=== PATIENT | female | born 1950 | race Caucasian/White ===

== ENCOUNTER → 2024-01-14 14:28 | Outpatient (REF) | payer MEDICARE, OTHER, SELFPAY | LOC: DHCBC MAIN 14:28 | PROVIDERS: ATTENDING PHYSICIAN Internal Medicine Cardiovascular Disease; FAMILY PHYSICIAN Family Medicine | DX: I48.91 Unspecified atrial fibrillation (principal); I34.0 Nonrheumatic mitral (valve) insufficiency; I25.5 Ischemic cardiomyopathy; I50.22 Chronic systolic (congestive) heart failure; Z79.01 Long term (current) use of anticoagulants | CPT/HCPCS: 93308 ==

== ENCOUNTER 2024-05-07 13:24 | Emergency (ER) | payer MEDICARE, OTHER, SELFPAY ==
[2024-05-07 13:50] VITALS: BP 115/58
[2024-05-07 14:14] LABS: % Basophils 0.3 % (0-2); % Eosinophils 2.6 % (0-6); % Immature Granulocytes 0.3 % (0-0.5); % Lymphocytes 9.8 % (20.5-51.1); % Monocytes 9.9 % (1.7-9.3); % Neutrophils 77.1 % (42.2-75.2); Absolute Eosinophils 0.2 10^3/uL (0-0.7); Absolute Lymphocytes 0.8 10^3/uL (1.2-3.4); Absolute Monocytes 0.8 10^3/uL (0.1-0.6); Absolute Neutrophils 5.9 10^3/uL (1.4-6.5); Hematocrit 36.2 % (37.0-47.0); Hemoglobin 10.8 g/dL (12.0-16.0); Mean Corp Hgb Conc. 29.8 g/dL (33.0-37.0); Mean Corpuscular Hgb 24.5 pg (27.0-31.0); Mean Corpuscular Volume 82.3 fL (81.0-99.0); Mean Platelet Volume 10.1 fL (7.4-10.4); Nucleated Red Blood Cells % 0 %; Platelet Count 419 10^3/uL (130-400); Red Cell Dist. Width 19.4 % (11.5-14.5); White Blood Cell Count 7.6 10^3/uL (4.8-10.8)
[2024-05-07 14:16] LABS: Urine Albumin 1+ (Neg - Trace); Urine Bilirubin 1+ (Negative); Urine Character Clear (Clear); Urine Color Yellow; Urine Glucose Negative (Negative); Urine Ketone Negative (Negative); Urine Leukocyte Negative (Negative); Urine Nitrite Negative (Negative); Urine Occult Blood 1+ (Negative); Urine Urobilinogen 1+ (Neg - 1+)
[2024-05-07 14:39] VITALS: BMI 27.4
[2024-05-07 14:52] LABS: ALT (SGPT) 17 U/L (0-35); AST (SGOT) 33 U/L (14-36); Albumin 3.7 g/dl (3.5-5.0); Alkaline Phosphatase 172 U/L (38-126); Blood Urea Nitrogen 41 mg/dl (7-17); Calcium 9.5 mg/dl (8.4-10.2); Carbon Dioxide 20 mmol/L (22-30); Chloride 99 mmol/L (98-107); Estimated Creatinine Clearance 26 ml/min; Glucose 120 mg/dl (70-99); Potassium 4.9 mmol/L (3.5-5.1); Sodium 130 mmol/L (135-145); Total Bilirubin 1.7 mg/dl (0.2-1.3); Total Protein 6.3 g/dl (6.3-8.2); eGFR 34.05
[2024-05-07 15:10] LABS: Urine Amorphous Seen; Urine Mucus Moderate; Urine Urothelial Cell 26-30 /LPF (FEW)
[2024-05-07 15:13] LABS: Urine White Cell 0-2 /HPF (0-5)
[2024-05-07] MEDS: NSS 500 IV (16:31)
--- NOTE | 2024-05-07 17:45 | ED.GENMED ---
History of Present Illness
<DO Simran Gonzalez Last Filed: 05/07/24 23:39>
General
Chief Complaint: Back Pain
Time Seen by Provider: 05/07/24 15:26
<Piedad Mann PA-C - Last Filed: 05/08/24 00:27>
General
Source: patient
Exam Limitations: none
Nursing documentation reviewed up to this point in time: agreed with
History of Present Illness
History of Present Illness:
This is a 73 y/o female with a PMH of CKD 3, alcoholic cirrhosis s/p liver transplant, anemia, afib on digoxin, CAD presenting to the emergency apartment today with right back pain that travels into the right hip. Patient states that this started a
week ago. Patient does not recall what she was doing at the time the pain started but denies history of trauma. Patient states that as the week progressed, the pain has gotten worse. The pain is worse with standing or walking around but generally
subsides when she lies down. She has tried lidocaine patches for the pain with no relief. She is limited in the medication she can take due to her liver transplant. Patient denies paresthesias, abdominal pain, pelvic pain, dysuria, hematuria, nausea
or vomiting, fevers or chills, urinary incontinence, saddle paresthesias, chest pain, shortness of breath.
Past History
<DO Simran Gonzalez Last Filed: 05/07/24 23:39>
Past History
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
ED Past Surgical History: Other (Liver transplant)
Social History
Tobacco: Former smoker
Alcohol: Former
Drug: None
Personal:
Living: with family
Review of Systems
<RICH Dominguez Last Filed: 06/21/24 00:27>
Review of Systems
All Other Systems: ROS reviewed and negative except as documented in HPI and ROS
Phy Exam
<Piedad Mann PA-C - Last Filed: 05/08/24 00:27>
Physical Exam
Physical Exam:
General: Patient is well appearing and in no acute distress
Skin: No ecchymosis, signs or trauma, or rashes on the right flank and right hip
Head: Normocephalic, atraumatic
Eyes: Sclera non-icteric, PERRLA, EOMs intact
Cardiac: Regular rate and rhythm, no murmurs
Peripheral Vascular: No lower extremity swelling or edema.
Pulm: Normal respiratory effort
Abdomen: No tenderness to palpation on exam. No tenderness to palpation in the pelvis. No rebound tenderness, no guarding.
Musculoskeletal: Full ROM of bilateral hip joints. No pain with passive range of motion of hips. No palpable deformities. Negative straight leg raise bilaterally.
Neuro: CN II-XII intact, no focal neurologic deficits. 5/5 strength in bilateral upper extremities.
Psychiatric: Appropriate mood and affect
Course
<Harjeet Benítez DO - Last Filed: 05/07/24 23:39>
Orders/Labs/Results
Orders:
Orders
05/07/24 13:57
Complete Blood Count/With Diff Urgent
Comprehensive Metabolic Panel Urgent
05/07/24 14:09
Urinalysis Reflex To Culture Urgent
Date Specimen was Collected: 05/07/24
Time Specimen was Collected: 13:56
Urine Microscopic Reflex Cult Urgent
05/07/24 15:34
CT Abd/pel Without Iv Or Oral Urgent
Comment:
Reason For Exam: right flank pain, microscopic hematuruia
05/07/24 15:37
0.9% Sodium Chloride 500 ml [Nss] 500 ml IV BOLUS
Abnormal Lab Results
05/07/24 05/07/24
13:57 14:09
Hgb 10.8 L g/dL
(12.0-16.0)
Hct 36.2 L %
(37.0-47.0)
MCH 24.5 L pg
(27.0-31.0)
MCHC 29.8 L g/dL
(33.0-37.0)
RDW 19.4 H %
(11.5-14.5)
Plt Count 419 H 10^3/uL
(130-400)
Absolute Lymphs (auto) 0.8 L 10^3/uL
(1.2-3.4)
Absolute Monos (auto) 0.8 H 10^3/uL
(0.1-0.6)
Neutrophils % 77.1 H %
(42.2-75.2)
Lymphocytes % 9.8 L %
(20.5-51.1)
Monocytes % 9.9 H %
(1.7-9.3)
Sodium 130 L mmol/L
(135-145)
Carbon Dioxide 20 L mmol/L
(22-30)
BUN 41 H mg/dl
(7-17)
Creatinine 1.6 H mg/dL
(0.6-1.0)
Glucose 120 H mg/dl
(70-99)
Total Bilirubin 1.7 H mg/dl
(0.2-1.3)
Alkaline Phosphatase 172 H U/L
(38-126)
Ur Occult Blood Reflex 1+ A
(Negative)
Urine Bilirubin 1+ A
(Negative)
Urine RBC 3-6 A /HPF
(0-2)
Urine Albumin (Reflex) 1+ A
(Neg - Trace)
05/07/24 13:57
05/07/24 13:57
Vital Signs
Initial and Last Documented VS:
Initial Vital Signs
Temp Pulse Resp BP Pulse Ox
98.0 F 104 16 115/58 98
05/07/24 13:50 05/07/24 13:50 05/07/24 13:50 05/07/24 13:50 05/07/24 13:50
Last Documented Vital Signs
Temp Pulse Resp BP Pulse Ox
98.0 F 100 18 157/95 97
05/07/24 13:50 05/07/24 18:00 05/07/24 18:00 05/07/24 18:00 05/07/24 18:00
<Piedad Mann PA-C - Last Filed: 05/08/24 00:27>
Orders/Labs/Results
Orders:
Orders
05/07/24 13:57
Complete Blood Count/With Diff Urgent
Comprehensive Metabolic Panel Urgent
05/07/24 14:09
Urinalysis Reflex To Culture Urgent
Date Specimen was Collected: 05/07/24
Time Specimen was Collected: 13:56
Urine Microscopic Reflex Cult Urgent
05/07/24 15:34
CT Abd/pel Without Iv Or Oral Urgent
Comment:
Reason For Exam: right flank pain, microscopic hematuruia
05/07/24 15:37
0.9% Sodium Chloride 500 ml [Nss] 500 ml IV BOLUS
Abnormal Lab Results
05/07/24 05/07/24
13:57 14:09
Hgb 10.8 L g/dL
(12.0-16.0)
Hct 36.2 L %
(37.0-47.0)
MCH 24.5 L pg
(27.0-31.0)
MCHC 29.8 L g/dL
(33.0-37.0)
RDW 19.4 H %
(11.5-14.5)
Plt Count 419 H 10^3/uL
(130-400)
Absolute Lymphs (auto) 0.8 L 10^3/uL
(1.2-3.4)
Absolute Monos (auto) 0.8 H 10^3/uL
(0.1-0.6)
Neutrophils % 77.1 H %
(42.2-75.2)
Lymphocytes % 9.8 L %
(20.5-51.1)
Monocytes % 9.9 H %
(1.7-9.3)
Sodium 130 L mmol/L
(135-145)
Carbon Dioxide 20 L mmol/L
(22-30)
BUN 41 H mg/dl
(7-17)
Creatinine 1.6 H mg/dL
(0.6-1.0)
Glucose 120 H mg/dl
(70-99)
Total Bilirubin 1.7 H mg/dl
(0.2-1.3)
Alkaline Phosphatase 172 H U/L
(38-126)
Ur Occult Blood Reflex 1+ A
(Negative)
Urine Bilirubin 1+ A
(Negative)
Urine RBC 3-6 A /HPF
(0-2)
Urine Albumin (Reflex) 1+ A
(Neg - Trace)
05/07/24 13:57
05/07/24 13:57
Vital Signs
Initial and Last Documented VS:
Initial Vital Signs
Temp Pulse Resp BP Pulse Ox
98.0 F 104 16 115/58 98
05/07/24 13:50 05/07/24 13:50 05/07/24 13:50 05/07/24 13:50 05/07/24 13:50
Last Documented Vital Signs
Temp Pulse Resp BP Pulse Ox
98.0 F 100 18 157/95 97
05/07/24 13:50 05/07/24 18:00 05/07/24 18:00 05/07/24 18:00 05/07/24 18:00
<Piedad Mann PA-C - Last Filed: 05/08/24 00:27>
MDM/Problems Addressed
Differential Diagnosis Includes:
ddx include lumbar musculoskeletal sprain/strain, nephrolithiasis, trochanteric bursitis, osteoarthritis, AAA,
MDM/Problems Addressed:
Right back/hip pain:
This is a 73 y/o female with a PMH of CKD 3, alcoholic cirrhosis s/p liver transplant, anemia, afib on digoxin, CAD presenting to the emergency apartment today with right back pain that travels into the right hip. On exam, she is well appearing,
VSS, afebrile, negative CVA tenderness, negative straight leg raise, no signs of trauma. CBC demonstrates chronic anemia and no leukocytosis. CMP shows increase in BUN:creatinine, but not far off from baseline, does not meet criteria for INDU. 500 IV
fluid bolus was given.
Considering microscopic hematuria, non-traumatic and unilateral nature of pain, CT of the abdomen and pelvis was obtained which was negative for stone but did show small pleural effusion on right side. Patient states that she has had pleural
effusions in the past while in the hospital. Patient not SOB or hypoxic, stressed repeat imagine and outpt reevaluation. Most likely diagnosis at this point trochanteric bursitis vs musculoskeletal sprain vs strain. Patient limited in what she can
take for pain due to liver transplant. Discussed orthopedic follow up. Patient in agreement with plan.
Chronic conditions affecting care:
CKD 3, alcoholic cirrhosis s/p liver transplant, anemia, afib on digoxin, CAD
Acute Exacerbation and/or Progression of Chronic Illness:
CKD 3, alcoholic cirrhosis s/p liver transplant, anemia, afib on digoxin, CAD
<Piedad Mann PA-C - Last Filed: 05/08/24 00:27>
*Pulse Oximetry
Patient hypoxic: no
*Critical Care Note
Total Time (30-74mins, 75-104mins- exclusive of procedures): Not Applicable
Data Reviewed
Review of Other/Old Records Reveals: Records (reviewed most recent hospital discharge summary, reviewed patient's hx of kidney disease and renal artery stenosis )
Source: patient
Prescriptions/Medications Considered But Not Given:
Consideried NSAIDs/steroids however patient is a transplant patient
Further Testing Considered But Not Given:
n/a
<Piedad Mann PA-C - Last Filed: 05/08/24 00:27>
Patient Management
Social determinants of health affecting care: Strong social support
Escalation/DeEscalation of care consider admission/obs:
Admit not indicated. I discussed this case with my attending Dr. Benítez who is in agreement with plan.
ED Attending Note
<Harjeet Benítez DO - Last Filed: 05/07/24 23:39>
ED Attending Note
Patient seen and examined by attending physician: Yes
I performed the substantive portion of visit, reviewed & personally made and approve the management plan that is documented in note by myself or ROSE.: Yes
-
Portions of this chart may have been created with voice recognition software.� Occasional wrong word or��sound alike� substitutions may have occurred due to the inherent limitations of voice recognition software.
Discharge Plan
Departure
Patient Disposition: Home (Routine Discharge)
Date of Disposition: 05/07/24
Time of Disposition: 17:57
Patient with high blood pressure during this ER visit?: No
Condition: Good
Discharge Problem:
Hip pain, right
Instructions: Muscle and bone pain - Discharge instructions, BLOOD PRESSURE
Prescriptions:
No Action
cyclosporine modified [Gengraf] 25 mg Capsule
50 mg PO BID
Patient Comments:
10/30/23-- brand name Gengraf only; filled from pharmacy for 4 caps (100mg) po BID; pt reports she is currently instructed to take 2 caps (50mg) po BID
prednisone 5 mg tablet
5 mg PO DAILY
calcium carbonate-vitamin D3 500 mg-3.125 mcg (125 unit) Tablet
1 tab PO BID
sennosides [senna] 8.6 mg Tablet
8.6 mg PO BIDPRN PRN (Reason: constipation)
mycophenolate mofetil 500 mg Tablet
500 mg PO BID
metoprolol succinate 50 mg Tablet Extended Release 24 Hr
100 mg PO BID Qty: 60 0RF
cyanocobalamin (vitamin B-12) 1,000 mcg Tablet
1,000 mcg PO DAILY Qty: 100 0RF
pantoprazole 40 mg Tablet,Delayed Release (Dr/Ec)
40 mg PO DAILY Qty: 30 0RF
ferrous sulfate [FeroSul] 325 mg (65 mg iron) Tablet
325 mg PO DAILY Qty: 100 0RF
digoxin 125 mcg (0.125 mg) Tablet
125 mcg PO NOON Qty: 30 0RF
lisinopril 2.5 mg Tablet
2.5 mg PO DAILY Qty: 30 0RF
furosemide 40 mg tablet
40 mg PO DAILY Qty: 30 0RF
dabigatran etexilate [Pradaxa] 75 mg capsule
75 mg PO BID Qty: 60 0RF
Referrals:
Danii Barclay MD [Family Provider] -
Dereck Shah MD [Active] - Call in 1-3 days for appt
Activity Restrictions/Additional Instructions:
Please return to the emergency department should you experience fevers or chills, an acute worsening of your pain, dizziness, lightheadedness, chest pain, intractable vomiting, or any other concerning signs or symptoms.
Your CT scan demonstrated a small right sided pleural effusion which you should follow up with your primary care provider for and have repeat imaging, but no evidence of hip fracture, spinal fracture, kidney stone.
Please call the attached number to schedule an appointment for orthopedic follow up.
Interventions
Interventions:
*Risk Screen - Suicide Last Done: 05/07/24 14:39
*General Assessment Last Done: 05/07/24 14:39
*Neglect/Abuse Screening Last Done: 05/07/24 14:39
ED- Fall Risk Assessment Last Done: 05/07/24 14:39
*ED COVID-19 Vaccine History Last Done: 05/07/24 13:50
*Nursing Disposition Last Done: 05/07/24 18:22
ED-Musculoskeletal Assessment Last Done: 05/07/24 14:39
Discharge Date and Time
Discharge Date/Time: 05/07/24 18:22
Print Language: IRISH
[2024-05-07 18:00] VITALS: BP 157/95
== END 2024-05-07 18:22 | disposition home or self-care (01) ==
LOC: EMR 13:24
PROVIDERS: Emergency Medicine; EMERGENCY PHYSICIAN Emergency Medicine; FAMILY PHYSICIAN Family Medicine
DX: M25.551 Pain in right hip (principal); I12.9 Hypertensive chronic kidney disease with stage 1 through stage 4 chronic kidney disease, or unspecified chronic kidney disease; N18.30 Chronic kidney disease, stage 3 unspecified; K70.30 Alcoholic cirrhosis of liver without ascites; Z94.4 Liver transplant status; D64.9 Anemia, unspecified; I48.91 Unspecified atrial fibrillation; I25.10 Atherosclerotic heart disease of native coronary artery without angina pectoris
CPT/HCPCS: 99284; 96360; 74176; 80053; 81003; 81015; 85025

== ENCOUNTER → 2024-05-12 11:56 | Outpatient (REF) | payer MEDICARE, OTHER, SELFPAY ==
--- NOTE | 2024-05-12 14:12 | CARDSERVDEF ---
Echocardiogram with Definity completed after protocol screening completed. Allergies verified.
Patent IV site: Right dorsal venous arch __22G PC___
IV site flushed with 0.9% NaCl pre and post administration.
Diluted bolus method utilized to enhance visualization of ventricular blackmon.
Total volume given: ___3_ mL
Patient tolerated all procedures well without complications.
Heplock D/C ed at 1411, site clear, no redness, no edema. Pressure held for few minutes as pt on anticoagulants. No bleeding, 2x2 applied and taped. Pt offers no complaints.
== END ==
LOC: RCS 11:56
PROVIDERS: ATTENDING PHYSICIAN Internal Medicine Cardiovascular Disease; FAMILY PHYSICIAN Family Medicine
DX: I48.91 Unspecified atrial fibrillation (principal); I25.5 Ischemic cardiomyopathy; I50.22 Chronic systolic (congestive) heart failure; R06.02 Shortness of breath
CPT/HCPCS: 93308; 93321; 93325; Q9957

== ENCOUNTER → 2024-06-01 09:01 | Outpatient (REF) | payer MEDICARE, OTHER, SELFPAY | LOC: HWWDC 09:01 | PROVIDERS: ATTENDING PHYSICIAN Family Medicine | DX: Z12.31 Encounter for screening mammogram for malignant neoplasm of breast (principal) | CPT/HCPCS: 77063; 77067 ==

== ENCOUNTER → 2024-07-21 06:26 | Day surgery (SDC) | payer MEDICARE, OTHER, SELFPAY ==
[2024-07-08 08:47] VITALS: BMI 25.9
[2024-07-21] VITALS (10 sets, daily range): BP systolic 128–157; BP diastolic 81–137
--- NOTE | 2024-07-21 08:52 | W.PN.UPDATE ---
Update Note
Progress Note Update
Patient was evaluated and consented for AFib/Flutter ablation. She has a hx of CAL clot and liver transplant. She has severe systolic dysfunction and was recommended a rhythm control strategy for her AFib/Flutter. She underwent for the GA and ALICE.
ALICE showed residual CAL clot still present after almost a year of anticoagulation with Pradaxa.
She has been compliant with Pradaxa. The CAL clot has much improved but not resolved completely. There is also extremely sluggish flow and spontaneous contrast noted in the CAL.
Discussed her case with GI (Dr. Ge Simmons) and decided to change Pradaxa to Warfarin. Will overlap two days of Pradaxa and warfarin to get INR little therapeutic.
If Patient agrees then can consider ALICE in 3-6 months and proceed with AF ablation.
Given the extent of CAL and spontaneous contrast, she should also consider placing a CAL occluder like Watchman to prevent any further blood clots as with her liver transplant and sluggish flow, she would remain at higher risk for repeat CAL clot.
Consider Watchman once clot is gone.
== END | disposition home or self-care (01) ==
LOC: CATH 06:26
PROVIDERS: ATTENDING PHYSICIAN Internal Medicine Cardiovascular Disease; FAMILY PHYSICIAN Family Medicine; OTHER PHYSICIAN Internal Medicine
DX: I08.1 Rheumatic disorders of both mitral and tricuspid valves (principal); I48.91 Unspecified atrial fibrillation; I25.10 Atherosclerotic heart disease of native coronary artery without angina pectoris; I12.9 Hypertensive chronic kidney disease with stage 1 through stage 4 chronic kidney disease, or unspecified chronic kidney disease; N18.30 Chronic kidney disease, stage 3 unspecified; E78.00 Pure hypercholesterolemia, unspecified; Z87.891 Personal history of nicotine dependence; Z79.01 Long term (current) use of anticoagulants
CPT/HCPCS: 93312; 93320; 93325

== ENCOUNTER → 2024-07-30 14:06 | Outpatient (REF) | payer MEDICARE, OTHER, SELFPAY ==
[2024-07-30 15:04] LABS: INR 5.09
== END ==
LOC: REG 14:06
PROVIDERS: ATTENDING PHYSICIAN Internal Medicine Cardiovascular Disease; FAMILY PHYSICIAN Family Medicine
DX: I48.91 Unspecified atrial fibrillation (principal)
CPT/HCPCS: 36415; 85610

== ENCOUNTER 2024-10-05 13:28 | Inpatient (IN) | payer MEDICARE, OTHER, SELFPAY ==
[2024-10-05] VITALS (11 sets, daily range): BP systolic 91–168; BP diastolic 54–110; BMI 29.7
--- NOTE | 2024-10-05 10:01 | ED.GENMED ---
History of Present Illness
<An Rubio MD, Resident - Last Filed: 10/05/24 12:14>
General
Chief Complaint: Swelling
Source: patient
Exam Limitations: none
Time Seen by Provider: 10/05/24 09:37
History of Present Illness
History of Present Illness:
This is a 74-year-old female patient with PMH of atrial fibrillation on warfarin, HTN, CKD, liver transplant in 2007 and Hx of CVA who presented to the ED with concerns of leg swelling. She stated that 3 days ago she started to notice that both of
her lower extremities had become more red and started to weep clear discharge. Her lower extremities have not worsened in regard to swelling compared to her normal baseline (usually swollen). 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 She denies any fever, chest pain, or abdominal pain. She states that she is very diligent with her medication. She had been on a short course of furosemide outpatient in the past for swelling but
does not take it on a daily basis.
Past History
<An Rubio MD, Resident - Last Filed: 10/05/24 12:14>
Past History
ED Past Medical History: Arrthythmia (Atrial fibrillation), CHF, CVA, GERD, HTN, Hypercholesterolemia, ME and Other (Alcoholic cirrhosis, Kawasaki's, anemia, renal artery stenosis, thrombus in the distal aortic arch,)
ED Past Surgical History: Other (Liver transplant in 2007)
Social History
Tobacco: Former smoker
Alcohol: Former
Drug: None
Personal:
Living: with family
Review of Systems
<An Rubio MD, Resident - Last Filed: 10/05/24 12:14>
Review of Systems
Constitutional: Denies fever or chills
Respiratory: Reports trouble breathing
Cardiac: Denies chest pain
ABD/GI: Reports constipated
: Denies dysuria
Phy Exam
<An Rubio MD, Resident - Last Filed: 10/05/24 12:14>
General Physical Exam
General Presentation: well appearing and no apparent distress
Cardiovascular Exam
Cardiovascular Exam: tachycardia
Heart Sounds: normal
Pulmonary Exam
Pulmonary Exam: lungs clear
Gastrointestinal Exam
Gastrointestinal Exam: non tender, soft and non distended
Musculoskeletal Exam
Musculoskeletal Exam: edema (Bilateral lower extremity edema with weeping clear discharge)
Skin Exam
Skin Exam: warm/dry
Psychiatric Exam
Psychiatric Exam: normal mood/affect
Scores
<An Rubio MD, Resident - Last Filed: 10/05/24 12:14>
Heart Failure Risk
Heart Failure Risk Score: Yes
History of Stroke or TIA: Yes
History of intubation for respiratory distress: No
Heart rate on ED arrival >/= 110: Yes
SaO2 <90% on arrival on room air: No
HR >/=110 during 3min walk test (or too ill to perform test): Yes
ECG has acute ischemic changes: No
Urea >/=12mmol/L (BUN 33.6mg/dL): No
Serum CO2>/=35mmol/L: No
Troponin I or T elevated to ME Level (0.4mg/dL): Yes
NT-proBNP >/=5,000ng/L (5,000pg/ml): Yes
HF Risk Score: 6
Admission Status: VERY HIGH RISK 55.3% Consider admission to hospital
<Keaton Sexton, DO - Last Filed: 10/05/24 12:17>
Heart Failure Risk
HF Risk Score: 6
Admission Status: VERY HIGH RISK 55.3% Consider admission to hospital
Course
<An Rubio, MD, Resident - Last Filed: 10/05/24 12:14>
Orders/Labs/Results
Orders:
Orders
10/05/24 09:25
ECG [Electrocardiogram (*1)] Urgent
Reason for Study: Palpitations
EKG- Treatment ONCE
10/05/24 09:58
Metoprolol [Lopressor] 5 mg IV NOW STA
10/05/24 09:59
CR Chest - 2 Views Urgent
Comment:
Reason For Exam: SOB, weight gain
10/05/24 10:09
Complete Blood Count/With Diff Urgent
Prothrombin Time Urgent
10/05/24 11:17
Comprehensive Metabolic Panel Urgent
NT-proBNP Urgent
Troponin I Urgent
10/05/24 12:00
Aspirin Chewable [Low Strength Aspirin] 324 mg PO NOW STA
Furosemide [Lasix] 40 mg IV NOW STA
Metoprolol [Lopressor] 5 mg IV NOW STA
Abnormal Lab Results
10/05/24 10/05/24
10:09 11:17
Hct 47.5 H %
(37.0-47.0)
MCHC 29.5 L g/dL
(33.0-37.0)
RDW 18.3 H %
(11.5-14.5)
MPV 11.2 H fL
(7.4-10.4)
Absolute Monos (auto) 0.8 H 10^3/uL
(0.1-0.6)
Lymphocytes % 15.8 L %
(20.5-51.1)
PT 20.7 H Sec
(11.4-14.6)
Potassium 5.3 H mmol/L
(3.5-5.1)
Chloride 112 H mmol/L
(98-107)
Carbon Dioxide 19 L mmol/L
(22-30)
BUN 58 H mg/dl
(7-17)
Creatinine 1.8 H mg/dL
(0.6-1.0)
Glucose 119 H mg/dl
(70-99)
Total Bilirubin 1.8 H mg/dl
(0.2-1.3)
AST 39 H U/L
(14-36)
Alkaline Phosphatase 181 H U/L
(38-126)
Troponin I 0.041 H* ng/ml
10/05/24 10:09
10/05/24 11:17
Vital Signs
Initial and Last Documented VS:
Initial Vital Signs
Temp Pulse Resp BP Pulse Ox
97.6 F 130 16 168/110 99
10/05/24 09:26 10/05/24 09:26 10/05/24 09:26 10/05/24 09:26 10/05/24 09:26
Last Documented Vital Signs
Temp Pulse Resp BP Pulse Ox
97.6 F 109 24 138/91 95
10/05/24 09:26 10/05/24 12:05 10/05/24 11:30 10/05/24 12:05 10/05/24 11:30
<Keaton Sexotn, DO - Last Filed: 10/05/24 12:17>
Orders/Labs/Results
Orders:
Orders
10/05/24 09:25
ECG [Electrocardiogram (*1)] Urgent
Reason for Study: Palpitations
EKG- Treatment ONCE
10/05/24 09:58
Metoprolol [Lopressor] 5 mg IV NOW STA
10/05/24 09:59
CR Chest - 2 Views Urgent
Comment:
Reason For Exam: SOB, weight gain
10/05/24 10:09
Complete Blood Count/With Diff Urgent
Prothrombin Time Urgent
10/05/24 11:17
Comprehensive Metabolic Panel Urgent
NT-proBNP Urgent
Troponin I Urgent
10/05/24 12:00
Aspirin Chewable [Low Strength Aspirin] 324 mg PO NOW STA
Furosemide [Lasix] 40 mg IV NOW STA
Metoprolol [Lopressor] 5 mg IV NOW STA
Abnormal Lab Results
10/05/24 10/05/24
10:09 11:17
Hct 47.5 H %
(37.0-47.0)
MCHC 29.5 L g/dL
(33.0-37.0)
RDW 18.3 H %
(11.5-14.5)
MPV 11.2 H fL
(7.4-10.4)
Absolute Monos (auto) 0.8 H 10^3/uL
(0.1-0.6)
Lymphocytes % 15.8 L %
(20.5-51.1)
PT 20.7 H Sec
(11.4-14.6)
Potassium 5.3 H mmol/L
(3.5-5.1)
Chloride 112 H mmol/L
(98-107)
Carbon Dioxide 19 L mmol/L
(22-30)
BUN 58 H mg/dl
(7-17)
Creatinine 1.8 H mg/dL
(0.6-1.0)
Glucose 119 H mg/dl
(70-99)
Total Bilirubin 1.8 H mg/dl
(0.2-1.3)
AST 39 H U/L
(14-36)
Alkaline Phosphatase 181 H U/L
(38-126)
Troponin I 0.041 H* ng/ml
10/05/24 10:09
10/05/24 11:17
Vital Signs
Initial and Last Documented VS:
Initial Vital Signs
Temp Pulse Resp BP Pulse Ox
97.6 F 130 16 168/110 99
10/05/24 09:26 10/05/24 09:26 10/05/24 09:26 10/05/24 09:26 10/05/24 09:26
Last Documented Vital Signs
Temp Pulse Resp BP Pulse Ox
97.6 F 109 24 138/91 95
10/05/24 09:26 10/05/24 12:05 10/05/24 11:30 10/05/24 12:05 10/05/24 11:30
<An Rubio MD, Resident - Last Filed: 10/05/24 12:14>
*Critical Care Note
Total Time (30-74mins, 75-104mins- exclusive of procedures): 31
<Keaton Sexton DO - Last Filed: 10/05/24 12:17>
*Critical Care Note
comment:
The high probability of a clinically significant, sudden or life threatening deterioration of the cardiopulmonary system(s) required my full and direct attention, intervention and personal management. The aggregate critical care time was 31 minutes.
This time is in addition to time spent performing reported procedures but includes the following:
[x] Data Review and interpretation
[x] Patient assessment and monitoring of vital signs
[x] Documentation
[x] Medication orders and management
<An Rubio MD, Resident - Last Filed: 10/05/24 12:14>
Update Note
Update Note:
CBC without significant findings. CMP shows hyperkalemia at 5.3. Chest x-ray shows right-sided pleural effusion. Patient had similar findings last year in 2022 and had underwent thoracocentesis. CMP with creatinine of 1.8, troponin elevated at
0.041. Given IV Lasix, IV Metoprolol and aspirin. Will admit patient due to recurrent pleural effusion.
<Keaton Sexton DO - Last Filed: 10/05/24 12:17>
Update Note
Update Note:
CBC without significant findings. CMP shows hyperkalemia at 5.3. Chest x-ray shows right-sided pleural effusion. Patient had similar findings last year in 2022 and had underwent thoracocentesis. CMP with creatinine of 1.8, troponin elevated at
0.041. Given IV Lasix, IV Metoprolol and aspirin. Will admit patient due to recurrent pleural effusion.
12:15 PM patient requiring multiple doses of IV metoprolol to help rate control. Patient found to have an elevated troponin which is likely rate related. Regardless, INR is subtherapeutic so will give aspirin. Patient has a large right pleural
effusion which has required drainage in the past. Will give IV Lasix. Given her comorbidities and uncontrolled heart rate with evidence of acute heart failure, will admit
ED Attending Note
<An Rubio MD, Resident - Last Filed: 10/05/24 12:14>
-
Portions of this chart may have been created with voice recognition software.� Occasional wrong word or��sound alike� substitutions may have occurred due to the inherent limitations of voice recognition software.
<Keaton Sexton, DO - Last Filed: 10/05/24 12:17>
ED Attending Note
Patient seen and examined by attending physician: Yes
I performed a history and physical exam of patient and discussed management with resident, I reviewed resident's note and agree with documented findings and plan of care.: Yes
ED Attending Note:
I have seen and evaluated the patient with a [id number] encounter. I have spoken to the advance practicer provider and involved in the medical history, the physical exam, medical decision making.
Evaluation and management service: agree unless noted differently below.
Results interpretation: agree unless noted differently below.
Focused HPI: 74-year-old female presenting for evaluation of palpitations and bilateral lower extremity swelling. She states she does have a history of chronic A-fib. Patient is on Coumadin and claims compliance. I questioned her use of Lasix.
Patient states she was placed on a short course of Lasix last time she was admitted but never prescribed it.
Physical exam: Sitting in bed comfortably. Tachycardic and irregular. Bilateral lower extremities with skin changes consistent with venous stasis. Pulses intact
Medical Decision Making: Will give metoprolol to help rate control her chronic A-fib. Will obtain chest x-ray looking for any evidence of pulmonary edema.
Discharge Plan
Departure
Patient Disposition: Admit
Date of Disposition: 10/05/24
Time of Disposition: 12:07
Admit to: Telemetry
Presentation/result/management discussed w/ accepting MD/DO: Hospitalist
Discharge Problem:
Recurrent pleural effusion, Acute hyperkalemia, Persistent atrial fibrillation, Stage 3a chronic kidney disease (CKD), Essential (primary) hypertension, Hypercholesterolemia
Prescriptions:
No Action
cyclosporine modified [Gengraf] 25 mg Capsule
50 mg PO DAILY
Patient Comments:
10/05/24: brand name Gengraf only
Rx Instructions:
10/05/24: brand name Gengraf only
prednisone 5 mg tablet
5 mg PO DAILY
valsartan 80 mg Tablet
80 mg PO DAILY
cyclosporine modified 25 mg capsule
25 mg PO QPM
Patient Comments:
10/05/24: brand name Gengraf only
Rx Instructions:
10/05/24: brand name Gengraf only
mycophenolate mofetil 250 mg capsule
250 mg PO BID
metoprolol succinate 100 mg tablet extended release 24 hr
100 mg PO BID
warfarin [Jantoven] 2.5 mg tablet
2.5 mg PO MO
warfarin [Jantoven] 2.5 mg tablet
1.25 mg PO SUTUWETHFRSA
mycophenolate mofetil 500 mg tablet
500 mg PO BID
Patient Comments:
take w/250mg = 750mg dose
calcium carbonate [Calcium 500] 500 mg calcium (1,250 mg) Tablet
500 mg PO BID
furosemide 40 mg tablet
40 mg PO DAILY PRN (Reason: weight gain >3lb per day)
cyanocobalamin (vitamin B-12) 1,000 mcg tablet
1,000 mcg PO Q48H
pantoprazole 40 mg tablet,delayed release (DR/EC)
40 mg PO DAILY
ferrous sulfate [FeroSul] 325 mg (65 mg iron) tablet
325 mg PO DAILY
digoxin 125 mcg (0.125 mg) tablet
125 mcg PO DAILY PRN (Reason: for heart rate>130)
Referrals:
Danii Barclay MD [Family Provider] -
Interventions
Interventions:
*Risk Screen - Suicide Last Done: 10/05/24 09:51
*General Assessment Last Done: 10/05/24 09:51
*Neglect/Abuse Screening Last Done: 10/05/24 09:51
ED- Fall Risk Assessment Last Done: 10/05/24 09:51
*ED COVID-19 Vaccine History Last Done: 10/05/24 09:51
ED- Cardiac Assessment Last Done: 10/05/24 10:18
ED- Pulmonary Assessment Last Done: 10/05/24 10:18
ED-Skin Assessment Last Done: 10/05/24 10:18
Discharge Date and Time
Print Language: PERSIAN
[2024-10-05] MEDS: LOPRESSOR 5 MG IV ×2 (10:13→12:05)
[2024-10-05 10:19] LABS: % Basophils 0.4 % (0-2); % Immature Granulocytes 0.5 % (0-0.5); % Lymphocytes 15.8 % (20.5-51.1); % Monocytes 9.2 % (1.7-9.3); % Neutrophils 71.1 % (42.2-75.2); Absolute Eosinophils 0.3 10^3/uL (0-0.7); Absolute Lymphocytes 1.3 10^3/uL (1.2-3.4); Absolute Monocytes 0.8 10^3/uL (0.1-0.6); Hematocrit 47.5 % (37.0-47.0); Mean Corp Hgb Conc. 29.5 g/dL (33.0-37.0); Mean Corpuscular Volume 91.7 fL (81.0-99.0); Mean Platelet Volume 11.2 fL (7.4-10.4); Nucleated Red Blood Cells % 0 %; Platelet Count 263 10^3/uL (130-400); Red Blood Cell Count 5.18 10^6/uL (4.20-5.40); Red Cell Dist. Width 18.3 % (11.5-14.5); White Blood Cell Count 8.4 10^3/uL (4.8-10.8)
[2024-10-05 10:28] LABS: INR 1.76; PT 20.7 Sec (11.4-14.6)
[2024-10-05 11:42] LABS: ALT (SGPT) 26 U/L (0-35); AST (SGOT) 39 U/L (14-36); Albumin 3.6 g/dl (3.5-5.0); Alkaline Phosphatase 181 U/L (38-126); Blood Urea Nitrogen 58 mg/dl (7-17); Calcium 9.8 mg/dl (8.4-10.2); Carbon Dioxide 19 mmol/L (22-30); Chloride 112 mmol/L (98-107); Estimated Creatinine Clearance 24 ml/min; Glucose 119 mg/dl (70-99); Potassium 5.3 mmol/L (3.5-5.1); Sodium 145 mmol/L (135-145); Total Bilirubin 1.8 mg/dl (0.2-1.3); Total Protein 6.4 g/dl (6.3-8.2); eGFR 29.38
[2024-10-05 11:56] LABS: NT-proBNP > 27000 pg/ml; Troponin I 0.041 ng/ml
[2024-10-05] MEDS: LOW STRENGTH ASPIRIN 324 MG PO (12:05)
[2024-10-05] MEDS: LASIX 40 MG IV ×2 (12:05→16:27)
--- NOTE | 2024-10-05 12:29 | HPS.HSE ---
Family Physician
-
Family Physician: Danii Barclay
Chief Complaint
-
Lower Extremity Edema
History of Present Illness
Patient is a 74 y/o female past medical history of cardiomyopathy with EF 20-25%, valvular heart failure, paroxysmal atrial fibrillation, cirrhosis s/p liver transplant, and chronic kidney disease who presents with increased lower extremity edema
over the past few days. Patient reports with the increased leg edema she has noticed some weeping of the legs. She reports increased dyspnea on exertion and weight gain of 6lbs over the past few days. She also notes a slight chest tightness, but
denies pleuritic pain. She denies fever, sweats or chills.
Medical History
Past Medical History
Past Medical History: Reports Other
Additional Past Medical History:
Chronic HFrEF
Valvular Heart Disease: Moderate/Severe Mitral Regurgitation. Severe Tricuspid Regurgitation
Severe Pulmonary Hypertension
Paroxysmal Atrial Fibrillation
Mural Thrombus Distal Aortic Arch
Left Atrial Appendage Thrombus
Renal Artery Stenosis s/p Bilateral Renal Artery Stenting
Essential Hypertension
Hyperlipidemia
Alcoholic Cirrhosis s/p Liver Transplant
Portal Vein Thrombosis
Right Pleural Effusion
CKD Stage IIIB
GI Bleed
Erythema Nodosum
Past Surgical History: Reports Other
Additional Past Surgical History:
Liver Transplant 2007
Bilateral Renal Artery Stent
Social History
Tobacco: Other (Remote smoking history)
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
Family History
Family History: Not pertinent
Allergies / Home Medications
Allergies reflects when Allergies were last updated in [employer].
Home Medications with original date entered in [employer]
Allergy/Medication List:
Allergies
Allergy/AdvReac Type Severity Reaction Status Date / Time
No Known Allergies Allergy Verified 05/07/24 13:52
Home Medications
cyclosporine modified 25 mg capsule (Gengraf) 50 mg PO DAILY post liver transplant 07/26/22
prednisone 5 mg tablet 5 mg PO DAILY post liver transplant 10/06/23
valsartan 80 mg tablet 80 mg PO DAILY Blood Pressure 07/21/24
calcium carbonate 500 mg PO BID Supplement 10/05/24
cyanocobalamin (vitamin B-12) 1,000 mcg tablet 1,000 mcg PO Q48H Supplement 10/05/24
cyclosporine modified 25 mg capsule 25 mg PO QPM post liver transplant 10/05/24
digoxin 125 mcg (0.125 mg) tablet 125 mcg PO DAILY PRN for heart rate>130 10/05/24
ferrous sulfate 325 mg (65 mg iron) tablet (FeroSul) 325 mg PO DAILY Supplement 10/05/24
furosemide 40 mg tablet 40 mg PO DAILY PRN weight gain >3lb per day 10/05/24
metoprolol succinate 100 mg tablet,extended release 24 hr 100 mg PO BID Heart Disease/Condition 10/05/24
mycophenolate mofetil 250 mg capsule 250 mg PO BID post liver transplant 10/05/24
mycophenolate mofetil 500 mg tablet 500 mg PO BID post liver transplant 10/05/24
pantoprazole 40 mg tablet,delayed release 40 mg PO DAILY Gastrointestinal Issue 10/05/24
warfarin 2.5 mg tablet (Jantoven) 1.25 mg PO SUTUWETHFRSA Blood Clot Prevention/Tx 10/05/24
warfarin 2.5 mg tablet (Jantoven) 2.5 mg PO MO Blood Clot Prevention/Tx 10/05/24
Review of Systems
-
A 12 point ROS was completed and negative except as noted: Yes
Constitutional: Reports Weight Gain; Denies Fever or Chills
Respiratory: Reports Trouble Breathing; Denies Cough
Cardiac: Reports Chest Pain; Denies Palpitations
Abdomen/GI: Denies Abdominal Pain, Nausea or Vomiting
Musculoskeletal: Reports Edema
Physical Exam
Vital Signs
Vital Signs
Temp Pulse Resp BP Pulse Ox
97.6 F 109 24 138/91 95
10/05/24 09:26 10/05/24 12:05 10/05/24 11:30 10/05/24 12:05 10/05/24 11:30
Physical Exam
General: Comfortable and Conversant
HEENT: Anicteric and Moist mucous membranes
Respiratory: Non Labored Respirations and Other (Absent breath sounds right base, Few scattered Rales)
Cardiac: S1/S2, Irregular Rhythm and Tachycardia
GI: Soft and Non Tender
Rectal: Deferred by Provider
Musculoskeletal: No Clubbing, No Cyanosis and Other (+3 pitting edema RLE, +2 pitting LLE)
Skin: Warm and Dry
Neuro: Awake, Alert, Oriented and Nonfocal/grossly intact
Psych: Calm
Laboratory Results
-
10/05/24 10:09
10/05/24 11:17
Laboratory Results
PT 20.7 Sec (11.4-14.6) H 10/05/24 10:09
INR 1.76 10/05/24 10:09
Total Bilirubin 1.8 mg/dl (0.2-1.3) H 10/05/24 11:17
AST 39 U/L (14-36) H 10/05/24 11:17
ALT 26 U/L (0-35) 10/05/24 11:17
Alkaline Phosphatase 181 U/L (38-126) H 10/05/24 11:17
Troponin I 0.041 ng/ml H* 10/05/24 11:17
Chest X-Ray:
Moderate right pleural effusion with associated atelectasis and/or pneumonia.
Echo April 2024:
Severely reduced left ventricular systolic function with EF 20-25%. Moderate/Severe Mitral Regurgitation. Severe Tricuspid Regurgitation. Severe Pulmonary Hypertension
Data Reviewed
-
Diagnostic Radiology: Report Reviewed by me
Lab Data: Labs Reviewed by me
Old Records: Reviewed
Impression/Plan
-
Acute on Chronic HFrEF
-Consult Cardiology
-Continue Lasix 40mg IV BID
-Monitor Is&Os and Daily Weights
-Check Lower Extremity Venous Doppler
Right Pleural Effusion
-Consult IR for diagnostic and therapeutic thoracentesis
Atrial Fibrillation with Rapid Ventricular Response
-Patient did not take her morning med
-Give dose of usual Metoprolol XL 100mg as well as Digoxin which patient takes PRN
-Continue Metoprolol XL 100mg BID
-Consider changing Digoxin from PRN to Standing - Will defer to Cardiology
-Continue Coumadin
Elevated Troponin, suspect Non-Ischemic Myocardial Injury
-Continue to trend Troponin
Mural Thrombus Distal Aortic Arch / Left Atrial Appendage Thrombus / Portal Vein Thrombosis
-INR slightly subtherapeutic - Give 2.5mg Tonight and Recheck INR in AM
CKD Stage IIIB
-Monitor creatinine closely while on diuretics
Essential Hypertension
-Hold Valsartan due to mild hyperkalemia
Alcoholic Cirrhosis s/p Liver Transplant
-Continue Cyclosporine and Mycophenolate
Erythema Nodosum
-Continue Prednisone
Other Noted History:
-Valvular Heart Disease: Moderate/Severe Mitral Regurgitation. Severe Tricuspid Regurgitation
-Severe Pulmonary Hypertension
-Renal Artery Stenosis s/p Bilateral Renal Artery Stenting
DVT proph: Coumadin
Code Status: Full Code
[2024-10-05] MEDS: LANOXIN 125 MCG PO (13:03)
[2024-10-05] MEDS: TOPROL XL 100 MG PO ×2 (13:03→20:46)
--- NOTE | 2024-10-05 13:12 | W.PN.UPDATE ---
Update Note
Progress Note Update
This is an addendum to the H&P written by Liza Yu on 10/05/2024.� Patient seen and examined independently with PA.
84-year-old male past medical history of atrial fibrillation on Coumadin, chronic HFrEF, hypertension, CAD, alcoholic cirrhosis status post liver transplant 2007 on immunosuppressant, history of GI bleeding, history of CVA, GERD,
hypercholesterolemia, chronic kidney disease 3b, renal artery stenosis, left atrial appendage thrombus,�distal aortic arch thrombus, portal vein thrombus�presenting for leg swelling, shortness of breath.�
On examination patient has bilateral lower extremity edema particularly worse on the right side.
EKG shows atrial fibrillation with RVR with heart rate of 126.� Labs show chronic kidney disease with creatinine 1.8, potassium 5.3.� Cardiac BNP greater than 20,000.� Troponin 0.041.� INR 1.7.� Chest x-ray shows moderate right pleural effusion.
Presentation consistent with acute on chronic CHF exacerbation.� IV metoprolol given for heart rate control.� Aspirin given although no evidence of ischemia at this time.� 40 IV Lasix BID.� Cardiology consulted.� IR consulted for thoracentesis.�
Check bilateral venous ultrasound to evaluate for DVT given asymmetrical leg swelling.
Appears that Patient was on Eliquis 2 years and Pradaxa last year switched to Coumadin in July of this year due to persistent left atrial appendage thrombus.��Patient is�being considered�for watchmen procedure by cardiology.��
--- NOTE | 2024-10-05 13:19 | CON.CAR ---
Addendum entered and electronically signed by Drew Van MD 10/05/24 16:33:
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
and right pleural effusion. She ran out of lasix at home. Exam with irregular rhythm, II/ systolic murmur at apex, 1+ LE edema. Cr 1.8.
Acute on chronic systolic HF. Continue lasix 40mg IV bid, with monitoring of labs and tele. She will need daily lasix on d/c.
Persistent A fib. CAL thrombus. INR subtherapeutic. Heparin drip until INR above 2.
Original Note:
Consultation
Consultation Request
Date/Time Consultation Requested: 10/05/2024 13:00
Date/Time Consultation Performed: 10/05/2024 13:20
Requesting Provider: RICH Yu
Performing Provider: THELMA Kelly for Dr. Van
Reason for Consultation: Atrial fibrillation with rapid ventricular response, acute heart failure
Medical History
-
Chief Complaint: Lower extremity edema
History of Present Illness:
Nu Rosales is a 74-year-old female (known to Dr. Jones, her primary commodity merchant), with history of liver transplant 2007 (prior ETOH abuse, sobriety since 2005), hypertension, dyslipidemia, TIA, paroxysmal atrial fibrillation (on warfarin),
chronic systolic heart failure, ICM, mild to moderate MR, mild to moderate TR, CAL thrombus, and PAD with renal artery stenting who is here with a chief complaint of lower extremity edema. She endorses associated shortness of breath. She reports a
weight gain of approximately 10 pounds on her home scale. She knows to take furosemide if she gains 3 pounds overnight or 5 pounds in 5 days. She did not take any furosemide because she ran out. She has no chest pain. Cardiology has been
consulted for heart failure management and assistance with atrial fibrillation.
Past Medical History
Past Medical History: Arrhythmias (Paroxysmal atrial fibrillation [on warfarin]), CAD ([employer]ILDR[employer] SERVICE WORK[employer]), CHF (HFrEF, ICM), GERD, HTN, Hypercholesterolemia, Valvular Disease (Mitral regurgitation, tricuspid regurgitation) and Other (Liver transplant [2007],
PAD, renal artery stenting, TIA)
Past Surgical History: Other (Hernia repair, liver transplant)
Social History
Tobacco: Former Smoker
Alcohol: Former
Drug: None
Living: With Family (Sister)
Employment: Retired
Family History
Family History: Reviewed & Not Pertinent
Allergies / Home Medications
Allergy/AdvReac Type Severity Reaction Status Date / Time
No Known Allergies Allergy Verified 05/07/24 13:52
�Medication �Instructions �Recorded �Confirmed �Type
cyclosporine modified 25 mg 50 mg PO DAILY post liver 07/26/22 10/05/24 History
capsule (Gengraf) transplant
prednisone 5 mg tablet 5 mg PO DAILY post liver transplant 10/06/23 10/05/24 History
valsartan 80 mg tablet 80 mg PO DAILY Blood Pressure 07/21/24 10/05/24 History
calcium carbonate 500 mg PO BID Supplement 10/05/24 10/05/24 History
cyanocobalamin (vitamin B-12) 1,000 mcg PO Q48H Supplement 10/05/24 10/05/24 History
1,000 mcg tablet
cyclosporine modified 25 mg capsule 25 mg PO QPM post liver transplant 10/05/24 10/05/24 History
digoxin 125 mcg (0.125 mg) tablet 125 mcg PO DAILY PRN for heart 10/05/24 10/05/24 History
rate>130
ferrous sulfate 325 mg (65 mg 325 mg PO DAILY Supplement 10/05/24 10/05/24 History
iron) tablet (FeroSul)
furosemide 40 mg tablet 40 mg PO DAILY PRN weight gain 10/05/24 10/05/24 History
>3lb per day
metoprolol succinate 100 mg 100 mg PO BID Heart 10/05/24 10/05/24 History
tablet,extended release 24 hr Disease/Condition
mycophenolate mofetil 250 mg 250 mg PO BID post liver transplant 10/05/24 10/05/24 History
capsule
mycophenolate mofetil 500 mg tablet 500 mg PO BID post liver transplant 10/05/24 10/05/24 History
pantoprazole 40 mg tablet,delayed 40 mg PO DAILY Gastrointestinal 10/05/24 10/05/24 History
release Issue
warfarin 2.5 mg tablet (Jantoven) 1.25 mg PO SUTUWETHFRSA Blood Clot 10/05/24 10/05/24 History
Prevention/Tx
warfarin 2.5 mg tablet (Jantoven) 2.5 mg PO MO Blood Clot 10/05/24 10/05/24 History
Prevention/Tx
Review of Systems
-
History Source: Patient
All other systems: Negative unless noted
Constitutional: Weight Gain
EENT: No Symptoms
Respiratory: Trouble Breathing
Cardiac: No Symptoms
Abdomen/GI: No Symptoms
: No Symptoms
Musculoskeletal: Edema
Skin: No Symptoms
Neurological: No Symptoms
Endocrine: No Symptoms
Hematologic/Lymphatic: No Symptoms
Physical Exam
Vital Signs
Temp Pulse Resp BP Pulse Ox
97.6 F 115 27 134/97 95
10/05/24 09:26 10/05/24 13:03 10/05/24 13:00 10/05/24 13:03 10/05/24 13:00
Lab Results
10/05/24 10:09
10/05/24 11:17
Troponin I 0.041 ng/ml H* 10/05/24 11:17
Elm-P-Ulcwylnyvnd Pept > 71403 pg/ml 10/05/24 11:17
Physical Exam
General: Well Developed, Well Nourished, No Apparent Distress and Comfortable
HEENT: Normocephalic, Anicteric and Moist Mucous Membranes
Respiratory: Crackles and Non Labored Respirations
Cardiac: S1/S2, Irregular Rhythm, Murmur and Peripheral Edema (+2 pitting LE edema)
Breast: Deferred by me
GI: Soft, Non Tender, Non Distended and Normal Bowel Sounds
Rectal: Deferred by Provider
Genito-urinary: No Costovertebral Tender
Musculoskeletal: No Clubbing
Skin: Warm and Dry
Neuro: AO x 3
Psych: Calm
Impression / Plan
-
BACKGROUND: 74F with liver transplant 2007 (prior ETOH abuse), CAD, hypertension, dyslipidemia, TIA, paroxysmal atrial fibrillation (on warfarin), chronic systolic heart failure, ICM, mild to moderate MR, mild to moderate TR, CAL thrombus
(transitioned to warfarin), and PAD with renal artery stenting who is here with a chief complaint of lower extremity edema.
Tmd Teacher: Dr. Jones
IMPRESSION/PLAN:
HFrEF, ICM (LVEF 20-25%) - acute on chronic
-Diuresis with furosemide 40 mg IV twice daily
-She is up at least 7 kg from her dry weight, LVEDP 17 mmHg 59.4 kg at the time of prior cardiac catheterization
-GDMT is limited by renal function
-ACEI/ARB/ARNI: Valsartan 80mg daily
-Beta-thu: Metoprolol succinate 100mg BID
-SGLT2: Farxiga stopped during October admission can consider retrial in the outpatient setting
-MRA: She presented with hyperkalemia
-Diuretic: She will need standing diuretic at discharge
-ICD: Reassess after 3 months of maximally tolerated GDMT (last echo 07/21/2024)
-Trend daily weight, I/O, and BMP with diuresis
-Heart failure education
Pleural effusion, right, moderate
-In the setting of acute heart failure
-Thoracentesis today
Lower extremity edema
-Ultrasound pending, can consider lower extremity compression
Persistent atrial fibrillation with RVR
-The plan was for ablation but CAL thrombus was still present on ALICE prior to procedure
-Rates elevated, she received 5 mg IV push x 2 and 100 mg of metoprolol succinate that she missed this morning
-Oral Anticoagulation: Warfarin, she is subtherapeutic, start heparing gtt given thrombus
-[id number]: score at least 7 (Heart failure, HTN, prior Stroke/TIA, Vascular disease, age 65-74, female gender)
Abnormal troponin, likely nonischemic myocardial injury in the setting of tachyarrhythmia
-Chest pain-free
-Trend to peak
CAL thrombus
-Her Pradaxa was transitioned to warfarin 07/21/2024
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
Coronary artery disease
-Stable without chest pain
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
-NSTEMI 2022 with peak troponin 99
Liver transplant (2007), on immunosuppression, followed by [facility]
Left portal vein thrombosis (09/2023)
CKD, stage III, follow with diuresis
Hypertension, stable
Prior renal artery stenting
Mild to moderate mitral regurgitation
Mild to moderate tricuspid regurgitation
Prior TIA
Prior GIB (gastritis 2022)
SUBJECTIVE:
Weeping bilateral lower extremity edema. She believes she has gained 10 pounds on her home scale.
DATA:
Transesophageal echocardiogram, 07/21/2024:
CONCLUSIONS
Left ventricular ejection fraction is approximately 20-25%. Global hypokinesis.
Normal right ventricular size. Reduced right ventricular systolic function.
Dilated left atrial appendage with residual thrombus present.
Mild to moderate mitral regurgitation.
Mild to moderate tricuspid regurgitation.
Data Reviewed
-
EKG: Report Reviewed by me (Atrial fibrillation with RVR, lateral T wave abnormality, rate 126)
Radiology: Report Reviewed by me (CXR: Moderate right pleural effusion with associated atelectasis and/or pneumonia.)
Medical Tests (Nuc Med, Echo etc): Report Reviewed by me (Echo and cardiac catheterization as above)
Labs: Labs Reviewed by me
Old Records: Reviewed
[2024-10-05 14:44] LABS: APTT 31.5 Sec (23.4-35.0)
[2024-10-05 14:46] LABS: LDH 276 U/L (120-246)
[2024-10-05 15:01] LABS: Troponin I 0.041 ng/ml
[2024-10-05 16:00] LABS: Body Fluid pH 7.38
[2024-10-05 16:15] LABS: Body Fluid Amylase < 30 U/L; Body Fluid Glucose 121 mg/dl; Body Fluid LDH < 90 U/L; Body Fluid Protein < 2.0 g/dl; Body Fluid Triglycerides < 30 mg/dl
[2024-10-05 16:17] LABS: Body Fluid Mononuclear 60 %; Body Fluid Polymorphonuclear 40 %; Body Fluid WBC 50 /CUMM
[2024-10-05] MEDS: HEPARIN 25000 UNITS/250 ML IV (16:28)
[2024-10-05 16:41] LABS: Body Fluid Second Tech EYM
[2024-10-05] MEDS: COUMADIN 2.5 MG PO (16:41)
[2024-10-05] MEDS: NON-FORMULARY ITEM 1 UNIT PO (17:31)
[2024-10-05] MEDS: DESENEX/MITRAZOL/ZEASORB 1 APPLIC TOPICAL (20:47)
[2024-10-05] MEDS: CELLCEPT 750 MG PO (20:47)
[2024-10-05 23:09] LABS: PT 21.9 Sec (11.4-14.6)
[2024-10-05 23:37] LABS: Troponin I 0.043 ng/ml
[2024-10-06 03:00] VITALS: BP 148/79
[2024-10-06 05:53] LABS: INR 2.11; PT 23.8 Sec (11.4-14.6)
[2024-10-06 06:00] VITALS: BMI 27.1
[2024-10-06 06:08] LABS: APTT > 200 Sec (23.4-35.0)
[2024-10-06 06:41] LABS: ALT (SGPT) 25 U/L (0-35); AST (SGOT) 38 U/L (14-36); Albumin 3.1 g/dl (3.5-5.0); Alkaline Phosphatase 176 U/L (38-126); Blood Urea Nitrogen 60 mg/dl (7-17); Calcium 9.2 mg/dl (8.4-10.2); Carbon Dioxide 20 mmol/L (22-30); Chloride 109 mmol/L (98-107); Estimated Creatinine Clearance 24 ml/min; Glucose 92 mg/dl (70-99); HDL Cholesterol 59 mg/dl; LDL Cholesterol, Calculated 95 mg/dl; Magnesium 1.8 mg/dl (1.6-2.3); Potassium 4.4 mmol/L (3.5-5.1); Sodium 142 mmol/L (135-145); Total Bilirubin 1.6 mg/dl (0.2-1.3); Total Cholesterol 171 mg/dl (50-199); Total Protein 5.7 g/dl (6.3-8.2); Triglyceride 85 mg/dl (10-149); Very Low Density Lipoprotein 17 mg/dl (0-30); eGFR 31.47
[2024-10-06 07:10] LABS: TSH Reflex To Free T4 2.13 uIU/ml (0.47-4.68)
[2024-10-06] MEDS: DIOVAN 80 MG PO (07:35)
[2024-10-06] MEDS: CELLCEPT 750 MG PO ×2 (07:36→20:26)
[2024-10-06] MEDS: LASIX 40 MG IV (07:38)
[2024-10-06] MEDS: PROTONIX 40 MG PO (07:38)
[2024-10-06] MEDS: TOPROL XL 100 MG PO ×2 (07:39→20:26)
[2024-10-06] MEDS: NON-FORMULARY ITEM 2 UNIT PO (07:39)
[2024-10-06] MEDS: DELTASONE 5 MG PO (07:40)
[2024-10-06] MEDS: DESENEX/MITRAZOL/ZEASORB 1 APPLIC TOPICAL ×2 (07:43→20:26)
--- NOTE | 2024-10-06 07:59 | W.PN.HOSP.TC ---
Today's Communication/Plan
-
Continue Furosemide
Continue Coumadin
Continue liver transplant medications
Discharge tomorrow if stable and INR is okay
Assessment / Plan
Assessment / Plan
Physical Exam
General: Not in acute distress.
HEENT: Normocephalic. Moist mucous membranes
Respiratory: Rhonchi present bilaterally
Cardiac: S1/S2, Irregular Rhythm
GI: Soft and Non Tender. Positive bowel sounds.
Musculoskeletal: No Cyanosis and Other (+3 pitting edema RLE, +2 pitting LLE)
Skin: Warm and Dry
Neuro: Awake, Alert, Oriented and Nonfocal/grossly intact
Psych: Calm
Assessment/Plan
84-year-old male past medical history of atrial fibrillation on Coumadin, chronic HFrEF, hypertension, CAD, alcoholic cirrhosis status post liver transplant 2007 on immunosuppressant, history of GI bleeding, history of CVA, GERD,
hypercholesterolemia, chronic kidney disease 3b, renal artery stenosis, left atrial appendage thrombus, distal aortic arch thrombus, portal vein thrombus presented for leg swelling and shortness of breath.
On examination at the time of admission patient had bilateral lower extremity edema particularly worse on the right side. Patient had run out of Lasix at home.
EKG showed atrial fibrillation with RVR with heart rate of 126. Labs show chronic kidney disease with creatinine 1.8, potassium 5.3. Cardiac BNP greater than 20,000. Troponin 0.041. INR 1.7. Chest x-ray showed moderate right pleural effusion.
Presentation on admission was consistent with acute on chronic CHF exacerbation. IV metoprolol was given for heart rate control. Aspirin given although no evidence of ischemia at the time. 40 mg IV Lasix BID. Cardiology consulted. IR consulted
for thoracentesis. Checked bilateral venous ultrasound to evaluate for DVT given asymmetrical leg swelling.
Appears that Patient was on Eliquis 2 years and Pradaxa last year switched to Coumadin in July of this year due to persistent left atrial appendage thrombus. Patient is being considered for watchmen procedure by cardiology.
Acute on Chronic HFrEF
ICM EF 20-25%
Weight Gain
-Patient ran out of Lasix at home
-Consult Cardiology, appreciate evaluation and recommendations
-Was on Lasix 40mg IV BID --> now transitioned to Lasix 40 mg PO daily
-Continue Valsartan and Metoprolol Succinate
-Monitor Is&Os and Daily Weights
-Farxiga and ICD consideration as per cardiology
Right Pleural Effusion
-Consult IR for diagnostic and therapeutic thoracentesis: 1650 cc of clear yellow pleural fluid drained on 10/06/24
-Fluid appears to be transudative
-Follow-up on cytology results
-Follow-up with pulmonary outpatient
Lower Extremity Edema
-Ultrasound with no evidence of deep venous thrombosis
Subtherapeutic INR - RESOLVED
-Heparin drip was given, now discontinued given INR is above 2
-Continue Coumadin
Atrial Fibrillation with Rapid Ventricular Response
Paroxysmal Atrial Fibrillation
-Patient did not take her morning med
-Give dose of usual Metoprolol XL 100mg as well as Digoxin which patient takes PRN
-Continue Metoprolol XL 100mg BID
-Consider changing Digoxin from PRN to Standing - Will defer to Cardiology
-Continue Coumadin
Elevated Troponin, suspect Non-Ischemic Myocardial Injury
-Troponins noted
Mural Thrombus Distal Aortic Arch / Left Atrial Appendage Thrombus (now on warfarin; CAL persisted on eliquis, pradaxa) / Portal Vein Thrombosis
-Continue Coumadin, monitor INR
-Her Pradaxa was transitioned to warfarin 07/21/2024
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
Coronary Artery Disease
-Continue medical management
CKD Stage IIIB
-Monitor creatinine closely while on diuretics
Essential Hypertension
-Continue Valsartan
Alcoholic Cirrhosis s/p Liver Transplant
Liver transplant (2007), on immunosuppression, followed by [facility]
-Continue Cyclosporine and Mycophenolate
Erythema Nodosum
-Continue Prednisone
Other Noted History:
-Valvular Heart Disease: Moderate/Severe Mitral Regurgitation. Severe Tricuspid Regurgitation
-Severe Pulmonary Hypertension
-Renal Artery Stenosis s/p Bilateral Renal Artery Stenting
-History of Left portal vein thrombosis (09/2023)
-Prior renal artery stenting
-Mild to moderate mitral regurgitation
-Mild to moderate tricuspid regurgitation
-History of TIA
-History of GIB (2022)
DVT Prophylaxis: Coumadin
Code Status: Full Code
Anticipated Discharge: Within 24 hours
Subjective/Interval History
-
Date of Service: October 06, 2024
Patient was seen and examined. She denied any chest pain or shortness of breath.
Objective Data
-
Labs:
Laboratory Results
10/05/24 10/06/24
22:44 05:32
PT 21.9 H 23.8 H
INR 1.90 2.11
APTT > 200 H*
Sodium 142
Potassium 4.4
Chloride 109 H
Carbon Dioxide 20 L
BUN 60 H
Creatinine 1.7 H
Glucose 92
Calcium 9.2
Total Bilirubin 1.6 H
AST 38 H
ALT 25
Alkaline Phosphatase 176 H
Vital Signs:
Vital Signs
Temp Pulse Resp BP Pulse Ox
99 F 81 18 159/79 98
10/06/24 03:00 10/06/24 07:35 10/06/24 03:00 10/06/24 07:35 10/06/24 03:00
I&O
10/05/24 10/06/24 10/07/24
06:59 06:59 06:59
Intake Total 720 / 720
Output Total 2150 / 2150
Balance -1430 / -1430
[2024-10-06 08:15] VITALS: BP 155/79
--- NOTE | 2024-10-06 08:52 | W.PN.CD ---
Today's Communication / Plan
-
-Volume status significantly improved from 69 kg on admission to 63 kg yesterday.
-Can transition from Lasix 40 mg IV twice daily to Lasix 40 mg PO daily, which should be her home dose.
-Continue Toprol-XL 100 mg twice daily.
-INR now therapeutic (goal 2.0-3.0); heparin drip discontinued.
-No further cardiac recommendations at this time; outpatient follow-up with Cardiology.
Impression / Plan
-
BACKGROUND: 74F with liver transplant 2007 (prior ETOH abuse), CAD, hypertension, dyslipidemia, TIA, paroxysmal atrial fibrillation (on warfarin), chronic systolic heart failure, ICM, mild to moderate MR, mild to moderate TR, CAL thrombus
(transitioned to warfarin), and PAD with renal artery stenting who is here with a chief complaint of lower extremity edema.
Drying And Winding Supervisor: Dr. Jones
IMPRESSION/PLAN:
HFrEF, ICM (LVEF 20-25%) - acute on chronic
-Volume status significantly improved from 69 kg on admission to 63 kg yesterday.
-Can transition from Lasix 40 mg IV twice daily to Lasix 40 mg PO daily, which should be her home dose.
-Her dry weight, LVEDP 17 mmHg 59.4 kg at the time of prior cardiac catheterization
-GDMT is limited by renal function
-ACEI/ARB/ARNI: Valsartan 80mg daily
-Beta-thu: Metoprolol succinate 100mg BID
-SGLT2: Farxiga stopped during October admission can consider retrial in the outpatient setting
-MRA: She presented with hyperkalemia
-Diuretic: She will need standing diuretic at discharge
-ICD: Reassess after 3 months of maximally tolerated GDMT (last echo 07/21/2024)
Pleural effusion, right, moderate
-Improved status-post thoracentesis.
Persistent atrial fibrillation with RVR
-The plan was for ablation but CAL thrombus was still present on ALICE prior to procedure
-Continue Toprol-XL 100 mg twice daily.
-INR now therapeutic (goal 2.0-3.0); heparin drip discontinued.
-[id number]: score at least 7 (Heart failure, HTN, prior Stroke/TIA, Vascular disease, age 65-74, female gender)
Abnormal troponin - likely acute nonischemic myocardial injury in the setting of tachyarrhythmia, CHF, and CKD.
CAL thrombus
-Her Pradaxa was transitioned to warfarin 07/21/2024
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
Coronary artery disease
-Stable without chest pain
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
-NSTEMI 2022 with peak troponin 99
Liver transplant (2007), on immunosuppression, followed by [facility]
Left portal vein thrombosis (09/2023)
CKD, stage III, follow with diuresis
Hypertension, stable
Prior renal artery stenting
Mild to moderate mitral regurgitation
Mild to moderate tricuspid regurgitation
Prior TIA
Prior GIB (2022)
SUBJECTIVE:
No major events overnight. No cardiac complaints this a.m.
DATA:
Transesophageal echocardiogram, 07/21/2024:
CONCLUSIONS
Left ventricular ejection fraction is approximately 20-25%. Global hypokinesis.
Normal right ventricular size. Reduced right ventricular systolic function.
Dilated left atrial appendage with residual thrombus present.
Mild to moderate mitral regurgitation.
Mild to moderate tricuspid regurgitation.
Physical Exam
Vital Signs/Labs
Vital Signs
Temp Pulse Resp BP Pulse Ox
98.0 F 81 18 155/79 99
10/06/24 08:15 10/06/24 08:15 10/06/24 08:15 10/06/24 08:15 10/06/24 08:15
10/05/24 10/06/24 10/07/24
06:59 06:59 06:59
Actual Weight 63.004 kg
10/05/24 10:09
10/06/24 05:32
PT 23.8 Sec (11.4-14.6) H 10/06/24 05:32
INR 2.11 10/06/24 05:32
APTT > 200 Sec (23.4-35.0) H* 10/06/24 05:32
Magnesium 1.8 mg/dl (1.6-2.3) 10/06/24 05:32
Triglycerides 85 mg/dl (10-149) 10/06/24 05:32
LDL Cholesterol, Calc 95 mg/dl 10/06/24 05:32
VLDL Cholesterol, Calc 17 mg/dl (0-30) 10/06/24 05:32
HDL Cholesterol 59 mg/dl 10/06/24 05:32
10/05/24 10/05/24 10/05/24
10:09 10:38 11:17
Min-C-Qkwafoopauv Pept Cancelled Cancelled > 34020
LAB Results
10/05/24 10/05/24 10/05/24
10:09 10:38 11:17
Troponin I Cancelled Cancelled 0.041 H*
10/05/24 10/05/24
14:22 22:44
Troponin I 0.041 H* 0.043 H*
Physical Exam
Constitutional: No acute distress and Comfortable
EENT: Anicteric
Cardiovascular: Systolic murmur absent, Rhythm/rate is irregular, Pedal edema present (trace) and S1S2 is normal
Respiratory: Respiratory effort normal and Rhonchi Present (Mild bibasilar)
GI: Soft
Neuro/Psych: AO x 3
Other: Skin
Data Reviewed
-
Date of Service: October 06, 2024
EKG: Tracing Personally Visualized and interpreted (Telemetry: A-fib)
Labs: Labs Reviewed by me
--- NOTE | 2024-10-06 09:46 | W.HF.CON ---
Heart Failure
- LV Function
Left ventricular function study result: LV Ejection fraction </= 35% (ALICE 07/21/24)
Ejection Fraction Percentage: 20-25
- ARNI
Patient already on ARNI: No
Heart Failure ARNI Contraindication: Worsening Renal Function
- ACEI/ARB
Patient already on ACEI/ARB: Yes
- Beta Kacie
Patient already on Evidence Based Beta Kacie: Yes
- Mineralocorticord Receptor Antagonist
Patient already on MRA: No
Heart Failure MRA Contraindication: Hyperkalemia - serum >5
- SGLT-2 Inhibitor
Patient already on SGLT-2 Inhibitor: No
Heart Failure SGLT-2 Inhibitor Contraindication: Patient Refusal
- Afib Anticoagulation
Patient already on Anticoagulation for Afib: Yes
- NYHA CHF Classification
NYHA CHF Classification Level: Class III - Symptoms w/ min exertion, interferes w/ nml daily activity
- ACC/AHA Stage
ACC/AHA Stage: Stage C: Symptomatic Heart Failure
[2024-10-06 11:32] VITALS: BP 148/80
[2024-10-06 15:42] VITALS: BP 154/82
[2024-10-06] MEDS: COUMADIN 1.25 MG PO (17:24)
[2024-10-06] MEDS: NON-FORMULARY ITEM 1 UNIT PO (17:24)
[2024-10-06 19:25] VITALS: BP 149/96
[2024-10-06 23:38] VITALS: BP 142/85
[2024-10-07] VITALS (8 sets, daily range): BP systolic 130–151; BP diastolic 72–93; PULSE 88–105; O2SAT 99; BMI 25.2
[2024-10-07 06:58] LABS: Hematocrit 42.7 % (37.0-47.0); Hemoglobin 12.9 g/dL (12.0-16.0); Mean Corp Hgb Conc. 30.2 g/dL (33.0-37.0); Mean Corpuscular Hgb 27.3 pg (27.0-31.0); Mean Corpuscular Volume 90.3 fL (81.0-99.0); Mean Platelet Volume 11.1 fL (7.4-10.4); Platelet Count 206 10^3/uL (130-400); Red Blood Cell Count 4.73 10^6/uL (4.20-5.40); Red Cell Dist. Width 17.7 % (11.5-14.5); White Blood Cell Count 7.8 10^3/uL (4.8-10.8)
[2024-10-07 07:05] LABS: INR 1.88; PT 21.8 Sec (11.4-14.6)
[2024-10-07] MEDS: PROTONIX 40 MG PO (07:23)
[2024-10-07] MEDS: CELLCEPT 750 MG PO ×2 (07:23→21:09)
[2024-10-07] MEDS: DIOVAN 80 MG PO (07:24)
[2024-10-07] MEDS: TOPROL XL 100 MG PO ×2 (07:25→21:08)
[2024-10-07] MEDS: NON-FORMULARY ITEM 2 UNIT PO (07:25)
[2024-10-07] MEDS: DELTASONE 5 MG PO (07:25)
[2024-10-07] MEDS: LASIX 40 MG PO (07:25)
[2024-10-07] MEDS: DESENEX/MITRAZOL/ZEASORB 1 APPLIC TOPICAL ×2 (07:26→21:09)
[2024-10-07 07:51] LABS: Blood Urea Nitrogen 56 mg/dl (7-17); Calcium 9.2 mg/dl (8.4-10.2); Carbon Dioxide 25 mmol/L (22-30); Chloride 104 mmol/L (98-107); Estimated Creatinine Clearance 21 ml/min; Glucose 91 mg/dl (70-99); Potassium 4.2 mmol/L (3.5-5.1); Sodium 140 mmol/L (135-145); eGFR 31.47
--- NOTE | 2024-10-07 09:00 | PN.CDI ---
CDI
- -
CDI:
Physician Documentation Request
Admit Date: 10/05/24 13:28
Dear Doctor Cristian,
Please review the following and provide your response in the progress notes.
Clinical Indicators:
Pt admitted with Acute on Chronic CHFrEF
There is potentially conflicting documentation in the record regarding the type of afib. Documented per H&P and progress note 10/06, ' Paroxysmal Atrial Fibrillation...'
Cardiology consult 10/05, ' paroxysmal A fib, which seems persistent now,...Persistent atrial fibrillation with RVR...'
If possible, please provide further specificity regarding atrial fibrillation, such as:
Persistent atrial fibrillation - episodes of continuous AF that last more than 7 days and do not self-terminate
Paroxysmal atrial fibrillation - terminates spontaneously or with intervention within 7 days of onset
Other - please specify
Use of terms such as suspected, likely, concern for, or probable (associated with a specific diagnosis that is being evaluated, monitored, or treated as if it exists) are acceptable and can be coded in the inpatient setting, when documented at the
time of discharge.
Thank you,
Cesia Garcia RN
CDI Specialist
[facility]
Please use your independent medical judgment in providing your response.
[2024-10-07] MEDS: HEPARIN 25000 UNITS/250 ML IV (11:20)
[2024-10-07] MEDS: HEPARIN 3500 UNITS IV (11:22)
--- NOTE | 2024-10-07 13:59 | W.PN.HOSP.TC ---
Today's Communication/Plan
-
Restarted Heparin Drip Bridge as INR dropped to less than 2
Given patient's clot burden and stroke risk (portal vein thrombosis, atrial fibrillation, distal aortic arch mural thrombus, and left atrial appendage thrombosis), after discussion extensively with several pharmacists and with Dr. Espinoza, started
Heparin Drip DVT/PE protocol with initial bolus and reboluses
Continue Coumadin
Monitor INR
Assessment / Plan
Assessment / Plan
Physical Exam
General: Not in acute distress.
HEENT: Normocephalic. Moist mucous membranes
Respiratory: Rhonchi present bilaterally
Cardiac: S1/S2, Irregular Rhythm
GI: Soft and Non Tender. Positive bowel sounds.
Musculoskeletal: No Cyanosis and Other (+3 pitting edema RLE, +2 pitting LLE)
Skin: Warm and Dry
Neuro: Awake, Alert, Oriented and Nonfocal/grossly intact
Psych: Calm
Assessment/Plan
84-year-old male past medical history of atrial fibrillation on Coumadin, chronic HFrEF, hypertension, CAD, alcoholic cirrhosis status post liver transplant 2007 on immunosuppressant, history of GI bleeding, history of CVA, GERD,
hypercholesterolemia, chronic kidney disease 3b, renal artery stenosis, left atrial appendage thrombus, distal aortic arch thrombus, portal vein thrombus presented for leg swelling and shortness of breath.
On examination at the time of admission patient had bilateral lower extremity edema particularly worse on the right side. Patient had run out of Lasix at home.
EKG showed atrial fibrillation with RVR with heart rate of 126. Labs show chronic kidney disease with creatinine 1.8, potassium 5.3. Cardiac BNP greater than 20,000. Troponin 0.041. INR 1.7. Chest x-ray showed moderate right pleural effusion.
Presentation on admission was consistent with acute on chronic CHF exacerbation. IV metoprolol was given for heart rate control. Aspirin given although no evidence of ischemia at the time. 40 mg IV Lasix BID. Cardiology consulted. IR consulted
for thoracentesis. Checked bilateral venous ultrasound to evaluate for DVT given asymmetrical leg swelling.
Appears that Patient was on Eliquis 2 years and Pradaxa last year switched to Coumadin in July of this year due to persistent left atrial appendage thrombus. Patient is being considered for watchmen procedure by cardiology.
Acute on Chronic HFrEF
ICM EF 20-25%
Weight Gain
-Patient ran out of Lasix at home
-Consult Cardiology, appreciate evaluation and recommendations
-Was on Lasix 40mg IV BID --> now transitioned to Lasix 40 mg PO daily
-Continue Valsartan and Metoprolol Succinate
-Monitor Is&Os and Daily Weights
-Farxiga and ICD consideration as per cardiology
Right Pleural Effusion
-Consult IR for diagnostic and therapeutic thoracentesis: 1650 cc of clear yellow pleural fluid drained on 10/06/24
-Fluid appears to be transudative
-Follow-up on cytology results: 'Negative for malignant cells. Benign mesothelial cells and macrophages present in a background of mixed inflammatory cells.'
-Follow-up with pulmonary outpatient
Lower Extremity Edema
-Ultrasound with no evidence of deep venous thrombosis
Subtherapeutic INR
-Heparin drip was given, then discontinued since INR was above 2, but then INR dropped again on 10/07/24, and after discussing with cardiology and clinical pharmacist, restarted Heparin Drip on 10/07/24
-Continue Coumadin with Heparin Bridge
-Given patient's clot burden and stroke risk (portal vein thrombosis, atrial fibrillation, distal aortic arch mural thrombus, and left atrial appendage thrombosis), after discussion extensively with several pharmacists and with Dr. Espinoza, started
Heparin Drip DVT/PE protocol with initial bolus and reboluses
Atrial Fibrillation with Rapid Ventricular Response
Persistent Atrial Fibrillation
-Patient did not take her morning med prior to arrival
-Give dose of usual Metoprolol XL 100mg as well as Digoxin which patient takes PRN
-Continue Metoprolol XL 100mg BID
-Consider changing Digoxin from PRN to Standing - Will defer to Cardiology
-Continue Coumadin
Elevated Troponin, suspect Non-Ischemic Myocardial Injury
-Troponins noted
Mural Thrombus Distal Aortic Arch / Left Atrial Appendage Thrombus (now on warfarin; CAL persisted on eliquis, pradaxa) / Portal Vein Thrombosis
-Continue Coumadin, monitor INR
-Her Pradaxa was transitioned to warfarin 07/21/2024
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
Coronary Artery Disease
-Continue medical management
CKD Stage IIIB
-Monitor creatinine closely while on diuretics
Essential Hypertension
-Continue Valsartan
Alcoholic Cirrhosis s/p Liver Transplant
Liver transplant (2007), on immunosuppression, followed by [facility]
-Continue Cyclosporine and Mycophenolate
Erythema Nodosum
-Continue Prednisone
Other Noted History:
-Valvular Heart Disease: Moderate/Severe Mitral Regurgitation. Severe Tricuspid Regurgitation
-Severe Pulmonary Hypertension
-Renal Artery Stenosis s/p Bilateral Renal Artery Stenting
-History of Left portal vein thrombosis (09/2023)
-Prior renal artery stenting
-Mild to moderate mitral regurgitation
-Mild to moderate tricuspid regurgitation
-History of TIA
-History of GIB (2022)
DVT Prophylaxis: Coumadin with Heparin Bridging
Code Status: Full Code
Heparin Drip is a high risk encounter.
Anticipated Discharge: > 48 hours
Subjective/Interval History
-
Date of Service: October 07, 2024
Patient was seen and examined. She denied any chest pain, SOB or any complaints.
Objective Data
-
Labs:
Laboratory Results
10/07/24 10/07/24 10/07/24
06:40 07:44 08:38
WBC 7.8 Cancelled Cancelled
Hgb 12.9 Cancelled Cancelled
Hct 42.7 Cancelled Cancelled
Plt Count 206 D Cancelled Cancelled
PT 21.8 H
INR 1.88
APTT 34.0 Cancelled Cancelled
Sodium 140
Potassium 4.2
Chloride 104
Carbon Dioxide 25
BUN 56 H
Creatinine 1.7 H
Glucose 91
Calcium 9.2
10/07/24
17:30
WBC
Hgb
Hct
Plt Count
PT
INR
APTT Pending
Sodium
Potassium
Chloride
Carbon Dioxide
BUN
Creatinine
Glucose
Calcium
Vital Signs:
Vital Signs
Temp Pulse Resp BP Pulse Ox
98.4 F 84 16 144/76 100
10/07/24 11:35 10/07/24 11:35 10/07/24 11:35 10/07/24 11:35 10/07/24 11:35
I&O
10/06/24 10/07/24 10/08/24
06:59 06:59 06:59
Intake Total 720 / 720 1040 / 1040
Output Total 2150 / 2150 2600 / 2600
Balance -1430 / -1430 -1560 / -1560
[2024-10-07] MEDS: COUMADIN 1.25 MG PO (16:50)
[2024-10-07] MEDS: NON-FORMULARY ITEM 1 UNIT PO (16:50)
--- NOTE | 2024-10-07 16:57 | CM ---
Reviewed chart, received consult for discharge planning. Met with patient to obtain information for assessment. Patient stated that she lives with her sister in a single home in [place]. She has 4 steps to enter. She described herself as
independent with her ADLs, personal care, dressing and bathing. 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 Patient can drive and can transport herself to her appointments and do all of her own
shopping.
Patient denied any DME in her home.
She has had [facility] in the past through .
Patient has a prescription plan and uses, [facility] for all of her medications.
Her PCP is, Danii Barclay.
Reviewed patient's PT and OT. Indication is for patient to return home. [facility] was offered and patient stated that she would like [facility] as she has had them in the past. Will make a referral.
Plan: Case management will continue to follow and assist with discharge planning. Home with VN.
[2024-10-07 18:58] LABS: APTT > 200 Sec (23.4-35.0)
[2024-10-08 03:40] VITALS: BP 144/93
[2024-10-08 03:50] LABS: APTT > 200 Sec (23.4-35.0)
[2024-10-08 06:00] VITALS: BMI 25.0
[2024-10-08] MEDS: DIOVAN 80 MG PO (07:56)
[2024-10-08] MEDS: PROTONIX 40 MG PO (07:57)
[2024-10-08] MEDS: DESENEX/MITRAZOL/ZEASORB 1 APPLIC TOPICAL ×2 (07:57→21:13)
[2024-10-08] MEDS: TOPROL XL 100 MG PO ×2 (07:57→21:13)
[2024-10-08] MEDS: DELTASONE 5 MG PO (07:57)
[2024-10-08] MEDS: LASIX 40 MG PO (07:57)
[2024-10-08] MEDS: CELLCEPT 750 MG PO ×2 (07:58→21:13)
[2024-10-08] MEDS: NON-FORMULARY ITEM 2 UNIT PO (08:05)
[2024-10-08 08:30] VITALS: BP 149/86
--- NOTE | 2024-10-08 09:24 | CON.ONC ---
Impression
Impression
Left atrial thrombus with extension
Cardiomyopathy
CAD
Chronic port left portal vein thrombosis
Subtherapeutic INR
Liver transplantation
CKD
Hypertension
Renal artery stenosis
GI bleed with gastritis 2022
Plan
Plan
No evidence of lower extremity thrombus
Atrial fibrillation and ejection fraction 20% with subtherapeutic therapeutic INR likely etiology of left atrial thrombus
Left portal vein thrombosis post transplant chronic
Evaluate thrombophilia for antiphospholipid antibody
Reasonable alternative to therapeutic warfarin would include Lovenox renal dosing 1 mg/kg daily (patient expresses reluctance)
Patient History
History of Present Illness
Nu Rosales is a 74-year-old female with history of liver transplant 2007 (prior ETOH abuse, sobriety since 2005), hypertension, dyslipidemia, TIA, paroxysmal atrial fibrillation (on warfarin with subtherapeutic INR) thrombus seen in anticipation
of cardioversion, chronic systolic heart failure, ICM, mild to moderate MR, mild to moderate TR, CAL thrombus, and PAD with renal artery stenting who is here with a chief complaint of lower extremity edema. She endorses associated shortness of
breath. She reports a weight gain of approximately 10 pounds on her home scale. She exhausted her supply of furosemide from previous visit and was not clear that she required a refill.. She has no chest pain. Hematology has been consulted to
evaluate atypical thrombosis.
Past-Medical/Surgical History
Past Medical History: Arrhythmias Paroxysmal atrial fibrillation [on warfarin]), CAD ([employer] TE[employer]), CHF (HFrEF, ICM), GERD, HTN, Hypercholesterolemia, Valvular Disease-mitral regurgitation, tricuspid regurgitation, PAD, renal artery stenting, TIA
Past Surgical History: Hernia repair, liver transplant
Social History:
Tobacco: Former Smoker
Alcohol: Former
Drug: None
Living: With Family (Sister)
Employment: Retired
Family History:
Family History: Reviewed & Not Pertinent
Patient Medication
�Medication �Instructions �Recorded �Confirmed �Last Taken �Type
cyclosporine modified 25 mg 50 mg PO DAILY post liver 07/26/22 10/05/24 10/04/24 History
capsule (Gengraf) transplant
prednisone 5 mg tablet 5 mg PO DAILY post liver transplant 10/06/23 10/05/24 10/04/24 History
valsartan 80 mg tablet 80 mg PO DAILY Blood Pressure 07/21/24 10/05/24 10/04/24 History
calcium carbonate 500 mg PO BID Supplement 10/05/24 10/05/24 10/04/24 History
cyanocobalamin (vitamin B-12) 1,000 mcg PO Q48H Supplement 10/05/24 10/05/24 10/04/24 History
1,000 mcg tablet
cyclosporine modified 25 mg capsule 25 mg PO QPM post liver transplant 10/05/24 10/05/24 10/04/24 History
digoxin 125 mcg (0.125 mg) tablet 125 mcg PO DAILY PRN for heart 10/05/24 10/05/24 Unknown History
rate>130
ferrous sulfate 325 mg (65 mg 325 mg PO DAILY Supplement 10/05/24 10/05/24 10/04/24 History
iron) tablet (FeroSul)
furosemide 40 mg tablet 40 mg PO DAILY PRN weight gain 10/05/24 10/05/24 Unknown History
>3lb per day
metoprolol succinate 100 mg 100 mg PO BID Heart 10/05/24 10/05/24 10/04/24 History
tablet,extended release 24 hr Disease/Condition
mycophenolate mofetil 250 mg 250 mg PO BID post liver transplant 10/05/24 10/05/24 10/04/24 History
capsule
mycophenolate mofetil 500 mg tablet 500 mg PO BID post liver transplant 10/05/24 10/05/24 10/04/24 History
pantoprazole 40 mg tablet,delayed 40 mg PO DAILY Gastrointestinal 10/05/24 10/05/24 10/04/24 History
release Issue
warfarin 2.5 mg tablet (Jantoven) 1.25 mg PO SUTUWETHFRSA Blood Clot 10/05/24 10/05/24 10/04/24 History
Prevention/Tx
warfarin 2.5 mg tablet (Jantoven) 2.5 mg PO MO Blood Clot 10/05/24 10/05/24 09/28/24 History
Prevention/Tx
Active Medications
Generic Name Dose Route Start Last Admin
Trade Name Freq PRN Reason Stop Dose Admin
Furosemide 40 mg 10/07/24 08:00 10/08/24 07:57
Furosemide 40 Mg Tablet PO 11/04/24 07:59 40 mg
DAILY BRANDO Administration
Heparin Sodium 4,700 units 10/07/24 11:05
Heparin 80 Units/Kg Iv Rebolus IV 11/04/24 11:04
PRN PRN
PTT < OR = 64 seconds
Heparin Sodium 2,300 units 10/07/24 11:04
Heparin 40 Units/Kg Iv Rebolus IV 11/04/24 11:03
PRN PRN
PTT = 64.1 to 72.9 seconds
Heparin Sodium 25,000 units in 250 mls @ 0 mls/hr 10/07/24 08:45 10/07/24 11:20
Heparin 03369 Units/250 Ml IV 250 mls
PER PROTOCOL BRANDO Administration
Protocol
Per Protocol
Metoprolol Succinate 100 mg 10/05/24 20:00 10/08/24 07:57
Metoprolol 100 Mg Extended Release Tablet PO 11/02/24 19:59 100 mg
BID BRANDO Administration
Miconazole Nitrate 0 applic 10/05/24 20:00 10/08/24 07:57
Miconazole Powder Bottle TOPICAL 11/02/24 19:59 1 applic
BID BRANDO Administration
Mycophenolate Mofetil 750 mg 10/05/24 20:00 10/08/24 07:58
Mycophenolate 250 Mg Capsule PO 11/02/24 19:59 750 mg
BID BRANDO Administration
Cyclosporine 0 unit 10/05/24 18:00 10/07/24 16:50
Modified 25mg PO 11/02/24 17:59 1 unit
Capsules. Take 1 QPM BRANDO Administration
Capsule By Mouth In
Evening
Cyclosporine 0 unit 10/06/24 08:00 10/08/24 08:05
Modified 25mg PO 11/03/24 07:59 2 unit
Capsules. Take 2 DAILY BRANDO Administration
Capsules (50mg) By
Mouth In The Morning
Pantoprazole Sodium 40 mg 10/06/24 08:00 10/08/24 07:57
Pantoprazole 40 Mg Delayed Release Tablet PO 11/03/24 07:59 40 mg
DAILY BRANDO Administration
Prednisone 5 mg 10/06/24 08:00 10/08/24 07:57
Prednisone 5 Mg Tablet PO 11/03/24 07:59 5 mg
DAILY BRANDO Administration
Sodium Chloride 0 flush 10/05/24 15:00
Sodium Chloride 0.9% (Flush) Syringe IV 11/02/24 14:59
PER PROTOCOL BRANDO
Valsartan 80 mg 10/06/24 08:00 10/08/24 07:56
Valsartan 80 Mg Tablet PO 11/03/24 07:59 80 mg
DAILY BRANDO Administration
Warfarin Sodium 2.5 mg 10/12/24 18:00
Warfarin 2.5 Mg Tablet PO 10/17/24 17:59
MO@1800 BRANDO
Warfarin Sodium 1.25 mg 10/06/24 18:00 10/07/24 16:50
Warfarin 1.25 Mg Tablet (1/2 Of 2.5 Mg Tablet) PO 10/11/24 17:59 1.25 mg
SuTuWeThFrSa@1800 BRANDO Administration
Review of Systems
-
12 point review of systems no additional complaints other than respiratory insufficiency and swelling.
Physical Exam
-
Physical Exam
General: Well Developed, Well Nourished, No Apparent Distress and Comfortable
HEENT: Normocephalic, Anicteric and Moist Mucous Membranes
Respiratory: Decreased in the bases
Cardiac: S1/S2, Irregular Rhythm, Murmur and Peripheral Edema largely resolved with 20 pound weight loss
GI: Soft, Non Tender, Non Distended and Normal Bowel Sounds
Musculoskeletal: No Clubbing
Skin: Warm and Dry
Neuro: AO x 3
Psych: Calm
Labs
Lab Results
WBC Cancelled 10/07/24 08:38
RBC Cancelled 10/07/24 08:38
Hgb Cancelled 10/07/24 08:38
Hct Cancelled 10/07/24 08:38
MCV Cancelled 10/07/24 08:38
MCH Cancelled 10/07/24 08:38
MCHC Cancelled 10/07/24 08:38
RDW Cancelled 10/07/24 08:38
Plt Count Cancelled 10/07/24 08:38
MPV Cancelled 10/07/24 08:38
Abs Immat Gran (auto) 0.0 10^3/uL (0-0.05) 10/05/24 10:09
Absolute Neuts (auto) 6.0 10^3/uL (1.4-6.5) 10/05/24 10:09
Absolute Lymphs (auto) 1.3 10^3/uL (1.2-3.4) 10/05/24 10:09
Absolute Monos (auto) 0.8 10^3/uL (0.1-0.6) H 10/05/24 10:09
Absolute Eos (auto) 0.3 10^3/uL (0-0.7) 10/05/24 10:09
Absolute Basos (auto) 0.0 10^3/uL (0-0.2) 10/05/24 10:09
Immature Gran % 0.5 % (0-0.5) 10/05/24 10:09
Neutrophils % 71.1 % (42.2-75.2) 10/05/24 10:09
Lymphocytes % 15.8 % (20.5-51.1) L 10/05/24 10:09
Monocytes % 9.2 % (1.7-9.3) 10/05/24 10:09
Eosinophils % 3.0 % (0-6) 10/05/24 10:09
Basophils % 0.4 % (0-2) 10/05/24 10:09
Creatinine 1.7 mg/dL (0.6-1.0) H 10/07/24 06:40
Vital Signs
Vital Signs
Temp Pulse Resp BP Pulse Ox
97.9 F 101 16 149/86 98
10/08/24 08:30 10/08/24 08:30 10/08/24 08:30 10/08/24 08:30 10/08/24 08:30
--- NOTE | 2024-10-08 10:43 | VNURNOTE ---
Home Health Liaison met with patient at bedside to discuss [facility] nurse/therapy, visits, schedule and homebound status. Patient is agreeable and understands that visits at home will be 2-3 x per week to assess and teach medical management. [facility]
brochure provided with contact information. Patient is aware that [facility] will contact them for start of care in 1-2 days after discharge from .
[facility] referral completed in [facility].
[2024-10-08 11:40] VITALS: BP 138/79
[2024-10-08 12:32] LABS: INR 1.62; PT 19.8 Sec (11.4-14.6)
[2024-10-08 12:33] LABS: APTT 69.6 Sec (23.4-35.0)
[2024-10-08 12:55] LABS: Blood Urea Nitrogen 68 mg/dl (7-17); Calcium 9.2 mg/dl (8.4-10.2); Carbon Dioxide 30 mmol/L (22-30); Chloride 97 mmol/L (98-107); Estimated Creatinine Clearance 22 ml/min; Glucose 113 mg/dl (70-99); Potassium 4.1 mmol/L (3.5-5.1); Sodium 137 mmol/L (135-145); eGFR 33.84
[2024-10-08] MEDS: HEPARIN 2300 UNITS IV (12:59)
[2024-10-08 15:54] VITALS: BP 130/65
--- NOTE | 2024-10-08 16:15 | W.PN.HOSP.TC ---
Addendum entered and electronically signed by Desean Foster MD 10/08/24 16:28:
Dose Coumadin once a day based on INR. Hold previous Coumadin orders and ordered 3 mg Coumadin once for this evening.
Original Note:
Today's Communication/Plan
-
INR dropping
Continue Heparin Drip
Will plan to increase Coumadin
Assessment / Plan
Assessment / Plan
Physical Exam
General: Not in acute distress.
HEENT: Normocephalic. Moist mucous membranes
Respiratory: Rhonchi present bilaterally
Cardiac: S1/S2, Irregular Rhythm
GI: Soft and Non Tender. Positive bowel sounds.
Musculoskeletal: No Cyanosis and Other (+3 pitting edema RLE, +2 pitting LLE)
Skin: Warm and Dry
Neuro: Awake, Alert, Oriented and Nonfocal/grossly intact
Psych: Calm
Assessment/Plan
84-year-old male past medical history of atrial fibrillation on Coumadin, chronic HFrEF, hypertension, CAD, alcoholic cirrhosis status post liver transplant 2007 on immunosuppressant, history of GI bleeding, history of CVA, GERD,
hypercholesterolemia, chronic kidney disease 3b, renal artery stenosis, left atrial appendage thrombus, distal aortic arch thrombus, portal vein thrombus presented for leg swelling and shortness of breath.
On examination at the time of admission patient had bilateral lower extremity edema particularly worse on the right side. Patient had run out of Lasix at home.
EKG showed atrial fibrillation with RVR with heart rate of 126. Labs show chronic kidney disease with creatinine 1.8, potassium 5.3. Cardiac BNP greater than 20,000. Troponin 0.041. INR 1.7. Chest x-ray showed moderate right pleural effusion.
Presentation on admission was consistent with acute on chronic CHF exacerbation. IV metoprolol was given for heart rate control. Aspirin given although no evidence of ischemia at the time. 40 mg IV Lasix BID. Cardiology consulted. IR consulted
for thoracentesis. Checked bilateral venous ultrasound to evaluate for DVT given asymmetrical leg swelling.
Appears that Patient was on Eliquis 2 years and Pradaxa last year switched to Coumadin in July of this year due to persistent left atrial appendage thrombus. Patient is being considered for watchmen procedure by cardiology.
Acute on Chronic HFrEF
ICM EF 20-25%
Weight Gain
-Patient ran out of Lasix at home
-Consult Cardiology, appreciate evaluation and recommendations
-Was on Lasix 40mg IV BID --> now transitioned to Lasix 40 mg PO daily
-Continue Valsartan and Metoprolol Succinate
-Monitor Is&Os and Daily Weights
-Farxiga and ICD consideration as per cardiology
Right Pleural Effusion
-Consult IR for diagnostic and therapeutic thoracentesis: 1650 cc of clear yellow pleural fluid drained on 10/06/24
-Fluid appears to be transudative
-Follow-up on cytology results: 'Negative for malignant cells. Benign mesothelial cells and macrophages present in a background of mixed inflammatory cells.'
-Follow-up with pulmonary outpatient
Lower Extremity Edema
-Ultrasound with no evidence of deep venous thrombosis
Subtherapeutic INR
-Heparin drip was given, then discontinued since INR was above 2, but then INR dropped again on 10/07/24, and after discussing with cardiology and clinical pharmacist, restarted Heparin Drip on 10/07/24
-Continue Coumadin with Heparin Bridge
-Given patient's clot burden and stroke risk (portal vein thrombosis, atrial fibrillation, distal aortic arch mural thrombus, and left atrial appendage thrombosis), after discussion extensively with several pharmacists and with Dr. Espinoza, started
Heparin Drip DVT/PE protocol with initial bolus and reboluses
-Appreciate hematology assistance given patient's multiple clots and stroke risk with the A-Fib and CAL thrombus
Atrial Fibrillation with Rapid Ventricular Response
Persistent Atrial Fibrillation
-Patient did not take her morning med prior to arrival
-Give dose of usual Metoprolol XL 100mg as well as Digoxin which patient takes PRN
-Continue Metoprolol XL 100mg BID
-Consider changing Digoxin from PRN to Standing - Will defer to Cardiology
-Continue Coumadin
Elevated Troponin, suspect Non-Ischemic Myocardial Injury
-Troponins noted
Mural Thrombus Distal Aortic Arch / Left Atrial Appendage Thrombus (now on warfarin; CAL persisted on eliquis, pradaxa) / Portal Vein Thrombosis
-Continue Coumadin, monitor INR
-Her Pradaxa was transitioned to warfarin 07/21/2024
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
Coronary Artery Disease
-Continue medical management
CKD Stage IIIB
-Monitor creatinine closely while on diuretics
Essential Hypertension
-Continue Valsartan
Alcoholic Cirrhosis s/p Liver Transplant
Liver transplant (2007), on immunosuppression, followed by [facility]
-Continue Cyclosporine and Mycophenolate
Erythema Nodosum
-Continue Prednisone
Other Noted History:
-Valvular Heart Disease: Moderate/Severe Mitral Regurgitation. Severe Tricuspid Regurgitation
-Severe Pulmonary Hypertension
-Renal Artery Stenosis s/p Bilateral Renal Artery Stenting
-History of Left portal vein thrombosis (09/2023)
-Prior renal artery stenting
-Mild to moderate mitral regurgitation
-Mild to moderate tricuspid regurgitation
-History of TIA
-History of GIB (2022)
DVT Prophylaxis: Coumadin with Heparin Bridging
Code Status: Full Code
Heparin Drip is a high risk encounter.
Anticipated Discharge: > 48 hours
Subjective/Interval History
-
Date of Service: October 08, 2024
Patient was seen and examined. She denied any chest pain, SOB or any other complaints.
Objective Data
-
Labs:
Laboratory Results
10/08/24 10/08/24 10/08/24
12:01 12:02 16:00
PT 19.8 H
INR 1.62
APTT 69.6 H Pending
Sodium 137
Potassium 4.1
Chloride 97 L
Carbon Dioxide 30
BUN 68 H
Creatinine 1.6 H
Glucose 113 H
Calcium 9.2
Vital Signs:
Vital Signs
Temp Pulse Resp BP Pulse Ox
98.5 F 85 16 130/65 96
10/08/24 15:54 10/08/24 15:54 10/08/24 15:54 10/08/24 15:54 10/08/24 15:54
I&O
10/07/24 10/08/24 10/09/24
06:59 06:59 06:59
Intake Total 1040 / 1040 1140 / 1140 660 / 660
Output Total 2600 / 2600 800 / 800
Balance -1560 / -1560 340 / 340 660 / 660
[2024-10-08] MEDS: COUMADIN 3 MG PO (17:02)
[2024-10-08] MEDS: NON-FORMULARY ITEM 1 UNIT PO (17:03)
[2024-10-08 17:33] LABS: APTT 124.6 Sec (23.4-35.0)
[2024-10-08 23:08] VITALS: BP 141/77
[2024-10-08 23:14] LABS: APTT 86.9 Sec (23.4-35.0)
[2024-10-09] MEDS: HEPARIN 25000 UNITS/250 ML IV (02:25)
[2024-10-09 06:00] VITALS: BMI 24.2
[2024-10-09 06:03] LABS: Hematocrit 44.3 % (37.0-47.0); Hemoglobin 14.1 g/dL (12.0-16.0); Mean Corp Hgb Conc. 31.8 g/dL (33.0-37.0); Mean Corpuscular Volume 87.9 fL (81.0-99.0); Mean Platelet Volume 11.6 fL (7.4-10.4); Platelet Count 229 10^3/uL (130-400); Red Blood Cell Count 5.04 10^6/uL (4.20-5.40); Red Cell Dist. Width 17.2 % (11.5-14.5); White Blood Cell Count 7.5 10^3/uL (4.8-10.8)
[2024-10-09 06:20] LABS: APTT 78.7 Sec (23.4-35.0)
--- NOTE | 2024-10-09 07:10 | W.PN.HOSP.TC ---
Today's Communication/Plan
-
INR subtherapeutic still
2.5 Coumadin dose this evening
Continue Heparin Drip and associated protocol
Assessment / Plan
Assessment / Plan
Physical Exam
General: Not in acute distress.
HEENT: Normocephalic. Moist mucous membranes
Respiratory: Rhonchi present bilaterally
Cardiac: S1/S2, Irregular Rhythm
GI: Soft and Non Tender. Positive bowel sounds.
Musculoskeletal: No Cyanosis and Other (+3 pitting edema RLE, +2 pitting LLE)
Skin: Warm and Dry
Neuro: Awake, Alert, Oriented and Nonfocal/grossly intact
Psych: Calm
Assessment/Plan
84-year-old male past medical history of atrial fibrillation on Coumadin, chronic HFrEF, hypertension, CAD, alcoholic cirrhosis status post liver transplant 2007 on immunosuppressant, history of GI bleeding, history of CVA, GERD,
hypercholesterolemia, chronic kidney disease 3b, renal artery stenosis, left atrial appendage thrombus, distal aortic arch thrombus, portal vein thrombus presented for leg swelling and shortness of breath.
On examination at the time of admission patient had bilateral lower extremity edema particularly worse on the right side. Patient had run out of Lasix at home.
EKG showed atrial fibrillation with RVR with heart rate of 126. Labs show chronic kidney disease with creatinine 1.8, potassium 5.3. Cardiac BNP greater than 20,000. Troponin 0.041. INR 1.7. Chest x-ray showed moderate right pleural effusion.
Presentation on admission was consistent with acute on chronic CHF exacerbation. IV metoprolol was given for heart rate control. Aspirin given although no evidence of ischemia at the time. 40 mg IV Lasix BID. Cardiology consulted. IR consulted
for thoracentesis. Checked bilateral venous ultrasound to evaluate for DVT given asymmetrical leg swelling.
Appears that Patient was on Eliquis 2 years and Pradaxa last year switched to Coumadin in July of this year due to persistent left atrial appendage thrombus. Patient is being considered for watchmen procedure by cardiology.
Acute on Chronic HFrEF
ICM EF 20-25%
Weight Gain
-Patient ran out of Lasix at home
-Consult Cardiology, appreciate evaluation and recommendations
-Was on Lasix 40mg IV BID then was transitioned to Lasix 40 mg PO daily
-Continue Valsartan and Metoprolol Succinate
-Monitor Is&Os and Daily Weights
-Farxiga and ICD consideration as per cardiology
Right Pleural Effusion
-Consult IR for diagnostic and therapeutic thoracentesis: 1650 cc of clear yellow pleural fluid drained on 10/06/24
-Fluid appears to be transudative
-Follow-up on cytology results: 'Negative for malignant cells. Benign mesothelial cells and macrophages present in a background of mixed inflammatory cells.'
-Follow-up with pulmonary outpatient
Lower Extremity Edema
-Ultrasound with no evidence of deep venous thrombosis
Subtherapeutic INR
-Heparin drip was given, then discontinued since INR was above 2, but then INR dropped again on 10/07/24, and after discussing with cardiology and clinical pharmacist, restarted Heparin Drip on 10/07/24
-Continue Coumadin with Heparin Bridge
-Spoke with pharmacist Leticia Ball today: Coumadin 2.5 once today
-Given patient's clot burden and stroke risk (portal vein thrombosis, atrial fibrillation, distal aortic arch mural thrombus, and left atrial appendage thrombosis), after discussion extensively with several pharmacists and with Dr. Espinoza, started
Heparin Drip DVT/PE protocol with initial bolus and reboluses
-Appreciate hematology assistance given patient's multiple clots and stroke risk with the A-Fib and CAL thrombus
Atrial Fibrillation with Rapid Ventricular Response
Persistent Atrial Fibrillation
-Patient did not take her morning med prior to arrival
-Give dose of usual Metoprolol XL 100mg as well as Digoxin which patient takes PRN
-Continue Metoprolol XL 100mg BID
-Consider changing Digoxin from PRN to Standing - Will defer to Cardiology
-Continue Coumadin
Elevated Troponin, suspect Non-Ischemic Myocardial Injury
-Troponins noted
Mural Thrombus Distal Aortic Arch / Left Atrial Appendage Thrombus (now on warfarin; CAL persisted on eliquis, pradaxa) / Portal Vein Thrombosis
-Continue Coumadin, monitor INR
-Her Pradaxa was transitioned to warfarin 07/21/2024
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
Coronary Artery Disease
-Continue medical management
CKD Stage IIIB
-Monitor creatinine closely while on diuretics
Essential Hypertension
-Continue Valsartan
Alcoholic Cirrhosis s/p Liver Transplant
Liver transplant (2007), on immunosuppression, followed by [facility]
-Continue Cyclosporine and Mycophenolate
Erythema Nodosum
-Continue Prednisone
Other Noted History:
-Valvular Heart Disease: Moderate/Severe Mitral Regurgitation. Severe Tricuspid Regurgitation
-Severe Pulmonary Hypertension
-Renal Artery Stenosis s/p Bilateral Renal Artery Stenting
-History of Left portal vein thrombosis (09/2023)
-Prior renal artery stenting
-Mild to moderate mitral regurgitation
-Mild to moderate tricuspid regurgitation
-History of TIA
-History of GIB (2022)
DVT Prophylaxis: Coumadin with Heparin Bridging
Code Status: Full Code
Heparin Drip is a high risk encounter.
Anticipated Discharge: > 48 hours
Subjective/Interval History
-
Date of Service: October 09, 2024
Patient was seen and examined. She denied any chest pain, SOB or any other complaints.
Objective Data
-
Labs:
Laboratory Results
10/08/24 10/09/24 10/09/24
22:56 05:52 07:01
WBC 7.5
Hgb 14.1
Hct 44.3
Plt Count 229
PT Pending
INR Pending
APTT 86.9 H 78.7 H
Vital Signs:
Vital Signs
Temp Pulse Resp BP Pulse Ox
98.4 F 79 16 141/77 95
10/08/24 23:08 10/08/24 23:08 10/08/24 23:08 10/08/24 23:08 10/08/24 23:08
I&O
10/08/24 10/09/24 10/10/24
06:59 06:59 06:59
Intake Total 1140 / 1140 1140 / 1140
Output Total 800 / 800 1050 / 1050
Balance 340 / 340 90 / 90
[2024-10-09 08:24] VITALS: BP 115/69
[2024-10-09 08:38] LABS: INR 1.56; PT 18.9 Sec (11.4-14.6)
[2024-10-09] MEDS: PROTONIX 40 MG PO (09:21)
[2024-10-09] MEDS: CELLCEPT 750 MG PO ×2 (09:21→21:54)
[2024-10-09] MEDS: DIOVAN 80 MG PO (09:22)
[2024-10-09] MEDS: LASIX 40 MG PO (09:23)
[2024-10-09] MEDS: TOPROL XL 100 MG PO ×2 (09:23→21:54)
[2024-10-09] MEDS: DELTASONE 5 MG PO (09:23)
[2024-10-09] MEDS: NON-FORMULARY ITEM 2 UNIT PO (09:24)
[2024-10-09] MEDS: DESENEX/MITRAZOL/ZEASORB 1 APPLIC TOPICAL ×2 (09:25→21:54)
--- NOTE | 2024-10-09 11:39 | CM ---
Patient seen bedside.
PT recommending home with VN.
Daughter will transport.
Plan: home with [facility]
[2024-10-09 15:00] VITALS: BP 143/82
[2024-10-09] MEDS: COUMADIN 2.5 MG PO (17:33)
[2024-10-09] MEDS: NON-FORMULARY ITEM 1 UNIT PO (17:34)
[2024-10-09 23:35] VITALS: BP 155/82
[2024-10-10 06:00] VITALS: BMI 23.7
[2024-10-10 07:00] VITALS: BP 124/70
[2024-10-10 08:05] LABS: ALT (SGPT) 29 U/L (0-35); AST (SGOT) 48 U/L (14-36); Alkaline Phosphatase 212 U/L (38-126); Blood Urea Nitrogen 82 mg/dl (7-17); Carbon Dioxide 29 mmol/L (22-30); Chloride 96 mmol/L (98-107); Estimated Creatinine Clearance 22 ml/min; Glucose 96 mg/dl (70-99); Potassium 4.4 mmol/L (3.5-5.1); Sodium 140 mmol/L (135-145); Total Bilirubin 1.6 mg/dl (0.2-1.3); Total Protein 6.9 g/dl (6.3-8.2); eGFR 33.84
[2024-10-10] MEDS: PROTONIX 40 MG PO (08:06)
[2024-10-10] MEDS: DELTASONE 5 MG PO (08:07)
[2024-10-10] MEDS: DIOVAN 80 MG PO (08:07)
[2024-10-10] MEDS: NON-FORMULARY ITEM 2 UNIT PO (08:07)
[2024-10-10] MEDS: CELLCEPT 750 MG PO ×2 (08:07→20:16)
[2024-10-10] MEDS: TOPROL XL 100 MG PO ×2 (08:07→20:15)
[2024-10-10] MEDS: LASIX 40 MG PO (08:08)
[2024-10-10] MEDS: DESENEX/MITRAZOL/ZEASORB 1 APPLIC TOPICAL ×2 (08:09→20:16)
[2024-10-10 08:11] LABS: INR 1.69; PT 20.1 Sec (11.4-14.6)
[2024-10-10 08:12] LABS: APTT 69.1 Sec (23.4-35.0)
[2024-10-10 08:21] LABS: Hematocrit 46.8 % (37.0-47.0); Hemoglobin 14.6 g/dL (12.0-16.0); Mean Corp Hgb Conc. 31.2 g/dL (33.0-37.0); Mean Corpuscular Hgb 27.8 pg (27.0-31.0); Platelet Count 253 10^3/uL (130-400); Red Blood Cell Count 5.26 10^6/uL (4.20-5.40); Red Cell Dist. Width 17.2 % (11.5-14.5); White Blood Cell Count 8.7 10^3/uL (4.8-10.8)
[2024-10-10 12:46] VITALS: BP 143/81
[2024-10-10] MEDS: HEPARIN 2300 UNITS IV (13:27)
[2024-10-10 15:00] VITALS: BP 112/67
[2024-10-10] MEDS: NON-FORMULARY ITEM 1 UNIT PO (17:10)
[2024-10-10] MEDS: COUMADIN 3 MG PO (17:10)
--- NOTE | 2024-10-10 19:21 | W.PN.HOSP.TC ---
Today's Communication/Plan
-
Ancef for lower extremity cellulitis
Continue Coumadin and Heparin Drip
Monitor INR
Assessment / Plan
Assessment / Plan
Physical Exam
General: Not in acute distress.
HEENT: Normocephalic. Moist mucous membranes
Respiratory: Rhonchi present bilaterally
Cardiac: S1/S2, Irregular Rhythm
GI: Soft and Non Tender. Positive bowel sounds.
Musculoskeletal: No Cyanosis and Other (+3 pitting edema RLE, +2 pitting LLE)
Skin: Warm and Dry
Neuro: Awake, Alert, Oriented and Nonfocal/grossly intact
Psych: Calm
Assessment/Plan
84-year-old male past medical history of atrial fibrillation on Coumadin, chronic HFrEF, hypertension, CAD, alcoholic cirrhosis status post liver transplant 2007 on immunosuppressant, history of GI bleeding, history of CVA, GERD,
hypercholesterolemia, chronic kidney disease 3b, renal artery stenosis, left atrial appendage thrombus, distal aortic arch thrombus, portal vein thrombus presented for leg swelling and shortness of breath.
On examination at the time of admission patient had bilateral lower extremity edema particularly worse on the right side. Patient had run out of Lasix at home.
EKG showed atrial fibrillation with RVR with heart rate of 126. Labs show chronic kidney disease with creatinine 1.8, potassium 5.3. Cardiac BNP greater than 20,000. Troponin 0.041. INR 1.7. Chest x-ray showed moderate right pleural effusion.
Presentation on admission was consistent with acute on chronic CHF exacerbation. IV metoprolol was given for heart rate control. Aspirin given although no evidence of ischemia at the time. 40 mg IV Lasix BID. Cardiology consulted. IR consulted
for thoracentesis. Checked bilateral venous ultrasound to evaluate for DVT given asymmetrical leg swelling.
Appears that Patient was on Eliquis 2 years and Pradaxa last year switched to Coumadin in July of this year due to persistent left atrial appendage thrombus. Patient is being considered for watchmen procedure by cardiology.
Acute on Chronic HFrEF
ICM EF 20-25%
Weight Gain
-Patient ran out of Lasix at home
-Consult Cardiology, appreciate evaluation and recommendations
-Was on Lasix 40mg IV BID then was transitioned to Lasix 40 mg PO daily
-Continue Valsartan and Metoprolol Succinate
-Monitor Is&Os and Daily Weights
-Farxiga and ICD consideration as per cardiology
Right Pleural Effusion
-Consult IR for diagnostic and therapeutic thoracentesis: 1650 cc of clear yellow pleural fluid drained on 10/06/24
-Fluid appears to be transudative
-Follow-up on cytology results: 'Negative for malignant cells. Benign mesothelial cells and macrophages present in a background of mixed inflammatory cells.'
-Follow-up with pulmonary outpatient
Lower Extremity Edema
Concern for Bilateral Lower Extremity Cellulitis
-Ultrasound with no evidence of deep venous thrombosis
-Check MRSA
-Start Ancef
Subtherapeutic INR
-Heparin drip was given, then discontinued since INR was above 2, but then INR dropped again on 10/07/24, and after discussing with cardiology and clinical pharmacist, restarted Heparin Drip on 10/07/24
-Continue Coumadin with Heparin Bridge
-Spoke with pharmacist Leticia Ball today: Coumadin has been given at higher than home doses everyday --> today will do 3 mg as per pharmacy recommendations
-Given patient's clot burden and stroke risk (portal vein thrombosis, atrial fibrillation, distal aortic arch mural thrombus, and left atrial appendage thrombosis), after discussion extensively with several pharmacists and with Dr. Espinoza, started
Heparin Drip DVT/PE protocol with initial bolus and reboluses
-Appreciate hematology assistance given patient's multiple clots and stroke risk with the A-Fib and CAL thrombus
Atrial Fibrillation with Rapid Ventricular Response
Persistent Atrial Fibrillation
-Patient did not take her morning med prior to arrival
-Give dose of usual Metoprolol XL 100mg as well as Digoxin which patient takes PRN
-Continue Metoprolol XL 100mg BID
-Consider changing Digoxin from PRN to Standing - Will defer to Cardiology
-Continue Coumadin
Elevated Troponin, suspect Non-Ischemic Myocardial Injury
-Troponins noted
Mural Thrombus Distal Aortic Arch / Left Atrial Appendage Thrombus (now on warfarin; CAL persisted on eliquis, pradaxa) / Portal Vein Thrombosis
-Continue Coumadin, monitor INR
-Her Pradaxa was transitioned to warfarin 07/21/2024
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
Coronary Artery Disease
-Continue medical management
CKD Stage IIIB
-Monitor creatinine closely while on diuretics
Essential Hypertension
-Continue Valsartan
Alcoholic Cirrhosis s/p Liver Transplant
Liver transplant (2007), on immunosuppression, followed by [facility]
-Continue Cyclosporine and Mycophenolate
Erythema Nodosum
-Continue Prednisone
Other Noted History:
-Valvular Heart Disease: Moderate/Severe Mitral Regurgitation. Severe Tricuspid Regurgitation
-Severe Pulmonary Hypertension
-Renal Artery Stenosis s/p Bilateral Renal Artery Stenting
-History of Left portal vein thrombosis (09/2023)
-Prior renal artery stenting
-Mild to moderate mitral regurgitation
-Mild to moderate tricuspid regurgitation
-History of TIA
-History of GIB (2022)
DVT Prophylaxis: Coumadin with Heparin Bridging
Code Status: Full Code
Heparin Drip is a high risk encounter.
Anticipated Discharge: 24 - 48 hours
Subjective/Interval History
-
Date of Service: October 10, 2024
Patient was seen and examined. She denied any chest pain, shortness of breath or any other complaints.
Objective Data
-
Labs:
Laboratory Results
10/10/24 10/10/24 10/10/24
06:56 08:06 19:53
WBC 8.7
Hgb 14.6
Hct 46.8
Plt Count 253
PT 20.1 H
INR 1.69
APTT 69.1 H Pending
Sodium 140
Potassium 4.4
Chloride 96 L
Carbon Dioxide 29
BUN 82 H
Creatinine 1.6 H
Glucose 96
Calcium 10.0
Total Bilirubin 1.6 H
AST 48 H
ALT 29
Alkaline Phosphatase 212 H
Vital Signs:
Vital Signs
Temp Pulse Resp BP Pulse Ox
97.9 F 77 16 112/67 100
10/10/24 15:00 10/10/24 15:00 10/10/24 15:00 10/10/24 15:00 10/10/24 15:00
I&O
10/09/24 10/10/24 10/11/24
06:59 06:59 06:59
Intake Total 1140 / 1140 1440 / 1440 1200 / 1200
Output Total 1050 / 1050
Balance 90 / 90 1440 / 1440 1200 / 1200
[2024-10-10 19:54] VITALS: BP 133/71
[2024-10-10] MEDS: ANCEF 5 IV (21:08)
[2024-10-10 21:39] LABS: APTT > 200 Sec (23.4-35.0)
[2024-10-10 23:21] VITALS: BP 145/83
[2024-10-11 02:25] LABS: Beta-2-Glycoprotein I Ab. IgA <10 SAU (<=20); Beta-2-Glycoprotein I Ab. IgG <10 SGU (<=20); Beta-2-Glycoprotein I Ab. IgM <10 SMU (<=20)
[2024-10-11 06:00] VITALS: BMI 23.4
[2024-10-11 06:14] LABS: Hematocrit 43.3 % (37.0-47.0); Hemoglobin 13.7 g/dL (12.0-16.0); Mean Corp Hgb Conc. 31.6 g/dL (33.0-37.0); Mean Corpuscular Hgb 27.9 pg (27.0-31.0); Mean Corpuscular Volume 88.2 fL (81.0-99.0); Mean Platelet Volume 11.4 fL (7.4-10.4); Platelet Count 230 10^3/uL (130-400); Red Blood Cell Count 4.91 10^6/uL (4.20-5.40); Red Cell Dist. Width 17.1 % (11.5-14.5); White Blood Cell Count 7.6 10^3/uL (4.8-10.8)
[2024-10-11 06:25] LABS: INR 2.17; PT 24.3 Sec (11.4-14.6)
[2024-10-11] MEDS: HEPARIN 4700 UNITS IV (06:37)
[2024-10-11 06:43] LABS: ALT (SGPT) 30 U/L (0-35); AST (SGOT) 47 U/L (14-36); Albumin 3.4 g/dl (3.5-5.0); Alkaline Phosphatase 193 U/L (38-126); Blood Urea Nitrogen 84 mg/dl (7-17); Calcium 9.6 mg/dl (8.4-10.2); Carbon Dioxide 31 mmol/L (22-30); Chloride 98 mmol/L (98-107); Estimated Creatinine Clearance 21 ml/min; Glucose 94 mg/dl (70-99); Magnesium 1.5 mg/dl (1.6-2.3); Potassium 4.5 mmol/L (3.5-5.1); Sodium 138 mmol/L (135-145); Total Bilirubin 1.2 mg/dl (0.2-1.3); eGFR 31.47
[2024-10-11 07:18] VITALS: BP 146/68
[2024-10-11 07:49] LABS: Cardiolipin IgA Antibody <10 APL (<=11); Cardiolipin IgM Antibody <10 MPL (<=12); Cardiolipin Igg Antibody <10 GPL (<=14)
[2024-10-11] MEDS: CELLCEPT 750 MG PO ×2 (07:51→20:25)
[2024-10-11] MEDS: DELTASONE 5 MG PO (07:51)
[2024-10-11] MEDS: ANCEF 5 IV ×2 (07:51→20:28)
[2024-10-11] MEDS: TOPROL XL 100 MG PO ×2 (07:51→20:24)
[2024-10-11] MEDS: PROTONIX 40 MG PO (07:55)
[2024-10-11] MEDS: LASIX 40 MG PO (07:55)
[2024-10-11] MEDS: NON-FORMULARY ITEM 2 UNIT PO (07:55)
[2024-10-11] MEDS: DIOVAN 80 MG PO (07:55)
[2024-10-11] MEDS: DESENEX/MITRAZOL/ZEASORB 1 APPLIC TOPICAL ×2 (07:56→20:30)
[2024-10-11] MEDS: FLUSH (NSS) 2 FLUSH IV (07:59)
[2024-10-11] MEDS: HEPARIN 25000 UNITS/250 ML IV (10:12)
--- NOTE | 2024-10-11 12:52 | W.PN.HOSP.TC ---
Addendum entered and electronically signed by Desean Foster MD 10/11/24 18:21:
-Correction to below: I have been speaking with a pharmacist for the past few days: Have been holding home Coumadin Doses and instead having been giving individual higher doses of Coumadin per the advice of pharmacists, resume Coumadin home dose
tonight now that INR is therapeutic
Original Note:
Today's Communication/Plan
-
INR now above 2, resume home dose Coumadin tonight (previously has been getting 1x [id number] doses to help bring INR up)
Continue Heparin Drip - discussed with pharmacist
Continue Ancef -- cellulitis improving
Assessment / Plan
Assessment / Plan
Physical Exam
General: Not in acute distress.
HEENT: Normocephalic. Moist mucous membranes
Respiratory: Rhonchi present bilaterally
Cardiac: S1/S2, Irregular Rhythm
GI: Soft and Non Tender. Positive bowel sounds.
Musculoskeletal: No Cyanosis and Other (+3 pitting edema RLE, +2 pitting LLE)
Skin: Warm and Dry
Neuro: Awake, Alert, Oriented and Nonfocal/grossly intact
Psych: Calm
Assessment/Plan
84-year-old male past medical history of atrial fibrillation on Coumadin, chronic HFrEF, hypertension, CAD, alcoholic cirrhosis status post liver transplant 2007 on immunosuppressant, history of GI bleeding, history of CVA, GERD,
hypercholesterolemia, chronic kidney disease 3b, renal artery stenosis, left atrial appendage thrombus, distal aortic arch thrombus, portal vein thrombus presented for leg swelling and shortness of breath.
On examination at the time of admission patient had bilateral lower extremity edema particularly worse on the right side. Patient had run out of Lasix at home.
EKG showed atrial fibrillation with RVR with heart rate of 126. Labs show chronic kidney disease with creatinine 1.8, potassium 5.3. Cardiac BNP greater than 20,000. Troponin 0.041. INR 1.7. Chest x-ray showed moderate right pleural effusion.
Presentation on admission was consistent with acute on chronic CHF exacerbation. IV metoprolol was given for heart rate control. Aspirin given although no evidence of ischemia at the time. 40 mg IV Lasix BID. Cardiology consulted. IR consulted
for thoracentesis. Checked bilateral venous ultrasound to evaluate for DVT given asymmetrical leg swelling.
Appears that Patient was on Eliquis 2 years and Pradaxa last year switched to Coumadin in July of this year due to persistent left atrial appendage thrombus. Patient is being considered for watchmen procedure by cardiology.
Acute on Chronic HFrEF
ICM EF 20-25%
Weight Gain
-Patient ran out of Lasix at home
-Consult Cardiology, appreciate evaluation and recommendations
-Was on Lasix 40mg IV BID then was transitioned to Lasix 40 mg PO daily
-Continue Valsartan and Metoprolol Succinate
-Monitor Is&Os and Daily Weights
-Farxiga and ICD consideration as per cardiology
Right Pleural Effusion
-Consult IR for diagnostic and therapeutic thoracentesis: 1650 cc of clear yellow pleural fluid drained on 10/06/24
-Fluid appears to be transudative
-Follow-up on cytology results: 'Negative for malignant cells. Benign mesothelial cells and macrophages present in a background of mixed inflammatory cells.'
-Follow-up with pulmonary outpatient
Lower Extremity Edema
Concern for Bilateral Lower Extremity Cellulitis
-Cellulitis appears to be improving
-Ultrasound with no evidence of deep venous thrombosis
-Check MRSA -- result pending
-Continue Ancef, Day 1 was 10/10/24
Subtherapeutic INR - IMPROVING
-Heparin drip was given, then discontinued since INR was above 2, but then INR dropped again on 10/07/24, and after discussing with cardiology and clinical pharmacist, restarted Heparin Drip (DVT/PE protocol) on 10/07/24
-Continue Coumadin with Heparin Bridge
-I have been speaking with a pharmacist for the past few days: Have been holding home Coumadin Doses, resume Coumadin home dose tonight now that INR is therapeutic
-Given patient's clot burden and stroke risk (portal vein thrombosis, atrial fibrillation, distal aortic arch mural thrombus, and left atrial appendage thrombosis), after discussion extensively with several pharmacists and with Dr. Espinoza, started
Heparin Drip DVT/PE protocol with initial bolus and reboluses
-Appreciate hematology assistance given patient's multiple clots and stroke risk with the A-Fib and CAL thrombus
Atrial Fibrillation with Rapid Ventricular Response
Persistent Atrial Fibrillation
-Patient did not take her morning med prior to arrival
-Give dose of usual Metoprolol XL 100mg as well as Digoxin which patient takes PRN
-Continue Metoprolol XL 100mg BID
-Consider changing Digoxin from PRN to Standing - Will defer to Cardiology
-Continue Coumadin
Elevated Troponin, suspect Non-Ischemic Myocardial Injury
-Troponins noted
Mural Thrombus Distal Aortic Arch / Left Atrial Appendage Thrombus (now on warfarin; CAL persisted on eliquis, pradaxa) / Portal Vein Thrombosis
-Continue Coumadin, monitor INR
-Her Pradaxa was transitioned to warfarin 07/21/2024
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
Coronary Artery Disease
-Continue medical management
CKD Stage IIIB
-Monitor creatinine closely while on diuretics
Essential Hypertension
-Continue Valsartan
Alcoholic Cirrhosis s/p Liver Transplant
Liver transplant (2007), on immunosuppression, followed by [facility]
-Continue Cyclosporine and Mycophenolate
Erythema Nodosum
-Continue Prednisone
Other Noted History:
-Valvular Heart Disease: Moderate/Severe Mitral Regurgitation. Severe Tricuspid Regurgitation
-Severe Pulmonary Hypertension
-Renal Artery Stenosis s/p Bilateral Renal Artery Stenting
-History of Left portal vein thrombosis (09/2023)
-Prior renal artery stenting
-Mild to moderate mitral regurgitation
-Mild to moderate tricuspid regurgitation
-History of TIA
-History of GIB (gastritis 2022)
DVT Prophylaxis: Coumadin with Heparin Bridging
Code Status: Full Code
Heparin Drip is a high risk encounter.
Anticipated Discharge: 24 - 48 hours
Subjective/Interval History
-
Date of Service: October 11, 2024
Patient was seen and examined. She denied any bleeding, chest pain, shortness of breath or any other complaints.
Objective Data
-
Labs:
Laboratory Results
10/11/24 10/11/24
05:56 12:33
WBC 7.6
Hgb 13.7
Hct 43.3
Plt Count 230
PT 24.3 H
INR 2.17
APTT 59.0 H Pending
Sodium 138
Potassium 4.5
Chloride 98
Carbon Dioxide 31 H
BUN 84 H
Creatinine 1.7 H
Glucose 94
Calcium 9.6
Total Bilirubin 1.2
AST 47 H
ALT 30
Alkaline Phosphatase 193 H
Vital Signs:
Vital Signs
Temp Pulse Resp BP Pulse Ox
98 F 88 18 146/68 98
10/11/24 07:18 10/11/24 07:51 10/11/24 07:18 10/11/24 07:51 10/11/24 07:18
I&O
10/10/24 10/11/24 10/12/24
06:59 06:59 06:59
Intake Total 1440 / 1440 1680 / 1680
Balance 1440 / 1440 1680 / 1680
[2024-10-11 13:12] LABS: APTT > 200 Sec (23.4-35.0)
--- NOTE | 2024-10-11 13:15 | PTCARENOTE ---
Lab informed this RN of critical PTT value, result=>200. made aware. Protocol followed.
--- NOTE | 2024-10-11 13:27 | CON.PUL ---
Consultation
Consultation Request
Date/Time Consultation Requested: 10/11/2024-7 AM
Date/Time Consultation Performed: 10/11/2024-8 AM
Requesting Provider: Hospitalist
Performing Provider: Dr. Millan
Reason for Consultation: Recurrent pleural effusion
Medical History
-
Chief Complaint: Shortness of breath
History of Present Illness:
74-year-old female patient with a history of cardiomyopathy, EF 20-25%, PAF, cirrhosis status post liver transplant and chronic kidney disease who presented with fluid overload and pleural effusion status post thoracentesis-pulmonary consulted for
recurrent pleural effusions 10/07/2024. Patient feels better after thoracentesis. She does not complain of any chest pain, chest tightness, productive cough, pleurisy, abdominal pain, nausea, and her leg swelling has improved. She does have her
legs wrapped.
Past Medical History
Past Medical History: None (Chronic heart failure reduced EF. Moderate to severe mitral regurgitation. Pulm hypertension-severe. PAF. Mural thrombus distal aortic arch. Left atrial appendage thrombus. Renal artery stenosis status post
bilateral stents. Hypertension. Hyperlipidemia. Alcoholic cirrhosis/liver transplant)
Past Surgical History: None (Portal vein thrombosis. Recurrent right pleural effusion/thoracentesis. Chronic kidney disease-3B. History of GI bleed. Erythema nodosum. Liver transplant 2007.)
Social History
Tobacco: Former Smoker (Less than 5-pack-year quit 21 years old)
Alcohol: Former (Sober since 2005)
Drug: None
Living: With Family
Occupational Exposures: No known asbestos exposure
Environmental Exposures: no known tuberculosis exposure
Family History
Family History: Reviewed & Not Pertinent
Allergies / Home Medications
Allergies
Allergy/AdvReac Type Severity Reaction Status Date / Time
No Known Allergies Allergy Verified 05/07/24 13:52
Home Medications
�Medication �Instructions �Recorded �Confirmed �Last Taken �Type
cyclosporine modified 25 mg 50 mg PO DAILY post liver 07/26/22 10/05/24 10/04/24 History
capsule (Gengraf) transplant
prednisone 5 mg tablet 5 mg PO DAILY post liver transplant 10/06/23 10/05/24 10/04/24 History
valsartan 80 mg tablet 80 mg PO DAILY Blood Pressure 07/21/24 10/05/24 10/04/24 History
calcium carbonate 500 mg PO BID Supplement 10/05/24 10/05/24 10/04/24 History
cyanocobalamin (vitamin B-12) 1,000 mcg PO Q48H Supplement 10/05/24 10/05/24 10/04/24 History
1,000 mcg tablet
cyclosporine modified 25 mg capsule 25 mg PO QPM post liver transplant 10/05/24 10/05/24 10/04/24 History
digoxin 125 mcg (0.125 mg) tablet 125 mcg PO DAILY PRN for heart 10/05/24 10/05/24 Unknown History
rate>130
ferrous sulfate 325 mg (65 mg 325 mg PO DAILY Supplement 10/05/24 10/05/24 10/04/24 History
iron) tablet (FeroSul)
furosemide 40 mg tablet 40 mg PO DAILY PRN weight gain 10/05/24 10/05/24 Unknown History
>3lb per day
metoprolol succinate 100 mg 100 mg PO BID Heart 10/05/24 10/05/24 10/04/24 History
tablet,extended release 24 hr Disease/Condition
mycophenolate mofetil 250 mg 250 mg PO BID post liver transplant 10/05/24 10/05/24 10/04/24 History
capsule
mycophenolate mofetil 500 mg tablet 500 mg PO BID post liver transplant 10/05/24 10/05/24 10/04/24 History
pantoprazole 40 mg tablet,delayed 40 mg PO DAILY Gastrointestinal 10/05/24 10/05/24 10/04/24 History
release Issue
warfarin 2.5 mg tablet (Jantoven) 1.25 mg PO SUTUWETHFRSA Blood Clot 10/05/24 10/05/24 10/04/24 History
Prevention/Tx
warfarin 2.5 mg tablet (Jantoven) 2.5 mg PO MO Blood Clot 10/05/24 10/05/24 09/28/24 History
Prevention/Tx
Review of Systems
-
Unable to Obtain full review of systems at this time due to: Other (Per HPI)
Vitals / Labs / Diagnostic Testing
Vital Signs
Temp Pulse Resp BP Pulse Ox
98 F 88 18 146/68 98
10/11/24 07:18 10/11/24 07:51 10/11/24 07:18 10/11/24 07:51 10/11/24 07:18
Lab Data
10/11/24 05:56
10/11/24 05:56
Laboratory Results
10/10/24 10/11/24 10/11/24
20:49 05:56 12:33
PT 24.3 H
INR 2.17
APTT > 200 H* 59.0 H > 200 H*
Microbiology
10/05/24 15:22 Pleural Fluid Body Fluid Culture - Final
No Growth After 72 Hours
10/05/24 15:22 Pleural Fluid Gram Stain - Final
Diagnostic Testing:
Physical Exam
-
Exam:
Well-nourished and well-developed in no apparent distress
HEENT-atraumatic, normocephalic
Neck-supple, no JVD, no bruit
Heart-regular rate and rhythm-no murmurs, rubs or gallops
Chest with diminished breath sounds right greater than left, no wheezes or crackles
Abdomen-soft, nontender, nondistended, no hepatosplenomegaly
Extremities-no cyanosis, clubbing, +1 edema
Integument-intact, no rashes, lesions or ecchymosis
Neurology-alert and oriented, nonfocal motor and sensory exam
Assessment
-
74-year-old female patient with a history of cardiomyopathy, EF 20-25%, PAF, cirrhosis status post liver transplant and chronic kidney disease who presented with fluid overload and pleural effusion status post thoracentesis-pulmonary consulted for
recurrent pleural effusions 10/07/2024.
Acute on top of chronic heart failure-reduced EF
Recurrent right pleural effusion
IR diagnostic therapeutic thoracentesis 10/05/24--1650 mL clear yellow fluid-transudate, negative for malignant cells
IR thoracentesis 10/08/23--1800 mL straw-colored fluid
Atrial fibrillation with rapid ventricular response
Elevated troponin
Mural thrombus distal aortic arch/left atrial appendage thrombus/portal vein thrombosis-on Coumadin
Conditions present prior to admission:
Chronic heart failure reduced EF 20-25%
Moderate to severe mitral regurgitation.
Pulm hypertension-severe.
PAF.
Chronic Coumadin
Mural thrombus distal aortic arch.
Left atrial appendage thrombus.
Renal artery stenosis status post bilateral stents.
Hypertension.
Hyperlipidemia.
Alcoholic cirrhosis/liver transplant
Portal vein thrombosis.
Recurrent right pleural effusion/thoracentesis.
10/08/23--1800 mL straw-colored fluid, cytology negative
10/05/2024--1650 clear yellow fluid, cytology negative
Chronic kidney disease-3B.
History of GI bleed.
Erythema nodosum.
Liver transplant 2007.
Plan
Respiratory decompensation likely due to fluid overload, chronic heart failure reduced EF responding to diuresis and thoracentesis
Supplemental oxygen as needed
Assess discharge supplemental oxygen needs at the time of discharge
Incentive spirometry
Aspiration precautions
Nebulizers if needed-currently not bronchospastic-minimal smoking history
Thoracentesis reviewed-slow reaccumulation required thoracentesis twice in 1 year-about 1 year apart-both transudate and cytology negative
Cardiology following-correspondence reviewed
Diuresis as tolerated
Monitor renal function, electrolytes, intake/output, lower extremity edema and weight
Replace electrolytes as needed
Monitor for pleural fluid reaccumulation-appears to be reaccumulating quite slowly
If symptomatic recheck chest x-ray and consider repeat thoracentesis
If recurrent thoracenteses are needed in rapid succession and consideration towards ASEPT/Pleurx catheter would be considered
Chronic anticoagulation
Cardiology following as noted above
Consideration towards eventual ablation and Watchman
DVT prophylaxis
Nutrition
Early mobilization
Diagnostic data:
Chest x-ray 10/05/2024-moderate right pleural effusion
Chest x-ray 10/05/2024 postthoracentesis-decreased right pleural fluid, no pneumothorax
Lower extremity ultrasound 10/05/2024-no evidence for DVT bilaterally
Echocardiogram 01/14/2024-EF 40-45%, severe mitral regurgitation
Echocardiogram 05/12/2024-EF 20-25%, moderate to severe mitral regurgitation,
Transesophageal echocardiogram 07/21/2024-EF 20-25%, moderate mitral regurgitation
Data Reviewed
-
EKG: Report reviewed by me
Radiology: Image personally visualized and interpreted and Report reviewed by me
CT Scan: Report reviewed by me
Medical Tests (Nuc Med, Echo etc): Report reviewed by me
Labs: Labs reviewed by me
Old Records: Reviewed
Total Time Spent with Patient (in minutes): 55
[2024-10-11 15:59] VITALS: BP 112/65
[2024-10-11] MEDS: COUMADIN 1.25 MG PO (17:01)
[2024-10-11] MEDS: NON-FORMULARY ITEM 1 UNIT PO (17:01)
[2024-10-11 21:59] LABS: APTT 69.5 Sec (23.4-35.0)
[2024-10-11] MEDS: HEPARIN 2300 UNITS IV (22:26)
[2024-10-11 23:16] VITALS: BP 130/69
[2024-10-12 05:47] LABS: INR 2.55; PT 27.4 Sec (11.4-14.6)
[2024-10-12 05:48] LABS: APTT 91.8 Sec (23.4-35.0)
[2024-10-12 05:57] LABS: ALT (SGPT) 21 U/L (0-35); AST (SGOT) 46 U/L (14-36); Albumin 3.2 g/dl (3.5-5.0); Alkaline Phosphatase 182 U/L (38-126); Blood Urea Nitrogen 94 mg/dl (7-17); Calcium 9.2 mg/dl (8.4-10.2); Carbon Dioxide 29 mmol/L (22-30); Chloride 98 mmol/L (98-107); Estimated Creatinine Clearance 17 ml/min; Glucose 106 mg/dl (70-99); Magnesium 1.6 mg/dl (1.6-2.3); Potassium 4.6 mmol/L (3.5-5.1); Sodium 140 mmol/L (135-145); Total Bilirubin 0.9 mg/dl (0.2-1.3); Total Protein 5.8 g/dl (6.3-8.2); eGFR 24.42
[2024-10-12 06:00] VITALS: BMI 23.5
[2024-10-12 07:15] VITALS: BP 121/60
--- NOTE | 2024-10-12 08:20 | PTCARENOTE ---
Pt c/o moderate middle back pain. made aware, new order provided, see MAR.
[2024-10-12] MEDS: ANCEF 5 IV (08:24)
[2024-10-12] MEDS: LASIX 40 MG PO (08:26)
[2024-10-12] MEDS: DIOVAN 80 MG PO (08:26)
[2024-10-12] MEDS: CELLCEPT 750 MG PO (08:26)
[2024-10-12] MEDS: TOPROL XL 100 MG PO (08:26)
[2024-10-12] MEDS: DELTASONE 5 MG PO (08:26)
[2024-10-12] MEDS: PROTONIX 40 MG PO (08:26)
[2024-10-12] MEDS: NON-FORMULARY ITEM 2 UNIT PO (08:27)
[2024-10-12] MEDS: DESENEX/MITRAZOL/ZEASORB 1 APPLIC TOPICAL (08:27)
[2024-10-12] MEDS: LIDOCAINE 4% PATCH 1 PATCH TOPICAL (08:53)
[2024-10-12 09:38] VITALS: BP 150/84; PULSE 78; O2SAT 100
[2024-10-12 12:00] VITALS: BP 114/64
--- NOTE | 2024-10-12 12:54 | CM ---
Reviewed chart, received notification that patient is medically stable and cleared for discharge. Met with patient who signed IMM and stated that her sister will transport her home. VN updated about discharge. IMM on chart.
Plan: Case management will continue to follow and assist with discharge planning. Home with [facility].
--- NOTE | 2024-10-12 13:08 | W.PN.PUL3 ---
Today's Communication / Plan
-
Chest x-ray as needed depending on symptoms
Diuresis
Sign off
Assessment
-
74-year-old female patient with a history of cardiomyopathy, EF 20-25%, PAF, cirrhosis status post liver transplant and chronic kidney disease who presented with fluid overload and pleural effusion status post thoracentesis-pulmonary consulted for
recurrent pleural effusions 10/07/2024.
Acute on top of chronic heart failure-reduced EF
Recurrent right pleural effusion
IR diagnostic therapeutic thoracentesis 10/05/24--1650 mL clear yellow fluid-transudate, negative for malignant cells
IR thoracentesis 10/08/23--1800 mL straw-colored fluid
Atrial fibrillation with rapid ventricular response
Elevated troponin
Mural thrombus distal aortic arch/left atrial appendage thrombus/portal vein thrombosis-on Coumadin
Conditions present prior to admission:
Chronic heart failure reduced EF 20-25%
Moderate to severe mitral regurgitation.
Pulm hypertension-severe.
PAF.
Chronic Coumadin
Mural thrombus distal aortic arch.
Left atrial appendage thrombus.
Renal artery stenosis status post bilateral stents.
Hypertension.
Hyperlipidemia.
Alcoholic cirrhosis/liver transplant
Portal vein thrombosis.
Recurrent right pleural effusion/thoracentesis.
10/08/23--1800 mL straw-colored fluid, cytology negative
10/05/2024--1650 clear yellow fluid, cytology negative
Chronic kidney disease-3B.
History of GI bleed.
Erythema nodosum.
Liver transplant 2007.
Plan
Respiratory decompensation likely due to fluid overload, chronic heart failure reduced EF responding to diuresis and thoracentesis
Clinically improved 10/12/2024
Incentive spirometry
Thoracentesis reviewed-slow reaccumulation required thoracentesis twice in 1 year-about 1 year apart-both transudate and cytology negative
Cardiology following-correspondence reviewed
Status post diuresis with improvement.
Monitor for pleural fluid reaccumulation-appears to be reaccumulating quite slowly
Chest x-ray as needed depending on symptoms per
Chronic anticoagulation
Cardiology has signed off.
Consideration towards eventual ablation and Watchman
Discharge planning.
Sign off
Diagnostic data:
Chest x-ray 10/05/2024-moderate right pleural effusion
Chest x-ray 10/05/2024 postthoracentesis-decreased right pleural fluid, no pneumothorax
Lower extremity ultrasound 10/05/2024-no evidence for DVT bilaterally
Echocardiogram 01/14/2024-EF 40-45%, severe mitral regurgitation
Echocardiogram 05/12/2024-EF 20-25%, moderate to severe mitral regurgitation,
Transesophageal echocardiogram 07/21/2024-EF 20-25%, moderate mitral regurgitation
Subjective Data
-
Date of Service:
Date of Service: October 12, 2024
Chief Complaint: Pulmonary Follow Up (Pleural effusion)
Subjective:
No new pulmonary complaints
Review of Systems
Cardiopulmonary: Dyspnea (Improved) and Dyspnea on Exertion ( improved)
Objective Data
Data Reviewed
Vital Signs / I&O / Oxygen:
Vital Signs
Temp Pulse Resp BP Pulse Ox
98.1 F 84 16 121/60 97
10/12/24 07:15 10/12/24 08:26 10/12/24 07:15 10/12/24 08:26 10/12/24 07:15
Intake and Output
10/11/24 10/12/24 10/13/24
06:59 06:59 06:59
Intake Total 1680 / 1680 920 / 920
Balance 1680 / 1680 920 / 920
SaO2 97
Physical Exam
General: Comfortable
HEENT: Normocephalic
Cardiovascular: S1-S2
Respiratory: Non-Labored Respirations
GI: Non Distended
Neurology: Awake, Oriented and No Motor Deficits
Labs/Micro/Reports
Lab Data
10/11/24 05:56
10/12/24 05:10
Laboratory Results
10/11/24 10/11/24 10/12/24
12:33 21:32 05:10
PT Cancelled
INR
APTT > 200 H* 69.5 H
10/12/24 10/12/24 10/12/24
05:10 05:10 12:05
PT 27.4 H
INR Cancelled 2.55
APTT 91.8 H Cancelled
Microbiology
10/10/24 19:51 Nose MRSA Screen - Final
No Methicillin Resistant Staphylococcus aureus isolated.
--- NOTE | 2024-10-12 14:56 | W.PN.HOSP.TC ---
Today's Communication/Plan
-
d/c home with HH
Assessment / Plan
Assessment / Plan
Acute on Chronic HFrEF
Ischemic cardiomyopathy -EF 20-25%
-Patient ran out of Lasix at home
-Patient weight has down trended and today 54kg at discharge. was 63kg at admission
-Continue Metoprolol Succinate, creatinine minimally elevated instructed patient to hold valsartan tomorrow and can be resumed on Saturday
-Continue on oral Lasix post discharge with history of significant heart failure
-repeat Cr check in 72hrs, f/u script provided.
-Farxiga and ICD consideration as per cardiology
Right Pleural Effusion
-Post diagnostic and therapeutic thoracentesis: 1650 cc of clear yellow pleural fluid drained on 10/06/24
-Fluid appears to be transudative
-Cyto-path neg for malignant cells
Lower extremity venous stasis dermatitis
-No cellulitis on exam, erythema significantly improved on leg elevation on bedside exam.
-Discontinue further antibiotics at discharge
Persistent afib with RVR
Subtherapeutic INR
-Continue Metoprolol XL 100mg BID
-Patient required home dose of digoxin. Continue as needed as preadmission instructions
-Patient INR back to therapeutic, heparin drip has been discontinued.
Elevated Troponin, suspect Non-Ischemic Myocardial Injury
-Troponin noted
Mural Thrombus Distal Aortic Arch
Left Atrial Appendage Thrombus (now on warfarin; CAL persisted on eliquis, pradaxa)
Portal Vein Thrombosis
-Continue Coumadin, monitor INR
-Her Pradaxa was transitioned to warfarin 07/21/2024
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
Coronary Artery Disease
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
-Continue medical management
CKD Stage IIIB
-Creatinine marginally elevated to 2.1
-Follow-up repeat blood work prescription has been provided within next few days
Essential Hypertension
-Holding valsartan one day and resume back from sat
Alcoholic Cirrhosis s/p Liver Transplant
Liver transplant (2007), on immunosuppression, followed by [facility]
-Continue Cyclosporine and Mycophenolate
Erythema Nodosum
-Continue Prednisone
Other Noted History:
Moderate/Severe Mitral Regurgitation
Severe Tricuspid Regurgitation
Severe Pulmonary Hypertension
Renal Artery Stenosis s/p Bilateral Renal Artery Stenting
History of TIA
History of GIB (gastritis 2022)
DVT Prophylaxis: Coumadin with Heparin Bridging
Code Status: Full Code
More than 30 minutes spent in discharge including
Final examination of the patient
Summarizing hospital stay
Instructions for continuing care to all relevant caregivers
Preparation of discharge records, prescriptions, and referral forms
Total time spent (in minutes): 42 mins
Anticipated Discharge: Today
Subjective/Interval History
-
Date of Service: October 12, 2024
no new issues
feeling better
Objective Data
-
Labs:
Laboratory Results
10/12/24 10/12/24 10/12/24
05:10 05:10 05:10
PT Cancelled 27.4 H
INR Cancelled 2.55
APTT 91.8 H
Sodium 140
Potassium 4.6
Chloride 98
Carbon Dioxide 29
BUN 94 H
Creatinine 2.1 H
Glucose 106 H
Calcium 9.2
Total Bilirubin 0.9
AST 46 H
ALT 21
Alkaline Phosphatase 182 H
10/12/24
12:05
PT
INR
APTT Cancelled
Sodium
Potassium
Chloride
Carbon Dioxide
BUN
Creatinine
Glucose
Calcium
Total Bilirubin
AST
ALT
Alkaline Phosphatase
Vital Signs:
Vital Signs
Temp Pulse Resp BP Pulse Ox
98.2 F 86 18 114/64 97
10/12/24 12:00 10/12/24 12:00 10/12/24 12:00 10/12/24 12:00 10/12/24 07:15
I&O
10/11/24 10/12/24 10/13/24
06:59 06:59 06:59
Intake Total 1680 / 1680 920 / 920
Balance 1680 / 1680 920 / 920
Review of Systems
-
Respiratory: Reports No Symptoms
Cardiac: Reports No Symptoms
Abdomen/GI: Reports No Symptoms
Physical Exam
-
General: No Apparent Distress
HEENT: Negative Oxygen
Respiratory: Negative Clear to Auscultation
Cardiac: Regular Rhythm and S1/S2; Negative Murmur
GI: Soft, Nontender and Nondistended
Musculoskeletal: Edema, Right Lower Extrem and Edema, Left Lower Extrem
Neuro: Awake, Alert, Oriented and No Motor Deficits
--- NOTE | 2024-10-12 20:23 | W.PN.ONC2 ---
Today's Communication / Plan
-
Okay for d/c on coumadin.
Impression
Impression
Left atrial thrombus with extension
Cardiomyopathy
CAD
Chronic port left portal vein thrombosis
Subtherapeutic INR
Liver transplantation
CKD
Hypertension
Renal artery stenosis
GI bleed with gastritis 2022
Plan
Plan
No evidence of lower extremity thrombus
Atrial fibrillation and ejection fraction 20% with subtherapeutic therapeutic INR likely etiology of left atrial thrombus
Left portal vein thrombosis post transplant chronic
Reasonable alternative to therapeutic warfarin would include Lovenox renal dosing 1 mg/kg daily (patient expresses reluctance)
Anti-phospholipid antibody panel negative.
Cellcept and cyclosporine both have an association with blood clots, suspect they may be contributing to hypercoagulable state.
Continue coumadin
Subjective/Objective
Chief Complaint
Heme/Onc follow up of hypercoagulable state, atypical thrombosis
Subjective
Denies complaint, wants to go home.
Vital Signs:
Vital Signs
Temp Pulse Resp BP Pulse Ox
98.2 F 86 18 114/64 97
10/12/24 12:00 10/12/24 12:00 10/12/24 12:00 10/12/24 12:00 10/12/24 07:15
Lab Results:
Laboratory Data
WBC 7.6 10^3/uL (4.8-10.8) 10/11/24 05:56
Hgb 13.7 g/dL (12.0-16.0) 10/11/24 05:56
Plt Count 230 10^3/uL (130-400) 10/11/24 05:56
PT 27.4 Sec (11.4-14.6) H 10/12/24 05:10
PT Cancelled 10/12/24 05:10
INR 2.55 10/12/24 05:10
INR Cancelled 10/12/24 05:10
APTT Cancelled 10/12/24 12:05
eGFR 24.42 10/12/24 05:10
Physical Exam
HEENT: Moist Mucous Membranes; No Jaundice
Cardiology: Normal Sinus Rhythm, S1 and S2
Pulmonary: Clear; No Wheezes
GI: Soft
Extremities: No C/C/E
Neuro: Non Focal
Review of Systems
Review of Systems
Constitutional: Denies Fever or Fatigue
Head: Denies Sore Throat or Hearing Loss
Respiratory: Denies Dyspnea or Cough
Cardiovascular: Denies Chest Pain or Palpitations
Gastrointestinal: Denies Nausea/Vomiting or Diarrhea
Genitourinary: Denies Hematuria
Skin: Denies Rash or Pruritis
Neurological: Denies Headache or Numbness
Psychiatric: Denies Depression or Insomnia
Hem/Lymphatic: Reports Easy Bruising; Denies Night Sweats
--- NOTE | 2024-10-13 17:23 | W.DCSUMMARY ---
Discharge Summary
Discharge Data
Date of Admission: 10/05/24
Date of Discharge: 10/12/24
-
Pending Results: No
Hospital Course
Discharging Physician : Dr Keenan Garcia
Disposition : Home with home care
Primary care physician : Dr Danii Barclay
Principal Discharge diagnosis :
Acute on chronic systolic congestive heart failure
Ischemic cardiomyopathy with EF of 20-25%
Right pleural effusion
Venous stasis dermatitis
Persistent atrial fibrillation on warfarin therapy
Subtherapeutic INR
Nonischemic myocardial injury related elevated troponin
Chronic Discharge diagnosis :
Thrombus in distal aortic arch
Left atrial appendage thrombus
History of portal vein thrombus
Coronary artery disease
Chronic kidney disease stage IIIb
Essential hypertension
Alcoholic cirrhosis post liver transplant in 2007 on immuno suppression
History of erythema nodosum
Moderate/severe mitral regurgitation
Severe tricuspid regurgitation
Severe pulmonary hypertension
History of renal artery stenosis post bilateral renal artery stenting
History of transient ischemic attack
History of gastrointestinal bleed
Hospital Course :
Patient is 74-year-old female with no mentioned past medical history came to ER for having new onset of lower extremity edema. Patient also noted some skin weeping. Evaluation in ER showing patient in volume overload state. Chest x-ray showing
new right-sided pleural effusion with some atelectasis/pneumonia concern. Patient was started on IV Lasix and cardiology was involved in care. A lower extremity venous Doppler was done and was negative for clot. Patient being considered for GDMT
therapy based on insurance approval. After diuresis patient was transition to oral Lasix at discharge.
For right pleural effusion patient underwent thoracentesis of 1.6 L of clear yellow fluid which was transudative in nature. Cytopathology was negative for malignant cells.
Patient had some lower extremity venous stasis dermatitis and was initially treated with 48 hours of antibiotic although this was discontinued at discharge.
Patient also had difficulty with INR being subtherapeutic and required heparin drip with warfarin bridging. Of note patient also have history of distal aortic arch mural thrombus and left atrial appendage thrombus in DOACs has been not recommended.
Post medical stabilization patient was discharged home.
Important imaging findings :
None
Procedure findings :
None
Discharge Plan
-
Patient Disposition: Home (Routine Discharge)
Discharge Diagnosis/Procedures: Systolic HF exacerbation, Afib on warfarin
Condition: Fair
Diet: 2 Gram Sodium and Restrict fluids to 48 oz
Activity: As tolerated
Driving Restrictions: As prior to admission
Bathing Restrictions: OK to Shower
Blood Work: INR/BMP check in 3-4 days
Activity Restrictions/Additional Instructions:
Continue doing CARLO wrapping of both leg to help with swelling
Elevate your leg with 1-2 pillow while in bed
Instructions: *CBC Heart Failure Instructions
Referrals:
Sherie Huerta NP [Specified Professional Personl] - 10/23/24 11:00 am
Danii Barclay MD [Family Provider] - in one week
Viet Bateman MD [Active] - 10/28/24 2:00 pm
Prescriptions:
New
furosemide 40 mg tablet
40 mg PO DAILY Qty: 30 2RF
Continued
cyclosporine modified [Gengraf] 25 mg Capsule
50 mg PO DAILY
Patient Comments:
10/05/24: brand name Gengraf only
Rx Instructions:
10/05/24: brand name Gengraf only
prednisone 5 mg tablet
5 mg PO DAILY
cyclosporine modified 25 mg capsule
25 mg PO QPM
Patient Comments:
10/05/24: brand name Gengraf only
Rx Instructions:
10/05/24: brand name Gengraf only
mycophenolate mofetil 250 mg capsule
250 mg PO BID
metoprolol succinate 100 mg tablet extended release 24 hr
100 mg PO BID
warfarin [Jantoven] 2.5 mg tablet
2.5 mg PO MO
Rx Instructions:
Patient takes warfarin dose in the AM
warfarin [Jantoven] 2.5 mg tablet
1.25 mg PO SUTUWETHFRSA
Rx Instructions:
Patient takes warfarin dose in the AM
mycophenolate mofetil 500 mg tablet
500 mg PO BID
Patient Comments:
take w/250mg = 750mg dose
calcium carbonate 500 mg calcium (1,250 mg) Tablet
500 mg PO BID
cyanocobalamin (vitamin B-12) 1,000 mcg tablet
1,000 mcg PO Q48H
pantoprazole 40 mg tablet,delayed release (DR/EC)
40 mg PO DAILY
ferrous sulfate [FeroSul] 325 mg (65 mg iron) tablet
325 mg PO DAILY
digoxin 125 mcg (0.125 mg) tablet
125 mcg PO DAILY PRN (Reason: for heart rate>130)
Held
valsartan 80 mg Tablet
80 mg PO DAILY
Hold Instructions: Resume on 10/14/24. Hold dose tomorrow, Resume on Saturday
Discontinued
furosemide 40 mg tablet
40 mg PO DAILY PRN (Reason: weight gain >3lb per day)
Discharge Orders:
Discharge Patient (As Directed); Ordered 10/12/24
Ordered By: Keenan Garcia
Discharge Date and Time
Discharge Date/Time: 10/12/24 13:42
Print Language: KAZAKH
[2024-10-13 18:17] LABS: Phosphatidylserine Ab, IgA 0 APS (0-19); Phosphatidylserine Ab, IgG 0 GPS (0-15); Phosphatidylserine Ab, IgM 0 MPS (0-21)
== END 2024-10-12 13:42 | disposition home health service (06) | DRG 291 ==
LOC: 3 WEST ACU 13:28
PROVIDERS: Hospitalist; Nurse Practitioner Gerontology; Physician Assistant Medical; Radiology Diagnostic Radiology; ADMITTING PHYSICIAN Hospitalist; ATTENDING PHYSICIAN Hospitalist; CONSULT PHYSICIAN Internal Medicine; CONSULT PHYSICIAN Internal Medicine Critical Care Medicine; EMERGENCY PHYSICIAN Student in an Organized Health Care Education/Training Program; FAMILY PHYSICIAN Family Medicine; OTHER PHYSICIAN Internal Medicine Hematology & Oncology
PROC: 0W993ZZ Drainage of Right Pleural Cavity, Percutaneous Approach (ICD-10-PCS; 2024-10-05)
DX: I13.0 Hypertensive heart and chronic kidney disease with heart failure and stage 1 through stage 4 chronic kidney disease, or unspecified chronic kidney disease (principal); I50.23 Acute on chronic systolic (congestive) heart failure; I81 Portal vein thrombosis; I48.19 Other persistent atrial fibrillation; Z94.4 Liver transplant status; J98.11 Atelectasis; D84.821 Immunodeficiency due to drugs; D68.59 Other primary thrombophilia; M79.89 Other specified soft tissue disorders; I51.3 Intracardiac thrombosis, not elsewhere classified; E78.00 Pure hypercholesterolemia, unspecified; E87.5 Hyperkalemia; I87.2 Venous insufficiency (chronic) (peripheral); F10.11 Alcohol abuse, in remission; I25.5 Ischemic cardiomyopathy; L52 Erythema nodosum; I70.1 Atherosclerosis of renal artery; I5A Non-ischemic myocardial injury (non-traumatic); I25.10 Atherosclerotic heart disease of native coronary artery without angina pectoris; N18.32 Chronic kidney disease, stage 3b; I27.20 Pulmonary hypertension, unspecified; Z79.01 Long term (current) use of anticoagulants; Z86.73 Personal history of transient ischemic attack (TIA), and cerebral infarction without residual deficits; Z87.891 Personal history of nicotine dependence; I25.2 Old myocardial infarction; Z79.624 Long term (current) use of inhibitors of nucleotide synthesis; Z87.19 Personal history of other diseases of the digestive system
CPT/HCPCS: 88305; 32555; 71045; 71046; 80048; 80053; 80061; 82150; 82248; 82945; 83615; 83735; 83880; 83986; 84157; 84443; 84478; 84484; 85025; 85027; 85610; 85730; 86146; 86147; 86148; 87015; 87070; 87205; 88112; 89051; 93005; 93970; 96374; 96375; 96376; 97116; 97162; 97166; 99291

== ENCOUNTER → 2024-10-16 10:51 | Outpatient (REF) | payer MEDICARE, OTHER, SELFPAY ==
[2024-10-16 12:26] LABS: INR 1.77; PT 20.8 Sec (11.4-14.6)
[2024-10-16 12:44] LABS: Blood Urea Nitrogen 101 mg/dl (7-17); Calcium 10.2 mg/dl (8.4-10.2); Carbon Dioxide 32 mmol/L (22-30); Chloride 95 mmol/L (98-107); Glucose 101 mg/dl (70-99); Potassium 5.2 mmol/L (3.5-5.1); Sodium 139 mmol/L (135-145)
== END ==
LOC: REG 10:51
PROVIDERS: ATTENDING PHYSICIAN Hospitalist
DX: M79.89 Other specified soft tissue disorders (principal)
CPT/HCPCS: 36415; 80048; 85610

== ENCOUNTER 2024-11-24 07:35 | Day surgery (SDC) | payer MEDICARE, OTHER, SELFPAY ==
[2024-11-24 08:31] VITALS: BMI 23.8
--- NOTE | 2024-11-24 15:40 | WATCHMAN ---
Watchman
Wathcman Procedure
Referred by:: Fransico
Date of Referral:: 10/28/24
[id number] Score
Age in Years (65=0, 65-74=1, >/=75=2): 65-74
Sex (Female=+1): Female
Congestive Heart Failure History (Yes=+1): Yes
Hypertension History (Yes=+1): Yes
Stroke/TIA/Thromboembolism History (Yes=+2): Yes
Vascular Disease History (Yes=+1): No
Diabetes Mellitus (Yes=+1): No
Score: 6
Anticoagulation Recommendations: Recommend anticoagulation (as validated in nonvalvular fib)
HASBLED Score
Hypertenstion (uncontrolled >160mmHG systolic): No
Renal disease (dialysis, transplant, Cr >2.26mg/dL or >200umol/L): No
Liver disease (cirrhosis or bilirubin >2x normal w/ AST/ALT/AP >3x normal: Yes
Stroke history: Yes
Prior major bleeding or predisposition to bleeding: No
Labile INR(unsable/high INRs,time in therapeutic range <60%): No
Age >65: Yes
Medication usage predisposing to bleeding(ASA, NSAIDS): No
Alcohol use (>/= 8 drinks/week): No
Score: 3
Risk: Alternatives to anticoagulation should be considered: Patient is at high risk for major bleeding
Electrocardiogram
Interpretation: abnormal
Heart Rate: 107
Rate: tachycardiac
Rhythm: a-fib
Physician Visits
Livestock Inspector:: Fransico
Date of Visit:: 10/28/24
Primary Gas Appliance Servicer Helper:: Robert
Date of Visit:: 04/15/24
PCP:: Ning
Plan
Plan:: 10/28/2024:Patient seen by Dr. Bateman for evaluation of Watchman and PVI.
11/24/2024: ALICE completed. Will review with Heart Team.
== END 2024-11-24 10:22 | disposition home or self-care (01) ==
LOC: CATH 07:35
PROVIDERS: ATTENDING PHYSICIAN Internal Medicine Cardiovascular Disease; FAMILY PHYSICIAN Family Medicine; OTHER PHYSICIAN Internal Medicine Cardiovascular Disease
DX: I48.91 Unspecified atrial fibrillation (principal); I08.3 Combined rheumatic disorders of mitral, aortic and tricuspid valves; I10 Essential (primary) hypertension; Z79.01 Long term (current) use of anticoagulants
CPT/HCPCS: 93312; 93320; 93325; 93005

== ENCOUNTER 2025-02-02 07:33 | Inpatient (IN) | payer MEDICARE, OTHER, SELFPAY ==
[2025-01-25 10:06] VITALS: BMI 24.6
[2025-01-25 10:44] LABS: % Basophils 0.2 % (0-2); % Eosinophils 0.1 % (0-6); % Immature Granulocytes 0.6 % (0-0.5); % Lymphocytes 1.9 % (20.5-51.1); % Monocytes 6.2 % (1.7-9.3); Absolute Immature Granulocytes 0.1 10^3/uL (0-0.05); Absolute Lymphocytes 0.4 10^3/uL (1.2-3.4); Absolute Monocytes 1.2 10^3/uL (0.1-0.6); Absolute Neutrophils 17.3 10^3/uL (1.4-6.5); Hematocrit 43.6 % (37.0-47.0); Hemoglobin 13.3 g/dL (12.0-16.0); Mean Corp Hgb Conc. 30.5 g/dL (33.0-37.0); Mean Corpuscular Hgb 28.7 pg (27.0-31.0); Mean Corpuscular Volume 94.2 fL (81.0-99.0); Mean Platelet Volume 11.7 fL (7.4-10.4); Nucleated Red Blood Cells % 0 %; Platelet Count 198 10^3/uL (130-400); Red Blood Cell Count 4.63 10^6/uL (4.20-5.40); Red Cell Dist. Width 17.6 % (11.5-14.5)
[2025-01-25 10:55] LABS: ALT (SGPT) 66 U/L (0-35); AST (SGOT) 39 U/L (14-36); Albumin 4.1 g/dl (3.5-5.0); Alkaline Phosphatase 202 U/L (38-126); Blood Urea Nitrogen 80 mg/dl (7-17); Carbon Dioxide 23 mmol/L (22-30); Chloride 103 mmol/L (98-107); Estimated Creatinine Clearance 20 ml/min; Glucose 146 mg/dl (70-99); Potassium 4.5 mmol/L (3.5-5.1); Sodium 140 mmol/L (135-145); Total Bilirubin 3.3 mg/dl (0.2-1.3); Total Protein 6.7 g/dl (6.3-8.2); eGFR 31.47
[2025-01-25 11:01] LABS: INR 3.15; PT 32.2 Sec (11.4-14.6)
[2025-02-02] VITALS (23 sets, daily range): BP systolic 89–143; BP diastolic 47–91; BMI 24.6
[2025-02-02] MEDS: NSS 500 IV ×2 (08:54→21:43)
[2025-02-02 08:56] LABS: INR 2.54; PT 27.4 Sec (11.4-14.6)
--- NOTE | 2025-02-02 11:47 | ITS.CL.PN ---
Service [facility] Emergency - Procedure Note
Procedure
Procedure Note:
WATCHMAN LEFT ATRIAL APPENDAGE OCCLUSION REPORT
Date of Procedure: 02/02/2025
Referring: Dr. Blade Jones MD
Indication: atrial fibrillation with high stroke risk and high bleeding risk
Operators: Dr. Viet Bateman MD (electrophysiology); Justo Bower MD, PhD (interventional cardiology); Dr. Sloan Norris MD (cardiac imaging)
Anesthesia: general anesthesia provided by the anesthesia staff
PROCEDURE: left atrial appendage occlusion with a 35 mm Watchman FLX
HEMODYNAMIC DATA
LA 14 mmHg
PROCEDURE NARRATIVE:
The patient was intubated and sedated by anesthesiology and then prepped and draped in standard sterile fashion. Pulmonary vein isolation was then performed by Dr. Viet Bateman (please see separate procedure note for details). At the conclusion of
the ablation procedure, the ablation catheter was exchanged for a Watchman double curved sheath. A ALICE probe was placed by cardiology and imaging performed demonstrating no left atrial appendage thrombus and no pericardial effusion. ACT was checked
and was >300. Left atrial pressure was measured at 14 mmHg.
A 5F pigtail catheter was advanced through the sheath and placed in the left atrial appendage, and an appendage gram was performed demonstrating anatomy suitable for a 35 mm Watchman FLX device. The device was prepped on the back table, the pigtail
catheter removed, and the device delivered via the sheath to the left atrial appendage. The device was deployed slowly under continuous fluoroscopic and ALICE visualization. Initial deployment demonstrate a large mitral shoulder, so the device was
recaptured and redeployed with deeper positioning and flexion just before release to achieve more superior orientation and reduce mitral should. After deployment, ALICE imaging was performed to assess PASS criteria. The device demonstrated excellent
positioning, anchor stability on tug test, appropriate sizing with 14-21% compression, and appropriate seal with no leak at 0, 45, 90, or 135 degrees. Given PASS criteria were met, the device was then released.
The delivery system retracted back into the sheath and removed from the body. The sheath was retracted into the right atrium with ALICE demonstrating no significant R-L shunt or pericardial effusion. The ICE catheter was removed from the body. The
sheaths were removed and the venotomy closed with [id number] knot. The patient was extubated and tolerated the procedure well.
CONCLUSIONS: successful deployment of a 35 mm Watchman FLX device under fluoroscopic and ALICE guidance
RECOMMENDATIONS:
1. anticoagulation with warfarin for 3 months
2. repeat ALICE in 3 months
Copy to: Dr. Blade Jones MD (air dispatcher); Dr. Danii Barclay MD (PCP)
Signed: Justo Bower MD, PhD
--- NOTE | 2025-02-02 12:43 | ITS.CL.ABL ---
Addendum entered and electronically signed by Viet Bateman MD 02/05/25 10:04:
Figures from the case
Original Note:
Ingredient Scaler Helper - Ablation
Ablation
Procedure Report:
AFIB ablation / Watchman implantation:
Ms. Rosales is a very pleasant 74 yr old woman, a patient of Dr. Jones, with symptomatic persistent AF, with CHADSVascc score of 6 on Warfarin with hx of CAL clot with h/o recurrent GI bleed, fall risk and liver transplant is recommended a
placement of Watchman with atrial fibrillation ablation.
Date of the Procedure:
02/02/2025
Indications:
Persistent atrial fibrillation, high risk of bleeding with high CHADSVasc score
Pre-Operative Diagnosis:
Persistent atrial fibrillation, high risk of bleeding with high CHADSVasc score
Post-Operative Diagnosis:
Persistent atrial fibrillation, high risk of bleeding with high CHADSVasc score
Procedure Performed:
Atrial fibrillation ablation with Pulsed-Field approach for pulmonary vein isolation
Posterior wall isolation
Left atrial appendage occlusion with Watchman implantation (31 mm Watchman FLX Pro left atrial appendage closure device)
Performing Physician:
Ablation and TSSP: Viet Bateman MD
Implant: Justo Bower MD PHD
ALICE: Sloan Norris M.D.
Assistants:
EP staff
Anesthesia:
See anesthesia records
Detailed Description of the Procedure:
Written informed consent was obtained from the patient after a full explanation of the risks and benefits of the procedure including the risks of sedation and anesthesia.
The patient was brought to the electrophysiology laboratory in stable condition in fasting state. Continuous electrocardiographic and hemodynamic monitoring was initiated.
The initial rhythm was atrial fibrillation.
The procedure site was meticulously prepared with surgical scrub and allowed to dry with no pooling. Sterile draping was applied to cover the procedure site. The image intensifier was draped with sterile bag and positioned over the patient. After
infusion of local anesthetic, vascular access was obtained under ultrasound guidance and sheaths were placed over guide wire as detailed below.
Sheath and Catheter Placement:
The following catheters / sheaths were placed
Sheaths:
��������� 17Fr steerable sheath (Faradrive�, [employer]) in right femoral that later swapped to Watchman delivery sheath
��������� 9Fr in right femoral vein
Catheters:
��������� JANINE HD Grid mapping catheter � at locations of RA, LA
��������� Farawave� PFA catheter
��������� ICE catheter �Talbot ViewFlex - at locations of RA, SVC, and RV.
��������� Watchman catheter
Heparin bolus given and drip started.
Intracardiac ECHO:
An 8-Ivorian AcuNav intracardiac ECHO (ICE) probe was advanced through the 9-Ivorian sheath in the right femoral vein into the right atrium under fluoroscopic and ICE ultrasound image guidance and a baseline ECHO study was performed. The left atrial
size was normal. There was moderate tricuspid regurgitation. There was normal left ventricular systolic functions. There is no pericardial effusion. All the four veins were identified and has flow identified. There was sluggish flow noted in the
CAL. There was no CAL clot noted.
During the procedure, ICE was used for monitoring of complications, guidance of trans-septal puncture, monitor the catheter position and tracking ablation lesions. No change in the pericardial space noted throughout the procedure.
Trans-septal Puncture:
Heparin was initiated and infused to maintain appropriate ACT. A pigtail guidewire was advanced through the 8-Ivorian sheath in the right femoral vein into the superior vena cava under fluoroscopic and ICE guidance. The 9-Ivorian sheath was exchanged
for a Faradrive sheath which was advanced into the superior vena cava. A trans-septal RF pigtail via Besstechadrive connect system was utilized to perform the trans-septal puncture. The apparatus was withdrawn until it was in contact with the fossa
ovalis. The position was adjusted based on fluoroscopy and ultrasound images from ICE. Under fluoroscopic, hemodynamic and ICE ultrasound guidance, left atrium was cannulated by applying RF energy. Once atrial septum was cannulated, the pigtail wire
was advanced through the needle into the left atrium. The guide wire was advanced into the left superior pulmonary vein. Both the sheath and the dilator was advanced into the left atrium. The dilator with the needle was withdrawn. Blood was
aspirated from the Faradrive sheath and arterial blood confirmed. The sheath was flushed. Saline injection noted into the left atrium on ICE. The mapping catheter was advanced in the sheath into the left pulmonary vein. Left atrial pressure was
measured.
3D Electroanatomic Mapping:
Using the HD Grid catheter advanced through sheath into the left atrium, an electroanatomic map (EAM) of the left atrium was created using Gauss Surgical mapping system. The map was used for localization of catheter position and tacking of ablation
lesions.
The EAM of the left atrium showed 5 pulmonary veins (2 left sided and 3 right sided) with all 5 veins electrically connected to the body the LA. It showed scattered extensive scar on the posterior and anterior wall of the LA. The LA was dilated in
size.
Following the EAM, preparation were made for ablation.
Ablation:
Ablation # 1: Pulmonary vein Isolation:
Glycopyrrolate 0.2 mg was given prior to the placement of ablation. Using [employer] pulsed wave ablation system, pulmonary vein isolation was achieved. First the ablation catheter was placed in the LSPV and ostial ablation lesions were performed in a
counter clock ron approach all around the PV ostium circumferentially. Then the catheter was placed on the antral location and multiple ablation lesions were placed circumferentially on the antrum of the vein.
In the similar fashion, the LIPV were isolated.
Then the catheter was moved to right sided veins. The ostial and antral ablations were placed as noted above.
Ablation #2: Posterior wall isolation:
Using the pulsed field ablation catheter, the catheter was placed between left superior pulmonary vein and right severe pulmonary vein with series of overlapping ablation lesions placed.
Using the pulsed field ablation catheter, the catheter was placed on the posterior wall and moved around the posterior wall to have adequate contact and ablations were placed isolating the posterior wall.
EPS and Confirmation of the PVI and bidirectional block:
Following achievement of entrance block at the pulmonary veins, pacing from the HD catheter in each of the four veins at 10 milliamps for 2 milliseconds showed entrance and exit block. All PVI were rechecked at the end of the case and remained
isolated. Entrance and exit block were demonstrated in all veins.
Post ablation Electroanatomic mapping:
Once ablation was completed, the EAM of the LA was done again in sinus rhythm with excellent demarcation of LA myocardium and isolated antral tissue. There was no significant scarring noted in the LA.
The CAL had healthy signals and was not isolated.
Watchman implantation:
Using the trans-septal RF pigtail, the Faradrive sheath was swapped with Watchman delivery sheath over the RF pigtail. A curved pig tail was advanced over the guide wire into the left atrium and the wire was removed.
Left atrial appendage atriography:
The pigtail was advanced into the CAL and was confirmed on fluoroscopy and ALICE. The contrast was injected and the ACL shape was recorded in GOSS /Caudal view (21/11 degrees). The size of the CAL was again checked and confirmed reviewing the ALICE and
the fluoroscopy along with previously obtained CT scan images.
Watchman Deployment:
The Watchman delivery sheath was advanced into the CAL over the pigtail till the right marker was at the location of the orifice line marked on the screen. The pigtail was removed and the Watchman delivery system was advanced through the sheath into
the CAL till it was aligned with the outer sheath marker inside the CAL. The watchman sheath was clicked with the outer sheath. Once acceptable location achieved, the outer sheath was pulled back keeping the device steady at the CAL location till a
ball of the device was formed under fluoroscopic guidance. The whole system was advanced further into the CAL till adequate depth is achieved into the CAL. The CAL occluder was deployed and expanded adequately anchoring to the CAL. The device was
kept anchored with stable pressure to that location for 10 seconds.
The Watchman was noted to have shoulder out and was not completely inside the appendage and decision was made to recapture and implant deeper inside the CAL. The watchman was successfully recaptured and was adjusted to get a deeper location and
deployed as noted above. The new location has much better appearance and the device had minimal shoulder present now after the tug test.
The ALICE image confirmed adequate expansion. The tug test was done that showed the device is anchored well and is not able to come out. The compression was 24%, 12% and 22% on the three sides. There was no significant leak noted on the Doppler via
ALICE.
The device was deployed by unscrewing the Watchman device and releasing from the connecting wire. The wire was pulled back into the sheath and the sheath was pulled out of the LA.
Implanted device:
WATCHMAN FLX Pro � 35mm
Procedure End
ALICE study was done again that showed no epicardial accumulation that was unchanged from earlier. A repeated images showed no change in the pericardial space. No complications noted.
Following the completion of the deployment, catheters were removed. Protamine 40 mg was given at the end of the procedure and ACT was checked repeatedly. The sheath was removed and hemostasis achieved with Figure of 8 and manual compression after
acceptable ACT is achieved.
Left atrial Pressure:
Mean LA pressure was 14mmHg
Estimated Blood loss:
<10 cc
Specimens Removed:
None.
Implants / Devices:
None
Urine output:
None
Packs / Drains/ Tubes:
None
Instrument / Sponge Count Correct:
Yes
Complications of the Procedure:
None
Condition of Patient at Time of Transfer:
Hemodynamically stable with no neurological or vascular compromise.
Summary:
Successful atrial fibrillation ablation with Pulsed Field approach for pulmonary vein isolation and posterior wall isolation.
Successful implantation of the left atrial occlusion device (WATCHMAN FLX Pro� 35mm)
Post procedure Plan for anticoagulation:
Continue Warfarin for 3 months.
Based on 3 months ALICE, will plan to switch Warfarin to ASA 81 mg indefinitely.
--- NOTE | 2025-02-02 14:43 | W.DS.TRANS ---
DC Summary - Job Coach
-
Discharge Instructions:
Discharge Diagnosis/Procedures AFib, s/p ablation + watchman device implant
Diet Low Cholesterol
Driving Restrictions No driving for 24 hours
Blood Work INR was 2.54 this morning- repeat INR as per
usual
Others Tests Follow up ALICE is scheduled for you at [facility] on 05/07/[address] Norris. You
will receive instructions in the mail and a call
the day prior with arrival time.
Instructions:
Stand-Alone Forms: DC Instructions- Cath/EP Lab
Changes to Home Medications: No
Discharge Medications:
DC Medications w/original date entered in [facility]
cyclosporine modified 25 mg capsule (Gengraf) 50 mg PO DAILY post liver transplant 07/26/22
valsartan 80 mg tablet 80 mg PO DAILY Blood Pressure 07/21/24
calcium carbonate 500 mg PO BID Supplement 10/05/24
cyanocobalamin (vitamin B-12) 1,000 mcg tablet 1,000 mcg PO Q48H Supplement 10/05/24
ferrous sulfate 325 mg (65 mg iron) tablet (FeroSul) 325 mg PO DAILY Supplement 10/05/24
metoprolol succinate 100 mg tablet,extended release 24 hr 200 mg PO BID Heart Disease/Condition 10/05/24
mycophenolate mofetil 500 mg tablet 1,000 mg PO BID post liver transplant 10/05/24
pantoprazole 40 mg tablet,delayed release 40 mg PO DAILY Gastrointestinal Issue 10/05/24
warfarin 2.5 mg tablet (Jantoven) 1.25 mg PO SUTUWEFR Blood Clot Prevention/Tx 10/05/24
warfarin 2.5 mg tablet (Jantoven) 2.5 mg PO MOTHSA Blood Clot Prevention/Tx 10/05/24
furosemide 40 mg tablet 20 mg PO DAILY 11/24/24
prednisone 20 mg tablet 20 mg PO DAILY 01/14/25
cyclosporine modified 25 mg capsule (Gengraf) 25 mg PO QPM 02/02/25
Home Medication Changes
Pending Results: No
--- NOTE | 2025-02-02 16:29 | PTCARENOTE ---
Pt was ambulated to the bathroom, felt dizzy but gait was steady. Upon sitting on toilet she gushed out from right femoral vein approximately 300mls. Help gathered to lift pt off the toilet and hold pressure. Pt returned to stretcher , complete
lift x4 people. Pressure held for 15 minutes. Hematoma noted , compressed out. Sandy CADET notified MANA and is currently at the bedside.
--- NOTE | 2025-02-02 17:05 | PTCARENOTE ---
Hemostasis obtained after 30 minute hold. CBC sent post. Small hematoma at site. Dr powell inspecting currently and updating pt on plan of care with overnight stay and watching.
[2025-02-02 17:15] LABS: Hematocrit 37.6 % (37.0-47.0); Hemoglobin 11.7 g/dL (12.0-16.0); Mean Corp Hgb Conc. 31.1 g/dL (33.0-37.0); Mean Corpuscular Hgb 28.8 pg (27.0-31.0); Mean Corpuscular Volume 92.6 fL (81.0-99.0); Mean Platelet Volume 11.8 fL (7.4-10.4); Platelet Count 216 10^3/uL (130-400); Red Blood Cell Count 4.06 10^6/uL (4.20-5.40); Red Cell Dist. Width 17.2 % (11.5-14.5); White Blood Cell Count 17.3 10^3/uL (4.8-10.8)
--- NOTE | 2025-02-02 19:10 | ITS.CL.PN ---
Medical Numerical Control Operator - Procedure Note
Procedure
Procedure Note:
CARDIAC CATHETERIZATION REPORT
Date of Procedure: 02/02/2025
Referring: Dr. Piyush Martínez MD
Indication: NSTEMI
PROCEDURE(S)
1. bypass graft angiography
2. PCI with YOHANNES to SVG to OM1
ACCESS: 6F right common femoral artery (closure: manual hemostasis)
CATHETER: 6F AL1 guide
MODERATE SEDATION: 45 minutes of moderate sedation was utilized. An independent medical service representative was present to assist with and help manage the patient's level of consciousness and physiologic status.
ULTRASOUND GUIDED VASCULAR ACCESS (right common femoral artery): Ultrasound was utilized for vascular access. The vessel was visualized under ultrasound and noted to be patent. An image of the vessel was stored permanently in the patient's medical
record. Under direct ultrasound guidance, vascular access was obtained using a modified Seldinger technique and a 6 Sri [place]ankan sheath was placed.
BYPASS GRAFT ANGIOGRAPHY
SVG-OM1: There is a patent stent in the proximal aspect of the graft followed by a 99% focal stenosis. There is JOSE-3 flow with brisk runoff to a moderate caliber OM branch.
PCI with YOHANNES to SVG-OM
Heparin was given to achieve ACT greater than 300. The vein graft to OM was engaged with a 6 Sri Lankan AL-1 guide catheter and a Runthrough coronary wire placed in the distal aspect of the graft. Initial lesion preparation was performed with a 2.0 mm
semicompliant balloon. Stenting was then performed with a 3.0 x 30 mm Bluebell frontier YOHANNES at 16 kelvin. There was a mild waist at the lesion site which was postdilated with a 3.25 x 12 mm NC balloon to 18 kelvin with improvement. Final angiography
demonstrated an excellent result without complication. The wire and guide were removed and femoral hemostasis achieved with manual pressure. The patient tolerated the procedure well. She was loaded with 300 mg of Plavix prior to leaving the Cath
Lab.
RADIATION: dose 212 mGy; DAP 17.5 Gy*cm2; fluoroscopy time 12.5 min
CONCLUSIONS
1. Bypass graft angiography demonstrates focal subtotal occlusion of the SVG to OM graft
2. Successful PCI with YOHANNES to the SVG to OM with a 3.0 x 30 mm Bluebell [place] drug-eluting stent postdilated to high-pressure with a 3.25 mm NC balloon.
RECOMMENDATIONS
1. Continue DAPT with aspirin and Plavix
2. Aggressive secondary prevention of coronary artery disease
Copy to: Dr. Arnav Carney MD (assistant professor of biology)
Signed: Justo Bower MD, PhD
--- NOTE | 2025-02-02 19:17 | PTCARENOTE ---
Received patient at 1815 after discharge was cancelled when she developed bleeding at right femoral site with a hematoma. Dressing right groin is dry and intact, area is soft with some ecchymosis. Oriented to room and plan of care, aware of bedrest
until 2100, remains in SB on the monitor, call joe in reach.
[2025-02-02] MEDS: NEORAL 25 MG PO (21:06)
[2025-02-02] MEDS: TOPROL XL 100 MG PO (21:06)
[2025-02-02] MEDS: CELLCEPT 1000 MG PO (21:07)
--- NOTE | 2025-02-02 21:57 | PTCARENOTE ---
Pt SB on monitor. denies pain or SOB. OOB with x 1 assist post bed rest. Rt groin soft, no bleeding noted, pedal pulses positive with the Doppler
[2025-02-03] VITALS (7 sets, daily range): BP systolic 107–134; BP diastolic 50–68; BMI 24.5
--- NOTE | 2025-02-03 04:51 | DOWNTIME ---
There was a [email or web address] Client Senior Buyer Planner Downtime on 02/03/2025 from 0100 to 02/04/2024 at 0420 . Downtime documentation of patient's care, including medication administrations, has been reconciled in the electronic record per guidelines. Refer to the
patient's paper chart under the miscellaneous tab to see printed paper medication records and downtime forms.
[2025-02-03 06:05] LABS: INR 2.52; PT 27.2 Sec (11.4-14.6)
[2025-02-03 06:08] LABS: Hematocrit 28.5 % (37.0-47.0); Mean Corp Hgb Conc. 31.6 g/dL (33.0-37.0); Mean Corpuscular Hgb 29.3 pg (27.0-31.0); Mean Corpuscular Volume 92.8 fL (81.0-99.0); Platelet Count 171 10^3/uL (130-400); Red Blood Cell Count 3.07 10^6/uL (4.20-5.40); Red Cell Dist. Width 17.2 % (11.5-14.5); White Blood Cell Count 11.7 10^3/uL (4.8-10.8)
[2025-02-03 06:16] LABS: Blood Urea Nitrogen 78 mg/dl (7-17); Calcium 7.8 mg/dl (8.4-10.2); Carbon Dioxide 18 mmol/L (22-30); Chloride 107 mmol/L (98-107); Estimated Creatinine Clearance 19 ml/min; Glucose 111 mg/dl (70-99); Magnesium 1.8 mg/dl (1.6-2.3); Potassium 4.7 mmol/L (3.5-5.1); Sodium 134 mmol/L (135-145); eGFR 29.38
--- NOTE | 2025-02-03 07:42 | PTCARENOTE ---
Received patient this morning resting in bed. Dressing right groin is dry and intact, groin area is soft with no signs of a hematoma. Call joe in reach, offers no complaints.
[2025-02-03] MEDS: CELLCEPT 1000 MG PO ×2 (08:05→19:35)
[2025-02-03] MEDS: NEORAL 50 MG PO (08:05)
[2025-02-03] MEDS: PROTONIX 40 MG PO (08:06)
[2025-02-03] MEDS: DIOVAN 80 MG PO (08:06)
[2025-02-03] MEDS: DELTASONE 20 MG PO (08:06)
[2025-02-03] MEDS: LASIX 20 MG PO (08:06)
[2025-02-03] MEDS: NSS IV (08:07)
[2025-02-03] MEDS: FLUSH (NSS) 1 FLUSH IV (08:08)
[2025-02-03] MEDS: ANESTHETIC LOZENGE 1 LOZENGE PO (08:34)
--- NOTE | 2025-02-03 08:37 | W.PN.CARDCBS ---
Addendum entered and electronically signed by Drew Van MD 02/03/25 12:01:
74 yo female with PMH of persistent A fib, on warfarin, GI bleed is admitted following Watchman and PVI. She had bleeding from groin site. Exam with RRR, no murmurs, no edema. Right groin exam c/w hematoma. Hgb 9.
Will plan to trend Hgb, and u/s groin.
Original Note:
Today's Communication / Plan
-
post PVI/Watchman c/b groin bleed
Check u/s to r/o PSA
repeat H&H @10
if u/s and Hbg stable poss d/c home later this afternoon
Impression / Plan
-
PCP: Dr. Barclay
CDY: Dr. Jones
74 yr old woman with symptomatic persistent AF, with CHADSVascc score of 6 on Warfarin with hx of CAL clot with h/o recurrent GI bleed, fall risk and liver transplant is recommended a placement of Watchman with atrial fibrillation ablation.
#Persistent Afib - post ablation and 31mm Watchman device implant, post op had groin bleed
groin with ecchymosis but soft, Hbg dropped 11.7->9.0 this am, will check u/s and H&H
Warfarin held last night INR 2.52 this am, goal 2-3
tele SB HR 40-50's, plan was to decrease metoprolol to 100mg bid, will hold this am
f/u cbc FOUNDATION ASSISTANT 2-4 weeks
#Acute blood loss anemia - history of GIB in past, Hbg has been stable prior to procedure
Hbg 9.0 this am, denies LH/Dizziness, recheck H&H
#Chronic HFrEF 30-35% - continue GDMT (valsartan, metoprolol xl, lasix)
#CKD 3b - Cr stable post procedure, 1.8 this am (baseline 1.6-2.2)
#h/o liver tx 2007 - continue gengraf, prednisone
#HTN
#HLD
#CVA
#h/o renal stent
#CAD/LAD HEAD BUCKER
#h/o ACL thrombus
#Depression
02/02/25 Procedure Performed:
Atrial fibrillation ablation with Pulsed-Field approach for pulmonary vein isolation
Posterior wall isolation
Left atrial appendage occlusion with Watchman implantation (31 mm Watchman FLX Pro left atrial appendage closure device)
Progress Note - Wad Compressor Operator Adjuster
Subjective
Date of Service: February 03, 2025
denies cp, sob, LH/dizziness
Objective
Labs:
02/03/25 05:07
Labs
Hgb 9.0 g/dL (12.0-16.0) L D 02/03/25 05:07
Hct 28.5 % (37.0-47.0) L 02/03/25 05:07
Plt Count 171 10^3/uL (130-400) D 02/03/25 05:07
PT 27.2 Sec (11.4-14.6) H 02/03/25 05:07
INR 2.52 02/03/25 05:07
Sodium 134 mmol/L (135-145) L 02/03/25 05:07
Potassium 4.7 mmol/L (3.5-5.1) 02/03/25 05:07
BUN 78 mg/dl (7-17) H 02/03/25 05:07
Creatinine 1.8 mg/dL (0.6-1.0) H 02/03/25 05:07
Glucose 111 mg/dl (70-99) H 02/03/25 05:07
Vital Signs and I&O:
Vital Signs
Temp Pulse Resp BP Pulse Ox
97.9 F 53 20 107/50 97
02/03/25 06:47 02/03/25 07:00 02/03/25 06:47 02/03/25 06:47 02/03/25 06:47
Vital Signs
Temp Pulse Resp BP Pulse Ox
97.9 F 53 20 107/50 97
02/03/25 06:47 02/03/25 07:00 02/03/25 06:47 02/03/25 06:47 02/03/25 06:47
Intake & Output
02/01/25 02/02/25 02/03/25 02/04/25
06:59 06:59 06:59 06:59
Intake Total 1440 / 1440
Balance 1440 / 1440
Physical Exam
Physical Exam
NAD, AOX3
S1, S2, RRR
CTAB, non labored, no wheeze
SNTND bsx4
R fem site c/d/i soft, mildly tender to palpation, moderate ecchymosis
--- NOTE | 2025-02-03 10:13 | CM ---
Chart reviewed. Patient is independent of ADLS, lives with her sister in a 1 story mobile home, 4 IRE[address], ambulates with a SPC. Plan is for the patient to return home. CM to follow
[2025-02-03 10:52] LABS: Hematocrit 34.4 % (37.0-47.0)
--- NOTE | 2025-02-03 12:05 | W.PN.UPDATE ---
Update Note
Progress Note Update
CTSP, after going to [facility] she had another episode of bleeding from R groin, manual pressure held for 10min by RN, site c/d/i, soft but ecchymotic, will keep on BR for another 30min. Her repeat hbg 11 and u/s showed NO PSA but small HT. We will monitor
for another 24 hours with bleeding. We will hold Warfarin again tonight, check labs in am. Dr. Van aware and agrees with plan.
Groin u/s IMPRESSION:
1. Negative for pseudoaneurysm formation or arteriovenous fistula.
2. Small collection in the subcutaneous soft tissues measuring up to 3.9 cm in diameter, most likely hematoma.
--- NOTE | 2025-02-03 12:06 | PTCARENOTE ---
Patient pressed nurse's button stating that when she was on the toilet she started bleeding down her leg. Found sitting oob in the chair, assisted back to bed. Right groin dressing saturated and removed, some blood noted on bathroom floor and in her
groin/pubic area. Pressure held to right groin, area soft, no active bleeding noted at incision, pedal pulse palpable. New dressing with tegasorb placed, TT to Sapna Torres FISH[employer]ON[employer] HOOKING- patient maintaining bedrest for now, call joe in reach, sister in visiting.
--- NOTE | 2025-02-03 14:34 | PTCARENOTE ---
Dressing right groin is dry and intact, groin area is soft, instructed to call for assistance when getting oob, call joe in reach.
[2025-02-03] MEDS: NEORAL 25 MG PO (18:16)
--- NOTE | 2025-02-03 21:19 | PTCARENOTE ---
Received patient at change of shift. SR on the monitor, HR in the 60s. R groin CDI and ecchymotic. No complaints from pt at this time, call joe within reach.
[2025-02-04 04:07] VITALS: BP 128/65
[2025-02-04 04:38] LABS: INR 2.43; PT 26.8 Sec (11.4-14.6)
[2025-02-04 04:43] LABS: Hematocrit 29.4 % (37.0-47.0); Hemoglobin 9.5 g/dL (12.0-16.0); Mean Corp Hgb Conc. 32.3 g/dL (33.0-37.0); Mean Corpuscular Hgb 29.2 pg (27.0-31.0); Mean Corpuscular Volume 90.5 fL (81.0-99.0); Mean Platelet Volume 11.8 fL (7.4-10.4); Platelet Count 154 10^3/uL (130-400); Red Blood Cell Count 3.25 10^6/uL (4.20-5.40); Red Cell Dist. Width 16.9 % (11.5-14.5); White Blood Cell Count 13.2 10^3/uL (4.8-10.8)
[2025-02-04 04:50] LABS: Blood Urea Nitrogen 93 mg/dl (7-17); Calcium 8.9 mg/dl (8.4-10.2); Carbon Dioxide 21 mmol/L (22-30); Chloride 105 mmol/L (98-107); Estimated Creatinine Clearance 18 ml/min; Glucose 136 mg/dl (70-99); Sodium 133 mmol/L (135-145); eGFR 27.54
[2025-02-04 06:49] VITALS: BP 136/56
--- NOTE | 2025-02-04 07:19 | W.PN.CD ---
Today's Communication / Plan
-
- Switch Warfarin to Eliquis
- Hold Warfarin today and tomorrow. Start Eliquis 2.5 mg BID from 02/07
- Decrease Metoprolol to 50 mg QD
- Stable for discharge
Impression / Plan
-
PCP: Dr. Barclay
CDY: Dr. Jones
74 yr old woman with symptomatic persistent AF, with CHADSVascc score of 6 on Warfarin with hx of CAL clot with h/o recurrent GI bleed, fall risk and liver transplant is recommended a placement of Watchman with atrial fibrillation ablation.
#Persistent Afib - post ablation and 31mm Watchman device implant, post op had groin bleed
INR remains therapeutic despite off warfarin.
has hx of bleeding and is worse with warfarin
We discussed plan in detail and decided to switch warfarin to Eliquis.
Pt had CAL clot with Eliquis - possibly disrupted eliquis due to bleeds
Now watchman in place, can swithc Warfarin to Eliquis 2.5 mg BID (bleeding risk and weight of 55 kg and CKD)
Decrease metoprolol to 50 QD
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
#Acute blood loss anemia - history of GIB in past, Hbg has been stable prior to procedure
Hbg 9.0 this am, 9.5 today. denies LH/Dizziness, recheck H&H
#Chronic HFrEF 30-35% - continue GDMT (valsartan, metoprolol xl, lasix)
#CKD 3b - Cr stable post procedure, 1.8 this am (baseline 1.6-2.2)
#h/o liver tx 2007 - continue gengraf, prednisone
#HTN
#HLD
#CVA
#h/o renal stent
#CAD/LAD BUSINESS MGR
#h/o CAL thrombus
#Depression
02/02/25 Procedure Performed:
Atrial fibrillation ablation with Pulsed-Field approach for pulmonary vein isolation
Posterior wall isolation
Left atrial appendage occlusion with Watchman implantation (31 mm Watchman FLX Pro left atrial appendage closure device)
Physical Exam
Vital Signs/Labs
Vital Signs
Temp Pulse Resp BP Pulse Ox
97.8 F 54 20 128/65 96
02/04/25 06:48 02/04/25 06:00 02/04/25 06:48 02/04/25 04:07 02/04/25 06:48
02/03/25 02/04/25 02/05/25
06:59 06:59 06:59
Actual Weight 55 kg
02/04/25 04:14
02/04/25 04:14
PT 26.8 Sec (11.4-14.6) H 02/04/25 04:14
INR 2.43 02/04/25 04:14
Magnesium 1.8 mg/dl (1.6-2.3) 02/03/25 05:07
Physical Exam
Constitutional: No acute distress and Comfortable
EENT: Anicteric and Moist mucous membranes
Cardiovascular: Rhythm & rate is regular, Pedal edema is absent, JVD pressure is normal and Systolic murmur absent
Respiratory: Respiratory effort normal, Lungs clear to auscul. and Wheeze Absent
GI: Soft, Distention absent, Non tender and Normal bowel sounds
Neuro/Psych: Alert, Oriented and AO x 3
Other: Cath Site
Data Reviewed
-
Date of Service: February 04, 2025
Medical Decision Making: Reviewed Test Results, Test Interpretation and Review of Case with other Provider
EKG: Tracing Personally Visualized and interpreted
Echo: Report Reviewed by me
Labs: Labs Reviewed by me
Old Records: Reviewed
[2025-02-04] MEDS: PROTONIX 40 MG PO (08:33)
[2025-02-04] MEDS: DIOVAN 80 MG PO (08:33)
[2025-02-04] MEDS: DELTASONE 20 MG PO (08:33)
[2025-02-04] MEDS: LASIX 20 MG PO (08:33)
[2025-02-04] MEDS: NEORAL 50 MG PO (08:33)
[2025-02-04] MEDS: FLUSH (NSS) 1 FLUSH IV (08:33)
[2025-02-04] MEDS: CELLCEPT 1000 MG PO (08:33)
--- NOTE | 2025-02-04 09:00 | W.PN.CARDCBS ---
Today's Communication / Plan
-
post Watchman and PVI c/b R groin bleed x2
stable this am with no further bleeding
Resume Coumadin tonight check INR Saturday
stable for d/c home today
Impression / Plan
-
PCP: Dr. Barclay
CDY: Dr. Jones
74 yr old woman with symptomatic persistent AF, with CHADSVascc score of 6 on Warfarin with hx of CAL clot with h/o recurrent GI bleed, fall risk and liver transplant is recommended a placement of Watchman with atrial fibrillation ablation.
#Persistent Afib - post ablation and 31mm Watchman device implant, post op had groin bleed
yesterday had a second bleed when going to the BR, groin with ecchymosis but soft this am, Hbg 9.5
u/s with no PSA but small HT
INR 2.43, will resume Coumadin tonight, check INR on Saturday, INR goal 2-3
tele SB HR 50's-60's, Will decrease metoprolol to 100mg daily
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
#Acute blood loss anemia - history of GIB in past, Hbg has been stable prior to procedure
Hbg 9.0 this am, denies LH/Dizziness, stable this am at 9.5
#Chronic HFrEF 30-35% - continue GDMT (valsartan, metoprolol xl, lasix)
#CKD 3b - Cr stable post procedure, 1.8 this am (baseline 1.6-2.2)
#h/o liver tx 2007 - continue gengraf, prednisone
#HTN
#HLD
#CVA
#h/o renal stent
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
#h/o CAL thrombus
#Depression
02/02/25 Procedure Performed:
Atrial fibrillation ablation with Pulsed-Field approach for pulmonary vein isolation
Posterior wall isolation
Left atrial appendage occlusion with Watchman implantation (31 mm Watchman FLX Pro left atrial appendage closure device)
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
Subjective
Date of Service: February 04, 2025
denies cp,sob, LH/Dizziness
Objective
Labs:
02/04/25 04:14
02/04/25 04:14
Labs
Hgb 9.5 g/dL (12.0-16.0) L 02/04/25 04:14
Hct 29.4 % (37.0-47.0) L 02/04/25 04:14
Plt Count 154 10^3/uL (130-400) 02/04/25 04:14
PT 26.8 Sec (11.4-14.6) H 02/04/25 04:14
INR 2.43 02/04/25 04:14
Sodium 133 mmol/L (135-145) L 02/04/25 04:14
Potassium 5.0 mmol/L (3.5-5.1) 02/04/25 04:14
BUN 93 mg/dl (7-17) H 02/04/25 04:14
Creatinine 1.9 mg/dL (0.6-1.0) H 02/04/25 04:14
Glucose 136 mg/dl (70-99) H 02/04/25 04:14
Vital Signs and I&O:
Vital Signs
Temp Pulse Resp BP Pulse Ox
97.8 F 55 20 136/56 96
02/04/25 06:48 02/04/25 07:00 02/04/25 06:48 02/04/25 06:49 02/04/25 06:49
Vital Signs
Temp Pulse Resp BP Pulse Ox
97.8 F 55 20 136/56 96
02/04/25 06:48 02/04/25 07:00 02/04/25 06:48 02/04/25 06:49 02/04/25 06:49
Intake & Output
02/02/25 02/03/25 02/04/25 02/05/25
06:59 06:59 06:59 06:59
Intake Total 1440 / 1440 960 / 960
Balance 1440 / 1440 960 / 960
Physical Exam
Physical Exam
NAD< AOx3
S1, S2, RRR
CTAB, non labored
SNTND bsx4
R fem site small marked drainage, soft, moderate ecchymosis
--- NOTE | 2025-02-04 09:02 | PTCARENOTE ---
The patient is aaox3, vital signs are stable. Sinus lidia with occasional PACs and PVCs are noted on the monitor. She has no complaints of pain but does have some tenderness in her right groin. Her right groin dressing has old marked drainage that
remains unchanged. Her right groin is soft with ecchymosis on surrounding skim. A right pedal pulse is noted. Her left eye is dark red/bloodshot. She states it was like that before she came in for her procedure.
[2025-02-04 11:14] VITALS: BP 118/54
--- NOTE | 2025-02-04 11:46 | W.DS.TRANS ---
Addendum entered and electronically signed by THELMA Coulter 02/04/25 13:55:
metoprolol was decreased to 50mg daily
Original Note:
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
-
Discharge Instructions:
Sleep Apnea Risk Low
Discharge Diagnosis/Procedures AFib, s/p ablation + watchman device implant
Diet Low Cholesterol
Driving Restrictions No driving for 24 hours
Others Tests Follow up ALICE is scheduled for you at [facility] on 05/07/[address] Norris. You
will receive instructions in the mail and a call
the day prior with arrival time.
Instructions:
Stand-Alone Forms: DC Instructions- Cath/EP Lab
Changes to Home Medications: Yes
Discharge Medications:
DC Medications w/original date entered in [employer]
cyclosporine modified 25 mg capsule (Gengraf) 50 mg PO DAILY post liver transplant 07/26/22
valsartan 80 mg tablet 80 mg PO DAILY Blood Pressure 07/21/24
calcium carbonate 500 mg PO BID Supplement 10/05/24
cyanocobalamin (vitamin B-12) 1,000 mcg tablet 1,000 mcg PO Q48H Supplement 10/05/24
ferrous sulfate 325 mg (65 mg iron) tablet (FeroSul) 325 mg PO DAILY Supplement 10/05/24
mycophenolate mofetil 500 mg tablet 1,000 mg PO BID post liver transplant 10/05/24
pantoprazole 40 mg tablet,delayed release 40 mg PO DAILY Gastrointestinal Issue 10/05/24
furosemide 40 mg tablet 20 mg PO DAILY Fluid Retention/Swelling 11/24/24
prednisone 20 mg tablet 20 mg PO DAILY Anti-Inflammatory 01/14/25
cyclosporine modified 25 mg capsule (Gengraf) 25 mg PO QPM Transplant 02/02/25
apixaban 2.5 mg tablet (Eliquis) 2.5 mg PO BID #60 tabs 02/04/25
metoprolol succinate 100 mg tablet,extended release 24 hr 100 mg PO QPM #1 tab 02/04/25
Home Medication Changes
stop warfarin, new start to eliquis, decrease metoprolol to 100mg qpm
Pending Results: No
[2025-02-04 15:03] VITALS: BP 154/61
[2025-02-05 08:40] LABS: ACT-LR - POC > 397 Seconds (116-155)
[2025-02-05 08:40] LABS: ACT-LR - POC > 397 Seconds (116-155)
[2025-02-05 08:40] LABS: ACT-LR - POC > 397 Seconds (116-155)
== END 2025-02-04 15:48 | disposition home or self-care (01) | DRG 317 ==
LOC: IVU 07:33
PROVIDERS: Nurse Practitioner; Nurse Practitioner Adult Health; Student in an Organized Health Care Education/Training Program; ADMITTING PHYSICIAN Internal Medicine Cardiovascular Disease; FAMILY PHYSICIAN Family Medicine; OTHER PHYSICIAN Internal Medicine Cardiovascular Disease
PROC: 02583ZF Destruction of Conduction Mechanism using Irreversible Electroporation, Percutaneous Approach (ICD-10-PCS; 2025-02-02)
PROC: 02L73DK Occlusion of Left Atrial Appendage with Intraluminal Device, Percutaneous Approach (ICD-10-PCS; 2025-02-02)
PROC: B24BZZ4 Ultrasonography of Heart with Aorta, Transesophageal (ICD-10-PCS; 2025-02-02)
PROC: 4A023FZ Measurement of Cardiac Rhythm, Percutaneous Approach (ICD-10-PCS; 2025-02-02)
PROC: 4A0234Z Measurement of Cardiac Electrical Activity, Percutaneous Approach (ICD-10-PCS; 2025-02-02)
PROC: 02K83ZZ Map Conduction Mechanism, Percutaneous Approach (ICD-10-PCS; 2025-02-02)
DX: I48.19 Other persistent atrial fibrillation (principal); Z00.6 Encounter for examination for normal comparison and control in clinical research program; D62 Acute posthemorrhagic anemia; I13.0 Hypertensive heart and chronic kidney disease with heart failure and stage 1 through stage 4 chronic kidney disease, or unspecified chronic kidney disease; I50.22 Chronic systolic (congestive) heart failure; Z94.4 Liver transplant status; L76.32 Postprocedural hematoma of skin and subcutaneous tissue following other procedure; D68.4 Acquired coagulation factor deficiency; D84.821 Immunodeficiency due to drugs; I42.9 Cardiomyopathy, unspecified; I25.10 Atherosclerotic heart disease of native coronary artery without angina pectoris; I25.82 Chronic total occlusion of coronary artery; N18.32 Chronic kidney disease, stage 3b; K21.9 Gastro-esophageal reflux disease without esophagitis; M19.90 Unspecified osteoarthritis, unspecified site; M85.80 Other specified disorders of bone density and structure, unspecified site; Y84.0 Cardiac catheterization as the cause of abnormal reaction of the patient, or of later complication, without mention of misadventure at the time of the procedure; E78.5 Hyperlipidemia, unspecified; F32.A Depression, unspecified; Z79.01 Long term (current) use of anticoagulants; Z79.60 Long term (current) use of unspecified immunomodulators and immunosuppressants; Z79.899 Other long term (current) drug therapy; Z86.73 Personal history of transient ischemic attack (TIA), and cerebral infarction without residual deficits; Z87.891 Personal history of nicotine dependence; Z91.81 History of falling; Z95.820 Peripheral vascular angioplasty status with implants and grafts
CPT/HCPCS: 33340; 36415; 80048; 80053; 83735; 85014; 85018; 85025; 85027; 85347; 85610; 86850; 86900; 86901; 93005; 93355; 93656; 93657; 93926; C1732; C1733; C1759; C1766; C1892; C1894; Q9967

== ENCOUNTER → 2025-04-23 07:58 | Outpatient (REF) | payer MEDICARE, OTHER, SELFPAY ==
[2025-04-23 11:07] LABS: Hematocrit 30.7 % (37.0-47.0); Hemoglobin 9.5 g/dL (12.0-16.0); Mean Corp Hgb Conc. 30.9 g/dL (33.0-37.0); Mean Corpuscular Hgb 30.4 pg (27.0-31.0); Mean Corpuscular Volume 98.1 fL (81.0-99.0); Mean Platelet Volume 10.9 fL (7.4-10.4); Platelet Count 235 10^3/uL (130-400); Red Blood Cell Count 3.13 10^6/uL (4.20-5.40); Red Cell Dist. Width 16.2 % (11.5-14.5); White Blood Cell Count 10.3 10^3/uL (4.8-10.8)
[2025-04-23 11:37] LABS: ALT (SGPT) 65 U/L (0-35); AST (SGOT) 42 U/L (14-36); Albumin 3.7 g/dl (3.5-5.0); Alkaline Phosphatase 181 U/L (38-126); Blood Urea Nitrogen 74 mg/dl (7-17); Calcium 9.7 mg/dl (8.4-10.2); Carbon Dioxide 25 mmol/L (22-30); Chloride 108 mmol/L (98-107); Glucose 84 mg/dl (70-99); Iron 134 ug/dl (37-170); Potassium 4.2 mmol/L (3.5-5.1); Sodium 140 mmol/L (135-145); Total Bilirubin 1.4 mg/dl (0.2-1.3); Total Protein 5.9 g/dl (6.3-8.2); eGFR 36.57
[2025-04-23 11:46] LABS: Percent Saturation 45 % (20-50); Total Iron Binding Capacity 292 ug/dl (265-497)
== END ==
LOC: SDSPAT 07:58
PROVIDERS: Physician Assistant Medical; ATTENDING PHYSICIAN Student in an Organized Health Care Education/Training Program; FAMILY PHYSICIAN Family Medicine; OTHER PHYSICIAN Internal Medicine Cardiovascular Disease
DX: I48.0 Paroxysmal atrial fibrillation (principal); Z94.4 Liver transplant status; D50.9 Iron deficiency anemia, unspecified
CPT/HCPCS: 80053; 82728; 83540; 83550; 85027; 93005

== ENCOUNTER 2025-05-07 06:40 | Day surgery (SDC) | payer MEDICARE, OTHER, SELFPAY ==
[2025-04-23 12:16] VITALS: BMI 24.4
== END 2025-05-07 09:50 | disposition home or self-care (01) ==
LOC: CATH 06:40
PROVIDERS: ATTENDING PHYSICIAN Student in an Organized Health Care Education/Training Program; FAMILY PHYSICIAN Family Medicine; OTHER PHYSICIAN Internal Medicine Cardiovascular Disease
DX: I08.1 Rheumatic disorders of both mitral and tricuspid valves (principal); I48.19 Other persistent atrial fibrillation; I13.0 Hypertensive heart and chronic kidney disease with heart failure and stage 1 through stage 4 chronic kidney disease, or unspecified chronic kidney disease; I50.22 Chronic systolic (congestive) heart failure; N18.30 Chronic kidney disease, stage 3 unspecified; I42.9 Cardiomyopathy, unspecified; I25.10 Atherosclerotic heart disease of native coronary artery without angina pectoris; Z86.73 Personal history of transient ischemic attack (TIA), and cerebral infarction without residual deficits; K74.60 Unspecified cirrhosis of liver; Z94.4 Liver transplant status; K21.9 Gastro-esophageal reflux disease without esophagitis; Z87.19 Personal history of other diseases of the digestive system; Z87.891 Personal history of nicotine dependence; Z79.01 Long term (current) use of anticoagulants
CPT/HCPCS: 93312; 93320; 93325

== ENCOUNTER 2025-05-31 18:32 | Inpatient (IN) | payer MEDICARE, OTHER, SELFPAY ==
[2025-05-30 15:01] VITALS: BP 153/73
--- NOTE | 2025-05-30 17:22 | ED.MUSCINJ ---
HPI-Injury
General
Chief Complaint: Fall
Source: patient
Exam Limitations: none
Time Seen by Provider: 05/30/25 16:21
Nursing documentation reviewed up to this point in time: agreed with
History of Present Illness-Injury
Is this injury a work related problem?: No
Is pt an associate of [facility]/[place]?: No
Initial Injury comments:
Patient to ED after trip and fall at grocery store. Denies hitting her head COmplains of pain to bilateral ant. knees, left lat rib pain. To ED accompanied by family. 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
Past History
Past History
ED Past Medical History: Arrthythmia (Atrial fibrillation), CHF, CVA, GERD, HTN, Hypercholesterolemia, MO and Other (Alcoholic cirrhosis, Kawasaki's, anemia, renal artery stenosis, thrombus in the distal aortic arch,)
ED Past Surgical History: Other (Liver transplant in 2007)
Social History
Tobacco: Former smoker
Alcohol: Former
Drug: None
Personal:
Living: with family
Review of Systems
Review of Systems
Allergies reviewed?: Yes
All Other Systems: ROS reviewed and negative except as documented in HPI and ROS
Constitutional: Reports no symptoms
EENT: Reports no symptoms
Respiratory: Reports no symptoms
Cardiac: Reports no symptoms
ABD/GI: Reports no symptoms
: Reports no symptoms
Musculoskeletal: Reports joint pain (Pain to bilateral ant. knees, left lat chest wall pain)
Skin: Reports other (bruising bilateral knees)
Neurological: Reports no symptoms
Psychiatric: Reports no symptoms
Musculoskeletal Injury Exam
Musculoskeletal Injury Exam
Right Anterior Knee:
Pain with Movement?: Moderate
Tender to palpation?: Moderate
Soft tissue swelling?: Mild
External deformity and angulation?: None
Joint effusion?: None
Contusion?: Moderate
Hematoma-local bleeding into tissue?: Moderate
Strain- Sprain- Tear (Connective tissue injury)?: None
Crepitus with movement?: No
Joint instability?: No
Malalignment/deformity?: No
Range of motion: Full
Distal skin color and temperature: normal-warm & good color
Capillary Refill: normal
Normal distal neurovascular exam?: Yes
Left Anterior Knee:
Pain with Movement?: Moderate
Tender to palpation?: Moderate
Soft tissue swelling?: Moderate
External deformity and angulation?: None
Joint effusion?: None
Contusion?: Moderate
Hematoma-local bleeding into tissue?: Moderate
Strain- Sprain- Tear (Connective tissue injury)?: None
Crepitus with movement?: No
Joint instability?: No
Malalignment/deformity?: No
Range of motion: Limited
Distal skin color and temperature: normal-warm & good color
Capillary Refill: normal
Normal distal neurovascular exam?: Yes
Left Lateral Ribs:
Pain with Movement?: Moderate
Tender to palpation?: Moderate
Soft tissue swelling?: None
External deformity and angulation?: None
Joint effusion?: None
Contusion?: Moderate
Hematoma-local bleeding into tissue?: None
Strain- Sprain- Tear (Connective tissue injury)?: None
Crepitus with movement?: No
Joint instability?: No
Malalignment/deformity?: No
Range of motion: Limited
Distal skin color and temperature: normal-warm & good color
Capillary Refill: normal
Normal distal neurovascular exam?: Yes
Phy Exam
General Physical Exam
General Presentation: mild distress
General age: appears stated age
General Skin: warm and dry
General Habitus: normal
General Mental: alert
Cardiovascular Exam
Cardiovascular Exam: regular rate/rhythm
Pulmonary Exam
Pulmonary Exam: lungs clear and no respiratory distress
Neurological Exam
Neurological Exam: alert, oriented x3 and CN II-XII intact
Musculoskeletal Exam
Musculoskeletal Exam: neuro vasc intact
Skin Exam
Skin Exam: normal color, warm/dry and no rash
Psychiatric Exam
Psychiatric Exam: normal mood/affect
Injury Course
Orders/Labs/Results
Orders:
Orders
05/30/25 15:05
CR Knee - Left 4 Or More View* Urgent
Comment:
Reason For Exam: Trauma
CR Knee- Right 4 Or More View* Urgent
Comment:
Reason For Exam: Trauma
05/30/25 16:10
Ribs, Left 3 View W/PA Chest CR [CR Ribs-left 3 Vw W/pa Chest] Urgent
Comment:
Reason For Exam: fall, rib pain
05/30/25 17:32
Tony Wrap Left-Treatment ONCE
Knee Immobilizer Left-Treatmen ONCE
*Radiology
Radiology exam reviewed: radiology read reviewed
*Pulse Oximetry
SaO2: 100
Oxygen Mode of Delivery: Room air
Patient hypoxic: no
*Critical Care Note
Total Time (30-74mins, 75-104mins- exclusive of procedures): Not Applicable
Update Note
Update Note:
Patient to ED after trip and fall at grocery store. Reports pain to bilateral knees, L>R. Large hematoma to left ant knee. No fractures noted. Tony wrap and knee immobilizer applied. After multiple attempts she is unable to ambulate safely due
to pain in her knee. Unable to take tylenol due to hx liver transplant. No Nsaids due to eliquis use. Declines narcotics. Will admit to hospitalist. PT consult in AM
ED Attending Note
-
Portions of this chart may have been created with voice recognition software.� Occasional wrong word or��sound alike� substitutions may have occurred due to the inherent limitations of voice recognition software.
Discharge Plan
Departure
Patient Disposition: Admit
Date of Disposition: 05/30/25
Time of Disposition: 19:34
Presentation/result/management discussed w/ accepting MD/DO: Hospitalist
Patient with high blood pressure during this ER visit?: No
Condition: Good
Covid-19: Not Applicable
Discharge Problem:
Ambulatory dysfunction, Contusion of knee
Instructions: Contusion (DC), Preventing falls in adults, Cold therapy for pain
Prescriptions:
No Action
cyclosporine modified [Gengraf] 25 mg Capsule
50 mg PO DAILY
Rx Instructions:
Brand name only- Gengraf
valsartan 80 mg Tablet
40 mg PO DAILY
mycophenolate mofetil 500 mg tablet
1,000 mg PO BID
calcium carbonate 500 mg calcium (1,250 mg) Tablet
500 mg PO BID
cyanocobalamin (vitamin B-12) 1,000 mcg tablet
1,000 mcg PO Q48H
pantoprazole 40 mg tablet,delayed release (DR/EC)
80 mg PO DAILY
ferrous sulfate [FeroSul] 325 mg (65 mg iron) tablet
325 mg PO DAILY
cyclosporine modified [Gengraf] 25 mg Capsule
25 mg PO QPM
Rx Instructions:
Brand name only- Gengraf
prednisone 10 mg Tablet
10 mg PO DAILY
metoprolol succinate 100 mg Tablet Extended Release 24 Hr
100 mg PO HS
prednisone 5 mg Tablet
5 mg PO DAILY
furosemide 20 mg Tablet
40 mg PO DAILY
Referrals:
Danii Barclay MD [Family Provider, Family Practice] - Follow up in 2-3 days
Interventions
Interventions:
*Risk Screen - Suicide Last Done: 05/30/25 16:11
*General Assessment Last Done: 05/30/25 16:11
*Neglect/Abuse Screening Last Done: 05/30/25 18:36
*ED COVID-19 Vaccine History Last Done: 05/30/25 16:11
ED-Musculoskeletal Assessment Last Done: 05/30/25 16:11
ED- Neurological Assessment Last Done: 05/30/25 16:11
ED-Skin Assessment Last Done: 05/30/25 16:30
Discharge Date and Time
Print Language: BELIZEAN
[2025-05-30 18:46] VITALS: BP 141/89
--- NOTE | 2025-05-30 20:01 | HPS.HSE ---
Family Physician
-
Family Physician: Danii Barclay
Chief Complaint
-
trip and fall at grocery store, b/l knee pain, large hematoma to left anterior knee
History of Present Illness
The patient is a 74-year-old female with PMH significant for persistent symptomatic atrial fibrillation, left atrial appendage clot identified in 2022 with clot reassessed July 2024 and found to be still present, maintained on
metoprolol and anticoagulated with Eliquis 2.5 mg b.i.d. dosing,HFrEF, cardiomyopathy, coronary artery disease with SUPERVISOR PHOTOSTAT of LAD, hypertension, CKD 3 with renal stents, remote tobacco and alcohol abuse, CVA, ambulatory dysfunction, as well as liver
transplant due to cirrhosis 2007, on immunosuppressants and modulators, Her [id number] is 6, Watchman February 02, 2025 with postoperative complication of blood loss anemia due to GI bleeding, who presents to ED due to trip and fall at grocery
store, no LOC, denied hitting her head, and c/o b/l knee pain and left lateral rib pain, incident occurred directly prior to arrival.
CARLO wrap and knee immobilizer placed in ED. Large hematoma to left anterior knee, unable to ambulate safely in ED due to pain. Could not tolerate knee immobilizer due to bulkiness.
Medical History
Past Medical History
Past Medical History: Reports Other
Additional Past Medical History:
Chronic HFrEF
Valvular Heart Disease: Moderate/Severe Mitral Regurgitation. Severe Tricuspid Regurgitation
Severe Pulmonary Hypertension
Paroxysmal Atrial Fibrillation
Mural Thrombus Distal Aortic Arch
Left Atrial Appendage Thrombus
Renal Artery Stenosis s/p Bilateral Renal Artery Stenting
Essential Hypertension
Hyperlipidemia
Alcoholic Cirrhosis s/p Liver Transplant
Portal Vein Thrombosis
Right Pleural Effusion
CKD Stage IIIB
GI Bleed
Erythema Nodosum
Past Surgical History: Reports Other
Additional Past Surgical History:
Liver Transplant 2007
Bilateral Renal Artery Stent
Watchman/PVI 01/2025
Social History
Tobacco: Other (Remote smoking history)
Alcohol: None (Patient reports sober since 2005 prior to liver transplant)
Drug: None
Family History
Family History: Not pertinent
Allergies / Home Medications
Allergies reflects when Allergies were last updated in [employer].
Home Medications with original date entered in [employer]
Allergy/Medication List:
Allergies
Allergy/AdvReac Type Severity Reaction Status Date / Time
No Known Allergies Allergy Verified 04/21/25 09:25
Home Medications
cyclosporine modified 25 mg capsule (Gengraf) 50 mg PO DAILY post liver transplant 07/26/22
valsartan 80 mg tablet 40 mg PO DAILY Blood Pressure 07/21/24
calcium carbonate 500 mg PO BID Supplement 10/05/24
cyanocobalamin (vitamin B-12) 1,000 mcg tablet 1,000 mcg PO Q48H Supplement 10/05/24
ferrous sulfate 325 mg (65 mg iron) tablet (FeroSul) 325 mg PO DAILY Supplement 10/05/24
mycophenolate mofetil 500 mg tablet 1,000 mg PO BID post liver transplant 10/05/24
pantoprazole 40 mg tablet,delayed release 80 mg PO DAILY Gastrointestinal Issue 10/05/24
cyclosporine modified 25 mg capsule (Gengraf) 25 mg PO QPM Transplant 02/02/25
furosemide 20 mg tablet 40 mg PO DAILY 04/21/25
metoprolol succinate 100 mg tablet,extended release 24 hr 100 mg PO HS 04/21/25
prednisone 10 mg tablet 10 mg PO DAILY 04/21/25
prednisone 5 mg tablet 5 mg PO DAILY 04/21/25
Review of Systems
-
A 12 point ROS was completed and negative except as noted: Yes
Physical Exam
Vital Signs
Vital Signs
Pulse Resp BP Pulse Ox
85 17 141/89 99
05/30/25 18:46 05/30/25 18:46 05/30/25 18:46 05/30/25 18:46
Physical Exam
General: Well Nourished, No Apparent Distress, Comfortable and Conversant
HEENT: NormoCephalic, Anicteric and Moist mucous membranes
Respiratory: Clear
Cardiac: S1/S2 and Regular Rhythm
GI: Soft, Non Tender and Non Distended
Musculoskeletal: No Clubbing, No Cyanosis, Edema, Left Lower Extremity, Edema, Right Lower Extremity and Other (left knee wrapped w carlo bandage, b/l knee effusion/hemotoma)
Skin: Warm
Neuro: AO x 3, No Motor Deficits and Nonfocal/grossly intact
Psych: Calm
Data Reviewed
-
Diagnostic Radiology: Report Reviewed by me (Rib X-ray no clear evidence for an acute rib fracture, Knee x-ray b/l No acute fracture or dislocation. Bilateral osteoarthrosis. Small to moderate left knee joint effusion.)
Impression/Plan
-
IMPRESSION:
# Mechanical fall resulting in b/l knee contusions with hematoma and b/l knee effusions, left greater than right, and inability to ambulate safely
-admit for pain management
-Cont CARLO bandage/wound care
-PT/OT evaluation
-CM consultation
#Immunocompromised s/p liver transplant
-continue home meds cyclosporine, prednisone, mycophenolate
Chronic medical conditions:
Persistent atrial fibrillation.
HFrEF.
History of left atrial appendage thrombus.
Cardiomyopathy.
CAD- SUPERVISOR PHOTOSTAT of mid LAD by catheterization,2022.
CVA 2016. Left hemispheric seen on MRI, questionable
right peripheral visual and quadriceps weakness on exam.
CKD 3.
Renal stents.
Liver transplant with history of cirrhosis.
History of gastritis, GERD.
Remote tobacco and alcohol abuse.
Childhood epilepsy.
Ambulatory dysfunction with fall risk.
Osteoarthritis.
Degenerative disc disease.
Osteopenia.
DVT proph-SCDs
Full Code
[2025-05-30 23:00] VITALS: BP 128/66; BMI 23.9
[2025-05-30 23:20] VITALS: BMI 23.9
[2025-05-30] MEDS: VITAMIN B-12 PO (23:31)
[2025-05-30] MEDS: LOW STRENGTH ASPIRIN 81 MG PO (23:35)
[2025-05-31] VITALS (7 sets, daily range): BP systolic 100–133; BP diastolic 47–70; PULSE 100–115; O2SAT 97
[2025-05-31] MEDS: NEORAL 25 MG PO ×2 (00:05→17:49)
[2025-05-31] MEDS: CELLCEPT 1000 MG PO ×3 (00:06→21:08)
--- NOTE | 2025-05-31 00:22 | PTCARENOTE ---
Pt arrived to unit via stretcher. Pt transferred to bed via 'stand and pivot'. Pt oriented to room. Pt AAOx3, VSS. Call joe within reach, plan of care ongoing.
[2025-05-31] MEDS: ULTRAM 50 MG PO ×3 (02:47→21:59)
[2025-05-31 06:34] LABS: Hematocrit 22.3 % (37.0-47.0); Hemoglobin 7.0 g/dL (12.0-16.0); Mean Corp Hgb Conc. 31.4 g/dL (33.0-37.0); Mean Corpuscular Volume 100.9 fL (81.0-99.0); Platelet Count 212 10^3/uL (130-400); Red Cell Dist. Width 15.8 % (11.5-14.5)
[2025-05-31] MEDS: LASIX 40 MG PO (07:44)
[2025-05-31] MEDS: FEOSOL 325 MG PO ×2 (07:44→21:09)
[2025-05-31] MEDS: DELTASONE 15 MG PO (07:44)
[2025-05-31] MEDS: OSCAL CAL 500 500 MG PO ×2 (07:44→21:09)
[2025-05-31] MEDS: PROTONIX 80 MG PO (07:44)
[2025-05-31] MEDS: LOW STRENGTH ASPIRIN PO (07:46)
[2025-05-31] MEDS: PLAVIX 75 MG PO (07:46)
[2025-05-31] MEDS: NEORAL 50 MG PO (07:47)
--- NOTE | 2025-05-31 08:05 | W.PN.HOSP.TC ---
Addendum entered and electronically signed by Desean Foster MD 05/31/25 18:37:
Patient's pheresis specialist=Dr. Erazo
Patient's painting technician=Dr. Jones
Patient's arabic professor=Dr. Luevano
Original Note:
Today's Communication/Plan
-
See plan
Assessment / Plan
Assessment / Plan
Physical Exam
General: Well Nourished, No Apparent Distress, Comfortable and Conversant
HEENT: Normocephalic, Moist mucous membranes
Respiratory: Clear to Auscultation Bilaterally
Cardiac: S1/S2 and Regular Rhythm
GI: Soft, Non Tender and Non Distended. Positive bowel sounds.
Musculoskeletal: No Cyanosis; Edema, Left Lower Extremity, Edema, Right Lower Extremity and Other (left knee wrapped w carlo bandage, b/l knee effusion/hematoma)
Skin: Warm. Dry.
Neuro: AAO x 3, No Motor Deficits and Nonfocal/grossly intact
Psych: Calm
Assessment/Plan
74-year-old female with PMH significant for persistent symptomatic atrial fibrillation, left atrial appendage clot identified in 2022 with clot reassessed July 2024 and found to be still present, maintained on
metoprolol and anticoagulated with Eliquis 2.5 mg b.i.d. dosing,HFrEF, cardiomyopathy, coronary artery disease with DIRECTOR ORANGE of LAD, hypertension, CKD 3 with renal stents, remote tobacco and alcohol abuse, CVA, ambulatory dysfunction, as well as liver
transplant due to cirrhosis 2007, on immunosuppressants and modulators, Her [id number] is 6, Watchman Device placed on February 02, 2025 with postoperative complication of blood loss anemia due to GI bleeding, who presented to ED due to trip and fall
at grocery store, no LOC, denied hitting her head, and c/o b/l knee pain and left lateral rib pain, incident occurred directly prior to arrival.
CARLO wrap and knee immobilizer placed in ED. Large hematoma to left anterior knee, unable to ambulate safely after presentation due to pain. Could not tolerate knee immobilizer due to bulkiness.
# Mechanical fall (patient tripped over object) resulting in b/l knee contusions with hematoma and b/l knee effusions, left greater than right, and inability to ambulate safely
-Cont CARLO bandage/wound care
-X-rays with no fracture but left knee effusion
-PT/OT evaluation
-CM consultation
-Ortho consulted given concern for worsened hemarthrosis
#Immunocompromised s/p liver transplant
-continue home meds cyclosporine, prednisone, mycophenolate
#Anemia
-Continue to monitor CBC and transfuse PRBC if needed
Chronic medical conditions:
Persistent atrial fibrillation.
HFrEF.
History of left atrial appendage thrombus.
Cardiomyopathy.
CAD- DIRECTOR ORANGE of mid LAD by catheterization,2022.
CVA 2016. Left hemispheric seen on MRI, questionable
right peripheral visual and quadriceps weakness on exam.
CKD 3.
Renal stents.
Liver transplant with history of cirrhosis.
History of gastritis, GERD.
Remote tobacco and alcohol abuse.
Childhood epilepsy.
Ambulatory dysfunction with fall risk.
Osteoarthritis.
Degenerative disc disease.
Osteopenia.
DVT proph-SCDs
Code Status: Full Code
Disposition: SNF eventually
Anticipated Discharge: 24 - 48 hours
Subjective/Interval History
-
Date of Service: May 31, 2025
Patient was seen and examined. She reported left knee pain and stiffness, worsened compared to when she came in. She denied chest pain, SOB or any other complaints.
Objective Data
-
Labs:
Laboratory Results
05/31/25
06:09
WBC 10.2
Hgb 7.0 L
Hct 22.3 L
Plt Count 212
Vital Signs:
Vital Signs
Temp Pulse Resp BP Pulse Ox
97.7 F 76 14 100/47 100
07/14/25 07:32 05/31/25 07:44 05/31/25 07:32 05/31/25 07:44 05/31/25 07:32
I&O
05/30/25 05/31/25 06/01/25
06:59 06:59 06:59
Intake Total 240 / 240
Balance 240 / 240
--- NOTE | 2025-05-31 09:30 | PTCARENOTE ---
Hgb 7. Type and Cross sent. Placed on tele, NSR on monitor. Awaiting orders.
[2025-05-31 12:24] LABS: Hematocrit 24.8 % (37.0-47.0); Hemoglobin 7.6 g/dL (12.0-16.0); Mean Corp Hgb Conc. 30.6 g/dL (33.0-37.0); Mean Corpuscular Volume 101.6 fL (81.0-99.0); Platelet Count 273 10^3/uL (130-400); Red Cell Dist. Width 16.0 % (11.5-14.5)
[2025-05-31 20:17] LABS: Hematocrit 25.7 % (37.0-47.0); Hemoglobin 8.0 g/dL (12.0-16.0); Mean Corp Hgb Conc. 31.1 g/dL (33.0-37.0); Mean Corpuscular Volume 100.4 fL (81.0-99.0); Platelet Count 262 10^3/uL (130-400); Red Cell Dist. Width 16.0 % (11.5-14.5)
[2025-05-31 21:57] LABS: Iron 56 ug/dl (37-170)
[2025-05-31] MEDS: LOW STRENGTH ASPIRIN 81 MG PO (21:58)
[2025-05-31] MEDS: TOPROL XL 100 MG PO (21:59)
[2025-05-31 22:03] LABS: Total Iron Binding Capacity 296 ug/dl (265-497)
--- NOTE | 2025-05-31 22:10 | PTCARENOTE ---
patient was asked/offered both body and oral care multiple times, but they stated it is their preference to do in the morning.
[2025-06-01] VITALS (15 sets, daily range): BP systolic 80–120; BP diastolic 45–67
[2025-06-01 00:17] LABS: Ferritin 503.0 ng/ml (11.1-264.0)
[2025-06-01 07:13] LABS: Hematocrit 23.0 % (37.0-47.0); Hemoglobin 7.1 g/dL (12.0-16.0); Mean Corp Hgb Conc. 30.9 g/dL (33.0-37.0); Mean Corpuscular Volume 101.3 fL (81.0-99.0); Platelet Count 242 10^3/uL (130-400); Red Cell Dist. Width 15.9 % (11.5-14.5)
--- NOTE | 2025-06-01 07:25 | CON.ORTHO ---
Consultation
-
Date/Time Consultation Requested: 05/31/2025 @ 14:53
Date/Time Consultation Performed: 06/01/2025 @ 7:00 AM
Requesting Provider: Desean Foster MD
Performing Provider: Ryne Osborne PA-C for Dr. Harjeet Stevens MD
Reason for Consultation: Left Knee Pain
Consultation - Orthopedics
History
Orthopedic Surgery Note
CC: Left > Right Knee Pain s/p Mechanical Fall Saturday05/30/2025
HPI: The patient is a 74-year-old female who presented to [facility] on Saturday05/30/2025 after sustaining a mechanical fall. She reports that she was at [employer], when she unfortunately tripped on her sneaker and fell onto her left side. She reports that
she was able to get up with assistance. She reports that she went home and rested and incorporated ice therapy and elevation. She endorsed progressive pain, swelling, difficulty ambulating, and decreased range of motion, prompting transportation
to the ED via EMS. She denies any loss of consciousness or head trauma. She endorses minimal pain to her right knee. Her primary concern is her left knee. She reports increased pain with attempted weightbearing activities. She reports decreased
range of motion in comparison to the contralateral side. She denies any hip/groin pain. She localizes her left knee pain primarily to the anterior aspect. Of significance, she is on Plavix. She was unable to safely ambulate in the ED due to pain
and was admitted for observation/pain management. She denies any paresthesias. At baseline, she reports that she ambulates with assistance of a cane. Orthopedic surgery was consulted for further treatment recommendations moving forward.
PMH/PSH: Chronic HFrEF, Valvular Heart Disease: Moderate/Severe Mitral Regurgitation. Severe Tricuspid Regurgitation, Severe Pulmonary Hypertension, Paroxysmal Atrial Fibrillation, Mural Thrombus Distal Aortic Arch, Left Atrial Appendage Thrombus,
Renal Artery Stenosis s/p Bilateral Renal Artery Stenting, Essential Hypertension, Hyperlipidemia, Alcoholic Cirrhosis s/p Liver Transplant, Portal Vein Thrombosis, Right Pleural Effusion, CKD Stage IIIB, GI Bleed, Erythema Nodosum. Liver Transplant
2007
Bilateral Renal Artery Stent, Watchman/PVI 01/2025.
Medications: Reviewed.
Family History: Family history was reviewed. Noncontributory.
Social history: Remote smoking history, no illicit drugs.
Exam
General appearance: Pleasant. No acute distress.
Head: Normocephalic/atraumatic
Nose: No lesions or discharge.
Skin: No obvious rashes or open wounds
Lungs: No audible wheezing, no cough or sputum production
Musculoskeletal:
Physical examination of the left knee/lower extremity does not reveal any obvious deformity, erythema, or warmth. There is significant ecchymosis noted about the anterior and medial aspects of the left knee as well as the left anterior tib-fib;
does not extend into the ankle. Skin is intact. There is a mild intra-articular effusion. The patient is unable to demonstrate an intact extensor mechanism. She is unable to perform active knee extension and unable to demonstrate a straight leg
raise. Mild medial joint line tenderness. Mild lateral joint line tenderness. There is tenderness to palpation over the anterior knee about the patellar tendon and proximal tibia. Passively, ROM not challenged due to extensor mechanism concerns.
I do not appreciate any obvious instability of the cruciates or collaterals at 0 and 30 degrees. There is no left hip/groin pain reproduced with logroll. She is able to plantarflex and dorsiflex her left ankle. Calf is soft and nontender to
palpation. NVI distally.
Physical examination of the right knee/lower extremity does not reveal any obvious deformity, erythema, or warmth. There is mild ecchymosis noted about the anterior and medial aspects of the right knee as well as the right anterior tib-fib; does
not extend into the ankle. Skin is intact. There is no significant intra-articular effusion. Extensor mechanism is intact. No significant medial joint line tenderness. No significant lateral joint line tenderness. ROM 0-120 degrees without pain.
I do not appreciate any obvious instability of the cruciates or collaterals at 0 and 30 degrees. There is no right hip/groin pain reproduced with logroll. She is able to plantarflex and dorsiflex her right ankle. Calf is soft and nontender to
palpation. NVI distally.
Xrays:
CR Knee - LEFT 4 Or More View*; CR Knee - RIGHT 4 Or More View* was obtained at [facility] on 05/30/2025 and was made available for my review today. Findings: No acute fracture or dislocation. Tricompartmental marginal osteophytes.
Bilateral patellofemoral joint space narrowing, severe right and moderate left. Chondrocalcinosis of the bilateral medial and lateral menisci. Small to moderate left suprapatellar knee joint effusion. Severe bilateral vascular calcifications.
Impression: No acute fracture or dislocation. Bilateral osteoarthritis. Small to moderate left knee joint effusion.
Assessment: 74-year-old female with left > right knee pain s/p mechanical fall 05/30/2025.
Plan:
1) Clinically, the patient is unable to demonstrate an intact extensor mechanism about her left knee.
2) Will obtain MRI of the left knee w/o contrast to rule-out disruption of the extensor mechanism.
3) Recommended knee immobilizer to LLE until MRI obtained and reviewed. At this time, given x-rays (-) for acute fracture, she may be WBAT to LLE in KI. Recommend walker for ambulatory assistance.
4) Ice and elevation for edema control. Pain control per primary team.
5) Orthopedic surgery will continue to follow along and provide further recommendations upon completion of left knee MRI.
Allergies / Home Medications
Allergy/AdvReac Type Severity Reaction Status Date / Time
No Known Allergies Allergy Verified 04/21/25 09:25
�Medication �Instructions �Recorded
cyclosporine modified 25 mg 50 mg PO DAILY post liver 07/26/22
capsule (Gengraf) transplant
valsartan 80 mg tablet 40 mg PO DAILY Blood Pressure 07/21/24
calcium carbonate 500 mg PO BID Supplement 10/05/24
cyanocobalamin (vitamin B-12) 1,000 mcg PO Q48H Supplement 10/05/24
1,000 mcg tablet
ferrous sulfate 325 mg (65 mg 325 mg PO DAILY Supplement 10/05/24
iron) tablet (FeroSul)
mycophenolate mofetil 500 mg tablet 1,000 mg PO BID post liver 10/05/24
transplant
pantoprazole 40 mg tablet,delayed 40 mg PO DAILY Gastrointestinal 10/05/24
release Issue
cyclosporine modified 25 mg 25 mg PO QPM Transplant 02/02/25
capsule (Gengraf)
furosemide 20 mg tablet 40 mg PO DAILY 04/21/25
metoprolol succinate 100 mg 100 mg PO HS 04/21/25
tablet,extended release 24 hr
prednisone 10 mg tablet 10 mg PO DAILY 04/21/25
prednisone 5 mg tablet 5 mg PO DAILY 04/21/25
Vital Signs / Lab Results
Temp Pulse Resp BP Pulse Ox
98.2 F 114 16 111/65 96
06/01/25 03:00 06/01/25 03:00 06/01/25 03:00 06/01/25 03:00 06/01/25 03:00
06/01/25 06:40
[2025-06-01 07:39] LABS: ALT (SGPT) 31 U/L (0-35); AST (SGOT) 32 U/L (14-36); Albumin 3.3 g/dl (3.5-5.0); Alkaline Phosphatase 145 U/L (38-126); Blood Urea Nitrogen 72 mg/dl (7-17); Calcium 9.7 mg/dl (8.4-10.2); Carbon Dioxide 26 mmol/L (22-30); Chloride 102 mmol/L (98-107); Estimated Creatinine Clearance 19 ml/min; Glucose 134 mg/dl (70-99); Magnesium 2.5 mg/dl (1.6-2.3); Potassium 5.4 mmol/L (3.5-5.1); Sodium 134 mmol/L (135-145); Total Protein 5.5 g/dl (6.3-8.2); eGFR 29.38
[2025-06-01] MEDS: ULTRAM 50 MG PO (07:49)
[2025-06-01] MEDS: PROTONIX 80 MG PO (07:50)
[2025-06-01] MEDS: NEORAL 50 MG PO (07:50)
[2025-06-01] MEDS: CELLCEPT 1000 MG PO ×2 (07:50→20:00)
[2025-06-01] MEDS: DELTASONE 15 MG PO (07:50)
[2025-06-01] MEDS: OSCAL CAL 500 500 MG PO ×2 (07:51→20:01)
[2025-06-01] MEDS: LASIX 40 MG PO (07:51)
[2025-06-01] MEDS: FEOSOL 325 MG PO ×2 (07:51→20:01)
--- NOTE | 2025-06-01 07:56 | W.PN.HOSP.TC ---
Today's Communication/Plan
-
See plan
Assessment / Plan
Assessment / Plan
Physical Exam
General: Well Nourished, No Apparent Distress, Comfortable and Conversant
HEENT: Normocephalic, Moist mucous membranes
Respiratory: Clear to Auscultation Bilaterally
Cardiac: S1/S2 and Regular Rhythm
GI: Soft, Non Tender and Non Distended. Positive bowel sounds.
Musculoskeletal: No Cyanosis; Edema, Left Lower Extremity, Edema, Right Lower Extremity and Other (left knee wrapped w carlo bandage, b/l knee effusion/hematoma)
Skin: Warm. Dry.
Neuro: AAO x 3, No Motor Deficits and Nonfocal/grossly intact
Psych: Calm
Assessment/Plan
74-year-old female with PMH significant for persistent symptomatic atrial fibrillation, left atrial appendage clot identified in 2022 with clot reassessed July 2024 and found to be still present, maintained on
metoprolol and anticoagulated with Eliquis 2.5 mg b.i.d. dosing,HFrEF, cardiomyopathy, coronary artery disease with COUNSELING AIDE of LAD, hypertension, CKD 3 with renal stents, remote tobacco and alcohol abuse, CVA, ambulatory dysfunction, as well as liver
transplant due to cirrhosis 2007, on immunosuppressants and modulators, Her [id number] is 6, Watchman Device placed on February 02, 2025 with postoperative complication of blood loss anemia due to GI bleeding, who presented to ED due to trip and fall
at grocery store, no LOC, denied hitting her head, and c/o b/l knee pain and left lateral rib pain, incident occurred directly prior to arrival.
CARLO wrap and knee immobilizer placed in ED. Large hematoma to left anterior knee, unable to ambulate safely after presentation due to pain. Could not tolerate knee immobilizer due to bulkiness.
#Mechanical fall (patient tripped over object) resulting in b/l knee contusions with hematoma and b/l knee effusions, left greater than right, and inability to ambulate safely
-Cont CARLO bandage/wound care
-X-rays with no fracture but left knee effusion
-PT/OT evaluation
-CM consultation
-Ortho consulted given concern for worsened suspected hemarthrosis: MRI ordered and is pending
#Immunocompromised s/p liver transplant
-continue home meds cyclosporine, prednisone, mycophenolate
#Worsened Anemia in the Setting of Gastrointestinal Bleeding
-Patient provided blood consent and understood all risks and benefits
-Hgb dropped to 7.1, patient says baseline is 9 to 10
-Transfuse 1 unit PRBC on 06/01/25 given the above; I had a lengthy curbside discussion with marine equipment research engineer and it was decided that since patient had no issues with standard leukoreduced PRBC transfusion in 2022 (well after her liver transplant), it
is appropriate to provide patient with standard leukoreduced PRBCs this admission
#Hyperkalemia
-Hold Valsartan for now
-Lokelma started
-Monitor BMP
Chronic medical conditions:
Persistent atrial fibrillation.
HFrEF.
History of left atrial appendage thrombus.
Cardiomyopathy.
Mural Thrombus?
CAD- COUNSELING AIDE of mid LAD by catheterization,2022 -- will confirm with cardiology (patient's head sulfide operator is Dr. Jones) that patient is supposed to be only on Aspirin and Plavix (patient did have Watchman Device in January 2025, so this makes sense)
CVA 2016. Left hemispheric seen on MRI, questionable
right peripheral visual and quadriceps weakness on exam.
CKD 3.
Renal stents.
-Per my [place] Text communication with patient's glass carrier Dr. Erazo, on April 23, 2025, patient's creatinine was 1.5; and in recent months it�s been 1.5 to 1.7 compared 2.3 to 2.5 in 2023
-1.6 was Cr around May 26 at patient's outpatient transplant physician office as per the patient
-Cr today 1.8
-Continue antiplatelets for now, but if significantly worsening anemia, may need to hold
Liver transplant with history of cirrhosis.
History of gastritis, GERD.
Remote tobacco and alcohol abuse.
Childhood epilepsy.
Ambulatory dysfunction with fall risk.
Osteoarthritis.
Degenerative disc disease.
Osteopenia.
DVT proph-SCDs. No chemical prophylaxis given suspected bleeding situation above.
Code Status: Full Code
Disposition: SNF eventually
Anticipated Discharge: > 48 hours
Subjective/Interval History
-
Date of Service: June 01, 2025
Patient was seen and examined. She denied any chest pain or shortness of breath, but still with left knee discomfort.
Objective Data
-
Labs:
Laboratory Results
05/31/25 06/01/25
20:06 06:40
WBC 15.4 H 12.7 H
Hgb 8.0 L 7.1 L
Hct 25.7 L 23.0 L
Plt Count 262 242
Sodium 134 L
Potassium 5.4 H
Chloride 102
Carbon Dioxide 26
BUN 72 H
Creatinine 1.8 H
Glucose 134 H
Calcium 9.7
Total Bilirubin 0.9
AST 32
ALT 31
Alkaline Phosphatase 145 H
Vital Signs:
Vital Signs
Temp Pulse Resp BP Pulse Ox
97.5 F 116 19 120/65 97
06/01/25 07:00 06/01/25 07:00 06/01/25 07:00 06/01/25 07:00 06/01/25 07:00
I&O
05/31/25 06/01/25 06/02/25
06:59 06:59 06:59
Intake Total 240 / 240 480 / 480
Balance 240 / 240 480 / 480
[2025-06-01] MEDS: PLAVIX 75 MG PO (09:00)
[2025-06-01] MEDS: LOKELMA 5 GRAM PO ×2 (14:00→18:13)
--- NOTE | 2025-06-01 15:10 | CM ---
Chart reviewed and patient lives with sister in a one story home, 4 steps to enter, patient is independent with adl's and uses a cane with ambulation, recommendation is for skilled placement options reviewed with patient and she has selected [facility] referral sent to [facility].
Plan; Skilled placement at [facility].
[2025-06-01] MEDS: NEORAL 25 MG PO (18:13)
[2025-06-01] MEDS: HEPARIN 3800 UNITS IV (20:56)
[2025-06-01] MEDS: BRILINTA 180 MG PO (20:58)
[2025-06-01] MEDS: ASPIRIN 325 MG PO (20:58)
[2025-06-01] MEDS: ZOFRAN 4 MG IV (20:58)
--- NOTE | 2025-06-01 21:05 | W.PN.UPDATE ---
Update Note
Progress Note Update
Patient c/o severe nausea, denies any other symptoms. ECG completed to check QTc for Zofran. ECG showed critical test result: STEMI. TT continuity editor Health Plan Advisor, sent copy of ECG. Notified to call STEMI alert. Called and spoke with Interventional
Health Plan Advisor continuity editor, he reviewed ECG and repeat ECG. Confirmed STEMI alert. RN major appliance assembly supervisor notified. Spoke with patient about findings on ECG and plan to go to film laboratory technician, she verbalized understanding. Labs drawn: CBC, CMP, PT/INR, PTT, Troponin, type
and screen. Medication given: ASA 325 mg, Heparin bolus, and Brilinta per IC.
Called and updated patient's sister Kristi Rosales, patient also spoke to her sister.
[2025-06-01 21:08] LABS: Hematocrit 28.6 % (37.0-47.0); Hemoglobin 9.5 g/dL (12.0-16.0); Mean Corp Hgb Conc. 33.2 g/dL (33.0-37.0); Mean Corpuscular Volume 97.6 fL (81.0-99.0); Platelet Count 243 10^3/uL (130-400); Red Cell Dist. Width 16.1 % (11.5-14.5)
--- NOTE | 2025-06-01 22:37 | ITS.CL.PN ---
Assistant Winemaker - Procedure Note
Procedure
Procedure Note:
CARDIAC CATHETERIZATION REPORT
Date of Procedure: 06/01/2025
Referring: Tasneem Moreno NP
Indication: concern for STEMI
PROCEDURE(S)
1. left heart catheterization
2. coronary angiography
ACCESS: 6F right radial artery (closure: radial band)
CATHETERS
1. 5F 3DRC (challenging engagement due to ostial calcific disease with multiple catheter shapes attempted)
2. 6F JL3.5
HEMODYNAMIC DATA
LV 96/9 (EDP 16) mmHg
AO 100/50 (mean 70) mmHg
CORONARY ANGIOGRAPHY
Dominance: Right
LM: large with mild disease
LAD: large vessel giving rise to a large septal branch and moderate caliber diagonal branch before being chronically occluded in the mid vessel with the distal vessel fed via L-L septal collaterals. There is otherwise diffuse mild disease. The
vessel is large unchanged in appearance from 2022 angiography.
LCx: large vessel giving rise to a small OM1, moderate caliber OM2, and large LPL branch. There is diffuse mild disease largely unchanged from 2023 angiography.
RCA: small vessel giving rise to a small RPDA and small RPL branch. There is a subtotal ostial occlusion and diffuse moderate disease throughout the remainder of the vessel. The vessel is atretic in caliber compared to 202 angiography and there is
evidence of competitive flow in the RPDA. This all suggests the RPDA to be chronically occluded and not an infarct related artery.
RADIATION: dose 569 mGy; DAP 49 Gy*cm2; fluoroscopy time 25 min
CONCLUSIONS
1. coronary artery disease as described with new severe disease of the RCA, likely chronic in nature
2. mildly elevated LV filling pressure and no aortic stenosis
RECOMMENDATIONS
1. 750 mL post cath fluids over 6 hours for NORA prevention
2. aggressive secondary prevention of CAD with continued Plavix and addition of statin
Copy to: Blade Jones MD (stem roller); Danii Barclay MD (PCP)
Signed: Justo Bower MD, PhD
--- NOTE | 2025-06-01 22:50 | CON.CAR ---
Consultation
Consultation Request
Date/Time Consultation Requested: 8 PM 06/01/25
Date/Time Consultation Performed: 8 PM 06/01/25
Requesting Provider: Tasneem Moreno
Performing Provider: Tasneem Moreno
Reason for Consultation: STEMI
Medical History
-
Chief Complaint: nausea
History of Present Illness:
74 year old woman with complex medical history including liver transplant, CKD, Afib s/p Watchman, CAD (known LAD OCCUPANCY SPECIALIST), who was admitted for recent ambulatory fall. I was consulted for acute onset nausea for which an EKG was checked to determine
safety of antiemetics, with findings concerning for inferior STEMI. The patient notes several days of nausea worse this evening. She had no emesis, diaphoresis, chest pain, or shortness of breath. She was hypotensive (more than her baseline) and
tachycardiac at the time ECG showed anterosetpal and inferior ST elevations. In this setting, the open hearth furnace laborer was activated for STEMI.
Past Medical History
Past Medical History: Arrhythmias, CAD, CHF and Hypercholesterolemia
Allergies / Home Medications
Allergy/AdvReac Type Severity Reaction Status Date / Time
No Known Allergies Allergy Verified 04/21/25 09:25
�Medication �Instructions �Recorded �Confirmed �Type
cyclosporine modified 25 mg 50 mg PO DAILY post liver 07/26/22 05/31/25 History
capsule (Gengraf) transplant
valsartan 80 mg tablet 40 mg PO DAILY Blood Pressure 07/21/24 05/31/25 History
calcium carbonate 500 mg PO BID Supplement 10/05/24 05/31/25 History
cyanocobalamin (vitamin B-12) 1,000 mcg PO Q48H Supplement 10/05/24 05/31/25 History
1,000 mcg tablet
ferrous sulfate 325 mg (65 mg 325 mg PO DAILY Supplement 10/05/24 05/31/25 History
iron) tablet (FeroSul)
mycophenolate mofetil 500 mg tablet 1,000 mg PO BID post liver 10/05/24 05/31/25 History
transplant
pantoprazole 40 mg tablet,delayed 40 mg PO DAILY Gastrointestinal 10/05/24 05/31/25 History
release Issue
cyclosporine modified 25 mg 25 mg PO QPM Transplant 02/02/25 05/31/25 History
capsule (Gengraf)
furosemide 20 mg tablet 40 mg PO DAILY 04/21/25 05/31/25 History
metoprolol succinate 100 mg 100 mg PO HS 04/21/25 05/31/25 History
tablet,extended release 24 hr
prednisone 10 mg tablet 10 mg PO DAILY 04/21/25 05/31/25 History
prednisone 5 mg tablet 5 mg PO DAILY 04/21/25 05/31/25 History
clopidogrel 75 mg tablet 75 mg PO DAILY 06/01/25 06/01/25 History
Review of Systems
-
All other systems: Negative unless noted
Abdomen/GI: Nausea
Physical Exam
Vital Signs
Temp Pulse Resp BP Pulse Ox
37.1 C 95 16 80/57 97
06/01/25 19:38 06/01/25 19:38 06/01/25 19:38 06/01/25 19:38 06/01/25 19:38
Lab Results
06/01/25 20:45
Physical Exam
General: Other (uncomfortable)
Respiratory: Non Labored Respirations
Cardiac: Regular Rhythm
Skin: Warm
Neuro: AO x 3
Psych: Calm
Impression / Plan
-
Patient's symptoms may represent an atypical presentation of ACS. While her prior ECGs did show a similar pattern of IRENA in III and the anteroseptal precordium with reciprocal lateral changes, they are much more pronounced this evening and did not
resolved on repeat after normalization of heart rate. The patient's severe nausea is of somewhat acute onset. She has known history of severe CAD. Given these factors, excluding acute vessel closure is reasonable and we will proceed with emergent
coroanry angigoraphy. The patient will be given heparin and ASA per protocol. They are already on Plavix chronically.
Data Reviewed
-
EKG: Tracing Personally Visualized and interpreted and Report Reviewed by me
Radiology: Image Personally Visualized and interpreted and Report Reviewed by me
Labs: Labs Reviewed by me
--- NOTE | 2025-06-01 23:47 | PTCARENOTE ---
Late Note due to Pt care
PCT notified this RN on low BP 80/57, this RN rechecked manual BP 84/50. Notified SALES REPRESENTATIVE DOOR TO DOOR who was on the floor at the time. BP 96/53. At that time Pt told SALES REPRESENTATIVE DOOR TO DOOR that she was experiencing nausea and felt like she had to vomit. SALES REPRESENTATIVE DOOR TO DOOR ordered ECG to check
qt for zofran. ECG showed STEMI. SALES REPRESENTATIVE DOOR TO DOOR made Cardiology aware, who instructed to call STEMI alert. This RN administered STAT Aspirin 325mg, Brilinta 180mg, Heparin 3800 units IV, Zofran 4mg IV. Pt vitals BP 96/54 O2 96 on 4L via nasal cannula R 24 P
95. Pt transported to medical laboratory technician at this time. Report given to RN in medical laboratory technician.
[2025-06-02] VITALS (18 sets, daily range): BP systolic 77–124; BP diastolic 43–77
--- NOTE | 2025-06-02 02:36 | PTCARENOTE ---
Received pt from [facility] into 2247. Pt is AAOx3 SR/ST on the monitor denies pain. Rt fem cath site c/d/i. sm amt of blood on dressing soft + distal pulses. Purewick in place pt ordered bedrest. Call joe within reach
[2025-06-02 03:19] LABS: INR 1.01; PT 13.6 Sec (11.4-14.6)
[2025-06-02 03:20] LABS: AST (SGOT) 52 U/L (14-36); Albumin 3.6 g/dl (3.5-5.0); Alkaline Phosphatase 155 U/L (38-126); Blood Urea Nitrogen 80 mg/dl (7-17); Calcium 9.8 mg/dl (8.4-10.2); Carbon Dioxide 23 mmol/L (22-30); Chloride 99 mmol/L (98-107); Estimated Creatinine Clearance 17 ml/min; Glucose 167 mg/dl (70-99); Potassium 5.3 mmol/L (3.5-5.1); Sodium 131 mmol/L (135-145); Total Protein 5.7 g/dl (6.3-8.2); eGFR 25.89
--- NOTE | 2025-06-02 03:26 | VATNOTE ---
LATE [id number] STEMI....ADDITIONAL IV ACCESS ESTABLISHED DOCUMENTED AND LABS OBTAINED . LAB CALLED AND NOTIFIED THAT BLOOD WORK WAS BEING SENT FOR THE ON-GOING STEMI ORDERED BY THELMA EMERY.
[2025-06-02 03:27] LABS: ALT (SGPT) 42 U/L (0-35)
[2025-06-02 03:33] LABS: Troponin I 13.300 ng/ml
[2025-06-02] MEDS: TOPROL XL PO ×2 (04:15→22:40)
[2025-06-02] MEDS: NSS 1000 IV (04:15)
[2025-06-02 04:34] LABS: Hematocrit 26.2 % (37.0-47.0); Hemoglobin 8.4 g/dL (12.0-16.0); Mean Corp Hgb Conc. 32.1 g/dL (33.0-37.0); Mean Corpuscular Volume 99.6 fL (81.0-99.0); Nucleated Red Blood Cells % 0 %; Platelet Count 202 10^3/uL (130-400); Red Cell Dist. Width 16.2 % (11.5-14.5)
[2025-06-02] MEDS: VITAMIN B-12 1000 MCG PO (04:41)
[2025-06-02] MEDS: LOW STRENGTH ASPIRIN 81 MG PO ×2 (04:41→20:16)
[2025-06-02 04:55] LABS: ALT (SGPT) 28 U/L (0-35); AST (SGOT) 49 U/L (14-36); Albumin 3.0 g/dl (3.5-5.0); Alkaline Phosphatase 134 U/L (38-126); Blood Urea Nitrogen 80 mg/dl (7-17); Calcium 9.0 mg/dl (8.4-10.2); Carbon Dioxide 24 mmol/L (22-30); Chloride 103 mmol/L (98-107); Estimated Creatinine Clearance 16 ml/min; Glucose 142 mg/dl (70-99); HDL Cholesterol 61 mg/dl; LDL Cholesterol, Calculated 96 mg/dl; Potassium 5.3 mmol/L (3.5-5.1); Sodium 131 mmol/L (135-145); Total Protein 5.1 g/dl (6.3-8.2); Very Low Density Lipoprotein 25 mg/dl (0-30); eGFR 24.42
[2025-06-02 05:07] LABS: Troponin I 16.800 ng/ml
[2025-06-02] MEDS: LOKELMA 5 GRAM PO (06:20)
--- NOTE | 2025-06-02 07:28 | W.PN.HOSP.TC ---
Today's Communication/Plan
-
Cardiac cath with mainly chronic findings
Continue DAPT
Monitor in IVU
Patient doing well this morning
MRI of knee results noted, ortho aware
Assessment / Plan
Assessment / Plan
Physical Exam
General: Well Nourished, No Apparent Distress, Comfortable and Conversant
HEENT: Normocephalic, Moist mucous membranes
Respiratory: Clear to Auscultation Bilaterally
Cardiac: S1/S2 and Regular Rhythm
GI: Soft, Non Tender and Non Distended. Positive bowel sounds.
Musculoskeletal: No Cyanosis; Edema, Left Lower Extremity, Edema, Right Lower Extremity and Other (left knee wrapped w carlo bandage, b/l knee effusion/hematoma)
Skin: Warm. Dry.
Neuro: AAO x 3, No Motor Deficits and Nonfocal/grossly intact
Psych: Calm
Assessment/Plan
74-year-old female with PMH significant for persistent symptomatic atrial fibrillation, left atrial appendage clot identified in 2022 with clot reassessed July 2024 and found to be still present, maintained on
metoprolol and anticoagulated with Eliquis 2.5 mg b.i.d. dosing,HFrEF, cardiomyopathy, coronary artery disease with EMPLOYMENT COORDINATOR of LAD, hypertension, CKD 3 with renal stents, remote tobacco and alcohol abuse, CVA, ambulatory dysfunction, as well as liver
transplant due to cirrhosis 2007, on immunosuppressants and modulators, Her [id number] is 6, Watchman Device placed on February 02, 2025 with postoperative complication of blood loss anemia due to GI bleeding, who presented to ED due to trip and fall
at grocery store, no LOC, denied hitting her head, and c/o b/l knee pain and left lateral rib pain, incident occurred directly prior to arrival.
CARLO wrap and knee immobilizer placed in ED. Large hematoma to left anterior knee, unable to ambulate safely after presentation due to pain. Could not tolerate knee immobilizer due to bulkiness.
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 Caldera likely a Type 2 NSTEMI in setting of nausea and relative hypotension, as well as underlying CKD
-LVEDP was 16 during cardiac cath
-EKG had been checked on 06/01/25 to check QTc for Zofran administration for severe nausea, and it showed STEMI
-Cardiac Cath on 06/01/25 evening showed coronary artery disease with new severe disease of the RCA from previous (subtotal chronic occlusion of RCA new from 2022 but clearly not acute (and not amenable to revasc)) and stable EMPLOYMENT COORDINATOR of mid LAD, which
was likely chronic in nature
-Continue DAPT -- patient was getting DAPT since hospital admission
-Patient is not on statin given history of liver transplant
#Mechanical fall (patient tripped over object) resulting in b/l knee contusions with hematoma and b/l knee effusions, left greater than right, and inability to ambulate safely
#Large Left Knee Joint Effusion
-Cont CARLO bandage/wound care
-X-rays with no fracture but left knee effusion
-PT/OT evaluation
-CM consultation
-Ortho consulted given concern for worsened suspected hemarthrosis: MRI showed: nondisplaced fractures of the central and anterolateral aspects of the tibial plateau; large bone infarct of the distal femur; oblique tear
of the posterior horn of the medial meniscus; large knee joint effusion.
-Orthopedic surgeon aware of the above findings, as per patient's nurse communication with myself today 06/02/25
#Immunocompromised s/p liver transplant
-continue home meds cyclosporine, prednisone, mycophenolate
#Worsened Anemia in the Setting of Gastrointestinal Bleeding
-Patient provided blood consent and understood all risks and benefits
-Hgb dropped to 7.1, patient says baseline is 9 to 10
-Transfuse 1 unit PRBC on 06/01/25 given the above; I had a lengthy curbside discussion with office administrative assistant and it was decided that since patient had no issues with standard leukoreduced PRBC transfusion in 2022 (well after her liver transplant), it
is appropriate to provide patient with standard leukoreduced PRBCs this admission
#Hyperkalemia
-Possibly from hematoma
-Hold Valsartan for now
-Lokelma prn
-Low potassium diet
-Monitor BMP
Chronic medical conditions:
Persistent atrial fibrillation.
HFrEF.
History of left atrial appendage thrombus.
Cardiomyopathy.
Mural Thrombus?
CAD- EMPLOYMENT COORDINATOR of mid LAD by catheterization,2022 -- will confirm with cardiology (patient's secondary school teacher librarian is Dr. Jones) that patient is supposed to be only on Aspirin and Plavix (patient did have Watchman Device in January 2025, so this makes sense)
CVA 2016. Left hemispheric seen on MRI, questionable
right peripheral visual and quadriceps weakness on exam.
INDU on CKD 3.
Renal stents.
-Per my [place] Text communication with patient's qualitative field coordinator Dr. Erazo, on April 23, 2025, patient's creatinine was 1.5; and in recent months it�s been 1.5 to 1.7 compared 2.3 to 2.5 in 2023
-1.6 was Cr around May 26 at patient's outpatient transplant physician office as per the patient
-Cr today 2.1 -- consulted nephrology
-Continue antiplatelets for now, but if significantly worsening anemia, may need to hold
Liver transplant with history of cirrhosis.
History of gastritis, GERD.
Remote tobacco and alcohol abuse.
Childhood epilepsy.
Ambulatory dysfunction with fall risk.
Osteoarthritis.
Degenerative disc disease.
Osteopenia.
DVT proph-SCDs. No chemical prophylaxis given suspected bleeding situation above.
Code Status: Full Code
Disposition: SNF eventually
Anticipated Discharge: > 48 hours
Subjective/Interval History
-
Date of Service: June 02, 2025
Patient was seen and examined. Overnight, patient has severe nausea, EKG showed STEMI and STEMI alert was called; patient then went for cardiac cath. This morning she was doing well and denied any new significant symptoms or complaints.
Objective Data
-
Labs:
Laboratory Results
06/01/25 06/02/25
20:45 04:19
WBC 15.2 H 12.7 H
Hgb 9.5 L D 8.4 L
Hct 28.6 L 26.2 L
Plt Count 243 202
PT 13.6
INR 1.01
APTT Cancelled
Sodium 131 L 131 L
Potassium 5.3 H 5.3 H
Chloride 99 103
Carbon Dioxide 23 24
BUN 80 H 80 H
Creatinine 2.0 H 2.1 H
Glucose 167 H 142 H
Calcium 9.8 9.0
Total Bilirubin 2.0 H D 1.6 H
AST 52 H 49 H
ALT 42 H 28
Alkaline Phosphatase 155 H 134 H
Vital Signs:
Vital Signs
Temp Pulse Resp BP Pulse Ox
98.1 F 80 16 89/51 100
06/02/25 05:07 06/02/25 05:07 06/02/25 05:07 06/02/25 04:34 06/02/25 07:01
I&O
06/01/25 06/02/25 06/03/25
06:59 06:59 06:59
Intake Total 480 / 480 1360 / 1360
Output Total 100 / 100
Balance 480 / 480 1260 / 1260
--- NOTE | 2025-06-02 08:09 | W.PN.UPDATE ---
Update Note
Progress Note Update
Nu is resting comfortably in bed this morning. Unfortunately, she was transferred to ICU yesterday due to inferior STEMI. She underwent cardiac cath yesterday. In regards to her left knee, she reports slight improvement in her symptoms, though
she continues with aching pain in the knee.
Directed exam of the left lower extremity reveals ecchymosis throughout the left lower extremity. Mild to moderate intraarticular effusion. Tenderness to palpation over the distal quadriceps tendon. Patient is able to perform a straight leg raise
today, which is improved from yesterday. Calf soft and nontender. Neurovascualrly intact distally.
--Thankfully, Nu's knee pain seems to be improving with time, and I am reassured that she is able to perform a straight leg raise today. She does have an MRI pending which will confirm extensor mechanism is intact. She may continue weight bearing
as tolerated in her knee immobilizer if deemed medically stable. Pain control prn. Orthopedics will qawalangin back once MRI completed.
--- NOTE | 2025-06-02 08:45 | W.PN.CD ---
Addendum entered and electronically signed by Blade Jones MD 06/02/25 10:20:
I saw and examined the patient.
The SQL BI DEVELOPER's note was reviewed and I agree with the note.
Comment: No interventions overnight, feeling improved this AM.
Cont DAPT, echo pending trend trop
Original Note:
Today's Communication / Plan
-
Trend trop, EKG. Obtain echo. Continue DAPT.
Impression / Plan
-
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 She had nausea
and so an EKG was checked to determine safety of antiemetics, but EKG findings were concerning for inferior STEMI. She was hypotensive (more than her baseline) and tachycardiac at the time ECG showed anteroseptal and inferior ST elevations. In this
setting, the section laborer was activated for STEMI. Cath revealed coronary artery disease with new severe disease of the RCA from previous, which was likely chronic in nature.
Fall with injury:
-mechanical, no syncope, tripped over her foot
-LLE is in immobilizer and orthopedics is on the case, MRI is pending
Abnormal EKG, troponin:
-type II DE in setting of hypotension, tachycardia, anemia
-trend to peak and obtain echo and repeat EKG
-cath as below
Coronary artery disease:
-cath this admit: LAD: large vessel giving rise to a large septal branch and moderate caliber diagonal branch before being chronically occluded in the mid vessel with the distal vessel fed via L-L septal collaterals. There is otherwise diffuse mild
disease. The vessel is large unchanged in appearance from 2022 angiography. LCx: large vessel giving rise to a small OM1, moderate caliber OM2, and large LPL branch. There is diffuse mild disease largely unchanged from 2022 angiography. RCA: small
vessel giving rise to a small RPDA and small RPL branch. There is a subtotal ostial occlusion and diffuse moderate disease throughout the remainder of the vessel. The vessel is atretic in caliber compared to 2022 angiography and there is evidence of
competitive flow in the RPDA. This all suggests the RPDA to be chronically occluded and not an infarct related artery.
-right radial site stable no hematoma
-fluids given for NORA prevention post-cath
-continue DAPT. Not on statin- to review with Dr. Jones in this patient with hx liver tx.
INDU on CKD, hyperkalemia:
-nephro is consulted
AFIB, paroxysmal:
-stable in SR
-patient with hx PVI and watchmen 02/02/25
-she is now on DAPT with ASA and plavix
Anemia:
-s/p PRBCs
-follow
HFrEF: chronic (40-45 on most recent ALICE, but was 30-35% prior)
-does not appear volume overloaded to assessment
-echo to be updated
-GDMT limited by BPs and renal function
-ARB held appropriately for renal dysfunction and BP's
-continue metoprolol as able
Hx liver tx
Physical Exam
Vital Signs/Labs
Vital Signs
Temp Pulse Resp BP Pulse Ox
98 F 85 18 104/57 97
06/02/25 08:12 06/02/25 08:15 06/02/25 08:12 06/02/25 08:01 06/02/25 08:12
06/02/25 04:19
06/02/25 04:19
PT 13.6 Sec (11.4-14.6) 06/01/25 20:45
INR 1.01 06/01/25 20:45
APTT Cancelled 06/01/25 20:45
Magnesium 2.5 mg/dl (1.6-2.3) H 06/01/25 06:40
Triglycerides 129 mg/dl (10-149) 06/02/25 04:19
LDL Cholesterol, Calc 96 mg/dl 06/02/25 04:19
VLDL Cholesterol, Calc 25 mg/dl (0-30) 06/02/25 04:19
HDL Cholesterol 61 mg/dl 06/02/25 04:19
LAB Results
06/01/25 06/02/25
20:45 04:19
Troponin I 13.300 H* 16.800 H* D
Physical Exam
Constitutional: No acute distress
EENT: Anicteric
Cardiovascular: Rhythm & rate is regular
Respiratory: Respiratory effort normal and Lungs clear to auscul.
Neuro/Psych: AO x 3
Other: Skin (ecchymosis scattered)
Data Reviewed
-
Date of Service: June 02, 2025
EKG: Other (SR)
Medical Tests (PFT, Pathology etc): Other (echo ordered)
Labs: Labs Reviewed by me
[2025-06-02] MEDS: CELLCEPT 1000 MG PO ×2 (10:05→20:15)
[2025-06-02] MEDS: PLAVIX 75 MG PO (10:05)
[2025-06-02] MEDS: FEOSOL 325 MG PO ×2 (10:05→20:15)
[2025-06-02] MEDS: LASIX 40 MG PO (10:05)
[2025-06-02] MEDS: OSCAL CAL 500 500 MG PO ×2 (10:06→20:15)
[2025-06-02] MEDS: DELTASONE 15 MG PO (10:08)
[2025-06-02] MEDS: PROTONIX 80 MG PO (10:08)
[2025-06-02] MEDS: NEORAL 50 MG PO (12:07)
--- NOTE | 2025-06-02 14:36 | W.CON.NEPH ---
Consultation
-
Date/Time Consultation Requested: 06/02/25 0735
Date/Time Consultation Performed: 06/02/25 1515
Requesting Provider: Desean Mcdonald
Performing Provider: Anu Welch
Reason for Consultation: CKD, hypoantremia, mild hyperkalemia post [facility]
Medical History
-
Chief Complaint: trip and fall at grocery store, b/l knee pain, large hematoma to left ante
History of Present Illness:
74-year-old female with PMH significant for persistent symptomatic atrial fibrillation, left atrial appendage clot identified in 2022 with clot reassessed July 2024 and found to be still present, maintained on AC with Eliquis, rate control with
KARRIE Watchman February 02, 2025 with postoperative complication of blood loss anemia due to GI bleeding, HFrEF 35% on lasix, cardiomyopathy, coronary artery disease, hypertension on Losartan, CKD 3 baseline cr 1.6-1.9 with bilat renal stents on Plavix,
remote tobacco and alcohol abuse, CVA, ambulatory dysfunction, as well as liver transplant due to ETOH cirrhosis 2007, on immunosuppressants on MMF, cyclosporin, prednisone presents to ED due to trip and fall at grocery store on 05/30, no LOC, or
head injury. She c/o b/l knee pain and left lateral rib pain, and noted to have Large hematoma to left anterior knee. on 06/01 She had nausea and EKG was checked to determine safety of antiemetics, which shows concerning for inferior STEMI.
Cardiology took her to [facility] and noted to have severe RCA disease which felt to be chronic, mildly elevated filling pressures LVEDP of 16. Cr on admit was at 1.8 and today at 2.1, k remains high at 5.3 since admit. Sodium decreasing to 131.
Nephrology asked to assist changing cr and lytes imbalance. BPs are low sin elast 2days, meds on hold. She continued to get lasix. She also has constipation, no BM for 2days. Her stools were dark before from po iron. No dizziness. No CP or sob
currently. Improved nausea but po intake is poor still.
Past Medical History
Chronic HFrEF
Valvular Heart Disease: Moderate/Severe Mitral Regurgitation. Severe Tricuspid Regurgitation
Severe Pulmonary Hypertension
Paroxysmal Atrial Fibrillation
Mural Thrombus Distal Aortic Arch
Left Atrial Appendage Thrombus
Renal Artery Stenosis s/p Bilateral Renal Artery Stenting
Essential Hypertension
Hyperlipidemia
Alcoholic Cirrhosis s/p Liver Transplant
Portal Vein Thrombosis
Right Pleural Effusion
CKD Stage IIIB
GI Bleed
Erythema Nodosum
Past Surgical History: Other (Liver Transplant 2007 Bilateral Renal Artery Stent Watchman/PVI 01/2025)
Social History
Tobacco: Former Smoker
Alcohol: Former (sober since 2005)
Drug: None
Living: With Family
Family History
Family History: Not Pertinent
Allergies / Home Medications
Allergy/AdvReac Type Severity Reaction Status Date / Time
No Known Allergies Allergy Verified 04/21/25 09:25
�Medication �Instructions �Recorded �Confirmed �Type
cyclosporine modified 25 mg 50 mg PO DAILY post liver 07/26/22 05/31/25 History
capsule (Gengraf) transplant
valsartan 80 mg tablet 40 mg PO DAILY Blood Pressure 07/21/24 05/31/25 History
calcium carbonate 500 mg PO BID Supplement 10/05/24 05/31/25 History
cyanocobalamin (vitamin B-12) 1,000 mcg PO Q48H Supplement 10/05/24 05/31/25 History
1,000 mcg tablet
ferrous sulfate 325 mg (65 mg 325 mg PO DAILY Supplement 10/05/24 05/31/25 History
iron) tablet (FeroSul)
mycophenolate mofetil 500 mg tablet 1,000 mg PO BID post liver 10/05/24 05/31/25 History
transplant
pantoprazole 40 mg tablet,delayed 40 mg PO DAILY Gastrointestinal 10/05/24 05/31/25 History
release Issue
cyclosporine modified 25 mg 25 mg PO QPM Transplant 02/02/25 05/31/25 History
capsule (Gengraf)
furosemide 20 mg tablet 40 mg PO DAILY 04/21/25 05/31/25 History
metoprolol succinate 100 mg 100 mg PO HS 04/21/25 05/31/25 History
tablet,extended release 24 hr
prednisone 10 mg tablet 10 mg PO DAILY 04/21/25 05/31/25 History
prednisone 5 mg tablet 5 mg PO DAILY 04/21/25 05/31/25 History
clopidogrel 75 mg tablet 75 mg PO DAILY 06/01/25 06/01/25 History
Review of Systems
-
All other systems: Negative unless noted
Physical Exam
Vital Signs
Vital Signs
Temp Pulse Resp BP Pulse Ox
98.1 F 85 18 96/56 97
06/02/25 12:05 06/02/25 12:04 06/02/25 12:05 06/02/25 12:04 06/02/25 12:05
Lab Results
WBC 12.7 10^3/uL (4.8-10.8) H 06/02/25 04:19
RBC 2.63 10^6/uL (4.20-5.40) L 06/02/25 04:19
Hgb 8.4 g/dL (12.0-16.0) L 06/02/25 04:19
Hct 26.2 % (37.0-47.0) L 06/02/25 04:19
Plt Count 202 10^3/uL (130-400) 06/02/25 04:19
Sodium 131 mmol/L (135-145) L 06/02/25 04:19
Potassium 5.3 mmol/L (3.5-5.1) H 06/02/25 04:19
Chloride 103 mmol/L (98-107) 06/02/25 04:19
Carbon Dioxide 24 mmol/L (22-30) 06/02/25 04:19
BUN 80 mg/dl (7-17) H 06/02/25 04:19
Creatinine 2.1 mg/dL (0.6-1.0) H 06/02/25 04:19
eGFR 24.42 06/02/25 04:19
Glucose 142 mg/dl (70-99) H 06/02/25 04:19
Calcium 9.0 mg/dl (8.4-10.2) 06/02/25 04:19
Albumin 3.0 g/dl (3.5-5.0) L 06/02/25 04:19
Physical Exam
General: Awake, Alert, Oriented, AOx3, No Distress and Nontoxic
HEENT: EOMI, Anicteric, Conjunctivae Clear and Facial Symmetry
Respiratory: Clear (anteriorly), Normal Excursion and Nonlabored Respirations
Cardiac: S1/S2 and Regular Rate/Rhythm
Breast: Deferred by me
Abdomen: Soft, Nontender and Nondistended
Musculoskeletal: No Cyanosis, Edema (1+) and Other (left knee in immobilizer)
Skin: Other (multiple echymotic areas of UEs, chest, knees and LEs )
Neuro: Nonfocal/Grossly Intact
Psych: Mood/afflect pleasant, Insight/judgement good and Appropriate
Data Reviewed
-
Radiology: Report Reviewed by me and Discussed with Patient
Labs: Labs Reviewed by me and Discussed with Patient
Assessment/Plan
-
Impression:
Mechanical fall (patient tripped over object) resulting in b/l knee contusions with hematoma and b/l knee effusions, left greater than right, Acute Anemia
[id number] 1.6-1.9-Dr Sherwood
Secondary hypertension undergoing bilateral renal artery stenting July 2022 (decrease in GFR following procedure?)
Hyperkalemia
Persistent atrial fibrillation. s/p watchman 01/2025
HFrEF. 30-35%
History of left atrial appendage thrombus.
Cardiomyopathy.
Mural Thrombus?
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
Immunocompromised s/p liver transplant 2007
CVA 2016. Left hemispheric seen on MRI
History of gastritis, GERD.
Remote tobacco and alcohol abuse.
Childhood epilepsy.
Ambulatory dysfunction with fall risk.
Osteoarthritis.
Degenerative disc disease.
Osteopenia.
h/o Left portal vein thrombosis
Plan:
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
incidental finding of STEMI s/p LHC on 06/01 RCA disease seem chronic
no intervention per cards
current cr at 2.1 slightly higher than baseline
trend cr post contrast
mild hyperkalemia-likely from hematoma -low k diet and cont LOkelma prn
monitor hyponatremia , maintain FR and lasix
MRI left knee noted with tibial plateau fx non displaced, large effusion, menisci tear, distal femur infarct
follow h/h, prn trasnfusion
BP are soft, ARB on hold , BB not given today
echo noted EF 30-35%, DD stage II. WMA. mod to severe TR with pulm HTN
d/w pt in detail
[2025-06-02 16:03] LABS: Troponin I 17.300 ng/ml
[2025-06-02] MEDS: NEORAL 25 MG PO (17:30)
--- NOTE | 2025-06-02 19:27 | PTCARENOTE ---
Pt remained on bedrest. Left knee MRI completed, notified of posted report. PT awaiting activity plan. Pt denied any discomfort. Pt with some low SBP's, she denies any dizziness, telemetry shows sinus rhythm with a sinus arrhythmia.
Troponins still trending up slightly, Rajani Bunn NP aware. Pt passing concentrated rian/brown urine, encouraged to drink more fluids. Post void bladder scan showed no residual. Pt has a stage 2 pressure sore on her sacrum which she states has
been present since her last admission in January?! Pt encouraged to turn from side to side which she can easily do with minimal assistance. Will monitor closely.
--- NOTE | 2025-06-02 23:21 | PTCARENOTE ---
Assumed care of the pt @ 1900. Pt is AAOx3 SR/SA on the monitor BP 88/56 MAP 67 PM dose Toprol held. Call joe within reach.
[2025-06-03] VITALS (13 sets, daily range): BP systolic 110–151; BP diastolic 58–79; PULSE 86–88; O2SAT 94–96; BMI 24.3
[2025-06-03 03:58] LABS: Hematocrit 27.2 % (37.0-47.0); Hemoglobin 8.7 g/dL (12.0-16.0); Mean Corp Hgb Conc. 32.0 g/dL (33.0-37.0); Mean Corpuscular Volume 100.0 fL (81.0-99.0); Platelet Count 195 10^3/uL (130-400); Red Cell Dist. Width 16.0 % (11.5-14.5)
[2025-06-03 04:17] LABS: ALT (SGPT) 80 U/L (0-35); AST (SGOT) 91 U/L (14-36); Albumin 3.0 g/dl (3.5-5.0); Alkaline Phosphatase 146 U/L (38-126); Blood Urea Nitrogen 95 mg/dl (7-17); Calcium 9.3 mg/dl (8.4-10.2); Carbon Dioxide 23 mmol/L (22-30); Chloride 100 mmol/L (98-107); Estimated Creatinine Clearance 12 ml/min; Glucose 117 mg/dl (70-99); Magnesium 2.6 mg/dl (1.6-2.3); Potassium 5.7 mmol/L (3.5-5.1); Sodium 130 mmol/L (135-145); Total Protein 5.2 g/dl (6.3-8.2); eGFR 17.29
[2025-06-03 04:41] LABS: Troponin I 15.200 ng/ml
--- NOTE | 2025-06-03 07:04 | W.PN.UPDATE ---
Update Note
Progress Note Update
Ms. Rosales is resting comfortably in bed this morning. She reports her pain continues to improve with time. She has no questions or concerns at present.
Directed exam of the left lower extremity reveals ecchymosis throughout the left lower extremity. Mild to moderate intraarticular effusion. Tenderness to palpation over the distal quadriceps tendon and medial tibial plateau. Patient is able to
perform a straight leg raise today, which is improved from yesterday. Calf soft and nontender. Neurovascualrly intact distally.
MRI Left Knee 06/02/2025 IMPRESSION:
>Nondisplaced fractures of the central and anterolateral aspects of the tibial plateau. No evidence for displacement or articular surface depression.
>Large bone infarct of the distal femur.
>Oblique tear of the posterior horn of the medial meniscus.
>Large knee joint effusion.
>Osteoarthrosis of the left knee with tricompartmental chondromalacia, most severe in the lateral aspect of the patellofemoral compartment with extensive full-thickness chondromalacia.
Nu's MRI was reviewed with her today which reveal a tibial plateau fracture. Thankfully this is nondisplaced and there is not evidence of depression, and can be managed without surgery. She should maintain strict non-weight bearing to her left
lower extremity. She may discontinue the use of her knee immobilizer. She may perform range of motion as tolerated. I did discuss with the patient that she would likely benefit from SNF placement upon discharge. Pain control per primary. Ice and
elevation for pain and edema control. We will see her back in the office in 2 weeks for repeat x-rays. Orthopedics will sign off for now. Please reach out with any additional orthopedic questions or concerns.
--- NOTE | 2025-06-03 09:09 | W.PN.CD ---
Today's Communication / Plan
-
Continue dual antiplatelet therapy.
Optimize hemodynamics. Blood pressure has improved will remain off valsartan. If blood pressure remains stable then would reinitiate metoprolol at low-dose.
INDU. Acute on chronic. Creatinine up to 2.8 nephrology consulted
Impression / Plan
-
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 She had nausea
and so an EKG was checked to determine safety of antiemetics, but EKG findings were concerning for inferior STEMI. She was hypotensive (more than her baseline) and tachycardiac at the time ECG showed anteroseptal and inferior ST elevations. In this
setting, the laboratory administrative director was activated for STEMI. Cath revealed coronary artery disease with new severe disease of the RCA from previous, which was likely chronic in nature.
Fall with injury:
-mechanical, no syncope, tripped over her foot
-LLE is in immobilizer and orthopedics is on the case, MRI is pending
Abnormal peak up to 17. Based on prior notes there was suspicion for type II SD in setting of hypotension tachycardia, anemia and underlying coronary artery disease.
- Cardiac catheterization 06/01/2025 results as noted below
- Continue dual antiplatelet therapy
- Continue beta-thu
- Additional medical therapy limited by BP
Coronary artery disease:
-cath this admit: LAD: large vessel giving rise to a large septal branch and moderate caliber diagonal branch before being chronically occluded in the mid vessel with the distal vessel fed via L-L septal collaterals. There is otherwise diffuse mild
disease. The vessel is large unchanged in appearance from 2022 angiography. LCx: large vessel giving rise to a small OM1, moderate caliber OM2, and large LPL branch. There is diffuse mild disease largely unchanged from 2022 angiography. RCA: small
vessel giving rise to a small RPDA and small RPL branch. There is a subtotal ostial occlusion and diffuse moderate disease throughout the remainder of the vessel. The vessel is atretic in caliber compared to 2022 angiography and there is evidence of
competitive flow in the RPDA. This all suggests the RPDA to be chronically occluded and not an infarct related artery.
- Continue medical therapy and DAPT as noted above
- Continue treatment of anemia
- Medical therapy limited by BP
INDU on CKD, chronic creatinine up to 2.8. Monitor closely. Nephrology has been consulted
AFIB, paroxysmal:
-stable in SR
-patient with hx PVI and watchmen 02/02/25
-she is now on DAPT with ASA and plavix
Anemia:
-s/p PRBCs
-follow
HFrEF: chronic (40-45 on most recent ALICE, but was 30-35% on most recent)
-does not appear volume overloaded to assessment
-echo to be updated
-GDMT limited by BPs and renal function
-ARB held appropriately for renal dysfunction and BP's
-continue metoprolol as able
Hypotension. Patient had low blood pressures throughout yesterday which have now improved with systolics consistently greater than 100. Both valsartan and metoprolol have been on hold. If his blood pressure is continued to be stable today then
would reinitiate low-dose metoprolol such as 12.5 mg twice daily
Hx liver tx
Physical Exam
Vital Signs/Labs
Vital Signs
Temp Pulse Resp BP Pulse Ox
98.2 F 79 16 125/68 98
06/03/25 07:14 06/03/25 07:45 06/03/25 02:32 06/03/25 07:14 06/03/25 07:14
06/03/25 02:43
06/03/25 02:42
PT 13.6 Sec (11.4-14.6) 06/01/25 20:45
INR 1.01 06/01/25 20:45
APTT Cancelled 06/01/25 20:45
Magnesium 2.6 mg/dl (1.6-2.3) H 06/03/25 02:42
Triglycerides 129 mg/dl (10-149) 06/02/25 04:19
LDL Cholesterol, Calc 96 mg/dl 06/02/25 04:19
VLDL Cholesterol, Calc 25 mg/dl (0-30) 06/02/25 04:19
HDL Cholesterol 61 mg/dl 06/02/25 04:19
LAB Results
06/01/25 06/02/25 06/02/25
20:45 04:19 15:25
Troponin I 13.300 H* 16.800 H* D 17.300 H*
06/03/25
02:42
Troponin I 15.200 H*
Physical Exam
Constitutional: No acute distress
Cardiovascular: Rhythm & rate is regular
Respiratory: Wheeze Absent and Rhonchi Absent
GI: Soft
Neuro/Psych: Other
Other: Cath Site (Right femoral stable)
Data Reviewed
-
Date of Service: June 03, 2025
Echo: Other
Medical Tests (PFT, Pathology etc): Report Reviewed by me
Labs: Labs Reviewed by me
[2025-06-03] MEDS: NEORAL 50 MG PO (09:26)
[2025-06-03] MEDS: PROTONIX 80 MG PO (09:27)
[2025-06-03] MEDS: DELTASONE 15 MG PO (09:29)
[2025-06-03] MEDS: SENOKOT-S 1 TABLET PO (09:30)
[2025-06-03] MEDS: FEOSOL 325 MG PO ×2 (09:30→20:00)
[2025-06-03] MEDS: CELLCEPT 1000 MG PO ×2 (09:30→20:00)
[2025-06-03] MEDS: MIRALAX 17 GRAMS PO (09:31)
[2025-06-03] MEDS: OSCAL CAL 500 500 MG PO ×2 (09:31→20:00)
[2025-06-03] MEDS: PLAVIX 75 MG PO (09:31)
[2025-06-03] MEDS: LOKELMA 10 GRAM PO ×3 (09:54→18:27)
[2025-06-03] MEDS: LASIX PO (10:43)
--- NOTE | 2025-06-03 11:06 | W.PN.NEPH.PH ---
Today's Communication / Plan
-
follow labs
holding lasix, ARB
Lokelma course
low k diet
Assessment/Plan
-
Impression:
Mechanical fall (patient tripped over object) resulting in b/l knee contusions with hematoma and b/l knee effusions, left greater than right, Acute Anemia
STEMI
INDU with [id number] 1.6-1.9-Dr Sherwood
Secondary hypertension undergoing bilateral renal artery stenting July 2022 (decrease in GFR following procedure?)
Hyperkalemia
Persistent atrial fibrillation. s/p watchman 01/2025
HFrEF. 30-35%
History of left atrial appendage thrombus.
Cardiomyopathy.
Mural Thrombus?
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
Immunocompromised s/p liver transplant 2007
CVA 2016. Left hemispheric seen on MRI
History of gastritis, GERD.
Remote tobacco and alcohol abuse.
Childhood epilepsy.
Ambulatory dysfunction with fall risk.
Osteoarthritis.
Degenerative disc disease.
Osteopenia.
h/o Left portal vein thrombosis
Plan:
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
incidental finding of STEMI s/p LHC on 06/01 RCA disease seem chronic
no intervention needed per cards
cr increasing with NORA, monitor UOP-per pt is less than normal
holding lasix and ARB , PVR 0cc
mild hyperkalemia-likely from hematoma -low k diet and cont LOkelma course
monitor hyponatremia , maintain FR
MRI left knee noted with tibial plateau fx non displaced, large effusion, menisci tear, distal femur infarct-no intervention
follow h/h, prn trasnfusion
BP are soft, ARB on hold , BB not given today
echo noted EF 30-35%, DD stage II. WMA. mod to severe TR with pulm HTN
d/w pt
-
-
Date of Service: June 03, 2025
CC / HPI / ROS
-
Chief Complaint:
INDU with CKD
History of Present Illness:
cr is up at 2.8, k high 5.7 despite lokelma
bp remain soft
hb stable at 8.7
Review of Systems:
no cp or sob
subjective decrease in UOP
Labs
-
Labs:
WBC 11.1 10^3/uL (4.8-10.8) H 06/03/25 02:43
RBC 2.72 10^6/uL (4.20-5.40) L 06/03/25 02:43
Hgb 8.7 g/dL (12.0-16.0) L 06/03/25 02:43
Hct 27.2 % (37.0-47.0) L 06/03/25 02:43
Plt Count 195 10^3/uL (130-400) 06/03/25 02:43
Sodium 130 mmol/L (135-145) L 06/03/25 02:42
Potassium 5.7 mmol/L (3.5-5.1) H 06/03/25 02:42
Chloride 100 mmol/L (98-107) 06/03/25 02:42
Carbon Dioxide 23 mmol/L (22-30) 06/03/25 02:42
BUN 95 mg/dl (7-17) H 06/03/25 02:42
Creatinine 2.8 mg/dL (0.6-1.0) H 06/03/25 02:42
eGFR 17.29 06/03/25 02:42
Glucose 117 mg/dl (70-99) H 06/03/25 02:42
Calcium 9.3 mg/dl (8.4-10.2) 06/03/25 02:42
Albumin 3.0 g/dl (3.5-5.0) L 06/03/25 02:42
Physical Exam
-
Vital Signs:
Vital Signs
Temp Pulse Resp BP Pulse Ox
98.2 F 88 16 112/60 98
06/03/25 07:14 06/03/25 09:45 06/03/25 02:32 06/03/25 09:44 06/03/25 09:11
Cardiovascular:: Irregular rate and rhythm
Respiratory:: Bilateral: CTA
Lung Excursion:: Normal
Abdomen:: Nontender and Soft
Bowel Sounds:: Normal
Extremity Edema:: +1: Bilateral:
Loyola Catheter: No
Other Findings::
bruising of left and right knee
--- NOTE | 2025-06-03 13:17 | CM ---
Reviewed chart. Ms. Rosales was transferred to IVU. Met with Ms. Rosales to review discharge plans. She states she is hoping to go to rehab. before going home. She has selected [facility]. Sent a message to [facility] regarding ability to
accept and if bed will be available. [facility] will have a bed tomorrow or Saturday if medically stable for transfer. Prior to admission she resides with her sister in a one story home with four steps to enter. Prior to admission she was
independent with adls and uses a single point cane to ambulate. Medical work-up in progress. The discharge plan is to go to [facility] when medically stable.
--- NOTE | 2025-06-03 16:21 | W.PN.HOSP.TC ---
Today's Communication/Plan
-
Worsening renal function
Significant hyperkalemia
Continue to hold Lasix and Valsartan
Lokelma
If lab numbers improve, can be discharged tomorrow hopefully
Continue to monitor in IVU
Assessment / Plan
Assessment / Plan
Physical Exam
General: Well Nourished, No Apparent Distress, Comfortable and Conversant
HEENT: Normocephalic, Moist mucous membranes
Respiratory: Clear to Auscultation Bilaterally
Cardiac: S1/S2 and Regular Rhythm
GI: Soft, Non Tender and Non Distended. Positive bowel sounds.
Musculoskeletal: No Cyanosis; Edema, Left Lower Extremity, Edema, Right Lower Extremity and Other (left knee wrapped w carlo bandage, b/l knee effusion/hematoma)
Skin: Warm. Dry.
Neuro: AAO x 3, No Motor Deficits and Nonfocal/grossly intact
Psych: Calm
Assessment/Plan
74-year-old female with PMH significant for persistent symptomatic atrial fibrillation, left atrial appendage clot identified in 2022 with clot reassessed July 2024 and found to be still present, maintained on
metoprolol and anticoagulated with Eliquis 2.5 mg b.i.d. dosing,HFrEF, cardiomyopathy, coronary artery disease with DIESEL ENGINE SPECIALIST of LAD, hypertension, CKD 3 with renal stents, remote tobacco and alcohol abuse, CVA, ambulatory dysfunction, as well as liver
transplant due to cirrhosis 2007, on immunosuppressants and modulators, Her [id number] is 6, Watchman Device placed on February 02, 2025 with postoperative complication of blood loss anemia due to GI bleeding, who presented to ED due to trip and fall
at grocery store, no LOC, denied hitting her head, and c/o b/l knee pain and left lateral rib pain, incident occurred directly prior to arrival.
CARLO wrap and knee immobilizer placed in ED. Large hematoma to left anterior knee, unable to ambulate safely after presentation due to pain. Could not tolerate knee immobilizer due to bulkiness.
#Likely a Type 2 NSTEMI in setting of nausea and relative hypotension, as well as underlying CKD, on 06/01/25 evening
-LVEDP was 16 during cardiac cath
-EKG had been checked on 06/01/25 to check QTc for Zofran administration for severe nausea, and it showed STEMI
-Cardiac Cath on 06/01/25 evening showed coronary artery disease with new severe disease of the RCA from previous (subtotal chronic occlusion of RCA new from 2022 but clearly not acute (and not amenable to revasc)) and stable DIESEL ENGINE SPECIALIST of mid LAD, which
was likely chronic in nature
-Continue DAPT -- patient was getting DAPT since hospital admission
-Continue beta thu
-Patient is not on statin given history of liver transplant
#Mechanical fall (patient tripped over object) resulting in b/l knee contusions with hematoma and b/l knee effusions, left greater than right, and inability to ambulate safely
#Large Left Knee Joint Effusion
-Cont CARLO bandage/wound care
-PT/OT evaluation
-Ortho consulted given concern for worsened suspected hemarthrosis: MRI showed: nondisplaced fractures of the central and anterolateral aspects of the tibial plateau; large bone infarct of the distal femur; oblique tear
of the posterior horn of the medial meniscus; large knee joint effusion.
-Appreciate ortho: maintain strict non-weight bearing to left lower extremity; can stop knee immobilizer; may perform range of motion as tolerated.
-Pain control; Ice and elevation for pain and edema control.
-Follow-up with Dr. Stevens in the office in 2 weeks for repeat x-rays.
#Immunocompromised s/p liver transplant
-continue home meds cyclosporine, prednisone, mycophenolate
#Worsened Anemia in the Setting of Likely Left Knee Bleeding and lower extremity ecchymosis from mechanical fall
-Patient provided blood consent and understood all risks and benefits
-Hgb dropped to 7.1, patient says baseline is 9 to 10
-Transfused 1 unit PRBC on 06/01/25 given the above; I had a lengthy curbside discussion with natural sciences professor and it was decided that since patient had no issues with standard leukoreduced PRBC transfusion in 2022 (well after her liver transplant), it
is appropriate to provide patient with standard leukoreduced PRBCs this admission
#Hyperkalemia
-Possibly from hematoma
-Hold Valsartan as already doing given INDU, hyperkalemia and hypotension
-Lokelma
-Low potassium diet
-Monitor BMP
Chronic medical conditions:
#Persistent atrial fibrillation -- no longer on anticoagulation since had Watchman Device months ago; currently on DAPT as would be expected
#HFrEF ---- GDMT limited by BPs and renal function; ARB held appropriately for renal dysfunction and BP's; continue metoprolol as able with regards to hypotension
#History of left atrial appendage thrombus.
Cardiomyopathy.
#Mural Thrombus?
#CAD- DIESEL ENGINE SPECIALIST of mid LAD by catheterization,2022 -- continue DAPT
#CVA 2015. Left hemispheric seen on MRI, questionable
right peripheral visual and quadriceps weakness on exam.
#INDU on CKD 3.
Renal stents.
-Per my [place] Text communication with patient's pipe layer Dr. Erazo, on April 23, 2025, patient's creatinine was 1.5; and in recent months it�s been 1.5 to 1.7 compared 2.3 to 2.5 in 2023
-1.6 was Cr around May 26 at patient's outpatient transplant physician office as per the patient
-Cr 2.8 today -- appreciate nephrology
-Continue antiplatelets for now, but if significantly worsening anemia, may need to hold
#Liver transplant with history of cirrhosis.
#History of gastritis, GERD.
#Remote tobacco and alcohol abuse.
#Childhood epilepsy.
#Ambulatory dysfunction with fall risk.
#Osteoarthritis.
#Degenerative disc disease.
#Osteopenia.
DVT proph-SCDs. No chemical prophylaxis given suspected bleeding situation above.
Code Status: Full Code
Disposition: SNF eventually
Anticipated Discharge: 24 - 48 hours
Subjective/Interval History
-
Date of Service: June 03, 2025
Patient was seen and examined. She denied chest pain, dizziness, shortness of breath or nausea. She continues to have left knee discomfort, as expected.
Objective Data
-
Vital Signs:
Vital Signs
Temp Pulse Resp BP Pulse Ox
98.2 F 94 18 132/63 98
06/03/25 14:58 06/03/25 15:30 06/03/25 14:58 06/03/25 14:57 06/03/25 14:58
I&O
06/02/25 06/03/25 06/04/25
06:59 06:59 06:59
Intake Total 1360 / 1360 120 / 120 240 / 240
Output Total 100 / 100 150 / 150 400 / 400
Balance 1260 / 1260 -30 / -30 -160 / -160
[2025-06-03] MEDS: NEORAL 25 MG PO (18:28)
--- NOTE | 2025-06-03 19:44 | PTCARENOTE ---
Pt seen by Ortho and PT, OOB to chair pivoting on her right leg using a walker. Pt able to stand and use bedpan in the chair with assist of 2. Pt denies discomfort.Telemetry shows sinus rhythm. SBP's much better today, @117-132. Lasix on hold for
Cr. of 2.8. Plan for SNF when pt is medically stable.
--- NOTE | 2025-06-03 20:50 | PTCARENOTE ---
Pt rec'd at shift change oob in recliner chair. no c/o pain. Sinus on telemetry. Upon assessment pt's right groin found to be nancy, with blood in groin and noticeable clot at incision site. Area cleansed with nss and redressed. No active bleeding
noted at this time.
[2025-06-03] MEDS: LOW STRENGTH ASPIRIN 81 MG PO (21:55)
[2025-06-03] MEDS: TOPROL XL 100 MG PO (21:55)
[2025-06-03] MEDS: VITAMIN B-12 1000 MCG PO (21:55)
--- NOTE | 2025-06-03 22:00 | PTCARENOTE ---
Pt arrived to [id number] from IVU. Pt [place], VSS. Pt oriented to room, call joe placed within reach.
[2025-06-04 03:00] VITALS: BP 115/61
[2025-06-04 05:23] VITALS: BMI 24.3
[2025-06-04] MEDS: LOKELMA 10 GRAM PO ×3 (05:49→16:10)
[2025-06-04 07:35] VITALS: BP 100/55
[2025-06-04 08:23] LABS: Hematocrit 25.6 % (37.0-47.0); Hemoglobin 8.2 g/dL (12.0-16.0); Mean Corp Hgb Conc. 32.0 g/dL (33.0-37.0); Mean Corpuscular Volume 98.1 fL (81.0-99.0); Platelet Count 184 10^3/uL (130-400); Red Cell Dist. Width 15.8 % (11.5-14.5)
[2025-06-04] MEDS: DELTASONE 15 MG PO (08:41)
[2025-06-04] MEDS: PLAVIX 75 MG PO (08:41)
[2025-06-04] MEDS: FEOSOL 325 MG PO ×2 (08:42→21:48)
[2025-06-04] MEDS: PROTONIX 80 MG PO (08:42)
[2025-06-04] MEDS: CELLCEPT 1000 MG PO ×2 (08:42→21:48)
[2025-06-04] MEDS: OSCAL CAL 500 500 MG PO ×2 (08:42→21:49)
[2025-06-04] MEDS: NEORAL 50 MG PO (08:42)
[2025-06-04 09:07] LABS: ALT (SGPT) 59 U/L (0-35); AST (SGOT) 48 U/L (14-36); Albumin 2.7 g/dl (3.5-5.0); Alkaline Phosphatase 173 U/L (38-126); Blood Urea Nitrogen 103 mg/dl (7-17); Calcium 8.9 mg/dl (8.4-10.2); Carbon Dioxide 23 mmol/L (22-30); Chloride 100 mmol/L (98-107); Estimated Creatinine Clearance 13 ml/min; Glucose 92 mg/dl (70-99); Magnesium 2.6 mg/dl (1.6-2.3); Potassium 4.1 mmol/L (3.5-5.1); Sodium 132 mmol/L (135-145); Total Protein 4.8 g/dl (6.3-8.2); eGFR 18.06
--- NOTE | 2025-06-04 09:27 | W.PN.CD ---
Today's Communication / Plan
-
Cont meds
No new recommendations
We will sign off please call with questions/concerns.
Impression / Plan
-
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 She had nausea
and so an EKG was checked to determine safety of antiemetics, but EKG findings were concerning for inferior STEMI. She was hypotensive (more than her baseline) and tachycardiac at the time ECG showed anteroseptal and inferior ST elevations. In this
setting, the environmental laboratory technician was activated for STEMI. Cath revealed coronary artery disease with new severe disease of the RCA from previous, which was likely chronic in nature.
Fall with injury:
-mechanical, no syncope, tripped over her foot
-LLE is in immobilizer and orthopedics is on the case, MRI is pending
Abnormal peak up to 17. Based on prior notes there was suspicion for type II MA in setting of hypotension tachycardia, anemia and underlying coronary artery disease.
- Cardiac catheterization 06/01/2025 results as noted below
- Continue dual antiplatelet therapy
- Continue beta-thu
- Additional medical therapy limited by BP
Coronary artery disease:
-cath this admit: LAD: large vessel giving rise to a large septal branch and moderate caliber diagonal branch before being chronically occluded in the mid vessel with the distal vessel fed via L-L septal collaterals. There is otherwise diffuse mild
disease. The vessel is large unchanged in appearance from 2022 angiography. LCx: large vessel giving rise to a small OM1, moderate caliber OM2, and large LPL branch. There is diffuse mild disease largely unchanged from 2022 angiography. RCA: small
vessel giving rise to a small RPDA and small RPL branch. There is a subtotal ostial occlusion and diffuse moderate disease throughout the remainder of the vessel. The vessel is atretic in caliber compared to 2022 angiography and there is evidence of
competitive flow in the RPDA. This all suggests the RPDA to be chronically occluded and not an infarct related artery.
- Continue medical therapy and DAPT as noted above
- Continue treatment of anemia
- Medical therapy limited by BP
INDU on CKD, chronic creatinine up to 2.8. Monitor closely. Nephrology has been consulted
AFIB, paroxysmal:
-stable in SR
-patient with hx PVI and watchmen 02/02/25
-she is now on DAPT with ASA and plavix
Anemia:
-s/p PRBCs
-follow
HFrEF: chronic (40-45 on most recent ALICE, but was 30-35% on most recent)
-does not appear volume overloaded to assessment
-echo to be updated
-GDMT limited by BPs and renal function
-ARB held appropriately for renal dysfunction and BP's
-continue metoprolol as able
Hypotension. Patient had low blood pressures throughout yesterday which have now improved with systolics consistently greater than 100. Both valsartan and metoprolol have been on hold. If his blood pressure is continued to be stable today then
would reinitiate low-dose metoprolol such as 12.5 mg twice daily
Hx liver tx
Subjective: feeling well; looking forward to getting back to ambulation
Physical Exam
Vital Signs/Labs
Vital Signs
Temp Pulse Resp BP Pulse Ox
97.9 F 73 18 100/55 96
06/04/25 07:35 06/04/25 07:35 06/04/25 07:35 06/04/25 07:35 06/04/25 07:35
06/03/25 06/04/25 06/05/25
06:59 06:59 06:59
Actual Weight 120 lb 4 oz
06/04/25 07:47
06/04/25 07:47
PT 13.6 Sec (11.4-14.6) 06/01/25 20:45
INR 1.01 06/01/25 20:45
APTT Cancelled 06/01/25 20:45
Magnesium 2.6 mg/dl (1.6-2.3) H 06/04/25 07:47
Triglycerides 129 mg/dl (10-149) 06/02/25 04:19
LDL Cholesterol, Calc 96 mg/dl 06/02/25 04:19
VLDL Cholesterol, Calc 25 mg/dl (0-30) 06/02/25 04:19
HDL Cholesterol 61 mg/dl 06/02/25 04:19
LAB Results
06/01/25 06/02/25 06/02/25
20:45 04:19 15:25
Troponin I 13.300 H* 16.800 H* D 17.300 H*
06/03/25
02:42
Troponin I 15.200 H*
Physical Exam
Constitutional: No acute distress and Comfortable
EENT: Anicteric
Cardiovascular: Rhythm & rate is regular
Respiratory: Respiratory effort normal and Lungs clear to auscul.
GI: Soft
Neuro/Psych: Alert and Oriented
Data Reviewed
-
Date of Service: June 04, 2025
EKG: Tracing Personally Visualized and interpreted (sr)
Echo: Tracing Personally Visualized and interpreted
Labs: Labs Reviewed by me
[2025-06-04 11:52] VITALS: BP 101/60
--- NOTE | 2025-06-04 13:47 | CM ---
Per Rosie from CVICU, patient has a bed at [facility] when medically stable. No auth needed. IMM provided and signed.
Plan: Case management will continue to follow and assist with discharge planning. Transfer to [facility] upon discharge.
--- NOTE | 2025-06-04 14:56 | W.PN.NEPH.PH ---
Today's Communication / Plan
-
Follow BMP
Maintain fluid restriction for hyponatremia
Assessment/Plan
-
Impression:
Mechanical fall (patient tripped over object) resulting in b/l knee contusions with hematoma and b/l knee effusions, left greater than right, Acute Anemia
STEMI
INDU with [id number] 1.6-1.9-Dr Sherwood
Secondary hypertension undergoing bilateral renal artery stenting July 2022 (decrease in GFR following procedure?)
Hyperkalemia
Persistent atrial fibrillation. s/p watchman 01/2025
HFrEF. 30-35%
History of left atrial appendage thrombus.
Cardiomyopathy.
Mural Thrombus?
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
Immunocompromised s/p liver transplant 2007
CVA 2015. Left hemispheric seen on MRI
History of gastritis, GERD.
Remote tobacco and alcohol abuse.
Childhood epilepsy.
Ambulatory dysfunction with fall risk.
Osteoarthritis.
Degenerative disc disease.
Osteopenia.
h/o Left portal vein thrombosis
Plan:
NIDU
-due to contrast nephropathy
a/w fall and knee injury/hematoma CREDIT COLLECTIONS REP
incidental finding of STEMI s/p C on 06/01 RCA disease seem chronic
no intervention needed per cards
Creatinine with modest improvement to 2.7 but BUN continues to rise at 103
holding lasix and ARB , PVR 0cc, urine output not even recovered or recorded
monitor hyponatremia , maintain FR
MRI left knee noted with tibial plateau fx non displaced, large effusion, menisci tear, distal femur infarct-no intervention
follow h/h, prn trasnfusion
BP are soft, ARB on hold , BB not given today
echo noted EF 30-35%, DD stage II. WMA. mod to severe TR with pulm HTN
d/w pt
-
-
Date of Service: June 04, 2025
CC / HPI / ROS
-
Chief Complaint:
INDU with CKD
History of Present Illness:
cr at 2.7, k high 4.1 after lokelma
bp remain soft
hb stable at 8.2
Review of Systems:
no cp or sob
subjective decrease in UOP
No recording of urine output
Labs
-
Labs:
WBC 9.6 10^3/uL (4.8-10.8) 06/04/25 07:47
RBC 2.61 10^6/uL (4.20-5.40) L 06/04/25 07:47
Hgb 8.2 g/dL (12.0-16.0) L 06/04/25 07:47
Hct 25.6 % (37.0-47.0) L 06/04/25 07:47
Plt Count 184 10^3/uL (130-400) 06/04/25 07:47
Sodium 132 mmol/L (135-145) L 06/04/25 07:47
Potassium 4.1 mmol/L (3.5-5.1) D 06/04/25 07:47
Chloride 100 mmol/L (98-107) 06/04/25 07:47
Carbon Dioxide 23 mmol/L (22-30) 06/04/25 07:47
BUN 103 mg/dl (7-17) H* 06/04/25 07:47
Creatinine 2.7 mg/dL (0.6-1.0) H 06/04/25 07:47
eGFR 18.06 06/04/25 07:47
Glucose 92 mg/dl (70-99) 06/04/25 07:47
Calcium 8.9 mg/dl (8.4-10.2) 06/04/25 07:47
Albumin 2.7 g/dl (3.5-5.0) L 06/04/25 07:47
Physical Exam
-
Vital Signs:
Vital Signs
Temp Pulse Resp BP Pulse Ox
98.1 F 83 18 101/60 97
06/04/25 11:52 06/04/25 11:52 06/04/25 11:52 06/04/25 11:52 06/04/25 11:52
Cardiovascular:: Irregular rate and rhythm
Respiratory:: Bilateral: CTA
Lung Excursion:: Normal
Abdomen:: Nontender and Soft
Bowel Sounds:: Normal
Extremity Edema:: +1: Bilateral:
Loyola Catheter: No
Other Findings::
bruising of left and right knee
[2025-06-04 15:28] VITALS: BP 108/58
[2025-06-04] MEDS: ULTRAM 50 MG PO (16:09)
[2025-06-04] MEDS: NEORAL 25 MG PO (16:10)
--- NOTE | 2025-06-04 17:07 | W.PN.HOSP.TC ---
Today's Communication/Plan
-
Renal function remains significantly impaired -- confirmed with nephrology that patient
Monitor strict I's and O's
AM labs
Continue to monitor on telemetry
Assessment / Plan
Assessment / Plan
Physical Exam
General: Well Nourished, No Apparent Distress, Comfortable and Conversant
HEENT: Normocephalic, Moist mucous membranes
Respiratory: Clear to Auscultation Bilaterally
Cardiac: S1/S2 and Regular Rhythm
GI: Soft, Non Tender and Non Distended. Positive bowel sounds.
Musculoskeletal: No Cyanosis; Edema, Left Lower Extremity, Edema, Right Lower Extremity and Other (left knee wrapped w carlo bandage, b/l knee effusion/hematoma)
Skin: Warm. Dry.
Neuro: AAO x 3, No Motor Deficits and Nonfocal/grossly intact
Psych: Calm
Assessment/Plan
74-year-old female with PMH significant for persistent symptomatic atrial fibrillation, left atrial appendage clot identified in 2022 with clot reassessed July 2024 and found to be still present, maintained on
metoprolol and anticoagulated with Eliquis 2.5 mg b.i.d. 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
transplant due to cirrhosis 2007, on immunosuppressants and modulators, Her [id number] is 6, Watchman Device placed on February 02, 2025 with postoperative complication of blood loss anemia due to GI bleeding, who presented to ED due to trip and fall
at grocery store, no LOC, denied hitting her head, and c/o b/l knee pain and left lateral rib pain, incident occurred directly prior to arrival.
CARLO wrap and knee immobilizer placed in ED. Large hematoma to left anterior knee, unable to ambulate safely after presentation due to pain. Could not tolerate knee immobilizer due to bulkiness.
#Likely a Type 2 NSTEMI in setting of nausea and relative hypotension, as well as underlying CKD, on 06/01/25 evening
-LVEDP was 16 during cardiac cath
-EKG had been checked on 06/01/25 to check QTc for Zofran administration for severe nausea, and it showed STEMI
-Cardiac Cath on 06/01/25 evening showed coronary artery disease with new severe disease of the RCA from previous (subtotal chronic occlusion of RCA new from 2022 but clearly not acute (and not amenable to revasc)) and stable OFFICE MACHINE EMBOSSOGRAPH OPERATOR of mid LAD, which
was likely chronic in nature
-Continue DAPT -- patient was getting DAPT since hospital admission
-Continue beta thu
-Patient is not on statin given history of liver transplant
#Mechanical fall (patient tripped over object) resulting in b/l knee contusions with hematoma and b/l knee effusions, left greater than right, and inability to ambulate safely
#Large Left Knee Joint Effusion
-Cont CARLO bandage/wound care
-PT/OT evaluation
-Ortho consulted given concern for worsened suspected hemarthrosis: MRI showed: nondisplaced fractures of the central and anterolateral aspects of the tibial plateau; large bone infarct of the distal femur; oblique tear
of the posterior horn of the medial meniscus; large knee joint effusion.
-Appreciate ortho: maintain strict non-weight bearing to left lower extremity; can stop knee immobilizer; may perform range of motion as tolerated.
-Pain control; Ice and elevation for pain and edema control.
-Follow-up with Dr. Stevens in the office in 2 weeks for repeat x-rays.
#Immunocompromised s/p liver transplant
-continue home meds cyclosporine, prednisone, mycophenolate
#Worsened Anemia in the Setting of Likely Left Knee Bleeding and lower extremity ecchymosis from mechanical fall
-Patient provided blood consent and understood all risks and benefits
-Hgb dropped to 7.1, patient says baseline is 9 to 10
-Transfused 1 unit PRBC on 06/01/25 given the above; I had a lengthy curbside discussion with sales project coordinator and it was decided that since patient had no issues with standard leukoreduced PRBC transfusion in 2022 (well after her liver transplant), it
is appropriate to provide patient with standard leukoreduced PRBCs this admission
#Hyperkalemia
-Possibly from hematoma
-Hold Valsartan as already doing given INDU, hyperkalemia and hypotension
-Lokelma
-Low potassium diet
-Monitor BMP
#Persistent atrial fibrillation -- no longer on anticoagulation since had Watchman Device months ago; currently on DAPT as would be expected
#HFrEF ---- GDMT limited by BPs and renal function; ARB held appropriately for renal dysfunction and BP's; continue metoprolol as able with regards to hypotension
#History of left atrial appendage thrombus.
Cardiomyopathy.
#Mural Thrombus?
#CAD- OFFICE MACHINE EMBOSSOGRAPH OPERATOR of mid LAD by catheterization,2022
- continue DAPT
#CVA 2016. Left hemispheric seen on MRI, questionable
right peripheral visual and quadriceps weakness on exam.
#INDU on CKD 3.
Renal stents.
-INDU is suspected to be due to contrast nephropathy
-Per my [place] Text communication with patient's asparagus cutter Dr. Erazo, on April 23, 2025, patient's creatinine was 1.5; and in recent months it�s been 1.5 to 1.7 compared 2.3 to 2.5 in 2023
-1.6 was Cr around May 26 at patient's outpatient transplant physician office as per the patient
-Cr 2.7 today -- appreciate nephrology
-Continue to hold Lasix and Valsartan
#Liver transplant with history of cirrhosis.
#History of gastritis, GERD.
#Remote tobacco and alcohol abuse.
#Childhood epilepsy.
#Ambulatory dysfunction with fall risk.
#Osteoarthritis.
#Degenerative disc disease.
#Osteopenia.
DVT proph-SCDs. No chemical prophylaxis given suspected bleeding situation above.
Code Status: Full Code
Disposition: SNF eventually
Anticipated Discharge: 24 - 48 hours
Subjective/Interval History
-
Date of Service: June 04, 2025
Patient was seen and examined. She denied any chest pain, shortness of breath or any other new symptoms or complaints. She still reported left knee pain.
Objective Data
-
Labs:
Laboratory Results
06/04/25
07:47
WBC 9.6
Hgb 8.2 L
Hct 25.6 L
Plt Count 184
Sodium 132 L
Potassium 4.1 D
Chloride 100
Carbon Dioxide 23
BUN 103 H*
Creatinine 2.7 H
Glucose 92
Calcium 8.9
Total Bilirubin 1.3
AST 48 H
ALT 59 H
Alkaline Phosphatase 173 H
Vital Signs:
Vital Signs
Temp Pulse Resp BP Pulse Ox
98.1 F 71 20 108/58 96
06/04/25 15:28 06/04/25 15:28 06/04/25 15:28 06/04/25 15:28 06/04/25 15:28
I&O
06/03/25 06/04/25 06/05/25
06:59 06:59 06:59
Intake Total 120 / 120 420 / 420 720 / 720
Output Total 150 / 150 400 / 400
Balance -30 / -30 20 / 20 720 / 720
[2025-06-04 19:00] VITALS: BP 103/60
[2025-06-04] MEDS: LOW STRENGTH ASPIRIN 81 MG PO (21:49)
[2025-06-04] MEDS: TOPROL XL 100 MG PO (21:52)
[2025-06-04 23:00] VITALS: BP 98/52
[2025-06-05] VITALS (10 sets, daily range): BP systolic 95–134; BP diastolic 52–66; PULSE 80; O2SAT 94; BMI 24.1
[2025-06-05] MEDS: LOKELMA PO (06:34)
[2025-06-05 08:03] LABS: Hematocrit 24.0 % (37.0-47.0); Hemoglobin 7.7 g/dL (12.0-16.0); Mean Corp Hgb Conc. 32.1 g/dL (33.0-37.0); Mean Corpuscular Volume 97.6 fL (81.0-99.0); Platelet Count 163 10^3/uL (130-400); Red Cell Dist. Width 15.8 % (11.5-14.5)
[2025-06-05 08:37] LABS: ALT (SGPT) 56 U/L (0-35); AST (SGOT) 40 U/L (14-36); Albumin 2.6 g/dl (3.5-5.0); Alkaline Phosphatase 165 U/L (38-126); Blood Urea Nitrogen 109 mg/dl (7-17); Calcium 8.4 mg/dl (8.4-10.2); Carbon Dioxide 24 mmol/L (22-30); Chloride 103 mmol/L (98-107); Estimated Creatinine Clearance 14 ml/min; Glucose 70 mg/dl (70-99); Potassium 3.7 mmol/L (3.5-5.1); Sodium 133 mmol/L (135-145); Total Protein 4.6 g/dl (6.3-8.2); eGFR 19.81
[2025-06-05] MEDS: NEORAL 50 MG PO (10:01)
[2025-06-05] MEDS: FEOSOL 325 MG PO ×2 (10:01→21:38)
[2025-06-05] MEDS: DELTASONE 15 MG PO (10:01)
[2025-06-05] MEDS: PROTONIX 80 MG PO (10:01)
[2025-06-05] MEDS: CELLCEPT 1000 MG PO ×2 (10:02→21:37)
[2025-06-05] MEDS: OSCAL CAL 500 500 MG PO ×2 (10:02→21:38)
[2025-06-05] MEDS: PLAVIX 75 MG PO (10:03)
--- NOTE | 2025-06-05 11:12 | W.PN.HOSP.TC ---
Today's Communication/Plan
-
Given patient's nausea, EKG and troponin ordered again today. Cardiology aware of elevated troponin but it is coming down, less than a few days ago. EKG okay. No need for cath at this time.
1 unit PRBC to address ischemic heart disease
Notify house provider and cardiology of any new EKG changes or newly elevated troponin or worsening troponin
Continue to monitor for any new symptoms
Bowel regimen Miralax changed to scheduled basis
Continue to monitor on telemetry
Assessment / Plan
Assessment / Plan
Physical Exam
General: Well Nourished, No Apparent Distress, Comfortable and Conversant
HEENT: Normocephalic, Moist mucous membranes
Respiratory: Clear to Auscultation Bilaterally
Cardiac: S1/S2 and Regular Rhythm
GI: Soft, Non Tender and Non Distended. Positive bowel sounds.
Musculoskeletal: No Cyanosis; Edema, Left Lower Extremity, Edema, Right Lower Extremity and Other (left knee wrapped w carlo bandage, b/l knee effusion/hematoma)
Skin: Warm. Dry.
Neuro: AAO x 3, No Motor Deficits and Nonfocal/grossly intact
Psych: Calm
Assessment/Plan
74-year-old female with PMH significant for persistent symptomatic atrial fibrillation, left atrial appendage clot identified in 2022 with clot reassessed July 2024 and found to be still present, maintained on
metoprolol and anticoagulated with Eliquis 2.5 mg b.i.d. dosing,HFrEF, cardiomyopathy, coronary artery disease with TALCER of LAD, hypertension, CKD 3 with renal stents, remote tobacco and alcohol abuse, CVA, ambulatory dysfunction, as well as liver
transplant due to cirrhosis 2007, on immunosuppressants and modulators, Her [id number] is 6, Watchman Device placed on February 02, 2025 with postoperative complication of blood loss anemia due to GI bleeding, who presented to ED due to trip and fall
at grocery store, no LOC, denied hitting her head, and c/o b/l knee pain and left lateral rib pain, incident occurred directly prior to arrival.
CARLO wrap and knee immobilizer placed in ED. Large hematoma to left anterior knee, unable to ambulate safely after presentation due to pain. Could not tolerate knee immobilizer due to bulkiness.
#Likely a Type 2 NSTEMI in setting of nausea and relative hypotension, as well as underlying CKD, on 06/01/25 evening
-LVEDP was 16 during cardiac cath
-EKG had been checked on 06/01/25 to check QTc for Zofran administration for severe nausea, and it showed STEMI
-Cardiac Cath on 06/01/25 evening showed coronary artery disease with new severe disease of the RCA from previous (subtotal chronic occlusion of RCA new from 2022 but clearly not acute (and not amenable to revasc)) and stable TALCER of mid LAD, which
was likely chronic in nature
-Per Dr. Bower, EKG changes were secondary to whatever was causing her to have nausea and hypotension and not the other way around; patient likely a type II NSTEMI. Her LAD has been chronically occluded for years and
the RCA does not look like it�s amenable to revascularization.
-Continue DAPT -- patient was getting DAPT since hospital admission
-Continue beta thu
-Patient is not on statin given history of liver transplant
#Nausea again on 06/05/25
-Last time patient has nausea, had to be taken urgently to senior cytogenetics laboratory director (which showed chronic disease in both territories) given concern for STEMI in setting of hypotension -- nausea and hypotension at that time improved
spontaneously/with anti-emetics
-AXR suggested constipation -- so made Miralax daily on scheduled basis, instead of PRN
-EKG noted. Elevated troponin noted but decreased from 06/01 (the time urgent cath was done). Last time patient had nausea, and EKG was checked for QTc, it showed STEMI o 06/01/25 (please see above)
-Spoke over the phone on 06/05/[address] Jackson, ordered another 1 unit PRBC to address ischemia better, given soft blood pressures likely no room for Nitro Paste
#Mechanical fall (patient tripped over object) resulting in b/l knee contusions with hematoma and b/l knee effusions, left greater than right, and inability to ambulate safely
#Large Left Knee Joint Effusion
-Cont CARLO bandage/wound care
-PT/OT evaluation
-Ortho consulted given concern for worsened suspected hemarthrosis: MRI showed: nondisplaced fractures of the central and anterolateral aspects of the tibial plateau; large bone infarct of the distal femur; oblique tear
of the posterior horn of the medial meniscus; large knee joint effusion.
-Appreciate ortho: maintain strict non-weight bearing to left lower extremity; can stop knee immobilizer; may perform range of motion as tolerated.
-Pain control; Ice and elevation for pain and edema control.
-Follow-up with Dr. Stevens in the office in 2 weeks for repeat x-rays.
#Immunocompromised s/p liver transplant
-continue home meds cyclosporine, prednisone, mycophenolate
#Worsened Anemia in the Setting of Likely Left Knee Bleeding and lower extremity ecchymosis from mechanical fall
-Patient provided blood consent and understood all risks and benefits
-Hgb dropped to 7.1, patient says baseline is 9 to 10
-Transfused 1 unit PRBC on 06/01/25 given the above; I had a lengthy curbside discussion with tack puller machine and it was decided that since patient had no issues with standard leukoreduced PRBC transfusion in 2022 (well after her liver transplant), it
is appropriate to provide patient with standard leukoreduced PRBCs this admission
-Transfused another 1 unit of PRBC on 06/05/25 to address possible cardiac ischemic issues as discussed with Dr. Jackson (see above)
#Hyperkalemia
-Possibly from hematoma
-Hold Valsartan as already doing given INDU, hyperkalemia and hypotension
-Lokelma
-Low potassium diet
-Monitor BMP
#Persistent atrial fibrillation -- no longer on anticoagulation since had Watchman Device months ago; currently on DAPT as would be expected
#HFrEF ---- GDMT limited by BPs and renal function; ARB held appropriately for renal dysfunction and BP's; continue metoprolol as able with regards to hypotension
#History of left atrial appendage thrombus.
Cardiomyopathy.
#Mural Thrombus?
#CAD- TALCER of mid LAD by catheterization,2022
- continue DAPT
#CVA 2015. Left hemispheric seen on MRI, questionable
right peripheral visual and quadriceps weakness on exam.
#INDU on CKD 3.
Renal stents.
-INDU is suspected to be due to contrast nephropathy
-Per my [place] Text communication with patient's special education resource teacher Dr. Erazo, on April 23, 2025, patient's creatinine was 1.5; and in recent months it�s been 1.5 to 1.7 compared 2.3 to 2.5 in 2023
-1.6 was Cr around May 26 at patient's outpatient transplant physician office as per the patient
-Cr 2.7 today -- appreciate nephrology
-Continue to hold Lasix and Valsartan
#Liver transplant with history of cirrhosis.
#History of gastritis, GERD.
#Remote tobacco and alcohol abuse.
#Childhood epilepsy.
#Ambulatory dysfunction with fall risk.
#Osteoarthritis.
#Degenerative disc disease.
#Osteopenia.
DVT proph-SCDs. No chemical prophylaxis given suspected bleeding situation above.
Code Status: Full Code
Disposition: SNF eventually
Anticipated Discharge: > 48 hours
Subjective/Interval History
-
Date of Service: June 05, 2025
Patient was seen and examined. She reported nausea, as well as for the past several days, no bowel movement.
Objective Data
-
Labs:
Laboratory Results
06/05/25
06:41
WBC 8.8
Hgb 7.7 L
Hct 24.0 L
Plt Count 163
Sodium 133 L
Potassium 3.7
Chloride 103
Carbon Dioxide 24
BUN 109 H*
Creatinine 2.5 H
Glucose 70
Calcium 8.4
Total Bilirubin 1.2
AST 40 H
ALT 56 H
Alkaline Phosphatase 165 H
Vital Signs:
Vital Signs
Temp Pulse Resp BP Pulse Ox
97.8 F 78 14 95/52 96
06/05/25 03:00 06/05/25 07:00 06/05/25 07:00 06/05/25 07:00 06/05/25 07:00
I&O
06/04/25 06/05/25 06/06/25
06:59 06:59 06:59
Intake Total 420 / 420 720 / 720
Output Total 400 / 400
Balance 720 / 720
--- NOTE | 2025-06-05 12:46 | W.PN.NEPH.PH ---
Today's Communication / Plan
-
Observe follow BMP
Accurate urine output would be nice
As needed transfusion
Assessment/Plan
-
Impression:
Mechanical fall (patient tripped over object) resulting in b/l knee contusions with hematoma and b/l knee effusions, left greater than right, Acute Anemia
STEMI
INDU with [id number] 1.6-1.9-Dr Sherwood
Secondary hypertension undergoing bilateral renal artery stenting July 2022 (decrease in GFR following procedure?)
Hyperkalemia
Persistent atrial fibrillation. s/p watchman 01/2025
HFrEF. 30-35%
History of left atrial appendage thrombus.
Cardiomyopathy.
Mural Thrombus?
CAD- PHARMACY TECHNICIAN PER DIEM of mid LAD by catheterization,2022, new RCA disease-seem chronic
Immunocompromised s/p liver transplant 2007
CVA 2015. Left hemispheric seen on MRI
History of gastritis, GERD.
Remote tobacco and alcohol abuse.
Childhood epilepsy.
Ambulatory dysfunction with fall risk.
Osteoarthritis.
Degenerative disc disease.
Osteopenia.
h/o Left portal vein thrombosis
Plan:
INDU
-due to contrast nephropathy
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
incidental finding of STEMI s/p C on 06/01 RCA disease seem chronic
no intervention needed per cards
Creatinine with modest improvement to 2.5 but BUN continues to rise at 109
holding lasix and ARB , PVR 0cc, urine output not even recovered or recorded
Abdominal ultrasound reviewed from today RE: nausea: Notes moderate amount of fecal material in colon no evidence of obstruction
monitor hyponatremia , maintain FR , improving to 133
MRI left knee noted with tibial plateau fx non displaced, large effusion, menisci tear, distal femur infarct-no intervention
follow h/h, prn transfusion , anemia worsening and BUN climbing: is she GI bleeding? or from extremity hematomas
BP are soft, ARB on hold , BB not given today
echo noted EF 30-35%, DD stage II. WMA. mod to severe TR with pulm HTN
d/w pt
-
-
Date of Service: June 05, 2025
CC / HPI / ROS
-
Chief Complaint:
INDU with CKD
History of Present Illness:
cr down to 2.5 but BUN 109
bp remain soft
hb down at 7.7
Review of Systems:
no cp or sob
Nausea
subjective decrease in UOP
No recording of urine output
Labs
-
Labs:
WBC 8.8 10^3/uL (4.8-10.8) 06/05/25 06:41
RBC 2.46 10^6/uL (4.20-5.40) L 06/05/25 06:41
Hgb 7.7 g/dL (12.0-16.0) L 06/05/25 06:41
Hct 24.0 % (37.0-47.0) L 06/05/25 06:41
Plt Count 163 10^3/uL (130-400) 06/05/25 06:41
Sodium 133 mmol/L (135-145) L 06/05/25 06:41
Potassium 3.7 mmol/L (3.5-5.1) 06/05/25 06:41
Chloride 103 mmol/L (98-107) 06/05/25 06:41
Carbon Dioxide 24 mmol/L (22-30) 06/05/25 06:41
BUN 109 mg/dl (7-17) H* 06/05/25 06:41
Creatinine 2.5 mg/dL (0.6-1.0) H 06/05/25 06:41
eGFR 19.81 06/05/25 06:41
Glucose 70 mg/dl (70-99) 06/05/25 06:41
Calcium 8.4 mg/dl (8.4-10.2) 06/05/25 06:41
Albumin 2.6 g/dl (3.5-5.0) L 06/05/25 06:41
Physical Exam
-
Vital Signs:
Vital Signs
Temp Pulse Resp BP Pulse Ox
97.8 F 78 14 95/52 96
06/05/25 03:00 06/05/25 07:00 06/05/25 07:00 06/05/25 07:00 06/05/25 07:00
Cardiovascular:: Irregular rate and rhythm
Respiratory:: Bilateral: CTA
Lung Excursion:: Normal
Abdomen:: Nontender and Soft
Bowel Sounds:: Normal
Extremity Edema:: +1: Bilateral:
[place] Catheter: No
Other Findings::
bruising of left and right knee
--- NOTE | 2025-06-05 12:53 | W.PN.NEPH.PH ---
Today's Communication / Plan
-
follow bmp
holding diuretics
INDU slowly improving
Assessment/Plan
-
Impression:
Mechanical fall (patient tripped over object) resulting in b/l knee contusions with hematoma and b/l knee effusions, left greater than right, Acute Anemia
STEMI (troponin peak ~17)
NIDU with [id number] 1.6-1.9-Dr Erazo
Secondary hypertension undergoing bilateral renal artery stenting July 2022 (decrease in GFR following procedure?)
Hyperkalemia
Persistent atrial fibrillation. s/p watchman 01/2025
HFrEF. 30-35%
History of left atrial appendage thrombus.
Cardiomyopathy.
Mural Thrombus?
CAD- PATCH MACHINE OPERATOR of mid LAD by catheterization,2022, new RCA disease-seem chronic
Immunocompromised s/p liver transplant 2007
CVA 2015. Left hemispheric seen on MRI
History of gastritis, GERD.
Remote tobacco and alcohol abuse.
Childhood epilepsy.
Ambulatory dysfunction with fall risk.
Osteoarthritis.
Degenerative disc disease.
Osteopenia.
h/o Left portal vein thrombosis
Plan:
INDU
-due to contrast nephropathy
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
incidental finding of STEMI s/p C on 06/01 RCA disease seem chronic
no intervention needed per cards
Creatinine with modest improvement to 2.3 but BUN down to 105
holding lasix and ARB , PVR 0cc, urine output not even recovered or recorded,weight down
Abdominal ultrasound reviewed from today RE: nausea: Notes moderate amount of fecal material in colon no evidence of obstruction
monitor hyponatremia , maintain FR , improving to 133
MRI left knee noted with tibial plateau fx non displaced, large effusion, menisci tear, distal femur infarct-no intervention
follow h/h, prn transfusion , anemia improved after transfusion on 06/05
BP are soft, ARB on hold , BB not given today
echo noted EF 30-35%, DD stage II. WMA. mod to severe TR with pulm HTN
d/w pt
-
-
Date of Service: June 05, 2025
CC / HPI / ROS
-
Chief Complaint:
INDU with CKD
History of Present Illness:
cr down to 2.3 but BUN 105
Hemodynamically stable
Anemia improved following transfusion
Review of Systems:
no cp or sob
Nausea
subjective decrease in UOP
weight down
No recording of urine output
Labs
-
Labs:
WBC 8.8 10^3/uL (4.8-10.8) 06/05/25 06:41
RBC 2.46 10^6/uL (4.20-5.40) L 06/05/25 06:41
Hgb 7.7 g/dL (12.0-16.0) L 06/05/25 06:41
Hct 24.0 % (37.0-47.0) L 06/05/25 06:41
Plt Count 163 10^3/uL (130-400) 06/05/25 06:41
Sodium 133 mmol/L (135-145) L 06/05/25 06:41
Potassium 3.7 mmol/L (3.5-5.1) 06/05/25 06:41
Chloride 103 mmol/L (98-107) 06/05/25 06:41
Carbon Dioxide 24 mmol/L (22-30) 06/05/25 06:41
BUN 109 mg/dl (7-17) H* 06/05/25 06:41
Creatinine 2.5 mg/dL (0.6-1.0) H 06/05/25 06:41
eGFR 19.81 06/05/25 06:41
Glucose 70 mg/dl (70-99) 06/05/25 06:41
Calcium 8.4 mg/dl (8.4-10.2) 06/05/25 06:41
Albumin 2.6 g/dl (3.5-5.0) L 06/05/25 06:41
Physical Exam
-
Vital Signs:
Vital Signs
Temp Pulse Resp BP Pulse Ox
97.8 F 78 14 95/52 96
06/05/25 03:00 06/05/25 07:00 06/05/25 07:00 06/05/25 07:00 06/05/25 07:00
Cardiovascular:: Irregular rate and rhythm
Respiratory:: Bilateral: CTA
Lung Excursion:: Normal
Abdomen:: Nontender and Soft
Bowel Sounds:: Normal
Extremity Edema:: +1: Bilateral:
L[place]ola Catheter: No
Other Findings::
bruising of left and right knee
[2025-06-05 13:08] LABS: Troponin I 6.610 ng/ml
[2025-06-05 13:22] LABS: Lipase 87 U/L (23-300)
--- NOTE | 2025-06-05 15:15 | W.PN.CD ---
Today's Communication / Plan
-
Patient's had some nausea today which she is being evaluated by Dr. Foster. Patient states she has not had a bowel movement since Saturday.
Treatment of nausea and constipation as directed by hospitalist
Due to nausea during initial presentation patient had troponin checked which is 6. This may be trending down from previously elevated troponin 2 days ago. Slower trend down inpatient with CKD. No ischemic ECG changes
- Check follow-up troponin
- Continue to optimize medical therapy for coronary artery disease
- Difficult to optimize medical therapy for CAD and coronary ischemia with severe anemia with hemoglobin of 7.7 recommend additional treatment. PRBC
Impression / Plan
-
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 She had nausea
and so an EKG was checked to determine safety of antiemetics, but EKG findings were concerning for inferior STEMI. She was hypotensive (more than her baseline) and tachycardiac at the time ECG showed anteroseptal and inferior ST elevations. In this
setting, the mobile lab technician was activated for STEMI. Cath revealed coronary artery disease with new severe disease of the RCA from previous, which was likely chronic in nature.
Fall with injury:
-mechanical, no syncope, tripped over her foot
- Patient seen by Ortho this admission
Abnormal peak up to 17. Based on prior notes there was suspicion for type II NH in setting of hypotension tachycardia, anemia and underlying coronary artery disease.
- Cardiac catheterization 06/01/2025 results as noted below
- Continue dual antiplatelet therapy
- Continue beta-thu
- Additional medical therapy limited by BP
- Patient had a repeat troponin today which was 6 which may be a trend down from 2 days ago patient may have slower drop in troponin due to CKD. Check follow-up troponin
.
Nausea. Patient with recurrent issues with nausea today also constipation last BM Saturday per her report constipation may be contributing. Although she had some nausea on presentation it is not clear that nausea is truly an anginal equivalent. ECG
without ischemic changes.
- Continue nausea as directed by primary team. Follow-up troponins pending.
.
Coronary artery disease:
-cath this admit: LAD: large vessel giving rise to a large septal branch and moderate caliber diagonal branch before being chronically occluded in the mid vessel with the distal vessel fed via L-L septal collaterals. There is otherwise diffuse mild
disease. The vessel is large unchanged in appearance from 202 angiography. LCx: large vessel giving rise to a small OM1, moderate caliber OM2, and large LPL branch. There is diffuse mild disease largely unchanged from 202 angiography. RCA: small
vessel giving rise to a small RPDA and small RPL branch. There is a subtotal ostial occlusion and diffuse moderate disease throughout the remainder of the vessel. The vessel is atretic in caliber compared to 202 angiography and there is evidence of
competitive flow in the RPDA. This all suggests the RPDA to be chronically occluded and not an infarct related artery.
- Continue medical therapy and DAPT- Continue treatment of anemia
- Medical therapy limited by BP
- Recommend additional treatment of anemia. Difficult to optimize medical therapy for CAD and coronary ischemia with hemoglobin 7.7. Consider PRBC
INDU on CKD, chronic creatinine up to 2.8. Monitor closely. Nephrology has been consulted
AFIB, paroxysmal:
-stable in SR
-patient with hx PVI and watchmen 02/02/25
-she is now on DAPT with ASA and plavix
Anemia:
- Hemoglobin down to 7.7. With all medical issues above including coronary artery disease would favor maintaining higher hemoglobin consider addition of PRBCs
HFrEF: chronic (40-45 on most recent ALICE, but was 30-35% on most recent)
-does not appear volume overloaded to assessment
-echo to be updated
-GDMT limited by BPs and renal function
-ARB held appropriately for renal dysfunction and BP's
-continue metoprolol as able
Hypotension. Patient had low blood pressures throughout yesterday which have now improved with systolics consistently greater than 100. Both valsartan and metoprolol have been on hold. If his blood pressure is continued to be stable today then
would reinitiate low-dose metoprolol such as 12.5 mg twice daily
Hx liver tx
Subjective: feeling well; looking forward to getting back to ambulation
Physical Exam
Vital Signs/Labs
Vital Signs
Temp Pulse Resp BP Pulse Ox
97.8 F 79 16 108/61 98
06/05/25 11:30 06/05/25 11:30 06/05/25 11:30 06/05/25 11:30 06/05/25 11:30
06/04/25 06/05/25 06/06/25
06:59 06:59 06:59
Actual Weight 54.544 kg 54.119 kg
06/05/25 06:41
06/05/25 06:41
PT 13.6 Sec (11.4-14.6) 06/01/25 20:45
INR 1.01 06/01/25 20:45
APTT Cancelled 06/01/25 20:45
Magnesium 2.6 mg/dl (1.6-2.3) H 06/04/25 07:47
Triglycerides 129 mg/dl (10-149) 06/02/25 04:19
LDL Cholesterol, Calc 96 mg/dl 06/02/25 04:19
VLDL Cholesterol, Calc 25 mg/dl (0-30) 06/02/25 04:19
HDL Cholesterol 61 mg/dl 06/02/25 04:19
LAB Results
06/02/25 06/03/25 06/05/25
: 02:42 11:33
Troponin I 17.300 H* 15.200 H* 6.610 H*
Physical Exam
Constitutional: No acute distress
Cardiovascular: Rhythm & rate is regular
Respiratory: Wheeze Absent and Rhonchi Absent
GI: Soft and Other (distended. limited exam due to nausea)
Neuro/Psych: Alert
Data Reviewed
-
Date of Service: June 05, 2025
[2025-06-05] MEDS: MIRALAX 17 GRAMS PO (16:37)
[2025-06-05 16:39] LABS: Troponin I 6.220 ng/ml
[2025-06-05] MEDS: NEORAL 25 MG PO (16:40)
[2025-06-05] MEDS: VITAMIN B-12 1000 MCG PO (21:37)
[2025-06-05] MEDS: TOPROL XL 100 MG PO (21:37)
[2025-06-05] MEDS: LOW STRENGTH ASPIRIN 81 MG PO (21:38)
[2025-06-05 23:43] LABS: Troponin I 5.180 ng/ml
[2025-06-06] VITALS (7 sets, daily range): BP systolic 102–139; BP diastolic 56–69; PULSE 77; O2SAT 97; BMI 24.0
[2025-06-06 07:54] LABS: Platelet Count 146 10^3/uL (130-400)
[2025-06-06 07:57] LABS: Hematocrit 30.8 % (37.0-47.0); Hemoglobin 10.1 g/dL (12.0-16.0); Mean Corp Hgb Conc. 32.8 g/dL (33.0-37.0); Mean Corpuscular Volume 96.0 fL (81.0-99.0); Red Cell Dist. Width 16.7 % (11.5-14.5)
[2025-06-06] MEDS: MIRALAX 17 GRAMS PO (07:57)
[2025-06-06] MEDS: CELLCEPT 1000 MG PO ×2 (07:58→21:31)
[2025-06-06] MEDS: NEORAL 50 MG PO (07:59)
[2025-06-06] MEDS: DELTASONE 15 MG PO (07:59)
[2025-06-06] MEDS: OSCAL CAL 500 500 MG PO ×2 (07:59→21:31)
[2025-06-06] MEDS: FEOSOL 325 MG PO ×2 (08:00→21:31)
[2025-06-06] MEDS: PLAVIX 75 MG PO (08:00)
[2025-06-06] MEDS: PROTONIX 80 MG PO (08:01)
[2025-06-06] MEDS: ULTRAM 50 MG PO ×2 (08:02→21:32)
[2025-06-06 08:09] LABS: ALT (SGPT) 53 U/L (0-35); AST (SGOT) 37 U/L (14-36); Albumin 2.8 g/dl (3.5-5.0); Alkaline Phosphatase 179 U/L (38-126); Blood Urea Nitrogen 105 mg/dl (7-17); Calcium 8.8 mg/dl (8.4-10.2); Carbon Dioxide 23 mmol/L (22-30); Chloride 105 mmol/L (98-107); Estimated Creatinine Clearance 15 ml/min; Glucose 77 mg/dl (70-99); Potassium 4.0 mmol/L (3.5-5.1); Sodium 136 mmol/L (135-145); Total Protein 4.7 g/dl (6.3-8.2); eGFR 21.90
--- NOTE | 2025-06-06 15:28 | PTCARENOTE ---
Patient c/o chest pain '8' out of 10. Nonradiating to any other part of her arm. Vss , EKG done and Troponin pending - Hospitalist and cardiology aware
--- NOTE | 2025-06-06 15:36 | W.PN.CD ---
Today's Communication / Plan
-
Chest pain. Asked by Dr. Foster to assess chest pain
06/06/2025-patient with focal area of chest pain left side of chest that could be covered with 1-2 fingers some reproducibility with palpation and deep breath and patient particularly winced when I had her try to lift her arms above her head. Based
on description and precipitating factors appears to be musculoskeletal in origin. May be related to fall.
- Pain control directed by hospitalist
- Consider chest x-ray.
Anemia
- Hemoglobin down to 7.7. Improved to 10 after PRBC 06/05/2025. Continue treatment directed by hospitalist. Important to continue to treat anemia in this patient with significant obstructive coronary artery disease
Impression / Plan
-
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 She had nausea
and so an EKG was checked to determine safety of antiemetics, but EKG findings were concerning for inferior STEMI. She was hypotensive (more than her baseline) and tachycardiac at the time ECG showed anteroseptal and inferior ST elevations. In this
setting, the labor utilization superintendent was activated for STEMI. Cath revealed coronary artery disease with new severe disease of the RCA from previous, which was likely chronic in nature.
Fall with injury:
-mechanical, no syncope, tripped over her foot
- Patient seen by Ortho this admission
Abnormal peak up to 17. Based on prior notes there was suspicion for type II [place] in setting of hypotension tachycardia, anemia and underlying coronary artery disease.
- Cardiac catheterization 06/01/2025 results as noted below
- Continue dual antiplatelet therapy
- Continue beta-thu
- Additional medical therapy limited by BP
- Patient had nausea on 06/05/2025 which prompted repeat troponins. Initial troponin was greater than 6 but appeared to be trending down from troponin couple days earlier further troponins confirmed that this was just a trending down of troponin and
no acute rise no evidence nausea was reflective of coronary ischemia.
.
Nausea. Patient had recurrent issues with nausea 06/05/2025. Currently without nausea
.
Chest pain. Asked by Dr. Foster to assess chest pain
06/06/2025-patient with focal area of chest pain left side of chest that could be covered with 1-2 fingers some reproducibility with palpation and deep breath and patient particularly winced when I had her try to lift her arms above her head. Based
on description and precipitating factors appears to be musculoskeletal in origin. May be related to fall.
- Pain control directed by hospitalist
- Consider chest x-ray.
.
Coronary artery disease:
-cath this admit: LAD: large vessel giving rise to a large septal branch and moderate caliber diagonal branch before being chronically occluded in the mid vessel with the distal vessel fed via L-L septal collaterals. There is otherwise diffuse mild
disease. The vessel is large unchanged in appearance from 202 angiography. LCx: large vessel giving rise to a small OM1, moderate caliber OM2, and large LPL branch. There is diffuse mild disease largely unchanged from 2023 angiography. RCA: small
vessel giving rise to a small RPDA and small RPL branch. There is a subtotal ostial occlusion and diffuse moderate disease throughout the remainder of the vessel. The vessel is atretic in caliber compared to 2023 angiography and there is evidence of
competitive flow in the RPDA. This all suggests the RPDA to be chronically occluded and not an infarct related artery.
- Continue medical therapy and DAPT- Continue treatment of anemia
- Medical therapy has been limited by blood pressure. Blood pressure is significantly better today may have improved after unit of PRBCs
- Recommend additional treatment of anemia. Difficult to optimize medical therapy for CAD and coronary ischemia when patient has severe anemia. For this reason patient had transfusion when hemoglobin was 7.7 now hemoglobin 10 additional treatment
as directed by hospitalist
.
INDU on CKD, chronic creatinine up to 2.8 but now trending and down to 2.3 nephrology following.
AFIB, paroxysmal:
-stable in SR
-patient with hx PVI and watchmen 02/02/25
-she is now on DAPT with ASA and plavix
Anemia
- Hemoglobin down to 7.7. Improved to 10 after PRBC 06/05/2025. Continue treatment directed by hospitalist. Important to continue to treat anemia in this patient with significant obstructive coronary artery disease
HFrEF: chronic (40-45 on most recent ALICE, but was 30-35% on most recent transthoracic study 06/02/2025)
-does not appear volume overloaded to assessment
-GDMT limited by BPs and renal function
-ARB held appropriately for renal dysfunction and BP's
-continue metoprolol as able
Hypotension. Patient had low blood pressures on presentation. Has been maintained on metoprolol but is off of valsartan. Blood pressures were relatively low yesterday are improved today unclear if PRBCs and added volume help with improvement of
blood pressure. Continue to monitor if blood pressures remain in the 120s then we can further assess options for medical therapy for CAD and GDMT for CM
Hx liver tx
Subjective: feeling well; looking forward to getting back to ambulation
Physical Exam
Vital Signs/Labs
Vital Signs
Temp Pulse Resp BP Pulse Ox
98.2 F 76 14 120/56 96
06/06/25 11:00 06/06/25 11:00 06/06/25 11:00 06/06/25 11:00 06/06/25 11:00
06/05/25 06/06/25 06/07/25
06:59 06:59 06:59
Actual Weight 54.119 kg 53.751 kg
06/06/25 07:22
06/06/25 07:22
PT 13.6 Sec (11.4-14.6) 06/01/25 20:45
INR 1.01 06/01/25 20:45
APTT Cancelled 06/01/25 20:45
Magnesium 2.6 mg/dl (1.6-2.3) H 06/04/25 07:47
Triglycerides 129 mg/dl (10-149) 06/02/25 04:19
LDL Cholesterol, Calc 96 mg/dl 06/02/25 04:19
VLDL Cholesterol, Calc 25 mg/dl (0-30) 06/02/25 04:19
HDL Cholesterol 61 mg/dl 06/02/25 04:19
LAB Results
06/05/25 06/05/25 06/05/25
11:33 15:22 17:15
Troponin I 6.610 H* 6.220 H* Cancelled
06/05/25 06/05/25
23:01 23:15
Troponin I 5.180 H* Cancelled
Physical Exam
Constitutional: No acute distress
Cardiovascular: Rhythm & rate is regular and Other (Focal area chest pain that can be covered by 1-2 fingers on chest near left costal margin. Worse with deep breath. Patient winced when I had her try to lift her arms above her head)
Respiratory: Wheeze Absent and Rhonchi Absent
GI: Soft
Data Reviewed
-
Date of Service: June 06, 2025
Medical Decision Making: Reviewed Test Results
Medical Tests (PFT, Pathology etc): Report Reviewed by me
Labs: Labs Reviewed by me
[2025-06-06 16:33] LABS: Troponin I 3.700 ng/ml
[2025-06-06] MEDS: NEORAL 25 MG PO (16:37)
--- NOTE | 2025-06-06 18:12 | W.PN.HOSP.TC ---
Today's Communication/Plan
-
Still with significant INDU -- continue to monitor renal function -- appreciate nephrology
Hgb improved nicely after PRBC transfusion
Add Senokot to help with constipation which will hopefully help with nausea
Appreciate cardiology following patient
Assessment / Plan
Assessment / Plan
Physical Exam
General: Well Nourished, No Apparent Distress, Comfortable and Conversant
HEENT: Normocephalic, Moist mucous membranes
Respiratory: Clear to Auscultation Bilaterally
Cardiac: S1/S2 and Regular Rhythm
GI: Soft, Non Tender and Non Distended. Positive bowel sounds.
Musculoskeletal: No Cyanosis; Edema, Left Lower Extremity, Edema, Right Lower Extremity and Other (left knee wrapped w carlo bandage, b/l knee effusion/hematoma)
Skin: Warm. Dry.
Neuro: AAO x 3, No Motor Deficits and Nonfocal/grossly intact
Psych: Calm
Assessment/Plan
74-year-old female with PMH significant for persistent symptomatic atrial fibrillation, left atrial appendage clot identified in 2022 with clot reassessed July 2024 and found to be still present, maintained on
metoprolol and anticoagulated with Eliquis 2.5 mg b.i.d. 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
transplant due to cirrhosis 2007, on immunosuppressants and modulators, Her [id number] is 6, Watchman Device placed on February 02, 2025 with postoperative complication of blood loss anemia due to GI bleeding, who presented to ED due to trip and fall
at grocery store, no LOC, denied hitting her head, and c/o b/l knee pain and left lateral rib pain, incident occurred directly prior to arrival.
CARLO wrap and knee immobilizer placed in ED. Large hematoma to left anterior knee, unable to ambulate safely after presentation due to pain. Could not tolerate knee immobilizer due to bulkiness.
#Likely a Type 2 NSTEMI in setting of nausea and relative hypotension, as well as underlying CKD, on 06/01/25 evening
-LVEDP was 16 during cardiac cath
-EKG had been checked on 06/01/25 to check QTc for Zofran administration for severe nausea, and it showed STEMI
-Cardiac Cath on 06/01/25 evening showed coronary artery disease with new severe disease of the RCA from previous (subtotal chronic occlusion of RCA new from 2022 but clearly not acute (and not amenable to revasc)) and stable BUILDING MAINTENANCE TECHNICIAN of mid LAD, which
was likely chronic in nature
-Per Dr. Bower, EKG changes were secondary to whatever was causing her to have nausea and hypotension and not the other way around; patient likely a type II NSTEMI. Her LAD has been chronically occluded for years and
the RCA does not look like it�s amenable to revascularization.
-Continue DAPT -- patient was getting DAPT since hospital admission
-Continue beta thu
-Patient is not on statin given history of liver transplant
-Patient had chest pain again on 06/06/25 -- likely chest wall pain (reproducible, worse with breathing) -- related to recent fall MANAGER SUMMER? Will order AM CXR.
#Nausea again on 06/05/25 -- persisting as of 06/06/25
-Last time patient has nausea, had to be taken urgently to cath lab manager (which showed chronic disease in both territories) given concern for STEMI in setting of hypotension -- nausea and hypotension at that time improved
spontaneously/with anti-emetics
-AXR suggested constipation -- so made Miralax daily on scheduled basis, instead of PRN. Add Senokot on 06/06/25 since still no bowel movements.
-EKG noted. Elevated troponin noted but decreased from 06/01 (the time urgent cath was done). Last time patient had nausea, and EKG was checked for QTc, it showed STEMI o 06/01/25 (please see above)
-Spoke over the phone on 06/05/[address] Jackson, ordered another 1 unit PRBC to address ischemia better
#Mechanical fall (patient tripped over object) resulting in b/l knee contusions with hematoma and b/l knee effusions, left greater than right, and inability to ambulate safely
#Large Left Knee Joint Effusion
-Cont CARLO bandage/wound care
-PT/OT evaluation
-Ortho consulted given concern for worsened suspected hemarthrosis: MRI showed: nondisplaced fractures of the central and anterolateral aspects of the tibial plateau; large bone infarct of the distal femur; oblique tear
of the posterior horn of the medial meniscus; large knee joint effusion.
-Appreciate ortho: maintain strict non-weight bearing to left lower extremity; can stop knee immobilizer; may perform range of motion as tolerated.
-Pain control; Ice and elevation for pain and edema control.
-Follow-up with Dr. Stevens in the office in 2 weeks for repeat x-rays.
#Immunocompromised s/p liver transplant
-continue home meds cyclosporine, prednisone, mycophenolate
#Worsened Anemia in the Setting of Likely Left Knee Bleeding and lower extremity ecchymosis from mechanical fall
-Patient provided blood consent and understood all risks and benefits
-Hgb dropped to 7.1, patient says baseline is 9 to 10
-Transfused 1 unit PRBC on 06/01/25 given the above; I had a lengthy curbside discussion with rug cleaner and it was decided that since patient had no issues with standard leukoreduced PRBC transfusion in 2022 (well after her liver transplant), it
is appropriate to provide patient with standard leukoreduced PRBCs this admission
-Transfused another 1 unit of PRBC on 06/05/25 to address possible cardiac ischemic issues as discussed with Dr. Jackson (see above)
-Cardiology recommended to keep Hgb at least 8 but perhaps higher
#Hyperkalemia
-Possibly from hematoma
-Hold Valsartan as already doing given INDU, hyperkalemia and hypotension
-Lokelma
-Low potassium diet
-Monitor BMP
#Persistent atrial fibrillation -- no longer on anticoagulation since had Watchman Device months ago; currently on DAPT as would be expected
#HFrEF ---- GDMT limited by BPs and renal function; ARB held appropriately for renal dysfunction and BP's; continue metoprolol as able with regards to hypotension
#History of left atrial appendage thrombus.
Cardiomyopathy.
#Mural Thrombus?
#CAD- BUILDING MAINTENANCE TECHNICIAN of mid LAD by catheterization,2022
- continue DAPT
#CVA 2016. Left hemispheric seen on MRI, questionable
right peripheral visual and quadriceps weakness on exam.
#INDU on CKD 3.
Renal stents.
-INDU is suspected to be due to contrast nephropathy
-Per my [place] Text communication with patient's certified home health aide Dr. Erazo, on April 23, 2025, patient's creatinine was 1.5; and in recent months it�s been 1.5 to 1.7 compared 2.3 to 2.5 in 2023
-1.6 was Cr around May 26 at patient's outpatient transplant physician office as per the patient
-Cr 2.3 and BUN remains quite high today -- appreciate nephrology
-Continue to hold Lasix and Valsartan
#Liver transplant with history of cirrhosis.
#History of gastritis, GERD.
#Remote tobacco and alcohol abuse.
#Childhood epilepsy.
#Ambulatory dysfunction with fall risk.
#Osteoarthritis.
#Degenerative disc disease.
#Osteopenia.
DVT proph-SCDs. No chemical prophylaxis given suspected bleeding situation above.
Code Status: Full Code
Disposition: SNF eventually
Anticipated Discharge: > 48 hours
Subjective/Interval History
-
Date of Service: June 06, 2025
Patient was seen and examined. She reported continued nausea but no bowel movement. Later in the day she had some chest wall pain.
Objective Data
-
Labs:
Laboratory Results
06/06/25
07:22
WBC 8.8
Hgb 10.1 L D
Hct 30.8 L
Plt Count 146
Sodium 136
Potassium 4.0
Chloride 105
Carbon Dioxide 23
BUN 105 H*
Creatinine 2.3 H
Glucose 77
Calcium 8.8
Total Bilirubin 1.4 H
AST 37 H
ALT 53 H
Alkaline Phosphatase 179 H
Vital Signs:
Vital Signs
Temp Pulse Resp BP Pulse Ox
98.0 F 76 18 123/60 96
06/06/25 15:00 06/06/25 15:00 06/06/25 15:00 06/06/25 15:00 06/06/25 15:00
I&O
06/05/25 06/06/25 06/07/25
06:59 06:59 06:59
Intake Total 720 / 720 730 / 730
Balance 720 / 720 730 / 730
--- NOTE | 2025-06-06 18:35 | PTCARENOTE ---
Pt with 2 large bm's today, uses call joe to ask for bed hong . stated the pain in her chest was much improved. Air loss static overlay mattress applied to bed . Appetite poor , did eat breakfast but only fair rest of day
[2025-06-06] MEDS: LOW STRENGTH ASPIRIN 81 MG PO (21:32)
[2025-06-06] MEDS: SENOKOT-S 1 TABLET PO (21:32)
[2025-06-06] MEDS: TOPROL XL 100 MG PO (21:32)
--- NOTE | 2025-06-06 22:44 | W.PN.UPDATE ---
Update Note
Progress Note Update
Patient had multiple episodes of bloody bowel movements. Hgb level is 9.5 previously 10.1. Vital signs within baseline.
- Will monitor h&h q 6hrs
-GI consult placed.
[2025-06-06 23:19] LABS: Hematocrit 27.8 % (37.0-47.0); Hemoglobin 9.5 g/dL (12.0-16.0)
[2025-06-06 23:50] LABS: Troponin I 3.150 ng/ml
[2025-06-07 03:05] VITALS: BP 153/95
[2025-06-07 04:24] LABS: Hematocrit 31.1 % (37.0-47.0); Hemoglobin 10.1 g/dL (12.0-16.0); Mean Corp Hgb Conc. 32.5 g/dL (33.0-37.0); Mean Corpuscular Volume 95.4 fL (81.0-99.0); Platelet Count 168 10^3/uL (130-400); Red Cell Dist. Width 16.9 % (11.5-14.5)
[2025-06-07] MEDS: ULTRAM 50 MG PO (04:36)
[2025-06-07 05:00] LABS: ALT (SGPT) 48 U/L (0-35); AST (SGOT) 31 U/L (14-36); Albumin 3.0 g/dl (3.5-5.0); Alkaline Phosphatase 182 U/L (38-126); Blood Urea Nitrogen 110 mg/dl (7-17); Calcium 9.4 mg/dl (8.4-10.2); Carbon Dioxide 25 mmol/L (22-30); Chloride 108 mmol/L (98-107); Estimated Creatinine Clearance 19 ml/min; Glucose 107 mg/dl (70-99); Magnesium 2.7 mg/dl (1.6-2.3); Potassium 4.4 mmol/L (3.5-5.1); Sodium 137 mmol/L (135-145); Total Protein 5.1 g/dl (6.3-8.2); eGFR 29.38
[2025-06-07 05:03] LABS: Troponin I 2.880 ng/ml
[2025-06-07 06:00] VITALS: BMI 25.1
[2025-06-07 06:53] VITALS: BP 126/62
--- NOTE | 2025-06-07 07:53 | W.PN.CD ---
Today's Communication / Plan
-
Cont current meds
with improving Cr if BP is issue could restart Valsartan
Nephro following
Main complaint is diarrhea, nausea, and abdominal discomfort
We will sign off; please call with questions/concerns. She has f/u in June
Impression / Plan
-
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 She had nausea
and so an EKG was checked to determine safety of antiemetics, but EKG findings were concerning for inferior STEMI. She was hypotensive (more than her baseline) and tachycardiac at the time ECG showed anteroseptal and inferior ST elevations. In this
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 Cath revealed coronary artery disease with new severe disease of the RCA from previous, which was likely chronic in nature.
Fall with injury:
-mechanical, no syncope, tripped over her foot
- Patient seen by Ortho this admission
Abnormal trop peak up to 17. Based on prior notes there was suspicion for type II ND in setting of hypotension tachycardia, anemia and underlying coronary artery disease.
- Cardiac catheterization 06/01/2025 results as noted below
- Continue dual antiplatelet therapy
- Continue beta-thu
- Additional medical therapy limited by BP
- Patient had nausea on 06/05/2025 which prompted repeat troponins. Initial troponin was greater than 6 but appeared to be trending down from troponin couple days earlier further troponins confirmed that this was just a trending down of troponin and
no acute rise no evidence nausea was reflective of coronary ischemia.
Nausea diarrhea and abdominal discomfort
- per primary
Chest pain. Asked by Dr. Foster to assess chest pain
06/06/2025-patient with focal area of chest pain left sided minimal today June 07
- Pain control directed by hospitalist
- Consider chest x-ray.
Coronary artery disease:
-cath this admit: LAD: large vessel giving rise to a large septal branch and moderate caliber diagonal branch before being chronically occluded in the mid vessel with the distal vessel fed via L-L septal collaterals. There is otherwise diffuse mild
disease. The vessel is large unchanged in appearance from 202 angiography. LCx: large vessel giving rise to a small OM1, moderate caliber OM2, and large LPL branch. There is diffuse mild disease largely unchanged from 2023 angiography. RCA: small
vessel giving rise to a small RPDA and small RPL branch. There is a subtotal ostial occlusion and diffuse moderate disease throughout the remainder of the vessel. The vessel is atretic in caliber compared to 2023 angiography and there is evidence of
competitive flow in the RPDA. This all suggests the RPDA to be chronically occluded and not an infarct related artery.
- Continue medical therapy and DAPT- Continue treatment of anemia
- Medical therapy has been limited by blood pressure. Blood pressure is significantly better today may have improved after unit of PRBCs
- Recommend additional treatment of anemia. Difficult to optimize medical therapy for CAD and coronary ischemia when patient has severe anemia. For this reason patient had transfusion when hemoglobin was 7.7 now hemoglobin 10 additional treatment
as directed by hospitalist
.
INDU on CKD, chronic creatinine up to 2.8 but now trending and down to 1.8
AFIB, paroxysmal:
-stable in SR
-patient with hx PVI and watchmen 02/02/25
-she is now on DAPT with ASA and plavix
Anemia
- Hemoglobin down to 7.7. Improved to 10 after PRBC 06/05/2025. Continue treatment directed by hospitalist. Important to continue to treat anemia in this patient with significant obstructive coronary artery disease
HFrEF: chronic (40-45 on most recent ALICE, but was 30-35% on most recent transthoracic study 06/02/2025)
-does not appear volume overloaded to assessment
-GDMT limited by BPs and renal function
-ARB held appropriately for renal dysfunction and BP's, restart possible outpt vs inpt
-continue metoprolol as able
Hypotension. resolved
Hx liver tx
Subjective: main issue is diarrhea, nausea, mild abdominal discomfort
Physical Exam
Vital Signs/Labs
Vital Signs
Temp Pulse Resp BP Pulse Ox
98 F 84 14 153/95 100
06/07/25 03:05 06/07/25 03:05 06/07/25 03:05 06/07/25 03:05 06/07/25 03:05
06/06/25 06/07/25 06/08/25
06:59 06:59 06:59
Actual Weight 118 lb 8 oz 124 lb 3 oz
06/07/25 04:16
PT 13.6 Sec (11.4-14.6) 06/01/25 20:45
INR 1.01 06/01/25 20:45
APTT Cancelled 06/01/25 20:45
Magnesium 2.7 mg/dl (1.6-2.3) H 06/07/25 04:16
Triglycerides 129 mg/dl (10-149) 06/02/25 04:19
LDL Cholesterol, Calc 96 mg/dl 06/02/25 04:19
VLDL Cholesterol, Calc 25 mg/dl (0-30) 06/02/25 04:19
HDL Cholesterol 61 mg/dl 06/02/25 04:19
LAB Results
06/05/25 06/05/25 06/05/25
11:33 15:22 17:15
Troponin I 6.610 H* 6.220 H* Cancelled
06/05/25 06/05/25 06/06/25
23:01 23:15 15:45
Troponin I 5.180 H* Cancelled 3.700 H*
06/06/25 06/07/25
23:09 04:16
Troponin I 3.150 H* 2.880 H*
Physical Exam
Constitutional: No acute distress
EENT: Anicteric
Cardiovascular: Rhythm & rate is regular and Pedal edema is absent
Respiratory: Respiratory effort normal and Lungs clear to auscul.
GI: Soft
Neuro/Psych: AO x 3
Data Reviewed
-
Date of Service: June 07, 2025
Medical Decision Making: Reviewed Test Results
EKG: Tracing Personally Visualized and interpreted (sr)
Echo: Report Reviewed by me
Labs: Labs Reviewed by me
[2025-06-07 09:32] LABS: Hematocrit 31.2 % (37.0-47.0); Hemoglobin 10.0 g/dL (12.0-16.0)
[2025-06-07 10:00] LABS: Troponin I 2.700 ng/ml
[2025-06-07] MEDS: CELLCEPT 1000 MG PO ×2 (10:48→21:08)
[2025-06-07] MEDS: DELTASONE 15 MG PO (10:49)
[2025-06-07] MEDS: NEORAL 50 MG PO (10:50)
[2025-06-07] MEDS: OSCAL CAL 500 500 MG PO ×2 (10:50→21:09)
[2025-06-07] MEDS: PLAVIX 75 MG PO (10:51)
[2025-06-07] MEDS: FEOSOL 325 MG PO ×2 (10:51→21:08)
[2025-06-07] MEDS: PROTONIX 80 MG PO (10:51)
[2025-06-07] MEDS: MIRALAX PO (10:51)
[2025-06-07] MEDS: SENOKOT-S PO (10:52)
[2025-06-07 11:49] VITALS: BP 143/75
--- NOTE | 2025-06-07 12:00 | CM ---
Chart reviewed and plan is for skilled placement at [facility] when stable, referral sent to admissions at [facility],
Plan; Skilled placement at [facility] when stable, needs updated PT/OT notes,
--- NOTE | 2025-06-07 13:15 | W.PN.NEPH.PH ---
Today's Communication / Plan
-
Continue supportive care no change
BMP a.m.
Assessment/Plan
-
Impression:
Mechanical fall (patient tripped over object) resulting in b/l knee contusions with hematoma and b/l knee effusions, left greater than right, Acute Anemia
STEMI (troponin peak ~17)
INDU with [id number] 1.6-1.9-Dr Erazo
Secondary hypertension undergoing bilateral renal artery stenting July 2022 (decrease in GFR following procedure?)
Hyperkalemia
Persistent atrial fibrillation. s/p watchman 01/2025
HFrEF. 30-35%
History of left atrial appendage thrombus.
Cardiomyopathy.
Mural Thrombus?
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
Immunocompromised s/p liver transplant 2007
CVA 2015. Left hemispheric seen on MRI
History of gastritis, GERD.
Remote tobacco and alcohol abuse.
Childhood epilepsy.
Ambulatory dysfunction with fall risk.
Osteoarthritis.
Degenerative disc disease.
Osteopenia.
h/o Left portal vein thrombosis
Plan:
INDU
-due to contrast nephropathy
a/w fall and knee injury/hematoma GREETER
incidental finding of STEMI s/p C on 06/01 RCA disease seem chronic
no intervention needed per cards
monitor hyponatremia , maintain FR , improving to 133
MRI left knee noted with tibial plateau fx non displaced, large effusion, menisci tear, distal femur infarct-no intervention
echo noted EF 30-35%, DD stage II. WMA. mod to severe TR with pulm HTN
Creatinine trending down 1.8 BUN still elevated now with diarrhea
No change today
-
-
Date of Service: June 07, 2025
CC / HPI / ROS
-
Chief Complaint:
INDU with CKD
History of Present Illness:
cr down
Hemodynamically stable
Anemia improved following transfusion
Review of Systems:
no cp or sob
Nausea
Current diarrhea
weight down
No recording of urine output
Labs
-
Labs:
WBC 10.4 10^3/uL (4.8-10.8) 06/07/25 04:16
RBC 3.26 10^6/uL (4.20-5.40) L 06/07/25 04:16
Plt Count 168 10^3/uL (130-400) 06/07/25 04:16
Sodium 137 mmol/L (135-145) 06/07/25 04:16
Potassium 4.4 mmol/L (3.5-5.1) 06/07/25 04:16
Chloride 108 mmol/L (98-107) H 06/07/25 04:16
Carbon Dioxide 25 mmol/L (22-30) 06/07/25 04:16
BUN 110 mg/dl (7-17) H* 06/07/25 04:16
Creatinine 1.8 mg/dL (0.6-1.0) H 06/07/25 04:16
eGFR 29.38 06/07/25 04:16
Glucose 107 mg/dl (70-99) H 06/07/25 04:16
Calcium 9.4 mg/dl (8.4-10.2) 06/07/25 04:16
Albumin 3.0 g/dl (3.5-5.0) L 06/07/25 04:16
Physical Exam
-
Vital Signs:
Vital Signs
Temp Pulse Resp BP Pulse Ox
98.1 F 82 18 143/75 94
06/07/25 11:49 06/07/25 11:49 06/07/25 11:49 06/07/25 11:49 06/07/25 11:49
Cardiovascular:: Irregular rate and rhythm
Respiratory:: Bilateral: CTA
Lung Excursion:: Normal
Abdomen:: Nontender and Soft
Bowel Sounds:: Normal
Extremity Edema:: +1: Bilateral:
[place] Catheter: No
Other Findings::
bruising of left and right knee
[2025-06-07 15:52] VITALS: BP 115/67
--- NOTE | 2025-06-07 17:01 | CON.GI ---
Addendum entered and electronically signed by Tresa Soto Do, MD 06/07/25 20:33:
I saw and examined the patient.
The POSTDOCTORAL SCIENTIST's note was reviewed and I agree with the note.
Comment: Nu is a 74yo W extremely complex PMH with OLT 2007 due to ETOH cirrhosis, HTN and afib s/p Watchamn 01/2025 who was admitted after mechanical fall at grocery store. She was found to have fractures of the central and anterior lateral
aspects of the tibial plateau. 06/01 she had nausea and EKG changes. She had C with new severe disease of the RCA likely chronic in nature. GI consulted for Hbg drop 9 to 7 with black and red stools. Vitals reviewed. Exam extremely frail
appearing W diffuse bruising over chest arms and abdomen. NTTP. Thin skin. Labs reviewed. Last EGD 2022 gastritis and colonoscopy 2012.
Impression
- Bloody stools and anemia
In setting of chronic steroids concern for PUD, ectasia or polyp
- s/p liver transplant for ETOH cirrhosis 2007
- Chronic anticoagulation (last dose plavix 06/07 AM)
- Afib s/p Watchman
- CHF
- CAD
- HTN
- HL
- h/o TIA
Recommendations
- Hold plavix last dose today AM. C/w ASA 81mg
- Protonix 40mg IV BID
- Serial H/H
- Monitor stool output
- May benefit from EGD +/- colonoscopy timing to be determined given anticoagulation use
- C/w regular diet
- Add on iron, vit B12 and folate
Sister updated bedside. Will follow with you.
Original Note:
Consultation
-
Date/Time Consultation Requested: 06/06/25 2250
Date/Time Consultation Performed: 1705
Requesting Provider: THELMA Porras
Performing Provider: Dr. Blanco/Thelma Ward
Reason for Consultation: bm mixed with blood
Medical History
Chief Complaint / HPI
Chief Complaint: trip and fall
History of Present Illness:
74yo F with PMH of ESLD with prior liver transplant in 2007 due to ETOH on chronic immunosuppression, HTN, hyperlipidemia, TIA, afib (previously on Eliquis until this past January), left atrial appendage clot, HFpEF, cardiomyopathy, cirrhosis, ERCP
with Dr. Telles at [facility] in July 2023 with attempt for cannulation without success with noted rise in LFT's and abnormal MRI imaging (per [facility] April 2023 MRI with focal narrowing of biliary duct, unable to follow-up with procedures
since that time. Was supposed to have appointment day after her fall. Has follow-up appointment in 3 months.) CAD, hypertension, CKD 3 with renal stents, CVA, ambulatory dysfunction, Watchman procedure 02/02/2025 with postoperative complication of
blood loss anemia, secondary to right femoral groin bleed while bearing down to have a bowel movement with no signs of GI bleeding at that time who presents to the emergency room with a trip and fall at the grocery store with bilateral knee pain,
large hematoma to left knee on 05/30/2025. We are asked to evaluate patient for blood mixed in with her stool. Patient currently is on aspirin 81 mg, Plavix 71 mg, prednisone 15 mg, ferrous sulfate 325 mg and pantoprazole 80 mg daily. (Other
medications will be listed in JAN). The patient had MRI that showed nondisplaced fractures of the central and anterior lateral aspects of the tibial plateau. Bilateral knee effusions left greater than right with inability to ambulate safely. On
06/01/2025 the patient did have nausea. EKG was checked to determine safety of antiemetics. Findings concerning for inferior STEMI, she was hypotensive more than her baseline, tachycardic at the time of the EKG with anteroseptal and inferior ST
elevations. She was taken to the [facility], with new severe disease of the RCA likely chronic in nature. It was recommended the patient continue DAPT. She did have worsening anemia her hemoglobin dropped down to 7.1 from baseline of 9. She was
transfused 1 unit of packed red blood cells on 06/01/2025. Patient's BUN continue to rise with creatinine improvement. Her anemia started to worsen with her hemoglobin down to 7.7 on 06/05/2025. She was transfused another unit of packed red blood
cells and her hemoglobin went up to 10.1. She was given Senokot to produce a bowel movement. She was also still having nausea. She started having black/burgundy bowel movements on 06/06/2025. These then became brown blood-tinged bowel movements.
These then converted over to bloody bowel movements and finally today now brown bowel movements. Her BUN continues to rise with creatinine improving. The patient still has some mild nausea, some pinpoint tenderness of the chest wall, she denies
any fevers, chills, abdominal pain, currently with brown stools, dysphagia or dyne aphasia, no early satiety or unintentional weight loss. She is tolerating diet currently.
Past Medical History
Past Medical History: Arrhythmias, CVA (TIA), HTN, Hypercholesterolemia and Other (ETOH cirrhosis, atrial thrombus Sep 2023 on Pradexa, portal vein thrombosis, renal artery stenosis with prior renal artery stent, large right sided pleural effusion
with drainage)
Past Surgical History: Other (Liver transplant 2007, TIA, alcohol abuse, hernia repair, renal stents,)
Social History
Tobacco: Non-Smoker
Alcohol: Former (last 2005)
Drug: None
Living: With Family (sister)
Employment: Retired
Family History
Family History: Other (aunt and grandfather with cirrhosis )
Allergies / Home Medications
Allergy/AdvReac Type Severity Reaction Status Date / Time
No Known Allergies Allergy Verified 04/21/25 09:25
�Medication �Instructions �Recorded
cyclosporine modified 25 mg 50 mg PO DAILY post liver 07/26/22
capsule (Gengraf) transplant
valsartan 80 mg tablet 40 mg PO DAILY Blood Pressure 07/21/24
calcium carbonate 500 mg PO BID Supplement 10/05/24
cyanocobalamin (vitamin B-12) 1,000 mcg PO Q48H Supplement 10/05/24
1,000 mcg tablet
ferrous sulfate 325 mg (65 mg 325 mg PO DAILY Supplement 10/05/24
iron) tablet (FeroSul)
mycophenolate mofetil 500 mg tablet 1,000 mg PO BID post liver 10/05/24
transplant
pantoprazole 40 mg tablet,delayed 40 mg PO DAILY Gastrointestinal 10/05/24
release Issue
cyclosporine modified 25 mg 25 mg PO QPM Transplant 02/02/25
capsule (Gengraf)
furosemide 20 mg tablet 40 mg PO DAILY 04/21/25
metoprolol succinate 100 mg 100 mg PO HS 04/21/25
tablet,extended release 24 hr
prednisone 10 mg tablet 10 mg PO DAILY 04/21/25
prednisone 5 mg tablet 5 mg PO DAILY 04/21/25
clopidogrel 75 mg tablet 75 mg PO DAILY 06/01/25
Review of Systems
-
All other systems: A 12 pt ROS was Negative except as stated above in HPI
Vital Signs
Temp Pulse Resp BP Pulse Ox
98 F 91 18 115/67 100
06/07/25 15:52 06/07/25 15:52 06/07/25 15:52 06/07/25 15:52 06/07/25 16:15
Physical Exam
Exam
General: No Apparent Distress
Respiratory: Clear (Anterior)
Cardiac: Regular Rhythm
GI: Soft, Non Tender, Non Distended and Normal Bowel Sounds
Skin: Warm, Dry and Other (Multiple areas of ecchymosis diffusely over entire body)
Neuro: AO x 3
Psych: Calm
Results
WBC 10.4 10^3/uL (4.8-10.8) 06/07/25 04:16
Hgb 10.0 g/dL (12.0-16.0) L 06/07/25 09:24
Hct 31.2 % (37.0-47.0) L 06/07/25 09:24
MCV 95.4 fL (81.0-99.0) 06/07/25 04:16
Plt Count 168 10^3/uL (130-400) 06/07/25 04:16
Absolute Neuts (auto) 11.0 10^3/uL (1.4-6.5) H 06/02/25 04:19
PT 13.6 Sec (11.4-14.6) 06/01/25 20:45
INR 1.01 06/01/25 20:45
APTT Cancelled 06/01/25 20:45
Sodium 137 mmol/L (135-145) 06/07/25 04:16
Potassium 4.4 mmol/L (3.5-5.1) 06/07/25 04:16
Chloride 108 mmol/L (98-107) H 06/07/25 04:16
Carbon Dioxide 25 mmol/L (22-30) 06/07/25 04:16
BUN 110 mg/dl (7-17) H* 06/07/25 04:16
Creatinine 1.8 mg/dL (0.6-1.0) H 06/07/25 04:16
Calcium 9.4 mg/dl (8.4-10.2) 06/07/25 04:16
Total Bilirubin 1.5 mg/dl (0.2-1.3) H 06/07/25 04:16
AST 31 U/L (14-36) 06/07/25 04:16
ALT 48 U/L (0-35) H 06/07/25 04:16
Alkaline Phosphatase 182 U/L (38-126) H 06/07/25 04:16
Lipase 87 U/L (23-300) 06/05/25 06:41
Diagnostic Image Results:
CXR: IMPRESSION:
No acute disease of the chest considering the limited inspiration.
Stable findings consistent with prior asbestos exposure
Abd XR 06/05/2025:
IMPRESSION:
1. Moderate amount of fecal material in the ascending and transverse colon.
2. Severe calcific atherosclerotic plaque in the abdominal aorta, iliac, and femoral arteries.
3. Previous cholecystectomy.
4. Severe discogenic degenerative disease in the lumbar spine.
5. Diffuse bone demineralization.
Prior GI Procedures:
EGD: EGD 11/03/23 �� � - Normal esophagus.
�� � � � � � � � � � � - Gastritis with contact bleeding. Biopsied.
�� � � � � � � � � � � - Normal examined duodenum.
EGD 10/14/2013 Z-line irregular,. Biopsied.
- Gastritis. Biopsied.
- Gastritis. Biopsied.
- Normal first part of the duodenum. Biopsied.
Colonoscopy: 07/17/2013 (Dr. Toro) - Diverticulosis in the sigmoid colon and in the
transverse colon.
- Internal hemorrhoids.
Assessment / Plan
-
74yo F with PMH of ESLD with prior liver transplant in 2007 due to ETOH on chronic immunosuppression, HTN, hyperlipidemia, TIA, afib (previously on Eliquis until this past January), left atrial appendage clot, HFpEF, cardiomyopathy, possible cirrhosis
of transplanted liver, ERCP with Dr. Telles at [facility] in July 2023 with attempt for cannulation without success with noted rise in LFT's and abnormal MRI imaging (per [facility] April 2023 MRI with focal narrowing of biliary duct, unable to
follow-up with procedures since that time. Was supposed to have appointment day after her fall. Has follow-up appointment in 3 months.) CAD, hypertension, CKD 3 with renal stents, CVA, ambulatory dysfunction, Watchman procedure 02/02/2025 with
postoperative complication of blood loss anemia, secondary to right femoral groin bleed while bearing down to have a bowel movement with no signs of GI bleeding at that time who presents to the emergency room with a trip and fall at the grocery
store with bilateral knee pain, large hematoma to left knee on 05/30/2025. We are asked to evaluate patient for blood mixed in with her stool. Since time of admission patient has had drop in hemoglobin with subsequent need for 2 units of packed red
blood cells. Nausea with subsequent EKG changes with NSTEMI type II, taken to [facility] with new severe disease of the RCA likely chronic in nature. Was recommend the patient continue dual antiplatelet therapy. Worsening BUN with initial rising
creatinine with now improvement of creatinine. Absence of bowel movement with need for Senokot on 06/06/2025. This resulted in black/bloody bowel movements. Subsequently had burgundy bowel movements and finally brown bowel movements all within 24
hours. Patient still with mild nausea. Patient currently on aspirin 81 mg, Plavix, iron, pantoprazole 80 mg daily and prednisone 15 mg daily that could contribute to the above.Currently WBC 10.4, hemoglobin 10.0, hematocrit 31.2, platelets 168,
troponin 2.7 (down from 2.8), sodium 137, potassium 4.4, BUN 110, creatinine 1.8, glucose 107, total bilirubin 1.5, AST 31, ALT 48, alk phos 182, PT 13.6, INR 1.0
Impression:
Blood in stools-> melena, burgundy blood, red blood, now with brown stools.
Nausea
Anemia--> s/p trf 2 units PRBC Hgb 10.0 currently
Abnormal Troponin-> Per Cardiology Type 2 NC
Cirrhosis
INDU on CKD
AFib
CAD
Hx Liver Transplant 2007
Fall with b/l knee contusions/hematoma, nondisplaced fractures of the central and anterolateral aspects of the tibial plateau; large bone infarct of the distal femur; oblique tear
Plan:
-Continue Pantoprazole 40 mg IV BID
-Recommend clear liquid diet, no red
-Trend CBC, BMP
-Will need to discuss if able to perform EGD/COLO in this patient.
-Further recommendations to be forthcoming.
-
-
Thank you for consultation and allowing me to participate in the patient's care. Please call the telephone answering service operator GI physician during the after hours with any questions or concerns.
--- NOTE | 2025-06-07 17:52 | W.PN.HOSP.TC ---
Today's Communication/Plan
-
follow Hgb
Assessment / Plan
Assessment / Plan
Assessment/Plan
74-year-old female with PMH significant for persistent symptomatic atrial fibrillation, left atrial appendage clot identified in 2022 with clot reassessed July 2024 and found to be still present, maintained on
metoprolol and anticoagulated with Eliquis 2.5 mg b.i.d. dosing,HFrEF, cardiomyopathy, coronary artery disease with CUSTOMER RESOURCE SPECIALIST of LAD, hypertension, CKD 3 with renal stents, remote tobacco and alcohol abuse, CVA, ambulatory dysfunction, as well as liver
transplant due to cirrhosis 2007, on immunosuppressants and modulators, Her [id number] is 6, Watchman Device placed on February 02, 2025 with postoperative complication of blood loss anemia due to GI bleeding, who presented to ED due to trip and fall
at grocery store, no LOC, denied hitting her head, and c/o b/l knee pain and left lateral rib pain, incident occurred directly prior to arrival.
CARLO wrap and knee immobilizer placed in ED. Large hematoma to left anterior knee, unable to ambulate safely after presentation due to pain. Could not tolerate knee immobilizer due to bulkiness.
#Likely a Type 2 NSTEMI in setting of nausea and relative hypotension, as well as underlying CKD, on 06/01/25 evening
-LVEDP was 16 during cardiac cath
-EKG had been checked on 06/01/25 to check QTc for Zofran administration for severe nausea, and it showed STEMI
-Cardiac Cath on 06/01/25 evening showed coronary artery disease with new severe disease of the RCA from previous (subtotal chronic occlusion of RCA new from 2022 but clearly not acute (and not amenable to revasc)) and stable CUSTOMER RESOURCE SPECIALIST of mid LAD, which
was likely chronic in nature
-Per Dr. Bower, EKG changes were secondary to whatever was causing her to have nausea and hypotension and not the other way around; patient likely a type II NSTEMI. Her LAD has been chronically occluded for years and
the RCA does not look like it�s amenable to revascularization.
-Continue DAPT -- patient was getting DAPT since hospital admission
-Continue beta thu
-Patient is not on statin given history of liver transplant
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 Will order AM CXR.
#Nausea again on 06/05/25 -- persisting as of 06/06/25
-Last time patient has nausea, had to be taken urgently to research lab assistant (which showed chronic disease in both territories) given concern for STEMI in setting of hypotension -- nausea and hypotension at that time improved
spontaneously/with anti-emetics
-AXR suggested constipation -- so made Miralax daily on scheduled basis, instead of PRN. Add Senokot on 06/06/25 since still no bowel movements.
-EKG noted. Elevated troponin noted but decreased from 06/01 (the time urgent cath was done). Last time patient had nausea, and EKG was checked for QTc, it showed STEMI o 06/01/25 (please see above)
-Spoke over the phone on 06/05/[address] Jackson, ordered another 1 unit PRBC to address ischemia better
#Mechanical fall (patient tripped over object) resulting in b/l knee contusions with hematoma and b/l knee effusions, left greater than right, and inability to ambulate safely
#Large Left Knee Joint Effusion
-Cont CARLO bandage/wound care
-PT/OT evaluation
-Ortho consulted given concern for worsened suspected hemarthrosis: MRI showed: nondisplaced fractures of the central and anterolateral aspects of the tibial plateau; large bone infarct of the distal femur; oblique tear
of the posterior horn of the medial meniscus; large knee joint effusion.
-Appreciate ortho: maintain strict non-weight bearing to left lower extremity; can stop knee immobilizer; may perform range of motion as tolerated.
-Pain control; Ice and elevation for pain and edema control.
-Follow-up with Dr. Stevens in the office in 2 weeks for repeat x-rays.
#Immunocompromised s/p liver transplant
-continue home meds cyclosporine, prednisone, mycophenolate
#Worsened Anemia in the Setting of Likely Left Knee Bleeding and lower extremity ecchymosis from mechanical fall
-Patient provided blood consent and understood all risks and benefits
-Hgb dropped to 7.1, patient says baseline is 9 to 10
-Transfused 1 unit PRBC on 06/01/25 given the above; I had a lengthy curbside discussion with group reservations coordinator and it was decided that since patient had no issues with standard leukoreduced PRBC transfusion in 2022 (well after her liver transplant), it
is appropriate to provide patient with standard leukoreduced PRBCs this admission
-Transfused another 1 unit of PRBC on 06/05/25 to address possible cardiac ischemic issues as discussed with Dr. Jackson (see above)
-Cardiology recommended to keep Hgb at least 8 but perhaps higher
#Hyperkalemia
-Possibly from hematoma
-Hold Valsartan as already doing given INDU, hyperkalemia and hypotension
-Lokelma
-Low potassium diet
-Monitor BMP
Lower GI bleed
GI consult
monitor Hgb
Hgb 10.1-->9.5-->10.1-->10.0
Protonix 40 mg IV q12h
#Persistent atrial fibrillation -- no longer on anticoagulation since had Watchman Device months ago; currently on DAPT as would be expected
#HFrEF ---- GDMT limited by BPs and renal function; ARB held appropriately for renal dysfunction and BP's; continue metoprolol as able with regards to hypotension
#History of left atrial appendage thrombus.
Cardiomyopathy.
#Mural Thrombus?
#CAD- CUSTOMER RESOURCE SPECIALIST of mid LAD by catheterization,2022
- continue DAPT
#CVA 2015. Left hemispheric seen on MRI, questionable
right peripheral visual and quadriceps weakness on exam.
#INDU on CKD 3.
Renal stents.
-INDU is suspected to be due to contrast nephropathy
-Per my [place] [employer] communication with patient's sub plant manager Dr. Erazo, on April 23, 2025, patient's creatinine was 1.5; and in recent months it�s been 1.5 to 1.7 compared 2.3 to 2.5 in 2023
-1.6 was Cr around May 26 at patient's outpatient transplant physician office as per the patient
-Cr 2.3 and BUN remains quite high today -- appreciate nephrology
-Continue to hold Lasix and Valsartan
#Liver transplant with history of cirrhosis.
#History of gastritis, GERD.
#Remote tobacco and alcohol abuse.
#Childhood epilepsy.
#Ambulatory dysfunction with fall risk.
#Osteoarthritis.
#Degenerative disc disease.
#Osteopenia.
DVT proph-SCDs. No chemical prophylaxis given suspected bleeding situation above.
Code Status: Full Code
Disposition: SNF eventually
Anticipated Discharge: > 48 hours
Subjective/Interval History
-
Date of Service: June 07, 2025
main complaint is chest wall pain
Objective Data
-
Labs:
Laboratory Results
06/07/25 06/07/25
09:24 15:00
Hgb 10.0 L Pending
Hct 31.2 L Pending
Vital Signs:
Vital Signs
Temp Pulse Resp BP Pulse Ox
98 F 91 18 115/67 100
06/07/25 15:52 06/07/25 15:52 06/07/25 15:52 06/07/25 15:52 06/07/25 16:15
I&O
06/06/25 06/07/25 06/08/25
06:59 06:59 06:59
Intake Total 730 / 730 480 / 480
Balance 730 / 730 480 / 480
Review of Systems
-
History Source: Patient and Coordinated Provider
Constitutional: Denies Fever
EENT: Reports No Symptoms Reported
Respiratory: Reports No Symptoms; Denies Cough
Cardiac: Reports Chest Pain (chest wall pain)
Abdomen/GI: Reports Bloody Stools; Denies Abdominal Pain
Genitourinary: Reports No Symptoms
Neuro: Reports No Symptoms
Physical Exam
-
General: Well Developed, Well Nourished and No Apparent Distress
HEENT: Normocephalic, Atraumatic and Moist Mucous Membranes
Respiratory: Clear to Auscultation; Negative Wheezes, Rales or Rhonchi
Cardiac: Regular Rhythm, S1/S2 and Other (left sided chest wall pain)
GI: Soft, Nontender and Nondistended
Musculoskeletal: No Clubbing
Neuro: Awake, Alert and Oriented
[2025-06-07] MEDS: NEORAL 25 MG PO (18:11)
[2025-06-07 19:30] VITALS: BP 159/53
[2025-06-07] MEDS: SENOKOT-S 1 TABLET PO (21:08)
[2025-06-07] MEDS: VITAMIN B-12 1000 MCG PO (21:09)
[2025-06-07] MEDS: LOW STRENGTH ASPIRIN 81 MG PO (21:09)
[2025-06-07] MEDS: PROTONIX IV 40 MG IV (21:09)
[2025-06-07] MEDS: NSS (PRESERVATIVE FREE) 10 ML IV (21:10)
[2025-06-07] MEDS: TOPROL XL 100 MG PO (21:15)
[2025-06-07 21:52] LABS: Hematocrit 29.8 % (37.0-47.0); Hemoglobin 9.5 g/dL (12.0-16.0)
[2025-06-07 22:23] LABS: Folate 13.4 ng/ml (2.76-20); Vitamin B12 > 1000 pg/ml (239-931)
[2025-06-07 23:30] VITALS: BP 134/91
[2025-06-08 02:57] VITALS: BP 147/76
[2025-06-08] MEDS: ULTRAM 50 MG PO ×3 (03:15→18:48)
--- NOTE | 2025-06-08 03:42 | DOWNTIME ---
There was a [employer] Downtime on 06/08/2025 from 0100 to 06/08/2025 at 0220. Downtime documentation of patient's care, including medication administrations, has been reconciled in the electronic record per guidelines. Refer to the
patient's paper chart under the miscellaneous tab to see printed paper medication records and downtime forms.
[2025-06-08 06:00] VITALS: BMI 24.5
[2025-06-08 07:52] LABS: Hematocrit 28.3 % (37.0-47.0); Hemoglobin 9.2 g/dL (12.0-16.0); Mean Corp Hgb Conc. 32.5 g/dL (33.0-37.0); Mean Corpuscular Volume 97.3 fL (81.0-99.0); Platelet Count 155 10^3/uL (130-400); Red Cell Dist. Width 16.7 % (11.5-14.5)
[2025-06-08 07:56] LABS: INR 1.07; PT 14.2 Sec (11.4-14.6)
[2025-06-08 08:12] LABS: ALT (SGPT) 39 U/L (0-35); AST (SGOT) 24 U/L (14-36); Albumin 3.0 g/dl (3.5-5.0); Alkaline Phosphatase 182 U/L (38-126); Blood Urea Nitrogen 104 mg/dl (7-17); Calcium 9.3 mg/dl (8.4-10.2); Carbon Dioxide 22 mmol/L (22-30); Chloride 107 mmol/L (98-107); Estimated Creatinine Clearance 19 ml/min; Glucose 147 mg/dl (70-99); Potassium 4.4 mmol/L (3.5-5.1); Sodium 138 mmol/L (135-145); Total Protein 5.0 g/dl (6.3-8.2); eGFR 29.38
[2025-06-08 08:23] VITALS: BP 154/75
[2025-06-08] MEDS: CELLCEPT 1000 MG PO ×2 (10:09→21:31)
[2025-06-08] MEDS: NEORAL 50 MG PO (10:09)
[2025-06-08] MEDS: SENOKOT-S PO (10:13)
[2025-06-08] MEDS: PROTONIX IV 40 MG IV ×2 (10:13→21:32)
[2025-06-08] MEDS: MIRALAX PO (10:14)
[2025-06-08] MEDS: NSS (PRESERVATIVE FREE) 10 ML IV ×2 (10:14→21:32)
[2025-06-08] MEDS: DELTASONE 15 MG PO (10:15)
[2025-06-08] MEDS: OSCAL CAL 500 500 MG PO ×2 (10:15→21:31)
[2025-06-08] MEDS: FEOSOL 325 MG PO ×2 (10:15→21:31)
[2025-06-08 11:14] VITALS: BP 133/62
--- NOTE | 2025-06-08 12:17 | W.PN.GI.CBS2 ---
Addendum entered and electronically signed by Angie Whitmore DO 06/08/25 16:33:
Patient seen and examined independently of THELMA. I agree with her note with my additions below
Nu is a 74-year-old female with history of OLT 2007 due to alcohol on her chronic immunosuppression, A-fib, previously on Eliquis until January when she underwent Watchman procedure, persistently elevated LFTs since 2022 followed by [facility]
GI/hepatology, CKD 3 with renal stents on Plavix, history of CVA, ambulatory dysfunction who presented to the hospital on 05/30/2025 after a fall at the grocery store found to have a large hematoma on her knees and multiple bruises all over her body
as well as left lateral rib pain from the fall on 05/30/2025. Since her admission she has required 2 units of packed red blood cells. On 06/01/2025 she had nausea and an EKG was checked which showed concerns for an inferior STEMI with a troponin
peak of 17. Underwent left heart cath found to have severe RCA disease. Since that she has continued aspirin and Plavix. Her BUN is very high, she has had a variety of stools including black stools. She did have some constipation a few days ago
took senna on 06/06/2025 which resulted in a black bowel movement still some mild nausea. Denies any dysphagia. She is on chronic aspirin, Plavix, iron and pantoprazole 40 mg. She is also on 15 mg of steroids for her immunosuppression.
# Nausea, black stools, mild drop in hemoglobin
-- Status post 2 units of blood during this admission
-- Will undergo EGD tomorrow on aspirin and Plavix for diagnostic purposes
-- Last colonoscopy was in 2012, currently she is too frail to undergo colonoscopy at this time unless it was absolutely necessary
-- Antiemetics as tolerated
-- Outpatient will need to follow back up with [facility] hepatology/GI to investigate her bile duct/liver
Original Note:
Today's Communication / Plan
-
still with nausea with last stool brown BUN still elevated at 104
would be concerned about Upper GI bleed
-Continue Pantoprazole 40 mg IV BID
reviewed with nursing would continued with midline fot IV access
-Recommend clear liquid diet, no red
-Trend CBC, BMP
-will review with Dr. Whitmore for EGD if neg then colon
last plavix 06/07
B12/folate stable -- iron studies not done but would not be helpful post transfusion
Assessment / Plan
-
74yo F with PMH of ESLD with prior liver transplant in 2007 due to ETOH on chronic immunosuppression, HTN, hyperlipidemia, TIA, afib (previously on Eliquis until this past January), left atrial appendage clot, HFpEF, cardiomyopathy, possible cirrhosis
of transplanted liver, ERCP with Dr. Telles at [facility] in July 2023 with attempt for cannulation without success with noted rise in LFT's and abnormal MRI imaging (per [facility] April 2023 MRI with focal narrowing of biliary duct, unable to
follow-up with procedures since that time. Was supposed to have appointment day after her fall. Has follow-up appointment in 3 months.) CAD, hypertension, CKD 3 with renal stents, CVA, ambulatory dysfunction, Watchman procedure 02/02/2025 with
postoperative complication of blood loss anemia, secondary to right femoral groin bleed while bearing down to have a bowel movement with no signs of GI bleeding at that time who presents to the emergency room with a trip and fall at the grocery
store with bilateral knee pain, large hematoma to left knee on 05/30/2025. We are asked to evaluate patient for blood mixed in with her stool. Since time of admission patient has had drop in hemoglobin with subsequent need for 2 units of packed red
blood cells. Nausea with subsequent EKG changes with NSTEMI type II, taken to Clinic Office Assistant with new severe disease of the RCA likely chronic in nature. Was recommend the patient continue dual antiplatelet therapy. Worsening BUN with initial rising
creatinine with now improvement of creatinine. Absence of bowel movement with need for Senokot on 06/06/2025. This resulted in black/bloody bowel movements. Subsequently had burgundy bowel movements and finally brown bowel movements all within 24
hours. Patient still with mild nausea. Patient currently on aspirin 81 mg, Plavix, iron, pantoprazole 80 mg daily and prednisone 15 mg daily that could contribute to the above.Currently WBC 10.4, hemoglobin 10.0, hematocrit 31.2, platelets 168,
troponin 2.7 (down from 2.8), sodium 137, potassium 4.4, BUN 110, creatinine 1.8, glucose 107, total bilirubin 1.5, AST 31, ALT 48, alk phos 182, PT 13.6, INR 1.0
Impression:
Blood in stools-> melena, burgundy blood, red blood last stool 06/07 brown
Nausea
Anemia--> s/p trf 2 units PRBC Hgb 10.0 currently
Abnormal Troponin-> Per Cardiology Type 2 MN
Cirrhosis
INDU on CKD
AFib
CAD
Hx Liver Transplant 2007
Fall with b/l knee contusions/hematoma, nondisplaced fractures of the central and anterolateral aspects of the tibial plateau; large bone infarct of the distal femur; oblique tear
hypoalbuminemia
Plan:
still with nausea with last stool brown BUN still elevated at 104
would be concerned about Upper GI bleed
-Continue Pantoprazole 40 mg IV BID
reviewed with nursing would continued with midline fot IV access
-Recommend clear liquid diet, no red
-Trend CBC, BMP
-will review with Dr. Whitmore for EGD if neg then colon
last plavix 06/07
B12/folate stable -- iron studies not done but would not be helpful post transfusion
Subjective
Subjective
Date of Service: June 08, 2025
06/07 brown stool on clear diet
Objective
Data Reviewed
Laboratory Data:
Laboratory Results
06/08/25 07:21
06/08/25 07:21
Laboratory Results
PT 14.2 Sec (11.4-14.6) 06/08/25 07:21
INR 1.07 06/08/25 07:21
APTT Cancelled 06/01/25 20:45
Magnesium 2.7 mg/dl (1.6-2.3) H 06/07/25 04:16
Total Bilirubin 1.9 mg/dl (0.2-1.3) H 06/08/25 07:21
AST 24 U/L (14-36) 06/08/25 07:21
ALT 39 U/L (0-35) H 06/08/25 07:21
Alkaline Phosphatase 182 U/L (38-126) H 06/08/25 07:21
Lipase 87 U/L (23-300) 06/05/25 06:41
Vital Signs and I&O:
Vital Signs
Temp Pulse Resp BP Pulse Ox
97.6 F 95 16 133/62 98
06/08/25 11:14 06/08/25 11:14 06/08/25 11:14 06/08/25 11:14 06/08/25 11:14
I&O
06/07/25 06/08/25 06/09/25
06:59 06:59 06:59
Intake Total 480 / 480 360 / 360
Balance 480 / 480 360 / 360
Physical Exam
Physical Exam
HEENT: Anicteric and Moist mucous membranes
Cardiology: Normal Sinus Rhythm
Pulmonary: Clear
GI: Soft, Non Distended and Tender (mild nausea )
Extremities: No Edema and Other (diffuse bruising )
Neuro: Non Focal
--- NOTE | 2025-06-08 13:24 | W.PN.NEPH.PH ---
Today's Communication / Plan
-
BMP in the morning
Assessment/Plan
-
Impression:
Mechanical fall (patient tripped over object) resulting in b/l knee contusions with hematoma and b/l knee effusions, left greater than right, Acute Anemia
STEMI (troponin peak ~17)
INDU with [id number] 1.6-1.9-Dr Erazo
Secondary hypertension undergoing bilateral renal artery stenting July 2022 (decrease in GFR following procedure?)
Hyperkalemia
Persistent atrial fibrillation. s/p watchman 01/2025
HFrEF. 30-35%
History of left atrial appendage thrombus.
Cardiomyopathy.
Mural Thrombus?
CAD- CISCO CONSULTANT of mid LAD by catheterization,2022, new RCA disease-seem chronic
Immunocompromised s/p liver transplant 2007
CVA 2015. Left hemispheric seen on MRI
History of gastritis, GERD.
Remote tobacco and alcohol abuse.
Childhood epilepsy.
Ambulatory dysfunction with fall risk.
Osteoarthritis.
Degenerative disc disease.
Osteopenia.
h/o Left portal vein thrombosis
Plan:
INDU
-due to contrast nephropathy
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
incidental finding of STEMI s/p C on 06/01 RCA disease seem chronic
no intervention needed per cards
monitor hyponatremia , maintain FR , sodium normal
MRI left knee noted with tibial plateau fx non displaced, large effusion, menisci tear, distal femur infarct-no intervention
echo noted EF 30-35%, DD stage II. WMA. mod to severe TR with pulm HTN
Creatinine trending down 1.8 stable at baseline
BUN remains elevated GI following for possible GI bleed considering EGD
No change today
-
-
Date of Service: June 08, 2025
CC / HPI / ROS
-
Chief Complaint:
INDU with CKD
History of Present Illness:
cr down
Hemodynamically stable
Anemia improved following transfusion
Review of Systems:
no cp or sob
Nausea
Current diarrhea
weight down
No recording of urine output
Labs
-
Labs:
WBC 9.3 10^3/uL (4.8-10.8) 06/08/25 07:21
RBC 2.91 10^6/uL (4.20-5.40) L 06/08/25 07:21
Hgb 9.2 g/dL (12.0-16.0) L 06/08/25 07:21
Hct 28.3 % (37.0-47.0) L 06/08/25 07:21
Plt Count 155 10^3/uL (130-400) 06/08/25 07:21
Sodium 138 mmol/L (135-145) 06/08/25 07:21
Potassium 4.4 mmol/L (3.5-5.1) 06/08/25 07:21
Chloride 107 mmol/L (98-107) 06/08/25 07:21
Carbon Dioxide 22 mmol/L (22-30) 06/08/25 07:21
BUN 104 mg/dl (7-17) H* 06/08/25 07:21
Creatinine 1.8 mg/dL (0.6-1.0) H 06/08/25 07:21
eGFR 29.38 06/08/25 07:21
Glucose 147 mg/dl (70-99) H 06/08/25 07:21
Calcium 9.3 mg/dl (8.4-10.2) 06/08/25 07:21
Albumin 3.0 g/dl (3.5-5.0) L 06/08/25 07:21
Physical Exam
-
Vital Signs:
Vital Signs
Temp Pulse Resp BP Pulse Ox
97.6 F 95 16 133/62 98
06/08/25 11:14 06/08/25 11:14 06/08/25 11:14 06/08/25 11:14 06/08/25 11:14
Cardiovascular:: Irregular rate and rhythm
Respiratory:: Bilateral: CTA
Lung Excursion:: Normal
Abdomen:: Nontender and Soft
Bowel Sounds:: Normal
Extremity Edema:: +1: Bilateral:
[place] Catheter: No
Other Findings::
bruising of left and right knee
[2025-06-08 15:57] VITALS: BP 116/59
--- NOTE | 2025-06-08 17:46 | W.PN.HOSP.TC ---
Today's Communication/Plan
-
EGD tomorrow
follow labs
Assessment / Plan
Assessment / Plan
Assessment/Plan
74-year-old female with PMH significant for persistent symptomatic atrial fibrillation, left atrial appendage clot identified in 2022 with clot reassessed July 2024 and found to be still present, maintained on
metoprolol and anticoagulated with Eliquis 2.5 mg b.i.d. dosing,HFrEF, cardiomyopathy, coronary artery disease with NURSE ADVISOR of LAD, hypertension, CKD 3 with renal stents, remote tobacco and alcohol abuse, CVA, ambulatory dysfunction, as well as liver
transplant due to cirrhosis 2007, on immunosuppressants and modulators, Her [id number] is 6, Watchman Device placed on February 02, 2025 with postoperative complication of blood loss anemia due to GI bleeding, who presented to ED due to trip and fall
at grocery store, no LOC, denied hitting her head, and c/o b/l knee pain and left lateral rib pain, incident occurred directly prior to arrival.
CARLO wrap and knee immobilizer placed in ED. Large hematoma to left anterior knee, unable to ambulate safely after presentation due to pain. Could not tolerate knee immobilizer due to bulkiness.
#Likely a Type 2 NSTEMI in setting of nausea and relative hypotension, as well as underlying CKD, on 06/01/25 evening
-LVEDP was 16 during cardiac cath
-EKG had been checked on 06/01/25 to check QTc for Zofran administration for severe nausea, and it showed STEMI
-Cardiac Cath on 06/01/25 evening showed coronary artery disease with new severe disease of the RCA from previous (subtotal chronic occlusion of RCA new from 2022 but clearly not acute (and not amenable to revasc)) and stable NURSE ADVISOR of mid LAD, which
was likely chronic in nature
-Per Dr. Bower, EKG changes were secondary to whatever was causing her to have nausea and hypotension and not the other way around; patient likely a type II NSTEMI. Her LAD has been chronically occluded for years and
the RCA does not look like it�s amenable to revascularization.
-Continue DAPT -- patient was getting DAPT since hospital admission
-Continue beta thu
-Patient is not on statin given history of liver transplant
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
06/08 EKG: NORMAL SINUS RHYTHM
NONSPECIFIC ST AND T WAVE ABNORMALITY
ABNORMAL ECG
WHEN COMPARED WITH ECG OF 06-JUN-2025 15:08,
NO SIGNIFICANT CHANGE WAS FOUND
#Nausea again on 06/05/25 -- persisting as of 06/06/25
-Last time patient has nausea, had to be taken urgently to electronic lab technician (which showed chronic disease in both territories) given concern for STEMI in setting of hypotension -- nausea and hypotension at that time improved
spontaneously/with anti-emetics
-AXR suggested constipation -- so made Miralax daily on scheduled basis, instead of PRN. Add Senokot on 06/06/25 since still no bowel movements.
-EKG noted. Elevated troponin noted but decreased from 06/01 (the time urgent cath was done). Last time patient had nausea, and EKG was checked for QTc, it showed STEMI o 06/01/25 (please see above)
-Spoke over the phone on 06/05/[address] Jackson, ordered another 1 unit PRBC to address ischemia better
#Mechanical fall (patient tripped over object) resulting in b/l knee contusions with hematoma and b/l knee effusions, left greater than right, and inability to ambulate safely
#Large Left Knee Joint Effusion
-Cont CARLO bandage/wound care
-PT/OT evaluation
-Ortho consulted given concern for worsened suspected hemarthrosis: MRI showed: nondisplaced fractures of the central and anterolateral aspects of the tibial plateau; large bone infarct of the distal femur; oblique tear
of the posterior horn of the medial meniscus; large knee joint effusion.
-Appreciate ortho: maintain strict non-weight bearing to left lower extremity; can stop knee immobilizer; may perform range of motion as tolerated.
-Pain control; Ice and elevation for pain and edema control.
-Follow-up with Dr. Stevens in the office in 2 weeks for repeat x-rays.
#Immunocompromised s/p liver transplant
-continue home meds cyclosporine, prednisone, mycophenolate
#Worsened Anemia in the Setting of Likely Left Knee Bleeding and lower extremity ecchymosis from mechanical fall
-Patient provided blood consent and understood all risks and benefits
-Hgb dropped to 7.1, patient says baseline is 9 to 10
-Transfused 1 unit PRBC on 06/01/25 given the above; a lengthy curbside discussion with liability analyst and it was decided that since patient had no issues with standard leukoreduced PRBC transfusion in 2022 (well after her liver transplant), it is
appropriate to provide patient with standard leukoreduced PRBCs this admission
-Transfused another 1 unit of PRBC on 06/05/25 to address possible cardiac ischemic issues as discussed with Dr. Jackson (see above)
-Cardiology recommended to keep Hgb at least 8 but perhaps higher
#Hyperkalemia
-Possibly from hematoma
-Hold Valsartan as already doing given INDU, hyperkalemia and hypotension
-Lokelma
-Low potassium diet
-Monitor BMP
Lower GI bleed
GI consult
monitor Hgb
Hgb 10.1-->9.5-->10.1-->10.0-->9.5-->9.2
Protonix 40 mg IV q12h. For EGD 06/09, felt to be too frail to undergo colo
#Persistent atrial fibrillation -- no longer on anticoagulation since had Watchman Device months ago; currently on DAPT as would be expected
#HFrEF ---- GDMT limited by BPs and renal function; ARB held appropriately for renal dysfunction and BP's; continue metoprolol as able with regards to hypotension
#History of left atrial appendage thrombus.
Cardiomyopathy.
#Mural Thrombus?
#CAD- NURSE ADVISOR of mid LAD by catheterization,2022
- continue DAPT
#CVA 2016. Left hemispheric seen on MRI, questionable
right peripheral visual and quadriceps weakness on exam.
#INDU on CKD 3.
Renal stents.
BUN/Creat 104/1.8
input of nephrology appreciated
-INDU is suspected to be due to contrast nephropathy
-Continue to hold Lasix and Valsartan
#Liver transplant with history of cirrhosis.
#History of gastritis, GERD.
#Remote tobacco and alcohol abuse.
#Childhood epilepsy.
#Ambulatory dysfunction with fall risk.
#Osteoarthritis.
#Degenerative disc disease.
#Osteopenia.
DVT proph-SCDs. No chemical prophylaxis given suspected bleeding situation above.
Code Status: Full Code
Disposition: SNF eventually
Anticipated Discharge: > 48 hours
Subjective/Interval History
-
Date of Service: June 08, 2025
Still with left sided chest wall pain
Objective Data
-
Labs:
Laboratory Results
06/08/25
07:21
WBC 9.3
Hgb 9.2 L
Hct 28.3 L
Plt Count 155
PT 14.2
INR 1.07
Sodium 138
Potassium 4.4
Chloride 107
Carbon Dioxide 22
BUN 104 H*
Creatinine 1.8 H
Glucose 147 H
Calcium 9.3
Total Bilirubin 1.9 H
AST 24
ALT 39 H
Alkaline Phosphatase 182 H
Vital Signs:
Vital Signs
Temp Pulse Resp BP Pulse Ox
98.2 F 80 16 116/59 97
06/08/25 15:57 06/08/25 15:57 06/08/25 15:57 06/08/25 15:57 06/08/25 15:57
I&O
06/07/25 06/08/25 06/09/25
06:59 06:59 06:59
Intake Total 480 / 480 360 / 360
Balance 480 / 480 360 / 360
Review of Systems
-
History Source: Patient and Coordinated Provider
Constitutional: Denies Fever
EENT: Reports No Symptoms Reported
Respiratory: Reports No Symptoms; Denies Cough
Cardiac: Reports Chest Pain (chest wall pain)
Abdomen/GI: Reports Bloody Stools; Denies Abdominal Pain
Genitourinary: Reports No Symptoms
Neuro: Reports No Symptoms
Physical Exam
-
General: Well Developed, Well Nourished and No Apparent Distress
HEENT: Normocephalic, Atraumatic and Moist Mucous Membranes
Respiratory: Clear to Auscultation; Negative Wheezes, Rales or Rhonchi
Cardiac: Regular Rhythm, S1/S2 and Other (left sided chest wall pain)
GI: Soft, Nontender and Nondistended
Musculoskeletal: No Clubbing
Neuro: Awake, Alert and Oriented
[2025-06-08] MEDS: NEORAL 25 MG PO (18:07)
[2025-06-08 19:40] VITALS: BP 141/116
[2025-06-08] MEDS: TOPROL XL 100 MG PO (21:31)
[2025-06-08] MEDS: LOW STRENGTH ASPIRIN 81 MG PO (21:31)
[2025-06-08] MEDS: SENOKOT-S 1 TABLET PO (21:31)
[2025-06-08 23:37] VITALS: BP 93/56
[2025-06-09] VITALS (18 sets, daily range): BP systolic 94–131; BP diastolic 45–69; BMI 24.3
[2025-06-09 06:24] LABS: Hematocrit 25.6 % (37.0-47.0); Hemoglobin 8.1 g/dL (12.0-16.0); Mean Corp Hgb Conc. 31.6 g/dL (33.0-37.0); Mean Corpuscular Volume 97.3 fL (81.0-99.0); Platelet Count 133 10^3/uL (130-400); Red Cell Dist. Width 16.8 % (11.5-14.5)
[2025-06-09 06:51] LABS: Blood Urea Nitrogen 111 mg/dl (7-17); Calcium 9.3 mg/dl (8.4-10.2); Carbon Dioxide 21 mmol/L (22-30); Chloride 108 mmol/L (98-107); Estimated Creatinine Clearance 19 ml/min; Glucose 114 mg/dl (70-99); Potassium 3.9 mmol/L (3.5-5.1); Sodium 137 mmol/L (135-145); eGFR 29.38
--- NOTE | 2025-06-09 09:16 | W.PN.GI.CBS2 ---
Today's Communication / Plan
-
- cancelled EGD
- hong culture, added LFts, consider MRCP
Assessment / Plan
-
74yo F with PMH of ESLD with prior liver transplant in 2007 due to ETOH on chronic immunosuppression, HTN, hyperlipidemia, TIA, afib (previously on Eliquis until this past January), left atrial appendage clot, HFpEF, cardiomyopathy, possible cirrhosis
of transplanted liver, ERCP with Dr. Telles at [facility] in July 2023 with attempt for cannulation without success with noted rise in LFT's and abnormal MRI imaging (per [facility] April 2023 MRI with focal narrowing of biliary duct, unable to
follow-up with procedures since that time. Was supposed to have appointment day after her fall. Has follow-up appointment in 3 months.) CAD, hypertension, CKD 3 with renal stents, CVA, ambulatory dysfunction, Watchman procedure 02/02/2025 with
postoperative complication of blood loss anemia, secondary to right femoral groin bleed while bearing down to have a bowel movement with no signs of GI bleeding at that time who presents to the emergency room with a trip and fall at the grocery
store with bilateral knee pain, large hematoma to left knee on 05/30/2025. We are asked to evaluate patient for blood mixed in with her stool. Since time of admission patient has had drop in hemoglobin with subsequent need for 2 units of packed red
blood cells. 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 Was recommend the patient continue dual antiplatelet therapy. Worsening BUN with initial rising
creatinine with now improvement of creatinine. Absence of bowel movement with need for Senokot on 06/06/2025. This resulted in black/bloody bowel movements. Subsequently had burgundy bowel movements and finally brown bowel movements all within 24
hours. Patient still with mild nausea. Patient currently on aspirin 81 mg, Plavix, iron, pantoprazole 80 mg daily and prednisone 15 mg daily that could contribute to the above.Currently WBC 10.4, hemoglobin 10.0, hematocrit 31.2, platelets 168,
troponin 2.7 (down from 2.8), sodium 137, potassium 4.4, BUN 110, creatinine 1.8, glucose 107, total bilirubin 1.5, AST 31, ALT 48, alk phos 182, PT 13.6, INR 1.0
Impression:
Blood in stools-> melena, burgundy blood, red blood last stool 06/07 brown
Nausea
Anemia--> s/p trf 2 units PRBC Hgb 10.0 currently
Abnormal Troponin-> Per Cardiology Type 2 ME
Cirrhosis
INDU on CKD
AFib
CAD
Hx Liver Transplant 2007
Fall with b/l knee contusions/hematoma, nondisplaced fractures of the central and anterolateral aspects of the tibial plateau; large bone infarct of the distal femur; oblique tear
hypoalbuminemia
Plan:
06/09/25
still with mild nausea with last stool brown BUN still elevated
would be concerned about Upper GI bleed - slow - planned for EGD today but cancelled due to clinical status - fever last night, low BP in GI suite
- discussed with Yash and RN
- would check cultures - patient is immunosuppressed
- added on LFTs, if worsening, MRCP
-Continue Pantoprazole 40 mg IV BID
reviewed with nursing would continued with midline for IV access
- low residue diet
-Trend CBC, BMP
last plavix 06/07
B12/folate stable -- iron studies not done but would not be helpful post transfusion
Subjective
Subjective
Date of Service: June 09, 2025
Patient was febrile overnight and repeat this morning was 99 without tylenol. in the GI suite her BP was 75/59 and she is very weak and tremulous.
I cancelled her EGD.
Objective
Data Reviewed
Laboratory Data:
Laboratory Results
06/09/25 06:07
06/09/25 06:08
Laboratory Results
PT 14.2 Sec (11.4-14.6) 06/08/25 07:21
INR 1.07 06/08/25 07:21
APTT Cancelled 06/01/25 20:45
Magnesium 2.7 mg/dl (1.6-2.3) H 06/07/25 04:16
Total Bilirubin 1.9 mg/dl (0.2-1.3) H 06/08/25 07:21
AST 24 U/L (14-36) 06/08/25 07:21
ALT 39 U/L (0-35) H 06/08/25 07:21
Alkaline Phosphatase 182 U/L (38-126) H 06/08/25 07:21
Lipase 87 U/L (23-300) 06/05/25 06:41
Vital Signs and I&O:
Vital Signs
Temp Pulse Resp BP Pulse Ox
98.3 F 95 14 96/45 90
06/09/25 08:24 06/09/25 08:24 06/09/25 08:24 06/09/25 08:24 06/09/25 08:24
I&O
06/08/25 06/09/25 06/10/25
06:59 06:59 06:59
Intake Total 360 / 360 180 / 180
Balance 360 / 360 180 / 180
Physical Exam
Physical Exam
HEENT: Anicteric (icteric)
Pulmonary: Clear
GI: Soft and Non Tender
Extremities: Other (ecchymosis throughout)
Neuro: Non Focal
[2025-06-09 10:46] LABS: ALT (SGPT) 26 U/L (0-35); AST (SGOT) 22 U/L (14-36); Albumin 2.6 g/dl (3.5-5.0); Alkaline Phosphatase 151 U/L (38-126); Total Protein 4.5 g/dl (6.3-8.2)
[2025-06-09] MEDS: CELLCEPT 1000 MG PO ×2 (11:31→20:53)
[2025-06-09] MEDS: NSS (PRESERVATIVE FREE) 10 ML IV ×2 (11:31→22:17)
[2025-06-09] MEDS: PROTONIX IV 40 MG IV ×2 (11:31→22:17)
[2025-06-09] MEDS: DELTASONE 15 MG PO (11:32)
[2025-06-09] MEDS: NEORAL 50 MG PO (11:32)
[2025-06-09] MEDS: FEOSOL 325 MG PO (11:32)
[2025-06-09] MEDS: MIRALAX PO (11:33)
[2025-06-09] MEDS: OSCAL CAL 500 PO (11:34)
[2025-06-09] MEDS: SENOKOT-S PO (11:34)
--- NOTE | 2025-06-09 13:06 | W.PN.NEPH.PH ---
Today's Communication / Plan
-
Follow BMP
Blood cultures ordered by primary service for fever and hypotension
Diuretics remain held
Creatinine is at baseline with disproportionate azotemia
Hemoglobin dropped
Assessment/Plan
-
Impression:
Mechanical fall (patient tripped over object) resulting in b/l knee contusions with hematoma and b/l knee effusions, left greater than right, Acute Anemia
STEMI (troponin peak ~17)
INDU with [id number] 1.6-1.9-Dr Erazo
Secondary hypertension undergoing bilateral renal artery stenting July 2022 (decrease in GFR following procedure?)
Hyperkalemia
Persistent atrial fibrillation. s/p watchman 01/2025
HFrEF. 30-35%
History of left atrial appendage thrombus.
Cardiomyopathy.
Mural Thrombus?
CAD- FIRST ASSISTANT MANAGER of mid LAD by catheterization,2022, new RCA disease-seem chronic
Immunocompromised s/p liver transplant 2007
CVA 2015. Left hemispheric seen on MRI
History of gastritis, GERD.
Remote tobacco and alcohol abuse.
Childhood epilepsy.
Ambulatory dysfunction with fall risk.
Osteoarthritis.
Degenerative disc disease.
Osteopenia.
h/o Left portal vein thrombosis
Plan:
INDU
-due to contrast nephropathy
-Creatinine continues to be at baseline 1.8 but with worsening azotemia with BUN up to 111
Hemoglobin dropping again endoscopy aborted due to fever and hypotension this morning
Blood cultures to be obtained
Diuretics remain held and weight stable
Disproportionate BUN to creatinine ratio could be due to underlying ongoing GI bleeding or cardiorenal syndrome
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
incidental finding of STEMI s/p LHC on 06/01 RCA disease seem chronic
no intervention needed per cards
monitor hyponatremia , maintain FR , sodium normal
MRI left knee noted with tibial plateau fx non displaced, large effusion, menisci tear, distal femur infarct-no intervention
echo noted EF 30-35%, DD stage II. WMA. mod to severe TR with pulm HTN
-
-
Date of Service: June 09, 2025
CC / HPI / ROS
-
Chief Complaint:
INDU with CKD
History of Present Illness:
Creatinine stable at baseline at 1.8 with BUN up to 111
Hemodynamically labile (sbp drop to 70 )
Anemia worsening again following transfusion
Review of Systems:
no cp or sob
Nausea
Current diarrhea
weight stable
No recording of urine output
Labs
-
Labs:
WBC 12.3 10^3/uL (4.8-10.8) H 06/09/25 06:07
RBC 2.63 10^6/uL (4.20-5.40) L 06/09/25 06:07
Hgb 8.1 g/dL (12.0-16.0) L 06/09/25 06:07
Hct 25.6 % (37.0-47.0) L 06/09/25 06:07
Plt Count 133 10^3/uL (130-400) 06/09/25 06:07
Sodium 137 mmol/L (135-145) 06/09/25 06:08
Potassium 3.9 mmol/L (3.5-5.1) 06/09/25 06:08
Chloride 108 mmol/L (98-107) H 06/09/25 06:08
Carbon Dioxide 21 mmol/L (22-30) L 06/09/25 06:08
BUN 111 mg/dl (7-17) H* 06/09/25 06:08
Creatinine 1.8 mg/dL (0.6-1.0) H 06/09/25 06:08
eGFR 29.38 06/09/25 06:08
Glucose 114 mg/dl (70-99) H 06/09/25 06:08
Calcium 9.3 mg/dl (8.4-10.2) 06/09/25 06:08
Albumin 2.6 g/dl (3.5-5.0) L 06/09/25 06:08
Physical Exam
-
Vital Signs:
Vital Signs
Temp Pulse Resp BP Pulse Ox
100.1 F 95 14 103/49 90
06/09/25 11:06 06/09/25 11:06 06/09/25 11:06 06/09/25 11:06 06/09/25 11:06
Cardiovascular:: Irregular rate and rhythm
Respiratory:: Bilateral: CTA
Lung Excursion:: Normal
Abdomen:: Nontender and Soft
Bowel Sounds:: Normal
Extremity Edema:: +1: Bilateral:
[place] Catheter: No
Other Findings::
bruising of left and right knee
[2025-06-09 14:20] LABS: Hematocrit 24.6 % (37.0-47.0); Hemoglobin 7.9 g/dL (12.0-16.0); Mean Corp Hgb Conc. 32.1 g/dL (33.0-37.0); Mean Corpuscular Volume 97.2 fL (81.0-99.0); Platelet Count 123 10^3/uL (130-400); Red Cell Dist. Width 16.7 % (11.5-14.5)
[2025-06-09 14:25] LABS: Nucleated Red Blood Cells % 0 %
--- NOTE | 2025-06-09 15:37 | CON.INTV ---
Consultation
Consultation Request
Date/Time Consultation Requested: June 09, 2025
Date/Time Consultation Performed: June 09, 2025
Medical History
-
Chief Complaint: hypotension, GI bleed
History of Present Illness:
74 yo F PMH of ESLD with liver transplant in 2007 ([place], chronic immunosuppression), CKD stage 3 with renal stents, CAD, HTN, HLD, TIA, atrial fibrillation (not currently on apixaban), left atrial appendage clot, HFpEF, cardiomyopathy, Watchman
procedure (02/02/2025).
She initially presented to [facility] on 05/30/2025 after experiencing a fall at grocery store (due to tripping) and was admitted.
Recently, around 06/05-, blood in the stool (c/f melena) was noticed with anemia on CBC (Hgb drop from 9.5 to 7.7), received 2 units of pRBCs with an increase in Hgb to 10.1 on 06/07. GI was consulted with plan for eventual EGD. However, in
the EGD suite, she was noted to be febrile and hypotensive to 70/45. Hence, the plan is to admit to ICU for further management.
Additionally, during her hospital stay, she experienced a STEMI with elevated troponin after nausea symptoms.
There is concern about a possible brewing infection. Her last BM was 2 days ago, if she were continued to experience large volume or rapid rate blood, she would have had a BM or hematemesis by now. The patient follows at [facility] was was noted to
have biliary duct narrowing, but she did not follow-up for ERCP. This admission, she did not have any imaging done.
Given the hypotension, reported fevers, she is planned to be admitted to ICU for further management.
When I examined patient before transfer, she endorsed abdominal pain, fatigue, weakness, mild dizziness, joint pain, but denied dyspnea, chest pain.
Medical History
Past Medical History
Past Medical History: Reports Other
Additional Past Medical History:
Chronic HFrEF
Valvular Heart Disease: Moderate/Severe Mitral Regurgitation. Severe Tricuspid Regurgitation
Severe Pulmonary Hypertension
Paroxysmal Atrial Fibrillation
Mural Thrombus Distal Aortic Arch
Left Atrial Appendage Thrombus
Renal Artery Stenosis s/p Bilateral Renal Artery Stenting
Essential Hypertension
Hyperlipidemia
Alcoholic Cirrhosis s/p Liver Transplant
Portal Vein Thrombosis
Right Pleural Effusion
CKD Stage IIIB
GI Bleed
Erythema Nodosum
Past Surgical History: Reports Other
Additional Past Surgical History:
Liver Transplant 2007
Bilateral Renal Artery Stent
Watchman/PVI 01/2025
Social History
Tobacco: Other (Remote smoking history)
Alcohol: None (Patient reports sober since 2005 prior to liver transplant)
Drug: None
Allergies / Home Medications
Allergies
Allergy/AdvReac Type Severity Reaction Status Date / Time
No Known Allergies Allergy Verified 04/21/25 09:25
Home Medications
�Medication �Instructions �Recorded �Confirmed �Last Taken �Type
cyclosporine modified 25 mg 50 mg PO DAILY post liver 07/26/22 05/31/25 05/30/25 History
capsule (Gengraf) transplant
valsartan 80 mg tablet 40 mg PO DAILY Blood Pressure 07/21/24 05/31/25 05/30/25 History
calcium carbonate 500 mg PO BID Supplement 10/05/24 05/31/25 05/06/25 19:00 History
cyanocobalamin (vitamin B-12) 1,000 mcg PO Q48H Supplement 10/05/24 05/31/25 05/30/25 History
1,000 mcg tablet
ferrous sulfate 325 mg (65 mg 325 mg PO DAILY Supplement 10/05/24 05/31/25 05/30/25 History
iron) tablet (FeroSul)
mycophenolate mofetil 500 mg tablet 1,000 mg PO BID post liver 10/05/24 05/31/25 05/30/25 History
transplant
pantoprazole 40 mg tablet,delayed 40 mg PO DAILY Gastrointestinal 10/05/24 05/31/25 05/30/25 History
release Issue
cyclosporine modified 25 mg 25 mg PO QPM Transplant 02/02/25 05/31/25 05/30/25 History
capsule (Gengraf)
furosemide 20 mg tablet 40 mg PO DAILY 04/21/25 05/31/25 05/30/25 History
metoprolol succinate 100 mg 100 mg PO HS 04/21/25 05/31/25 05/30/25 History
tablet,extended release 24 hr
prednisone 10 mg tablet 10 mg PO DAILY 04/21/25 05/31/25 05/30/25 History
prednisone 5 mg tablet 5 mg PO DAILY 04/21/25 05/31/25 05/30/25 History
clopidogrel 75 mg tablet 75 mg PO DAILY 06/01/25 06/01/25 05/31/25 08:00 History
Review of Systems
-
History Source: Patient
Constitutional: Fatigue
EENT: No Symptoms
Respiratory: No Symptoms
Cardiac: No Symptoms
Abdomen/GI: Abdominal Pain and Bloody Stools
: No Symptoms
Musculoskeletal: Joint Swelling
Skin: Other (extensive bruising )
Neuro: Dizzy
Endocrine: No Symptoms
Hematologic/Lymphatic: Bruising
Vitals / Labs / Diagnostic Testing
Vital Signs
Temp Pulse Resp BP Pulse Ox
100.1 F 95 14 103/49 90
06/09/25 11:06 06/09/25 11:06 06/09/25 11:06 06/09/25 11:06 06/09/25 11:06
Lab Data
06/09/25 13:58
06/09/25 06:08
Labs
WBC 11.5
Hgb 7.9
Plt 123
INR 1.07
BUN 111
Cr 1.8
TBili 1.8
Direct Bili 1.4
ALT 26
AST 22
Alkphos 151
Diagnostic Testing:
Physical Exam
-
HEENT: Normocephalic
Cardiovascular: Regular Rhythm and Other (no murmurs)
Respiratory: Clear
GI: Tender (tenderness to palpation along right abdomen and mid-abdomen)
Neurology: AO x 3
Skin: Other (extensive bruising, black and blue)
General: Other (fatigue)
Exam:
Neurological assesment: AOx3
sensation grossly intact
motor strength
2/5 upper extremities (can lift against gravity but not to resistance)
1/5 lower extremities (cannot lift against gravtity)
Assessment
-
74 yo F PMH of ESLD with liver transplant in 2007 (EtOH, chronic immunosuppression), CKD stage 3 with renal stents, CAD, HTN, HLD, TIA, atrial fibrillation (not currently on apixaban), left atrial appendage clot, HFpEF, cardiomyopathy, Watchman
procedure (02/02/2025) who presented for a mechanical fall (tripping), experienced an AK during the admission, and now with a hemoglobin drop c/f GI bleed-likely upper source.
# GI bleed - upper source
# Hypotension
- BM with melena on 06/07/2025; has received 2 units pRBCs
- Elevated BUN, with BUN/Cr ratio > 50:1, c/w GI bleed
- Antiplatelet/anticoagulants were held
- EGD was held 06/09 because patient was febrile and hypotensive to 70/45 in the suite
Plan:
- Establish 2 large bore IVs
- Fluid resuscitation
- PPI
- Monitor VS
- Trend CBC, BMP
- Monitor for melena, hematochezia, hematemesis
- Clear/NPO for possible EGD at some point
# Leukocytosis
# Direct hyperbilirubinemia -- chronic
# Hx of liver transplant
# Biliary duct narrowing
- Patient's WBC is 11.5 today, from 12.3 prior
- She has a history of liver transplant, and biliary duct narrowing per GI's note, citing [facility] records
- Tender to palpation of right/middle abdomen
- elevated Tbili and AlkPhos appear chronic
- If patient has a fever > 100.4, consider empiric antibiotics then
- MCRP because liver transplant, and c/f infection, bile duct narrowing.
- Also do RUQ US for now.
- Follow-up blood cultures
# Disposition
- pending further clinical workup
Data Reviewed
-
EKG: Report reviewed by me
--- NOTE | 2025-06-09 15:46 | CM ---
customs brokerage manager reviewed patient's chart and spoke with patient's physician today, medical workup still in progress, plan is for skilled placement at [facility] referral sent to [facility] skilled.
Plan; Skilled placement at [facility] when stable.
--- NOTE | 2025-06-09 15:50 | W.PN.CD ---
Addendum entered and electronically signed by Sloan Norris MD 06/09/25 17:32:
I saw and examined the patient.
The TONG HOOKER's note was reviewed and I agree with the note.
Comment:
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 She had nausea
and so an EKG was checked to determine safety of antiemetics, but EKG findings were concerning for inferior STEMI. She was hypotensive (more than her baseline) and tachycardiac at the time. In this setting, the earthmoving labourer was activated for STEMI. Cath
revealed coronary artery disease with new severe disease of the RCA from previous, which was likely chronic in nature. No culprit lesion for 'STEMI'. CAD was managed conservatively. During hospitalization, she has had ongoing anemia (requiring 2
units PRBCs) and melena. GI was consulted and was planning for EGD but this was canceled due to clinical status (fever last night and hypotension in the GI suite). She is being transfused with an additional unit of PRBCs. Cardiology is consulted
for management of DAPT in this setting.
Physical exam: Chronically ill-appearing, ecchymoses throughout torso and upper extremities, regular rate and rhythm, no murmurs, clear lungs anteriorly, 1�2+ edema
She has ongoing blood loss and anemia leading to hypotension. We will stop DAPT to avoid hemorrhagic shock. The indication for her DAPT is twofold: Watchman and coronary artery disease. Fortunately she did not have an intervention during her
recent catheterization and there were no acute findings, so her coronary artery disease is stable with no recent ACS (would characterize her event earlier this admission is a type II NSTEMI). Her Watchman was placed in January and ideally she would
be on DAPT for at least 6 months, but in this setting we will need to hold it. We should resume aspirin as soon as possible. Lastly, we will decrease her metoprolol from 100 mg to 50 mg daily to help with hypotension. Agree with blood
transfusion. We will continue to follow along with you.
Original Note:
Today's Communication / Plan
-
ASA, Plavix to be held for now with bleeding, as discussed with primary team
Monitor hgb with transfusion and transfuse as indicated
Blood cultures pending
Will decrease metoprolol with hold parameters
Impression / Plan
-
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 She had nausea
and so an EKG was checked to determine safety of antiemetics, but EKG findings were concerning for inferior STEMI. She was hypotensive (more than her baseline) and tachycardiac at the time ECG showed anteroseptal and inferior ST elevations. In this
setting, the earthmoving labourer was activated for STEMI. Cath revealed coronary artery disease with new severe disease of the RCA from previous, which was likely chronic in nature.
Fall with injury:
-mechanical, no syncope, tripped over her foot
-Patient seen by Ortho this admission
Abnormal trop peak up to 17, likely type II NV in setting of hypotension, tachycardia, anemia and underlying coronary artery disease.
- Cardiac catheterization 06/01/2025 results as noted below
- Was on DAPT, but has to be stopped for now in setting of bleeding
- Additional medical therapy limited by BP
Nausea, diarrhea, and abdominal discomfort:
-GI is following
-anemia also noted as below and patient was supposed to get egd today, but BP was on low end and low grade temp, so held off. Patient to get blood, also getting cultures.
Coronary artery disease:
-cath this admit: LAD: large vessel giving rise to a large septal branch and moderate caliber diagonal branch before being chronically occluded in the mid vessel with the distal vessel fed via L-L septal collaterals. There is otherwise diffuse mild
disease. The vessel is large unchanged in appearance from 2022 angiography. LCx: large vessel giving rise to a small OM1, moderate caliber OM2, and large LPL branch. There is diffuse mild disease largely unchanged from 202 angiography. RCA: small
vessel giving rise to a small RPDA and small RPL branch. There is a subtotal ostial occlusion and diffuse moderate disease throughout the remainder of the vessel. The vessel is atretic in caliber compared to 202 angiography and there is evidence of
competitive flow in the RPDA. This all suggests the RPDA to be chronically occluded and not an infarct related artery.
- DAPT issues as noted, to be held
- Medical therapy has been limited by blood pressure.
- patient with anemia, getting PRBC's
.
INDU on CKD:
-nephrology on the case
AFIB, paroxysmal:
-stable in SR
-patient with hx PVI and watchman 02/02/25
-ASA and Plavix have to be held for bleeding per primary
Anemia:
- Important to continue to treat anemia in this patient with significant obstructive coronary artery disease
-ordered a unit of PRBC's, monitor
HFrEF: chronic (40-45 on most recent ALICE, but was 30-35% on most recent transthoracic study 06/02/2025)
-does not appear volume overloaded to assessment
-GDMT limited by BPs and renal function
-ARB held appropriately for renal dysfunction and BP's, restart possible outpt vs inpt
-continue metoprolol as able- decrease
Hx liver tx
Physical Exam
Vital Signs/Labs
Vital Signs
Temp Pulse Resp BP Pulse Ox
100.1 F 95 14 103/49 90
06/09/25 11:06 06/09/25 11:06 06/09/25 11:06 06/09/25 11:06 06/09/25 11:06
06/08/25 06/09/25 06/10/25
06:59 06:59 06:59
Actual Weight 54.913 kg 54.601 kg
06/09/25 13:58
06/09/25 06:08
PT 14.2 Sec (11.4-14.6) 06/08/25 07:21
INR 1.07 06/08/25 07:21
APTT Cancelled 06/01/25 20:45
Magnesium 2.7 mg/dl (1.6-2.3) H 06/07/25 04:16
Triglycerides 129 mg/dl (10-149) 06/02/25 04:19
LDL Cholesterol, Calc 96 mg/dl 06/02/25 04:19
VLDL Cholesterol, Calc 25 mg/dl (0-30) 06/02/25 04:19
HDL Cholesterol 61 mg/dl 06/02/25 04:19
LAB Results
06/06/25 06/06/25 06/07/25
15:45 23:09 04:16
Troponin I 3.700 H* 3.150 H* 2.880 H*
06/07/25
09:24
Troponin I 2.700 H*
Physical Exam
Constitutional: No acute distress
EENT: Anicteric
Cardiovascular: Rhythm & rate is regular
Respiratory: Respiratory effort normal and Lungs clear to auscul.
Neuro/Psych: AO x 3
Other: Skin (scattered ecchymosis)
Data Reviewed
-
Date of Service: June 09, 2025
EKG: Other (SR )
Labs: Labs Reviewed by me
--- NOTE | 2025-06-09 16:12 | W.PN.HOSP.TC ---
Today's Communication/Plan
-
transfer to ICU
Assessment / Plan
Assessment / Plan
Assessment/Plan
74-year-old female with PMH significant for persistent symptomatic atrial fibrillation, left atrial appendage clot identified in 2022 with clot reassessed July 2024 and found to be still present, maintained on
metoprolol and anticoagulated with Eliquis 2.5 mg b.i.d. dosing,HFrEF, cardiomyopathy, coronary artery disease with AWNING HANGER HELPER of LAD, hypertension, CKD 3 with renal stents, remote tobacco and alcohol abuse, CVA, ambulatory dysfunction, as well as liver
transplant due to cirrhosis 2007, on immunosuppressants and modulators, Her [id number] is 6, Watchman Device placed on February 02, 2025 with postoperative complication of blood loss anemia due to GI bleeding, who presented to ED due to trip and fall
at grocery store, no LOC, denied hitting her head, and c/o b/l knee pain and left lateral rib pain, incident occurred directly prior to arrival.
CARLO wrap and knee immobilizer placed in ED. Large hematoma to left anterior knee, unable to ambulate safely after presentation due to pain. Could not tolerate knee immobilizer due to bulkiness.
#Likely a Type 2 NSTEMI in setting of nausea and relative hypotension, as well as underlying CKD, on 06/01/25 evening
Troponin peaked 17.3 on 06/02
-LVEDP was 16 during cardiac cath
-EKG had been checked on 06/01/25 to check QTc for Zofran administration for severe nausea, and it showed STEMI
-Cardiac Cath on 06/01/25 evening showed coronary artery disease with new severe disease of the RCA from previous (subtotal chronic occlusion of RCA new from 2022 but clearly not acute (and not amenable to revasc)) and stable AWNING HANGER HELPER of mid LAD, which
was likely chronic in nature
-Per Dr. Bower, EKG changes were secondary to whatever was causing her to have nausea and hypotension and not the other way around; patient likely a type II NSTEMI. Her LAD has been chronically occluded for years and
the RCA does not look like it�s amenable to revascularization.
06/01 heart cath report: CORONARY ANGIOGRAPHY
Dominance: Right
LM: large with mild disease
LAD: large vessel giving rise to a large septal branch and moderate caliber diagonal branch before being chronically occluded in the mid vessel with the distal vessel fed via L-L septal collaterals. There is otherwise diffuse mild disease. The
vessel is large unchanged in appearance from 2022 angiography.
LCx: large vessel giving rise to a small OM1, moderate caliber OM2, and large LPL branch. There is diffuse mild disease largely unchanged from 2022 angiography.
RCA: small vessel giving rise to a small RPDA and small RPL branch. There is a subtotal ostial occlusion and diffuse moderate disease throughout the remainder of the vessel. The vessel is atretic in caliber compared to 2022 angiography and there is
evidence of competitive flow in the RPDA. This all suggests the RPDA to be chronically occluded and not an infarct related artery.
-Will need to stop DAPT -- patient was getting DAPT since hospital admission, due to declining Hgb, probably from GI bleeding. Call placed and discussed with Dr. Norris. She was made aware of current status, she will see patient
-Continue beta thu
-Patient is not on statin given history of liver transplant
-Patient had chest pain again on 06/06/25 -- likely chest wall pain (reproducible, worse with breathing) -- related to recent fall FLASK HANDLER?
06/08 EKG: NORMAL SINUS RHYTHM
NONSPECIFIC ST AND T WAVE ABNORMALITY
ABNORMAL ECG
WHEN COMPARED WITH ECG OF 06-JUN-2025 15:08,
NO SIGNIFICANT CHANGE WAS FOUND
#Nausea again on 06/05/25 -- persisting as of 06/06/25
-Last time patient has nausea, had to be taken urgently to catheter finisher and inspector (which showed chronic disease in both territories) given concern for STEMI in setting of hypotension -- nausea and hypotension at that time improved
spontaneously/with anti-emetics
-AXR suggested constipation -- so made Miralax daily on scheduled basis, instead of PRN. Add Senokot on 06/06/25 since still no bowel movements.
-EKG noted. Elevated troponin noted but decreased from 06/01 (the time urgent cath was done). Last time patient had nausea, and EKG was checked for QTc, it showed STEMI o 06/01/25 (please see above)
-Spoke over the phone on 06/05/[address] Jackson, ordered another 1 unit PRBC to address ischemia better
#Mechanical fall (patient tripped over object) resulting in b/l knee contusions with hematoma and b/l knee effusions, left greater than right, and inability to ambulate safely
#Large Left Knee Joint Effusion
-Cont CARLO bandage/wound care
-PT/OT evaluation
-Ortho consulted given concern for worsened suspected hemarthrosis: MRI showed: nondisplaced fractures of the central and anterolateral aspects of the tibial plateau; large bone infarct of the distal femur; oblique tear
of the posterior horn of the medial meniscus; large knee joint effusion.
-Appreciate ortho: maintain strict non-weight bearing to left lower extremity; can stop knee immobilizer; may perform range of motion as tolerated.
-Pain control; Ice and elevation for pain and edema control.
-Follow-up with Dr. Stevens in the office in 2 weeks for repeat x-rays.
#Immunocompromised s/p liver transplant
Liver Transplant was 19 years ago
-continue home meds cyclosporine, prednisone, mycophenolate
#Worsened Anemia in the Setting of Likely Left Knee Bleeding and lower extremity ecchymosis from mechanical fall
-Patient provided blood consent and understood all risks and benefits
-Hgb dropped to 7.1, patient says baseline is 9 to 10
-Transfused 1 unit PRBC on 06/01/25 given the above; a lengthy curbside discussion with concrete mixing plant superintendent and it was decided that since patient had no issues with standard leukoreduced PRBC transfusion in 2022 (well after her liver transplant), it is
appropriate to provide patient with standard leukoreduced PRBCs this admission
-Transfused another 1 unit of PRBC on 06/05/25 to address possible cardiac ischemic issues as discussed with Dr. Jackson (see above)
-Cardiology recommended to keep Hgb at least 8 but perhaps higher
Ordered 3rd unit 06/09 to be given
#Hyperkalemia
-Possibly from hematoma
-Hold Valsartan as already doing given INDU, hyperkalemia and hypotension
-Lokelma
-Low potassium diet
-Monitor BMP
GI bleed
GI consult. Plan was to do a EGD 06/09, pt status felt to be too tenuous and EGD was cancelled
monitor Hgb
Hgb 10.1-->9.5-->10.1-->10.0-->9.5-->9.2
Protonix 40 mg IV q12h. For EGD 06/09, felt to be too frail to undergo colo
#Persistent atrial fibrillation -- no longer on anticoagulation since had Watchman Device months ago; currently on DAPT as would be expected
#HFrEF ---- GDMT limited by BPs and renal function; ARB held appropriately for renal dysfunction and BP's; continue metoprolol as able with regards to hypotension
06/02 Echo: LVEF 30-35%
#History of left atrial appendage thrombus.
Cardiomyopathy.
#Mural Thrombus?
#CAD- AWNING HANGER HELPER of mid LAD by catheterization,2022
- continue DAPT
#CVA 2015. Left hemispheric seen on MRI, questionable
right peripheral visual and quadriceps weakness on exam.
Low grade fever of 100.1 with WBC 12.3
etiology unclear. No obvious signs of infection. Ordered Blood Cx x 2 today. Recheck CBC in AM. Consider ID consult. Discussed with teenage program director
#INDU on CKD 3.
Renal stents.
BUN/Creat 104/1.8
elevated BUN disproportionate to Creat felt to be related to UGI bleed
input of nephrology appreciated
-INDU is suspected to be due to contrast nephropathy
-Continue to hold Lasix and Valsartan
#Liver transplant with history of cirrhosis.
#History of gastritis, GERD.
#Remote tobacco and alcohol abuse.
#Childhood epilepsy.
#Ambulatory dysfunction with fall risk.
#Osteoarthritis.
#Degenerative disc disease.
#Osteopenia.
DVT proph-SCDs. No chemical prophylaxis given suspected bleeding situation above.
Code Status: Full Code - this was confirmed in meeting with sister
Complex Critical Care situation. Will transfer pt to ICU. Discussed with Wilbert RN, pt, sister, GI, Cardio and CCM
Total Critical Care Time 55 minutes. I was immediately available to the patient and staff. I personally examined, reviewed labs, diagnostic images/reports, interpretations, treatment plans, discussed patient care with other providers and family
or caregivers (if patient is unable to make decisions), entered orders as appropriate and documented the medical record.
Disposition: SNF eventually
Anticipated Discharge: > 48 hours
Subjective/Interval History
-
Date of Service: June 09, 2025
Does not feel well, very weak. Still with chest wall pain
Objective Data
-
Labs:
Laboratory Results
06/09/25 06/09/25 06/09/25
06:07 06:08 13:58
WBC 12.3 H 11.5 H
Hgb 8.1 L 7.9 L
Hct 25.6 L 24.6 L
Plt Count 133 123 L
Sodium 137
Potassium 3.9
Chloride 108 H
Carbon Dioxide 21 L
BUN 111 H*
Creatinine 1.8 H
Glucose 114 H
Calcium 9.3
Total Bilirubin 1.8 H
AST 22
ALT 26
Alkaline Phosphatase 151 H
Vital Signs:
Vital Signs
Temp Pulse Resp BP Pulse Ox
100.1 F 95 14 103/49 90
06/09/25 11:06 06/09/25 11:06 06/09/25 11:06 06/09/25 11:06 06/09/25 11:06
I&O
06/08/25 06/09/25 06/10/25
06:59 06:59 06:59
Intake Total 360 / 360 180 / 180
Balance 360 / 360 180 / 180
Review of Systems
-
History Source: Patient, Family (reviewed with sister, both in room and out of room conference) and Coordinated Provider
Constitutional: Denies Fever
EENT: Reports No Symptoms Reported
Respiratory: Reports No Symptoms; Denies Cough
Cardiac: Reports Chest Pain (chest wall pain)
Abdomen/GI: Reports Bloody Stools; Denies Abdominal Pain
Genitourinary: Reports No Symptoms
Neuro: Reports No Symptoms
Physical Exam
-
General: Well Developed, Well Nourished and No Apparent Distress
HEENT: Normocephalic, Atraumatic and Moist Mucous Membranes
Respiratory: Clear to Auscultation; Negative Wheezes, Rales or Rhonchi
Cardiac: Regular Rhythm, S1/S2 and Other (left sided chest wall pain)
GI: Soft, Nontender and Nondistended
Musculoskeletal: No Clubbing
Neuro: Awake, Alert and Oriented
--- NOTE | 2025-06-09 17:15 | W.PN.UPDATE ---
Update Note
Progress Note Update
74-year-old F with PMHx of CKD, A-fib s/p Watchman, Hx of apical mural thrombus,
P/w fall, admitted for further care, found to have elevated troponin with EKG changes concerning for inferior wall STEMI. LHC on 06/01/2025 showed severe disease in RCA, thought to be chronic. Pt has been on ASA and plavix chronically. She
developed rectal bleeding on evening of 06/06 and GI consulted. PPI changed from 80mg PO daily to 40mg IV BID on 06/07. Pt brought to EGD today, however pt was hypotensive hence EGD was canceled.
Pertinent physical exam:
Impression:
#Acute anemia with concern for UGIB
#Hypotension
#Chronic HFrEF with stage II diastolic dysfunction
#Chronic hyperbilirubinemia
#Hx of liver transplant (2007) due to Hx of EtOH-cirrhosis
Plan:
- Concern for UGIB given elevated BUN greater than baseline
- Large bore IV x2
- Start LR at 75cc/hr
- Serial H/H and transfuse if needed to keep Hb>8g/dL mohsen given her CAD; keep plt>50k, INR<1.8
- GI consulted - defer endoscopy to them
- Hold antiplatelets/anticoagulants for now until told otherwise by GI; Cardiology following given her Hx of CAD
- If Hb is unstable going forward, then would hold BB so that we are not masking underlying GI bleed
- Continue TTR74ti IV BID
- Maintain MAP>65
- Start IVF as stated above
- pt going to be receiving 1 U PRBC, and this should also help her BP
- Trend WBC and monitor temperature curve
- Follow up blood Cx (drawn today)
- Pt has Hx of biliary duct focal narrowing - given her Hx of liver transplant, GI recommending MRCP to assess gallbladder + biliary tract to assess for stricture, obstruction vs leak
- Obtain RUQ US for now to eval for cholecystitis
- if pt spikes a fever then start Abx empirically mohsen as she is immunocompromised with prednisone, cellcept and cyclosporine, which are continued
- Maintain SpO2 >90-94%
- Maintain MAP>65
- Replete electrolytes with K>4, Mg>2
- Maintain euglycemia with goal BG 140-180
- Trend H/H and transfuse if needed to keep Hb>7g/dL; keep plt>20k, unless there is concern for bleeding then keep plt>50k
- prn nebulized bronchodilators - not currently bronchospastic
- Incentive spirometer encouraged 10x per hour for at least 4 hrs a day
- DVT ppx
Data:
Total time spent today was 82 minutes for this encounter. Time includes reviewing laboratory test/imaging results, reviewing pertinent medical records, obtaining and reviewing medical history, performing an appropriate exam, ordering medications,
tests and procedures. Time also includes documentation of this encounter, coordinating patient care and communicating with other healthcare professionals. Total time does not include separately billed tests performed on this date of service.
[2025-06-09] MEDS: NEORAL 25 MG PO (17:43)
--- NOTE | 2025-06-09 18:15 | PTCARENOTE ---
Pt rec'd from 4th floor. Pt rec'd A&Ox3. Drowsy. Pleasant. S1 S2 reg w/ NSR/PAC's on monitor. Weak PP. Trace generalized edema. Heels elevated on air pillow. On R/A....sats 96%. Lungs clear but diminished in bases w/ left base fine
crackles. Abdomen round...+BS. No void yet. Skin pale in color...scattered purple/black/blue ecchymosis on chest, bilateral arms and bilateral legs. Sacrum noted to have 3 stage 2 areas....1st one: 2cm, 2nd one: 3x0.5cm, 3rd one: 1/2 dime size.
Area cleansed and optifoam applied. Bilateral heels w/ optifoams. Left midline noted. VS documented....CHG bath completed....call joe within reach. Will review transfer orders.
[2025-06-09] MEDS: LR 1000 IV (18:39)
--- NOTE | 2025-06-09 20:05 | PTCARENOTE ---
Pt received at 19:00. Drowsy but easily arousable to verbal stimuli. Ox3. RA, breath sounds clear, diminished at the bases. Pulse ox mid 90s. SR w/ occasional PVCs. DP pulses weak but palpable. +bowel sounds, no BM at this time. No urine output
noted at this time. Pt states that LLE pain is better than before, however unable to rate. Scattered bruising--red/purple on chest/arms/RLE, LLE with black/purple bruising from knee down. Safe environment maintained, call joe within reach, pt
repositioned. Waffle cushion remains under sacrum. x1 unit PRBCs infusing at this time.
[2025-06-09] MEDS: SENOKOT-S 1 TABLET PO (20:53)
[2025-06-09] MEDS: OSCAL CAL 500 500 MG PO (20:53)
[2025-06-09] MEDS: TOPROL XL 50 MG PO (22:29)
[2025-06-09] MEDS: ULTRAM 50 MG PO (22:30)
[2025-06-09] MEDS: DILAUDID 0.5 MG IV (23:23)
[2025-06-09 23:39] LABS: APTT 30.9 Sec (23.4-35.0)
[2025-06-09 23:41] LABS: Ammonia < 9 umol/L (9-30)
[2025-06-09 23:47] LABS: Hematocrit 32.2 % (37.0-47.0); Hemoglobin 10.6 g/dL (12.0-16.0); Mean Corp Hgb Conc. 32.9 g/dL (33.0-37.0); Mean Corpuscular Volume 93.6 fL (81.0-99.0); Platelet Count 95 10^3/uL (130-400); Red Cell Dist. Width 16.0 % (11.5-14.5)
[2025-06-10] VITALS (36 sets, daily range): BP systolic 78–114; BP diastolic 37–63; BMI 23.6
[2025-06-10 00:22] LABS: Cortisol, Random 32.0 ug/dl
[2025-06-10] MEDS: VANCOCIN 275 MG IV (01:31)
[2025-06-10 04:08] LABS: Hematocrit 31.7 % (37.0-47.0); Hemoglobin 10.5 g/dL (12.0-16.0); Mean Corp Hgb Conc. 33.1 g/dL (33.0-37.0); Mean Corpuscular Volume 93.8 fL (81.0-99.0); Platelet Count 92 10^3/uL (130-400); Red Cell Dist. Width 16.6 % (11.5-14.5)
[2025-06-10 04:44] LABS: Blood Urea Nitrogen 111 mg/dl (7-17); Calcium 9.2 mg/dl (8.4-10.2); Carbon Dioxide 21 mmol/L (22-30); Chloride 108 mmol/L (98-107); Estimated Creatinine Clearance 18 ml/min; Glucose 127 mg/dl (70-99); Magnesium 2.3 mg/dl (1.6-2.3); Potassium 3.5 mmol/L (3.5-5.1); Sodium 135 mmol/L (135-145); eGFR 27.54
[2025-06-10] MEDS: KCL 160 MEQ IV (05:53)
[2025-06-10 06:33] LABS: Absolute Neutrophils -Man Diff 9.0 10^3/uL (1.4-6.5); Burr Cells 2+; Macrocytosis 3+; Normal RBC Morphology No; Platelets Checked Yes; Total Cells Counted 100
--- NOTE | 2025-06-10 06:58 | PTCARENOTE ---
Pt incontinent of urine x2, purewick now in place. Otherwise assessment unchanged.
[2025-06-10 07:39] LABS: Glucose - Point of Care 151 mg/dl (70-99)
--- NOTE | 2025-06-10 08:04 | W.PN.INTV ---
Today's Communication / Plan
Recommendations
- Continue LR
- Trend CBC, BMP
- Monitor VS, and signs of bleeding
- F/u blood cultures
- f/u neurology recommendations
- f/u abdominal US
- Plan for MRCP
Assessment
-
74 yo F PMH of ESLD with liver transplant in 2007 (EtOH, chronic immunosuppression), CKD stage 3 with renal stents, CAD, HTN, HLD, TIA, atrial fibrillation (not currently on apixaban), left atrial appendage clot, HFpEF, cardiomyopathy, Watchman
procedure (02/02/2025) who presented for a mechanical fall (tripping), experienced an PA during her admission and then was admitted to ICU for hypotension and UGIB.
# GI bleed - upper source
# Hypotension -- resolved
- Received 1 unit pRBC on 06/09/2025 evening, Hgb increased
- So far her BPs have been appropriate (100-110s/60s)
- Continue fluid resuscitation with LR
- GI is following
- Monitor VS, and monitor for signs of bleeding
- Trend CBC, BMP
# Biliary stricture
# Hx of liver transplant
- Plan for MRCP given hx of liver transplant and noted bile duct narrowing
- Abdominal US is ordered, f/u results
# Staph Aureus Bacteremia
- blood culture positive for staph aureus
- follow up repeat blood cultures
- Received vancomycin
# Dysarthria
# Metabolic encephalopathy
- Stroke alert was called
- CT head noncontrast negative
- Most like etiology is metabolic; extensive bruising, metabolism of the bruises can contribute to metabolic disturbances
- f/u neurology recommendations for stroke workup
# Disposition
- Pending further clinical workup
Subjective Dataa
Subjective Data
Date of Service:
Date of Service: June 10, 2025
Subjective:
74 yo F PMH of ESLD with liver transplant in 2007 (EtOH, chronic immunosuppression), CKD stage 3 with renal stents, CAD, HTN, HLD, TIA, atrial fibrillation (not currently on apixaban), left atrial appendage clot, HFpEF, cardiomyopathy, Watchman
procedure (02/02/2025) who presented for a mechanical fall (tripping), admitted to ICU for hypotension, IGIB.
This morning, comprehensive ROS unobtainable because patient had a change in mental status, with slurred speech and unable to move extremity. A stroke alert was called, which was negative for acute intracranial process (CT noncontrast head).
Objective Data
Data Reviewed
Vital Signs / I&O / Oxygen:
Vital Signs
Temp Pulse Resp BP Pulse Ox
98.0 F 91 19 93/47 100
06/10/25 03:30 06/10/25 05:15 06/10/25 05:15 06/10/25 05:00 06/10/25 05:59
Intake and Output
06/09/25 06/10/25 06/11/25
06:59 06:59 06:59
Intake Total 180 / 180 1235 / 1235
Balance 180 / 180 1235 / 1235
SaO2 100
Nasal Cannula flow liters per 2
minute
Physical Exam
General: Other (somnolent)
HEENT: Normocephalic and Anicteric
Cardiovascular: Regular Rhythm and Other (no murmurs)
Respiratory: Clear
GI: Non Tender
Neurology: Other (AOx1)
Skin: Warm and Dry
Labs/Micro/Reports
Lab Data
06/10/25 03:36
06/10/25 03:36
Laboratory Results
06/09/25
23:15
APTT 30.9
WBC 9.3
Hgb 10.5
Plt 92
K+ 3.5
BUN 111
Cr 1.9
Albumin 2.6
Microbiology
Blood culture = gram positive cocci for staph aureus
06/09/25 13:57 Blood/Venous Blood Culture - Preliminary
Positive culture in progress
06/09/25 13:57 Blood/Venous Gram Stain - Final
--- NOTE | 2025-06-10 08:07 | W.PN.NEPH.PH ---
Today's Communication / Plan
-
Holding diuretic
Check postvoid bladder scan to assess for urinary retention
Follow BMP
Kidney function and azotemia essentially unchanged
Assessment/Plan
-
Impression:
Mechanical fall (patient tripped over object) resulting in b/l knee contusions with hematoma and b/l knee effusions, left greater than right, Acute Anemia
STEMI (troponin peak ~17)
INDU with [id number] 1.6-1.9-Dr Erazo
Secondary hypertension undergoing bilateral renal artery stenting July 2022 (decrease in GFR following procedure?)
Hyperkalemia
Persistent atrial fibrillation. s/p watchman 01/2025
HFrEF. 30-35%
History of left atrial appendage thrombus.
Cardiomyopathy.
Mural Thrombus?
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
Immunocompromised s/p liver transplant 2007
CVA 2016. Left hemispheric seen on MRI
History of gastritis, GERD.
Remote tobacco and alcohol abuse.
Childhood epilepsy.
Ambulatory dysfunction with fall risk.
Osteoarthritis.
Degenerative disc disease.
Osteopenia.
h/o Left portal vein thrombosis
Plan:
INDU
-due to contrast nephropathy
-Endoscopy aborted yesterday due to fever and hypotension
-Creatinine continues to be close to baseline 1.9 but with worsening azotemia with BUN up to 111
-Patient hemodynamically unstable and transferred to the intensive care unit last evening
-Gram-positive cocci noted in blood from 06/09/2025 first blood culture (now on vancomycin)
-Hemoglobin dropping again endoscopy aborted due to fever and hypotension this morning
-Diuretics remain held and weight stable, urine output not recorded
-Disproportionate BUN to creatinine ratio could be due to underlying ongoing GI bleeding or cardiorenal syndrome
- Perform postvoid bladder scan to assess for any underlying urinary retention
- Okay for low rate lactated Ringer's at this time
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
incidental finding of STEMI s/p LHC on 06/01 RCA disease seem chronic
no intervention needed per cards
MRI left knee noted with tibial plateau fx non displaced, large effusion, menisci tear, distal femur infarct-no intervention
echo noted EF 30-35%, DD stage II. WMA. mod to severe TR with pulm HTN
-
-
Date of Service: June 10, 2025
CC / HPI / ROS
-
Chief Complaint:
INDU with CKD
History of Present Illness:
Creatinine stable at baseline at 1.9 with BUN up to 111
Hemodynamically labile (sbp drop to 70 ) with subsequent transfer to the intensive care unit on the evening of 06/09/2025
Anemia improved after 1 unit transfusion last evening on 06/09/2025
Review of Systems:
no cp or sob
Nausea
Confused
weight stable
No recording of urine output
Labs
-
Labs:
WBC 9.3 10^3/uL (4.8-10.8) 06/10/25 03:36
RBC 3.38 10^6/uL (4.20-5.40) L 06/10/25 03:36
Hgb 10.5 g/dL (12.0-16.0) L 06/10/25 03:36
Hct 31.7 % (37.0-47.0) L 06/10/25 03:36
Plt Count 92 10^3/uL (130-400) L 06/10/25 03:36
Sodium 135 mmol/L (135-145) 06/10/25 03:36
Potassium 3.5 mmol/L (3.5-5.1) 06/10/25 03:36
Chloride 108 mmol/L (98-107) H 06/10/25 03:36
Carbon Dioxide 21 mmol/L (22-30) L 06/10/25 03:36
BUN 111 mg/dl (7-17) H* 06/10/25 03:36
Creatinine 1.9 mg/dL (0.6-1.0) H 06/10/25 03:36
eGFR 27.54 06/10/25 03:36
Glucose 127 mg/dl (70-99) H 06/10/25 03:36
Calcium 9.2 mg/dl (8.4-10.2) 06/10/25 03:36
Phosphorus 3.5 mg/dl (2.5-4.5) 06/10/25 03:36
Albumin 2.6 g/dl (3.5-5.0) L 06/09/25 06:08
Physical Exam
-
Vital Signs:
Vital Signs
Temp Pulse Resp BP Pulse Ox
98.0 F 91 19 93/47 100
06/10/25 03:30 06/10/25 05:15 06/10/25 05:15 06/10/25 05:00 06/10/25 05:59
Cardiovascular:: Irregular rate and rhythm
Respiratory:: Bilateral: CTA
Lung Excursion:: Normal
Abdomen:: Nontender and Soft
Bowel Sounds:: Normal
Extremity Edema:: +1: Bilateral:
[place] Catheter: No
Other Findings::
bruising of left and right knee
--- NOTE | 2025-06-10 08:10 | PN.CDI ---
CDI
- -
CDI:
Physician Documentation Request
Admit Date: 05/31/25 18:32
Dear Doctor Yash,
Patient admitted after mechanical fall with bilateral knee contusions with hematoma.
06/09 Cardiology note. 'likely type II MO in setting of hypotension, tachycardia, anemia and underlying coronary artery disease.
06/09 PN, 'Likely a Type 2 NSTEMI in setting of nausea and relative hypotension, as well as underlying CKD, on 06/01/25 evening...Troponin peaked 17.3 on 06/02.'
Based on the above documentation and potentially conflicting documentation, please clarify in your note the likely type of myocardial infarction:
Type II MO only
NSTEMI only
Other
Extent of MO
STEMI - indicate the location and vessel involved
NSTEMI - subendocardial, nontransmural
Unable to determine
Type of MO
Type I
Type II (due to demand ischemia)
Other (Type 3, 4a, 4b, 4c, 5) please specify
Unable to determine
Use of terms such as suspected, likely, concern for, or probable (associated with a specific diagnosis that is being evaluated, monitored, or treated as if it exists) are acceptable and can be coded in the inpatient setting, when documented at the
time of discharge.
Thank you,
Cyndi FISHER,RN,CCDS
CDI Specialist
Available via [place] text
Please use your independent medical judgment in providing your response.
--- NOTE | 2025-06-10 08:16 | PHA.VAN.IN ---
Assessment
- Assessment
Renal Function: Appears similar to baseline
Plan
- Plan
Initial / Loading Dose: 1250mg - 06/10 01:31
Maintenance Regimen: dosing by level - give additional 500mg x1
Monitoring: random 06/11 06
Pharmacokinetics Vancomycin I
- -
Patient Age: 74
Patient Sex: Female
Vancomycin Day #: 1
Indication: Bacteremia
Requesting Provider: Calin Castellanos
Pertinent Antimicrobial Allergies:
NKDA
Height / Weight:
Height 4 ft 11 in
Actual Weight 52.9 kg
Pertinent Past Medical History: Liver transplant, CKD
- Vital Signs / Lab Results
Temp Pulse Resp BP Pulse Ox
98.0 F 91 19 93/47 100
06/10/25 03:30 06/10/25 05:15 06/10/25 05:15 06/10/25 05:00 06/10/25 05:59
Lab Results - Hematology
06/08/25 06/09/25 06/09/25
07:21 06:07 13:58
WBC 9.3 12.3 H 11.5 H
Band Neutrophils
06/09/25 06/10/25
23:15 03:36
WBC 10.2 9.3
Band Neutrophils 6 H
Lab Results - Chemistry
06/08/25 06/09/25 06/10/25
07:21 06:08 03:36
BUN 104 H* 111 H* 111 H*
Creatinine 1.8 H 1.8 H 1.9 H
Estimated Creat Clear 19 19 18
Albumin 3.0 L 2.6 L
Microbiology Results
06/09/25 13:57 Blood Culture - Preliminary
Blood/Venous Positive culture in progress
Gram Stain - Final
[2025-06-10] MEDS: LR 1000 IV (08:26)
[2025-06-10] MEDS: SENOKOT-S 1 TABLET PO (08:27)
[2025-06-10] MEDS: MIRALAX 17 GRAMS PO (08:27)
[2025-06-10] MEDS: DELTASONE 15 MG PO (08:28)
[2025-06-10] MEDS: NEORAL 50 MG PO (08:28)
[2025-06-10] MEDS: CELLCEPT 1000 MG PO (08:28)
[2025-06-10] MEDS: OSCAL CAL 500 PO ×2 (08:29→09:08)
[2025-06-10] MEDS: PROTONIX IV 40 MG IV ×2 (08:29→19:45)
[2025-06-10] MEDS: NSS (PRESERVATIVE FREE) 10 ML IV ×2 (08:29→19:45)
--- NOTE | 2025-06-10 08:46 | CON.NEURO4 ---
Addendum entered and electronically signed by Willian Lam MD 06/10/25 11:36:
Studies reviewed.
I have personally examined the patient. I reviewed and agree with the STEWARD/STEWARDESS CHIEF CARGO VESSEL's Note.
My addenda:
Awake, not alert, interactive. No acute distress.
Speech some repetitive phrases. At times nonwords are used.
Follows 1-step requests w/ difficulty. No tremor.
Extra-ocular movements grossly intact.
Facial movements full and symmetric. Hearing intact to normal conversational volume.
Normal UE movements bilaterally.
Neck: full ROM.
Chest: no dyspnea
Heart: no JVD
Ext: (-) Clubbing, (-) Cyanosis, (-) Edema
IMPRESSIONS/RECOMMENDATIONS:
Abrupt onset of change in mental status with aphasia and repetitive speech in a patient with prior stroke and numerous medical health issues
Most likely secondary to toxic metabolic encephalopathy
Check ammonia level
Check carotid ultrasound
Eventually recheck MRI of brain for completeness
D/W patient
Will continue to follow patient.
Original Note:
Documented by User: Amena Murray NP 06/10/25 10:45
Consultation - Neurology 4
-
CONSULTING PHYSICIAN: Willian Lam MD
REFERRING PHYSICIAN: Hospitalists/Dr. Berrios
DICTATED BY: THELMA Jones
DATE/TIME OF REQUEST: 06/10/25
DATE/TIME OF CONSULTATION: 06/10/25
Reason for Consultation: Stroke Alert
History of Present Illness:
This is a 74-year-old female who has presented to the hospital on 05/30/25 s/p mechanical fall at the grocery store, she was found to have a left tibial plateau fracture not requiring surgery. Hospitalization has been complicated by EKG concerning
for STEMI (s/p cardiac cath that demonstrated chronic CAD), INDU, anemia, hypotension, and now preliminary positive blood cultures. Patient has been evaluated by our inpatient Neurology service in 2015 and 2021 in the setting of vision loss and left
hand numbness. MRI brain in 2015 demonstrated an acute left temporal/optic radiation ischemic stroke; MRI brain in 2021 was negative.
This morning (06/10/25), patient was noted by nursing staff around 0645 to be acutely confused, unable to provide answers to basic questions and perseverating, prompting a stroke alert to be activated. CT head was obtained and is negative for any
acute abnormalities. NIHSS is 11 for inability to answer orientation questions, severe aphasia, and bilateral extremity weakness. She is not a candidate for TNK due to recent severe anemia. She is not a candidate for IAT due to greater concern of a
metabolic syndrome producing symptoms. She denies any headache, vision changes, numbness, and new weakness. She is currently on DAPT with aspirin 81mg and clopidogrel 75mg daily.
Past Medical History: Left temporal/optic radiation ischemic stroke (2015), Afib (Watchman), CKD, HFpEF, CAL thrombus, HTN, HLD, liver transplant 2007 in the setting of alcoholic cirrhosis, renal artery stenosis, portal vein thrombosis, GI bleed
Surgical History: Liver transplant, b/l renal artery stenting, Watchman 01/2025
Family History: Reviewed and noncontributory.
Social History: Former tobacco and alcohol abuse. No illicit drug use.
Allergies: No known allergies.
Home Medications: See below.
Review of Symptoms:
Per the HPI. I am unable to obtain a complete review of systems�because of patient's inability to provide history.
Physical Exam:
The patient is afebrile, abdomen is nondistended, breathing is unlabored, skin is cool and dry, severe ecchymosis LLE>RLE.
NIH Stroke Scale:
I performed the NIH stroke scale on the patient on 06/10/25 at 0900. The patient scored 11 points on the NIH stroke scale assessment, which were assigned as follows: See below.
Neurologic Examination:
The patient is drowsy, opens eyes to voice. Disoriented x3. She is able to follow commands and answer some questions appropriately. There is severe aphasia/word salad, perseveration. There is no dysarthria. On cranial nerve assessment, pupils are 3
mm bilateral, round and reactive to light and accommodation. Visual solorio are full. Extraocular movements are intact. Facial sensations are intact and bilaterally symmetrical, there is no facial asymmetry. Hearing is intact bilaterally to normal
conversation volume. Tongue palate and uvula are midline. Motor strengths are 4/5 bilateral upper and 1/5 bilateral lower extremities on medical research [place] scale. There is no drift in kitty upper extremities. No involuntary movement noted. Deep
tendon reflexes are 2+ bilateral upper and lower extremities (OVIDIO LLE) and Babinski is absent bilaterally. OVIDIO double simultaneous due to aphasia. Coordination is intact by finger to nose bilaterally.
Lab Results: See below.
Neuro Imaging:
1. CT Head 06/10/25: No acute intracranial abnormality appreciated. Mild atrophy and small vessel ischemic change, stable compared to prior head CT. ASPECTS score: 10/10.
Differentials for the patient's presentation include:
1. Acute confusion/word salad likely due to metabolic disturbance in the setting of possible sepsis, hypotension; alternative etiologies include seizure or stroke.
2. MRA Neck imaging from 2016 is suggestive of L ICA 65 % stenosis.
3. Hx of a left temporal/occipital radiation ischemic stroke.
4. Afib, s/p watchman.
Patient has the following risk factors for their symptoms: Afib, carotid stenosis, sepsis
IV Tenecteplase/IAT candidacy:She is not a candidate for TNK due to recent severe anemia. She is not a candidate for IAT due to greater concern of a metabolic syndrome producing symptoms.
Recommendations:
-Continue DAPT per Cardiology.
-Routine EEG pending.
-Carotid ultrasound pending.
-Goal normotension.
-LDL goal <70. LDL is 96. Initiate atorvastatin 40mg daily.
-Goal normoglycemia, hbA1c is pending.
-Ammonia level is pending.
-NIHSS and neurological checks per unit guidelines.
-Provide patient/family with a stroke education packet.
-PT/OT/ST
-DVT prophylaxis.
Discussed patient care with: Dr. Lam, the patient, nursing staff
Vital Signs and Labs
-
Vital Signs and Labs:
Vital Signs
Temp Pulse Resp BP Pulse Ox
98.1 F 91 19 93/47 100
06/10/25 08:17 06/10/25 05:15 06/10/25 05:15 06/10/25 05:00 06/10/25 05:59
Lab Results
06/10/25 03:36
06/10/25 03:36
PT 14.2 Sec (11.4-14.6) 06/08/25 07:21
INR 1.07 06/08/25 07:21
APTT 30.9 Sec (23.4-35.0) 06/09/25 23:15
Sodium 135 mmol/L (135-145) 06/10/25 03:36
Potassium 3.5 mmol/L (3.5-5.1) 06/10/25 03:36
BUN 111 mg/dl (7-17) H* 06/10/25 03:36
Glucose 127 mg/dl (70-99) H 06/10/25 03:36
Calcium 9.2 mg/dl (8.4-10.2) 06/10/25 03:36
Phosphorus 3.5 mg/dl (2.5-4.5) 06/10/25 03:36
LDL Cholesterol, Calc 96 mg/dl 06/02/25 04:19
Vitamin B12 > 1000 pg/ml (239-931) H 06/07/25 04:16
Medications
-
Active Medications
Generic Name Dose Route Start Last Admin
Trade Name Freq PRN Reason Stop Dose Admin
Bisacodyl 10 mg 05/30/25 22:56
Bisacodyl 10 Mg Rectal Suppository RECTAL 06/27/25 22:55
[id number] PRN
constipation
Calcium Carbonate 500 mg 05/31/25 08:00 06/10/25 09:08
Calcium Carbonate 500 Mg Tablet PO 06/28/25 07:59 Not Given
BID BRANDO
Cyclosporine 50 mg 05/31/25 08:00 06/10/25 08:28
Cyclosporine, Modified (Neoral) 25 Mg Capsule PO 06/28/25 07:59 50 mg
DAILY BRANDO Administration
Cyclosporine 25 mg 05/30/25 22:56 06/09/25 17:43
Cyclosporine, Modified (Neoral) 25 Mg Capsule PO 06/27/25 22:55 25 mg
QPM BRANDO Administration
Furosemide 40 mg 05/31/25 08:00 06/03/25 10:43
Furosemide 40 Mg Tablet PO 06/28/25 07:59 Not Given
On Hold: 06/03/25 12:41 DAILY BRANDO
Hydromorphone HCl 0.5 mg 06/09/25 23:17 06/09/25 23:23
Hydromorphone 0.5 Mg/0.5 Ml Syringe IV 06/23/25 23:16 0.5 mg
Q4HPRN PRN Administration
severe pain
Lactated Ringer's 1,000 mls @ 75 mls/hr 06/09/25 18:00 06/10/25 08:26
Lr IV 06/10/25 17:59 1,000 mls
[id number] BRANDO Administration
Vancomycin HCl 1 each/ Device 0 mls @ 0 mls/hr 06/10/25 01:05
IV
PER PROTOCOL BRANDO
Protocol
As Directed
Vancomycin HCl 100 mls @ 100 mls/hr 06/10/25 10:00
Vancocin Hcl 500 Mg IV 06/10/25 10:59
ONCE ONE
Metoprolol Succinate 50 mg 06/09/25 22:00 06/09/25 22:29
Metoprolol 50 Mg Extended Release Tablet PO 07/07/25 21:59 50 mg
HS BRANDO Administration
Mycophenolate Mofetil 1,000 mg 05/30/25 23:45 06/10/25 08:28
Mycophenolate 500 Mg Tablet PO 06/27/25 23:44 1,000 mg
BID BRANDO Administration
Pantoprazole Sodium 40 mg 06/07/25 20:00 06/10/25 08:29
Pantoprazole Sodium 40 Mg/10 Ml Vial IV 07/05/25 19:59 40 mg
BID BRANDO Administration
Polyethylene Glycol 17 grams 06/05/25 15:00 06/10/25 08:27
Polyethylene Glycol Powder 17 Grams Packet PO 07/03/25 14:59 17 grams
DAILY BRANDO Administration
Prednisone 15 mg 05/31/25 08:00 06/10/25 08:28
Prednisone 10 Mg Tablet PO 06/28/25 07:59 15 mg
DAILY BRANDO Administration
Senna/Docusate Sodium 1 tablet 06/06/25 20:00 06/10/25 08:27
Docusate W/Senna (Marily-Colace) Tablet PO 07/04/25 19:59 1 tablet
BID BRANDO Administration
Sodium Chloride 0 flush 06/01/25 21:00
Sodium Chloride 0.9% (Flush) Syringe IV 06/29/25 20:59
PER PROTOCOL BRANDO
Sodium Chloride 10 ml 06/07/25 20:00 06/10/25 08:29
Sodium Chloride 0.9% (Preservative Free) 10 Ml Vial IV 07/05/25 19:59 10 ml
BID BRANDO Administration
Tramadol HCl 50 mg 05/30/25 22:56 06/09/25 22:30
Tramadol Hcl 50 Mg Tablet PO 06/27/25 22:55 50 mg
Q6HPRN PRN Administration
moderate pain
Valsartan 40 mg 05/31/25 08:00 05/31/25 07:48
Valsartan 40 Mg Tablet PO 06/28/25 07:59 Not Given
On Hold: 06/01/25 07:54 DAILY BRANDO
Home Medications
�Medication �Instructions �Recorded
cyclosporine modified 25 mg 50 mg PO DAILY post liver 07/26/22
capsule (Gengraf) transplant
valsartan 80 mg tablet 40 mg PO DAILY Blood Pressure 07/21/24
calcium carbonate 500 mg PO BID Supplement 10/05/24
cyanocobalamin (vitamin B-12) 1,000 mcg PO Q48H Supplement 10/05/24
1,000 mcg tablet
ferrous sulfate 325 mg (65 mg 325 mg PO DAILY Supplement 10/05/24
iron) tablet (FeroSul)
mycophenolate mofetil 500 mg tablet 1,000 mg PO BID post liver 10/05/24
transplant
pantoprazole 40 mg tablet,delayed 40 mg PO DAILY Gastrointestinal 10/05/24
release Issue
cyclosporine modified 25 mg 25 mg PO QPM Transplant 02/02/25
capsule (Gengraf)
furosemide 20 mg tablet 40 mg PO DAILY 04/21/25
metoprolol succinate 100 mg 100 mg PO HS 04/21/25
tablet,extended release 24 hr
prednisone 10 mg tablet 10 mg PO DAILY 04/21/25
prednisone 5 mg tablet 5 mg PO DAILY 04/21/25
clopidogrel 75 mg tablet 75 mg PO DAILY 06/01/25
aspirin 81 mg tablet 81 mg PO DAILY 06/09/25
NIH Stroke Score
Subsequent NIH Scale
Date of Subsequent NIH Scale: 06/10/25
Time of Subsequent NIH Scale: 09:00
NIH Stroke Score
Level of Consciousness: 1 - Arousable
LOC Questions: 2-Neither correct
LOC Commands: 0-Performs both correctly
Best Horizontal Gaze: 0-Normal
Visual Solorio: 0=Normal, no visual loss
Facial Palsy: 0=Normal, symmetrical
Motor - Right Arm: 0=No drift 10 seconds
Motor - Left Arm: 0=No drift 10 seconds
Motor - Right Le-None vs. gravity
Motor - Left Le-None vs. gravity
Limb Ataxia: 0-Absent
Sensation: 0-Normal
Best Language: 2-Severe aphasia
Dysarthria: 0-Normal
Extinction and Inattention: 0-No abnormality
NIH Total Score:: 11
Modified [place] (mRS) Score
Modified [place] Scale (mRS): Moderate disability. Requires some help, able to walk unassisted.
Score: 3
Alteplase Contraindication
Inclusion and Exclusion criteria reviewed: Yes

Documented by User: Willian Lam MD 06/10/25 11:21
NIH Stroke Score
NIH Stroke Score
NIH Total Score:: 11
Modified [place] (mRS) Score
Score: 3
Past History
Past History
ED Past Medical History: Arrthythmia (Atrial fibrillation), CHF, CVA, GERD, HTN, Hypercholesterolemia, SD and Other (Alcoholic cirrhosis, Kawasaki's, anemia, renal artery stenosis, thrombus in the distal aortic arch,)
ED Past Surgical History: Other (Liver transplant in 2007)
Social History
Tobacco: Former smoker
Alcohol: Former
Drug: None
Personal:
Living: with family
--- NOTE | 2025-06-10 09:32 | PTCARENOTE ---
Assumed care of patient. Pt yelling out Help but unable to verbalize needs. Noted gaze preference to Left, No mvmt on LLE, weak all others. Word salad/expressive aphasia but receptive intact. PERRCOY. Stroke alert called and head CT performed.
Lam to bedside. See neuro note. Assessment as noted. Pt able to state she needs to void but unable to. Explained that purwick is in place without success, attempted bedpan also without success. Bladder scan 77cc.
--- NOTE | 2025-06-10 11:01 | W.PN.CD ---
Today's Communication / Plan
-
will plan for ASA 81mg monotherapy once Hgb stable
Impression / Plan
-
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 She had nausea
and so an EKG was checked to determine safety of antiemetics, but EKG findings were concerning for inferior STEMI. She was hypotensive (more than her baseline) and tachycardiac at the time ECG showed anteroseptal and inferior ST elevations. In this
setting, the labor mediator was activated for STEMI. Cath revealed coronary artery disease with new severe disease of the RCA from previous, which was likely chronic in nature.
Abnormal trop peak up to 17, likely type II [place] in setting of hypotension, tachycardia, anemia and underlying coronary artery disease.
- Cardiac catheterization 06/01/2025 results as noted below
- Was on DAPT but this is stopped for now in setting of bleeding
- Additional medical therapy limited by BP
Coronary artery disease:
-cath this admit: LAD: large vessel giving rise to a large septal branch and moderate caliber diagonal branch before being chronically occluded in the mid vessel with the distal vessel fed via L-L septal collaterals. There is otherwise diffuse mild
disease. The vessel is large unchanged in appearance from 2022 angiography. LCx: large vessel giving rise to a small OM1, moderate caliber OM2, and large LPL branch. There is diffuse mild disease largely unchanged from 2022 angiography. RCA: small
vessel giving rise to a small RPDA and small RPL branch. There is a subtotal ostial occlusion and diffuse moderate disease throughout the remainder of the vessel. The vessel is atretic in caliber compared to 202 angiography and there is evidence of
competitive flow in the RPDA. This all suggests the RPDA to be chronically occluded and not an infarct related artery.
- DAPT held for bleeding
- Medical therapy has been limited by blood pressure.
- will plan for ASA 81mg monotherapy once Hgb stable
.
INDU on CKD:
-nephrology consulted: lasix and ARB held
AFIB, paroxysmal:
-stable in SR
-patient with hx PVI and watchman 02/02/25
-will plan for ASA 81mg monotherapy once Hgb stable
HFrEF: chronic (LVEF 40-45% on most recent ALICE, but was 30-35% on most recent transthoracic study 06/02/2025, with mild/moderate MR, mod/severe TR)
-does not appear volume overloaded to assessment
-GDMT limited by BPs and renal function
-ARB held appropriately for renal dysfunction and BP's, restart possible outpt vs inpt
-continue metoprolol succinate
Hx liver tx
Physical Exam
Vital Signs/Labs
Vital Signs
Temp Pulse Resp BP Pulse Ox
98.1 F 90 22 104/52 98
06/10/25 08:17 06/10/25 10:00 06/10/25 10:00 06/10/25 10:00 06/10/25 10:00
06/09/25 06/10/25 06/11/25
06:59 06:59 06:59
Actual Weight 54.601 kg 52.9 kg
06/10/25 03:36
06/10/25 03:36
PT 14.2 Sec (11.4-14.6) 06/08/25 07:21
INR 1.07 06/08/25 07:21
APTT 30.9 Sec (23.4-35.0) 06/09/25 23:15
Magnesium 2.3 mg/dl (1.6-2.3) 06/10/25 03:36
Triglycerides 129 mg/dl (10-149) 06/02/25 04:19
LDL Cholesterol, Calc 96 mg/dl 06/02/25 04:19
VLDL Cholesterol, Calc 25 mg/dl (0-30) 06/02/25 04:19
HDL Cholesterol 61 mg/dl 06/02/25 04:19
Physical Exam
Constitutional: No acute distress
EENT: Moist mucous membranes
Cardiovascular: Rhythm & rate is regular, Pedal edema is absent, JVD pressure is normal and Systolic murmur absent
Respiratory: Respiratory effort normal and Lungs clear to auscul.
Neuro/Psych: Oriented
Data Reviewed
-
Date of Service: June 10, 2025
EKG: Other (Tele: SR, brief A fib)
Echo: Report Reviewed by me
Labs: Labs Reviewed by me
[2025-06-10 11:09] LABS: Glycohemoglobin (HgbA1c) 5.6 % (4.0-5.6)
[2025-06-10] MEDS: DILAUDID 0.5 MG IV ×2 (11:17→17:37)
--- NOTE | 2025-06-10 11:35 | W.PN.GI.CBS2 ---
Today's Communication / Plan
-
-- Treat sepsis, monitor for any GI output or overt bleeding
Assessment / Plan
-
74yo F with PMH of ESLD with prior liver transplant in 2007 due to ETOH on chronic immunosuppression, HTN, hyperlipidemia, TIA, afib (previously on Eliquis until this past January), left atrial appendage clot, HFpEF, cardiomyopathy, possible cirrhosis
of transplanted liver, ERCP with Dr. Telles at [facility] in July 2023 with attempt for cannulation without success with noted rise in LFT's and abnormal MRI imaging (per [facility] April 2023 MRI with focal narrowing of biliary duct, unable to
follow-up with procedures since that time. Was supposed to have appointment day after her fall. Has follow-up appointment in 3 months.) CAD, hypertension, CKD 3 with renal stents, CVA, ambulatory dysfunction, Watchman procedure 02/02/2025 with
postoperative complication of blood loss anemia, secondary to right femoral groin bleed while bearing down to have a bowel movement with no signs of GI bleeding at that time who presents to the emergency room with a trip and fall at the grocery
store with bilateral knee pain, large hematoma to left knee on 05/30/2025. We are asked to evaluate patient for blood mixed in with her stool. Since time of admission patient has had drop in hemoglobin with subsequent need for 2 units of packed red
blood cells. Nausea with subsequent EKG changes with NSTEMI type II, taken to [facility] with new severe disease of the RCA likely chronic in nature. Was recommend the patient continue dual antiplatelet therapy. Worsening BUN with initial rising
creatinine with now improvement of creatinine. Absence of bowel movement with need for Senokot on 06/06/2025. This resulted in black/bloody bowel movements. Subsequently had burgundy bowel movements and finally brown bowel movements all within 24
hours. Patient still with mild nausea. Patient currently on aspirin 81 mg, Plavix, iron, pantoprazole 80 mg daily and prednisone 15 mg daily that could contribute to the above.Currently WBC 10.4, hemoglobin 10.0, hematocrit 31.2, platelets 168,
troponin 2.7 (down from 2.8), sodium 137, potassium 4.4, BUN 110, creatinine 1.8, glucose 107, total bilirubin 1.5, AST 31, ALT 48, alk phos 182, PT 13.6, INR 1.0
Impression:
Blood in stools-> melena, burgundy blood, red blood last stool 06/07 brown
Nausea
Anemia--> s/p trf 2 units PRBC Hgb 10.0 currently
Abnormal Troponin-> Per Cardiology Type 2 MS
Cirrhosis
INDU on CKD
AFib
CAD
Hx Liver Transplant 2007
Fall with b/l knee contusions/hematoma, nondisplaced fractures of the central and anterolateral aspects of the tibial plateau; large bone infarct of the distal femur; oblique tear
hypoalbuminemia
Plan:
06/09/25
still with mild nausea with last stool brown BUN still elevated
would be concerned about Upper GI bleed - slow - planned for EGD today but cancelled due to clinical status - fever last night, low BP in GI suite
- discussed with Yash and RN
- would check cultures - patient is immunosuppressed
- added on LFTs, if worsening, MRCP
-Continue Pantoprazole 40 mg IV BID
reviewed with nursing would continued with midline for IV access
- low residue diet
-Trend CBC, BMP
last plavix 06/07
B12/folate stable -- iron studies not done but would not be helpful post transfusion
06/10/2025 -I am not concerned about GI bleeding. She has had no bowel movements. Her BUN is over 100 likely multifactorial from slow oozing in her GI tract plus the multiple areas of ecchymosis on her body
I am more concerned about sepsis
Her blood cultures are positive and she is on vancomycin
If the blood cultures do grow a gram-negative or abdominal type organism needs MRCP/MRI
Discussed with RN and resident
Subjective
Subjective
Date of Service: June 10, 2025
Patient has had no bowel movements. She feels weak but no more rigors
Objective
Data Reviewed
Laboratory Data:
Laboratory Results
06/10/25 03:36
06/10/25 03:36
Laboratory Results
PT 14.2 Sec (11.4-14.6) 06/08/25 07:21
INR 1.07 06/08/25 07:21
APTT 30.9 Sec (23.4-35.0) 06/09/25 23:15
Phosphorus 3.5 mg/dl (2.5-4.5) 06/10/25 03:36
Magnesium 2.3 mg/dl (1.6-2.3) 06/10/25 03:36
Total Bilirubin 1.8 mg/dl (0.2-1.3) H 06/09/25 06:08
AST 22 U/L (14-36) 06/09/25 06:08
ALT 26 U/L (0-35) 06/09/25 06:08
Alkaline Phosphatase 151 U/L (38-126) H 06/09/25 06:08
Lipase 87 U/L (23-300) 06/05/25 06:41
Vital Signs and I&O:
Vital Signs
Temp Pulse Resp BP Pulse Ox
98.1 F 90 22 104/52 98
06/10/25 08:17 06/10/25 10:00 06/10/25 10:00 06/10/25 10:00 06/10/25 10:00
I&O
06/09/25 06/10/25 06/11/25
06:59 06:59 06:59
Intake Total 180 / 180 1235 / 1310 300 / 300
Balance 180 / 180 1235 / 1310 300 / 300
Physical Exam
Physical Exam
HEENT: Anicteric (Mildly icteric)
Pulmonary: Clear
GI: Soft, Non Distended and Tender (Minimal tenderness diffusely)
Extremities: Other (Covered in ecchymosis)
[2025-06-10 12:04] LABS: Urine Character Clear (Clear)
--- NOTE | 2025-06-10 12:05 | PTCARENOTE ---
U/s ABD and carotids complete. Blood cx X1 completed. Straight cath I/O performed under sterile technique with 90cc bright orange UOP. Sister at bedside updated.
[2025-06-10 12:13] LABS: Ammonia < 9 umol/L (9-30)
[2025-06-10 12:34] LABS: ALT (SGPT) 20 U/L (0-35); AST (SGOT) 27 U/L (14-36); Albumin 2.5 g/dl (3.5-5.0); Alkaline Phosphatase 159 U/L (38-126); Total Protein 4.5 g/dl (6.3-8.2)
[2025-06-10 12:46] LABS: Urine Squamous Cell 0-2 /LPF (Few)
[2025-06-10 13:08] LABS: B.E. -6.3 mmol/L; HCO3 19.0 mmol/L (21-28); O2 Saturation % 95.7 % (94-98); PCO2 36 mmHg (32-35); PO2 69 mmHg (83-108)
[2025-06-10] MEDS: VANCOCIN HCL 500 MG 100 IV (13:15)
--- NOTE | 2025-06-10 13:46 | EEG.RPT ---
Electroencephalogram Report
Recording
Date of EE06/10/25
Type of EEG: Routine
Length of EEG recordin minutes
Done with Video Recording: Yes
Patient Status: Inpatient
Recording Conditions: Awake and Drowsy
Hyperventilation Performed: No
Photic Stimulation Performed: Yes
Report
LESS THAN 1 HOUR EEG REPORT
LESS THAN 1 HOUR EEG INTERPRETATION:
Moderately abnormal EEG for age due to diffuse bihemispheric slowing
CLINICAL CORRELATION:
This study was suggestive of diffuse cortical dysfunction without focal abnormality. No seizures were recorded.
Clinical correlation is advised.
METHODS:
A 21 channel digitized electroencephalogram (EEG) was performed at the bedside. The 10/20 international system of electrode placement was used with ECG and lateral/vertical eye movements recorded. Persyst QEEG monitoring was performed.
QUALITY OF STUDY:
Fair
ELECTROENCEPHALOGRAPHER IMPRESSION(S):
Background
There was a low amplitude unorganized anterior-posterior voltage gradient of delta frequency
There were no significant asymmetries of background activity noted.
Sleep
Drowsiness present
Photic Stimulation
Failed to activate the record.
ECG
Normal sinus rhythm
--- NOTE | 2025-06-10 15:26 | CM ---
Rapid response-stroke alert this am: aphasia, change in MS, repetitive speech.. CT head negative for bleed. Additional workup in process. Discharge POC: SNF. [facility] referrals previously forwarded.
--- NOTE | 2025-06-10 16:10 | PTOTSP ---
Speech Therapy Assessment
Patient is currently unsafe for oral intake due to lethargy and inability to generate swallow.
Recommend
1. NPO with non oral meds
2. SVP GROUP DIRECTOR to reassess in am
3. Oral care with suction toothbrush at least 3x daily
--- NOTE | 2025-06-10 16:11 | CON.ID ---
Consultation
-
Date/Time Consultation Requested: June 10, 2025 1553
Date/Time Consultation Performed: June 10, 2025 1610
Requesting Provider: Dr. Arnav Mc
Performing Provider: Dr. Frida Arambula
Reason for Consultation: Staph bacteremia
Chief Complaint / Past History
Chief Complaint
Fall
History of Present Illness
History obtained from review of medical records since patient currently very ill and lethargic. 74-year-old female with history of liver transplant on immunosuppressives, atrial fibrillation status post Watchman, CAD, heart failure with reduced EF,
who presented to the ED on May 30 after she fell in the grocery store. She sustained large left knee hematoma with tibial plateau fracture. On hospital day #2, patient developed STEMI. She was taken to [facility] emerg[facility], found to have new
severe disease of RCA, likely chronic in nature. Hospital course also complicated by GI bleed with black and bloody stools on 06/06. On June 09, GI planned for EGD which was canceled since patient was hypotensive with low-grade fever. She was
pancultured and started on IV vancomycin, transferred to ICU. Today blood cultures x 2 positive for Staphylococcus aureus. This morning, stroke alert was called due to acute change in mental status, aphasia and bilateral extremity weakness. Head
CT no acute pathology. Today she denies chest pain. No cough. She feels very weak and tired.
Past History
Additional Past Medical History:
Alcohol cirrhosis status post liver transplant 2007 on mycophenolate, cyclosporine, prednisone
Atrial fibrillation (hx left atrial appendage thrombus)status post Watchman procedure 01/2025
CAD
HFrEF
Mod-severe mitral and tricuspid valve regurgitation
Hypertension
Right pleural effusion
CVA
CKD 3
Renal artery stenosis status post bilateral renal stents
History of GI bleed
History of erythema nodosum
Cholecystectomy
Bilateral inguinal hernia repair
Allergy History:
No Known Allergies Allergy (Verified 04/21/25 09:25)
Medications Reviewed: Yes
Current Antibiotics:
Vancomycin
Social History
Tobacco: Former Smoker
Alcohol: Former
Drug: None
Family History
Family History: Not Pertinent
Review of Systems
Review of Systems
Unable to obtain fully as patient lethargic.
Vital Signs
Temp Pulse Resp BP Pulse Ox
98.0 F 85 20 93/46 94
06/10/25 15:56 06/10/25 15:08 06/10/25 15:08 06/10/25 15:08 06/10/25 15:00
Physical Exam
Physical Exam
Constitutional: Acutely Ill
Head: Other (No frontal or maxillary sinus tenderness)
Eyes: No Conjunctival Hemorrhage and Other (sclera icteric)
Cardiovascular: Regular Rate and S1/S2
Pulmonary: Clear (anteriorly) and Other (Decreased BS right base)
Gastrointestinal: Soft, Non Tender and Non Distended
Genito-Urinary: Negative CVA Tenderness
Extremities: Edema (LLE>RLE)
Musculoskeletal: Joint Swelling (Left knee)
Skin: Jaundice and Other (Diffuse ecchymosis on chest, BUE, BLE)
Neurological: Other (lethargic/arousable)
Lab / Diagnostic Study Results
06/10/25 03:36
06/10/25 03:36
Abs Immat Gran (auto) 0.1 10^3/uL (0-0.05) H 06/09/25 13:58
Absolute Neuts (auto) 11.1 10^3/uL (1.4-6.5) H 06/09/25 13:58
Absolute Lymphs (auto) 0.1 10^3/uL (1.2-3.4) L 06/09/25 13:58
Absolute Monos (auto) 0.2 10^3/uL (0.1-0.6) 06/09/25 13:58
Absolute Basos (auto) 0.0 10^3/uL (0-0.2) 06/09/25 13:58
Total Counted 100 06/10/25 03:36
Immature Gran % 0.7 % (0-0.5) H 06/09/25 13:58
Neutrophils % 96.6 % (42.2-75.2) H 06/09/25 13:58
Lymphocytes % 0.7 % (20.5-51.1) L 06/09/25 13:58
Monocytes % 1.7 % (1.7-9.3) 06/09/25 13:58
Eosinophils % 0.0 % (0-6) 06/09/25 13:58
Basophils % 0.3 % (0-2) 06/09/25 13:58
Abs Neuts (Manual) 9.0 10^3/uL (1.4-6.5) H 06/10/25 03:36
Segmented Neutrophils 91 % (42-75) H 06/10/25 03:36
Band Neutrophils 6 % (0-3) H 06/10/25 03:36
Eosinophils (Manual) 1 % (0-6) 06/10/25 03:36
PT 14.2 Sec (11.4-14.6) 06/08/25 07:21
INR 1.07 06/08/25 07:21
Ur Squamous Epith Cells 0-2 /LPF (Few) 06/10/25 11:43
Microbiology Results
Micro:
06/10/25 11:43 Blood Culture - Pending
Blood/Venous
06/10/25 11:43 Urine Culture - Pending
Urine
06/09/25 13:57 Blood Culture - Preliminary
Blood/Venous Staphylococcus aureus
Gram Stain - Final
06/09/25 14:50 Blood Culture - Preliminary
Blood/Venous Staphylococcus aureus
Gram Stain - Preliminary
06/10/25 Abd US: No intra or extrahepatic biliary ductal dilation demonstrated. Right pleural effusion, partially imaged.
06/08/25 CXR: Suspect mild central pulmonary vascular congestion.
06/02/25 Left Knee MRI: Nondisplaced fractures of the central and anterolateral aspects of the tibial plateau. No evidence for displacement or articular surface depression.
Large bone infarct of the distal femur. Oblique tear of the posterior horn of the medial meniscus. Large knee joint effusion. Osteoarthrosis of the right knee with tricompartmental chondromalacia, most severe in the lateral aspect of the
patellofemoral compartment with extensive full-thickness chondromalacia.
Assessment / Plan
# MSSA bacteremia x 2 sets (on hospital day 11)
# Severe sepsis, hypotension, bandemia
# INDU on CKD
# Acute mental status change
# CAD, ICM recent NSTEMI s/p cardiac cath without intervention
# GIB with blood loss anemia
# Fall with left Knee hematoma, tibial plateau fracture
# Immunocompromised host: Liver transplant on mycophenolate, cyclosporine, prednisone
# Afib with CAL thrombus s/p Watchman 01/2025
- 06/02 TTE no gross vege
- Repeat blood cx today and x 2 in am.
- If bacteremia sustained, recommend ALICE and consider septic emboli to DIRECTOR WEIGHTS AND MEASURES.
- Start cefazolin 2g IV q12h.
- DC Vancomycin when final blood cx neg MRSA.
- Continue ICU support.
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
Alcohol cirrhosis status post liver transplant 2007 on mycophenolate, cyclosporine, prednisone
Atrial fibrillation (hx left atrial appendage thrombus)status post Watchman procedure 01/2025
CAD
HFrEF
Mod-severe mitral and tricuspid valve regurgitation
Hypertension
Right pleural effusion
CVA
CKD 3
Renal artery stenosis status post bilateral renal stents
History of GI bleed
History of erythema nodosum
Cholecystectomy
Bilateral inguinal hernia repair
--- NOTE | 2025-06-10 16:45 | PTCARENOTE ---
Dobhoff placed in r nare at 60cm. Awaiting XR to confirm placement
--- NOTE | 2025-06-10 17:16 | W.PN.HOSP.TC ---
Today's Communication/Plan
-
Vancomycin for Staph aureus bacteremia
Assessment / Plan
Assessment / Plan
Assessment/Plan
74-year-old female with PMH significant for persistent symptomatic atrial fibrillation, left atrial appendage clot identified in 2022 with clot reassessed July 2024 and found to be still present, maintained on
metoprolol and anticoagulated with Eliquis 2.5 mg b.i.d. 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
transplant due to cirrhosis 2007, on immunosuppressants and modulators, Her [id number] is 6, Watchman Device placed on February 02, 2025 with postoperative complication of blood loss anemia due to GI bleeding, who presented to ED due to trip and fall
at grocery store, no LOC, denied hitting her head, and c/o b/l knee pain and left lateral rib pain, incident occurred directly prior to arrival.
CARLO wrap and knee immobilizer placed in ED. Large hematoma to left anterior knee, unable to ambulate safely after presentation due to pain. Could not tolerate knee immobilizer due to bulkiness.
#Likely a Type 2 RI in setting of nausea and relative hypotension, as well as underlying CKD, on 06/01/25 evening
Troponin peaked 17.3 on 06/02
-LVEDP was 16 during cardiac cath
-EKG had been checked on 06/01/25 to check QTc for Zofran administration for severe nausea, and it showed STEMI
-Cardiac Cath on 06/01/25 evening showed coronary artery disease with new severe disease of the RCA from previous (subtotal chronic occlusion of RCA new from 2022 but clearly not acute (and not amenable to revasc)) and stable APPLIANCE WORKER of mid LAD, which
was likely chronic in nature
-Per Dr. Bower, EKG changes were secondary to whatever was causing her to have nausea and hypotension and not the other way around; patient likely a type II NSTEMI. Her LAD has been chronically occluded for years and
the RCA does not look like it�s amenable to revascularization.
06/01 heart cath report: CORONARY ANGIOGRAPHY
Dominance: Right
LM: large with mild disease
LAD: large vessel giving rise to a large septal branch and moderate caliber diagonal branch before being chronically occluded in the mid vessel with the distal vessel fed via L-L septal collaterals. There is otherwise diffuse mild disease. The
vessel is large unchanged in appearance from 2022 angiography.
LCx: large vessel giving rise to a small OM1, moderate caliber OM2, and large LPL branch. There is diffuse mild disease largely unchanged from 2022 angiography.
RCA: small vessel giving rise to a small RPDA and small RPL branch. There is a subtotal ostial occlusion and diffuse moderate disease throughout the remainder of the vessel. The vessel is atretic in caliber compared to 2022 angiography and there is
evidence of competitive flow in the RPDA. This all suggests the RPDA to be chronically occluded and not an infarct related artery.
-Will need to stop DAPT -- patient was getting DAPT since hospital admission, due to declining Hgb, probably from GI bleeding. Call placed and discussed with Dr. Norris 06/09. She was made aware of current status, she will see patient
-Continue beta thu
-Patient is not on statin given history of liver transplant
-Patient had chest pain again on 06/06/25 -- likely chest wall pain (reproducible, worse with breathing) -- related to recent fall STEEL HEATER?
06/08 EKG: NORMAL SINUS RHYTHM
NONSPECIFIC ST AND T WAVE ABNORMALITY
ABNORMAL ECG
WHEN COMPARED WITH ECG OF 06-JUN-2025 15:08,
NO SIGNIFICANT CHANGE WAS FOUND
#Nausea again on 06/05/25 -- persisting as of 06/06/25
-Last time patient has nausea, had to be taken urgently to dental laboratory worker (which showed chronic disease in both territories) given concern for STEMI in setting of hypotension -- nausea and hypotension at that time improved
spontaneously/with anti-emetics
-AXR suggested constipation -- so made Miralax daily on scheduled basis, instead of PRN. Add Senokot on 06/06/25 since still no bowel movements.
#Mechanical fall (patient tripped over object) resulting in b/l knee contusions with hematoma and b/l knee effusions, left greater than right, and inability to ambulate safely
#Large Left Knee Joint Effusion
-Cont CARLO bandage/wound care
-PT/OT evaluation
-Ortho consulted given concern for worsened suspected hemarthrosis: MRI showed: nondisplaced fractures of the central and anterolateral aspects of the tibial plateau; large bone infarct of the distal femur; oblique tear
of the posterior horn of the medial meniscus; large knee joint effusion.
-Appreciate ortho: maintain strict non-weight bearing to left lower extremity; can stop knee immobilizer; may perform range of motion as tolerated.
-Pain control; Ice and elevation for pain and edema control.
-Follow-up with Dr. Stevens in the office in 2 weeks for repeat x-rays.
#Immunocompromised s/p liver transplant
Liver Transplant was 19 years ago
-continue home meds cyclosporine, prednisone, mycophenolate
#Worsened Anemia in the Setting of Likely Left Knee Bleeding and lower extremity ecchymosis from mechanical fall
-Patient provided blood consent and understood all risks and benefits
-Hgb dropped to 7.1, patient says baseline is 9 to 10
-Transfused 1 unit PRBC on 06/01/25 given the above; a lengthy curbside discussion with upholstery mechanic and it was decided that since patient had no issues with standard leukoreduced PRBC transfusion in 2022 (well after her liver transplant), it is
appropriate to provide patient with standard leukoreduced PRBCs this admission
-Transfused another 1 unit of PRBC on 06/05/25 to address possible cardiac ischemic issues as discussed with Dr. Jackson (see above)
-Cardiology recommended to keep Hgb at least 8 but perhaps higher
Ordered 3rd unit 06/09 given
Hgb 7.9-->10.5
#Hyperkalemia
resolved
GI bleed
GI consult. Plan was to do a EGD 06/09, pt status felt to be too tenuous and EGD was cancelled. Though pt had passed bloody stools as well as melanotic stools, it was felt that colo would not be tolerated
monitor Hgb
Hgb 10.1-->9.5-->10.1-->10.0-->9.5-->9.2-->8.1-->(Hgb repeated to confirm prior was not a false reading)7.9-1 unit transfused-->10.5
Protonix 40 mg IV q12h.
#Persistent atrial fibrillation -- no longer on anticoagulation since had Watchman Device months ago; currently on DAPT as would be expected
#HFrEF ---- GDMT limited by BPs and renal function; ARB held appropriately for renal dysfunction and BP's; continue metoprolol as able with regards to hypotension
06/02 Echo: LVEF 30-35%
#History of left atrial appendage thrombus.
Cardiomyopathy.
#Mural Thrombus?
#CAD- APPLIANCE WORKER of mid LAD by catheterization,2022
- continue DAPT
#CVA 2015. Left hemispheric seen on MRI, questionable
right peripheral visual and quadriceps weakness on exam.
Low grade fever of 100.1 on 06/09 @11:06 with WBC 12.3-->11.5-->10.2-->9.3
etiology unclear. No obvious signs of infection. Ordered Blood Cx x 2 was pos for Staph aureus
started on Vancomycin. ID consult placed
#INDU on CKD 3.
Renal stents.
BUN/Creat 104/1.8
elevated BUN disproportionate to Creat felt to be related to UGI bleed
input of nephrology appreciated
-INDU is suspected to be due to contrast nephropathy
-Continue to hold Lasix and Valsartan
#Liver transplant with history of cirrhosis.
#History of gastritis, GERD.
#Remote tobacco and alcohol abuse.
#Childhood epilepsy.
#Ambulatory dysfunction with fall risk.
#Osteoarthritis.
#Degenerative disc disease.
#Osteopenia.
DVT proph-SCDs. No chemical prophylaxis given suspected bleeding situation above.
Code Status: Full Code - this was confirmed in meeting with sister 06/09, explained poor prognosis due to severe burden of pathology
Will continue in ICU
Total Critical Care Time 60 minutes. I was immediately available to the patient and staff. I personally examined, reviewed labs, diagnostic images/reports, interpretations, treatment plans, discussed patient care with other providers and family
or caregivers (if patient is unable to make decisions), entered orders as appropriate and documented the medical record.
Disposition: SNF eventually
Anticipated Discharge: > 48 hours
Subjective/Interval History
-
Date of Service: June 10, 2025
Pt very weak, but denies significant pain
Objective Data
-
Labs:
Laboratory Results
06/10/25 06/10/25
11:43 12:56
HCO3 19.0 L
Total Bilirubin 1.8 H
AST 27
ALT 20
Alkaline Phosphatase 159 H
Vital Signs:
Vital Signs
Temp Pulse Resp BP Pulse Ox
98.0 F 86 24 102/51 96
06/10/25 15:56 06/10/25 16:30 06/10/25 16:30 06/10/25 16:00 06/10/25 16:30
I&O
06/09/25 06/10/25 06/11/25
06:59 06:59 06:59
Intake Total 180 / 180 1235 / 1310 775 / 775
Output Total 90 / 90
Balance 180 / 180 1235 / 1310 685 / 685
Review of Systems
-
History Source: Physician and Coordinated Provider
Constitutional: Denies Fever
EENT: Reports No Symptoms Reported
Respiratory: Reports No Symptoms
Cardiac: Reports No Symptoms
Musculoskeletal: Reports Muscle Weakness
Neuro: Reports Other (lethargic)
Physical Exam
-
General: Well Developed, Well Nourished, No Apparent Distress and Appears Chronically Ill
HEENT: Normocephalic and Atraumatic
Respiratory: Clear to Auscultation; Negative Wheezes, Rales or Rhonchi
Cardiac: Regular Rhythm and S1/S2
GI: Soft, Nontender and Nondistended
Musculoskeletal: No Clubbing, No Cyanosis and No Edema
[2025-06-10] MEDS: ANCEF 10 IV (18:27)
[2025-06-10] MEDS: NEORAL 25 MG TUBE (19:44)
[2025-06-10] MEDS: CELLCEPT 1000 MG TUBE (19:44)
[2025-06-10] MEDS: CALCIUM CARBONATE ORAL SUSP 500 MG TUBE (19:45)
[2025-06-10] MEDS: NSS 250 IV (19:48)
[2025-06-10] MEDS: SENOKOT-S 1 TABLET TUBE (19:50)
--- NOTE | 2025-06-10 21:18 | PTCARENOTE ---
Pt received at 19:00, shift change NIH = 22. Drowsy-arousable to verbal stimuli, aphasic, only command followed t/o assessment was to squeeze hands, B/L UE with drift, B/L LE with no resistance to gravity, opens eyes with no tracking. BP 91/48 (MAP
62). Neuro and I-DENTAL TECHNICIAN METAL made aware. 250ml NSS bolus ordered and given for BP support, BP now 110s/50s (MAP 70s). NIH now = 21, pt able to state her name, otherwise assesment unchanged. Neuro updated-no further orders. SR with weak but palpable pulses.
RA, pulse ox 99%, clear-diminished at the bases. +BS, small soft brown/green BM. No urine output noted at this time. Sacral foam soiled and changed--skin prep and foam applied. Waffle cushion under sacrum. Pt respositioned q2h, safe environment
maintained. Pt sister called, updated.
[2025-06-11] VITALS (54 sets, daily range): BP systolic 83–139; BP diastolic 44–74; BMI 25.0
--- NOTE | 2025-06-11 00:46 | PTCARENOTE ---
PVR = 84ml. Incontinent-saturated. Otherwise assessment unchanged.
[2025-06-11] MEDS: OFIRMEV 100 IV (02:30)
[2025-06-11] MEDS: DILAUDID 0.5 MG IV ×3 (02:51→17:40)
--- NOTE | 2025-06-11 02:52 | PTCARENOTE ---
Pt agitated and yelling out 'help me' 'hurry' and 'it hurts'. Unable to answer any questions, responds 'yes' to every question asked. Ofirmev x1 given as ordered CPOT = 8. Pt continued yelling out, CPOT = 8. Pt given PRN dilaudid 0.5mg, now resting
comfortably.
[2025-06-11] MEDS: NSS 250 IV (04:14)
--- NOTE | 2025-06-11 04:48 | PTCARENOTE ---
BP 90s/40s, with MAP low 60s. 250ml NSS bolus ordered and given, BP 107/48 (MAP 66).
[2025-06-11 05:33] LABS: Hematocrit 25.1 % (37.0-47.0); Hemoglobin 8.3 g/dL (12.0-16.0); Mean Corp Hgb Conc. 33.1 g/dL (33.0-37.0); Mean Corpuscular Volume 93.0 fL (81.0-99.0); Platelet Count 62 10^3/uL (130-400); Red Cell Dist. Width 16.8 % (11.5-14.5)
[2025-06-11 05:44] LABS: Blood Urea Nitrogen 107 mg/dl (7-17); Calcium 8.1 mg/dl (8.4-10.2); Carbon Dioxide 19 mmol/L (22-30); Chloride 112 mmol/L (98-107); Estimated Creatinine Clearance 16 ml/min; Glucose 92 mg/dl (70-99); Potassium 3.4 mmol/L (3.5-5.1); Sodium 136 mmol/L (135-145); eGFR 23.09
--- NOTE | 2025-06-11 05:59 | W.PN.GI.CBS2 ---
Today's Communication / Plan
-
Hgb remains stable and without any further GI bleeding. Still would defer any plans for endoscopy at this time given her critical condition. Agree with IV abx and ongoing supportive care. See rest of care as outlined below. GI will sign-off, please
recontact with any questions or concerns.
Assessment / Plan
-
74yo F with PMH of ESLD with prior liver transplant in 2007 due to ETOH on chronic immunosuppression, HTN, hyperlipidemia, TIA, afib (previously on Eliquis until this past January), left atrial appendage clot, HFpEF, cardiomyopathy, possible cirrhosis
of transplanted liver, ERCP with Dr. Telles at [facility] in July 2023 with attempt for cannulation without success with noted rise in LFT's and abnormal MRI imaging (per [facility] April 2023 MRI with focal narrowing of biliary duct, unable to
follow-up with procedures since that time. Was supposed to have appointment day after her fall. Has follow-up appointment in 3 months.) CAD, hypertension, CKD 3 with renal stents, CVA, ambulatory dysfunction, Watchman procedure 02/02/2025 with
postoperative complication of blood loss anemia, secondary to right femoral groin bleed while bearing down to have a bowel movement with no signs of GI bleeding at that time who presents to the emergency room with a trip and fall at the grocery
store with bilateral knee pain, large hematoma to left knee on 05/30/2025. We are asked to evaluate patient for blood mixed in with her stool. Since time of admission patient has had drop in hemoglobin with subsequent need for 2 units of packed red
blood cells. Nausea with subsequent EKG changes with NSTEMI type II, taken to [facility] with new severe disease of the RCA likely chronic in nature. Was recommend the patient continue dual antiplatelet therapy. Worsening BUN with initial rising
creatinine with now improvement of creatinine. Absence of bowel movement with need for Senokot on 06/06/2025. This resulted in black/bloody bowel movements. Subsequently had burgundy bowel movements and finally brown bowel movements all within 24
hours. Patient still with mild nausea. Patient currently on aspirin 81 mg, Plavix, iron, pantoprazole 80 mg daily and prednisone 15 mg daily that could contribute to the above.Currently WBC 10.4, hemoglobin 10.0, hematocrit 31.2, platelets 168,
troponin 2.7 (down from 2.8), sodium 137, potassium 4.4, BUN 110, creatinine 1.8, glucose 107, total bilirubin 1.5, AST 31, ALT 48, alk phos 182, PT 13.6, INR 1.0
Blood in stools-> melena, burgundy blood, red blood last stool 06/07 brown c/f Obscure GI bleed
Nausea
Anemia--> s/p trf 2 units PRBC Hgb 10.0 currently
Abnormal Troponin-> Per Cardiology Type 2 [place]
Cirrhosis
INDU on CKD
AFib
CAD
Hx Liver Transplant 2007
Fall with b/l knee contusions/hematoma, nondisplaced fractures of the central and anterolateral aspects of the tibial plateau; large bone infarct of the distal femur; oblique tear
hypoalbuminemia
Concern for obscure GI bleed in setting of prior DAPT now with sepsis secondary staph aureus bacteremia pending further infectious w/u.
Recommendations:
- Diet as tolerated
- Remains on IV abx and ID consulted given recent staph aureus bacteremia. Appreciate recs
- Continue to trend serial Hgb, transfuse for goal Hgb > 8.0 given cardiac hx
- IV PPI 40 mg BiD
- As without any further overt GI bleeding and concern for sepsis, previous endoscopy was deferred
- Would still defer any plans for an endoscopy at this time given her critical condition and without any further overt GI bleeding
- Suspect her previously elevated BUN in setting of renal dysfunction as well
- DAPT remains on hold, Cardiology following and appreciate recs
- If evidence of brisk hematochezia, would consider CTA in attempts of localization
- Recommend further GOC discussions, prognosis remains guarded
- Rest of care as per primary team
Discussed with internal medicine team this AM. GI will sign-off. Please recontact with any questions or concerns.
Subjective
Subjective
Date of Service: June 11, 2025
- On IV Vancomycin for staph aureus bacteremia
- No further bloody stools, having brown/green bowel movements
- Hgb 7.9 -> 10.6 -> 10.5 (suspect overcorrection after transfusion) with repeat CBC with Hgb 8.3 -> 9.7
- Otherwise, no acute events overnight
Confused this AM, subjective limited. In discussion with nursing, denies any further dark black stools or bloody stools. Having brown-green bowel movements. No nausea or vomiting.
Objective
Data Reviewed
Laboratory Data:
Laboratory Results
06/11/25 04:45
Laboratory Results
PT 14.2 Sec (11.4-14.6) 06/08/25 07:21
INR 1.07 06/08/25 07:21
APTT 30.9 Sec (23.4-35.0) 06/09/25 23:15
Phosphorus 3.5 mg/dl (2.5-4.5) 06/10/25 03:36
Magnesium 2.3 mg/dl (1.6-2.3) 06/10/25 03:36
Total Bilirubin 1.8 mg/dl (0.2-1.3) H 06/10/25 11:43
AST 27 U/L (14-36) 06/10/25 11:43
ALT 20 U/L (0-35) 06/10/25 11:43
Alkaline Phosphatase 159 U/L (38-126) H 06/10/25 11:43
Lipase 87 U/L (23-300) 06/05/25 06:41
Vital Signs and I&O:
Vital Signs
Temp Pulse Resp BP Pulse Ox
98.5 F 79 11 107/48 98
06/10/25 22:54 06/11/25 04:45 06/11/25 04:45 06/11/25 04:40 06/11/25 04:45
I&O
06/09/25 06/10/25 06/11/25
06:59 06:59 06:59
Intake Total 180 / 180 1235 / 1310 925 / 925
Output Total /
Balance 180 / 180 1235 / 1310 835 / 835
Physical Exam
Physical Exam
HEENT: Anicteric and Moist mucous membranes
Cardiology: Other (RR on tele)
Pulmonary: Other (Normal WOB on room air)
GI: Soft, Non Distended and Non Tender
Extremities: No Edema
Neuro: Non Focal
[2025-06-11] MEDS: ANCEF 10 IV ×2 (06:24→17:40)
[2025-06-11] MEDS: KCL 270 MEQ IV (06:24)
--- NOTE | 2025-06-11 07:46 | W.PN.INTV ---
Today's Communication / Plan
Recommendations
- Fluids
- Trend CBC, BMP
- Continue antibiotics
- F/u serial blood cultures
- MRI brain and spine
- consider goals of care discussion
Assessment
-
74 yo F PMH of ESLD with liver transplant in 2007 (EtOH, chronic immunosuppression), CKD stage 3 with renal stents, CAD, HTN, HLD, TIA, atrial fibrillation (not currently on apixaban), left atrial appendage clot, HFpEF, cardiomyopathy, Watchman
procedure (02/02/2025) who presented for a mechanical fall (tripping), experienced an OR during her admission and then was admitted to ICU for hypotension and UGIB.
# Hypotension
# Upper GI bleed
# Anemia
# Thrombocytopenia
- Hypotensive with BP in 100s/50s, labile BP over course of admission
- Hgb drop but no signs of bleeding
- GI is following
- Monitor VS
- Trend CBC, BMP
- Consider tube feeds to improve hypotension
- If repeat hemoglobin < 8, consider transfusion with 1u pRBC given cardiovascular disease
# Staph Aureus Bacteremia
- blood culture positive for staph aureus
- follow up repeat blood cultures
- Received vancomycin
- On cefazolin
- MRI brain and C/T/L-spine ordered to evaluate for source of infection
- Cardiology following, may need ALICE if persistently bacteremic
# Encephalopathy
- Etiology may be a combination of hypotensive, metabolic, and infectious
- She is bacteremic, and even if she has developed meningitis, she is being treated with antibiotics. Hence, per neurology, the utility of an LP is questionable because management is unlikely to change
- per above, optimize BP with tube feeds and follow-up evaluation of mental status
- her mental status is consistent with delirium
- MRI brain ordered to evaluate mental status changes
- f/u neurology recommendations
# Biliary stricture
# Hx of liver transplant
- Abdominal US and MRCP were both largely unremarkable
# Disposition
- Pending further clinical workup
- goals of care discussion may be considered
Subjective Dataa
Subjective Data
Date of Service:
Date of Service: June 11, 2025
Subjective:
74 yo F PMH of ESLD with liver transplant in 2007 (EtOH, chronic immunosuppression), CKD stage 3 with renal stents, CAD, HTN, HLD, TIA, atrial fibrillation (not currently on apixaban), left atrial appendage clot, HFpEF, cardiomyopathy, Watchman
procedure (02/02/2025) who presented for a mechanical fall (tripping), admitted to ICU for hypotension, IGIB.
Interim events: abdominal US done yesterday: normal; MRCP done yesterday evening: stable ductal dilation.
Hemoglobin drop from 10.5 to 8.3 this morning; however, no signs of bleeding.
This morning, she is AOx0 and still very weak.
Objective Data
Data Reviewed
Vital Signs / I&O / Oxygen:
Vital Signs
Temp Pulse Resp BP Pulse Ox
98.5 F 87 13 101/48 96
06/10/25 22:54 06/11/25 07:00 06/11/25 07:00 06/11/25 07:00 06/11/25 07:00
Intake and Output
06/10/25 06/11/25 06/12/25
06:59 06:59 06:59
Intake Total 1235 / 1310 925 / 925
Output Total 90 / 90
Balance 1235 / 1310 835 / 835
SaO2 96
Nasal Cannula flow liters per 2
minute
Physical Exam
General: Other (somnolent)
HEENT: Normocephalic and Anicteric
Cardiovascular: Regular Rhythm and Other (no murmurs)
Respiratory: Clear
GI: Non Tender
Neurology: Awake and Other (AOx0)
Skin: Warm and Dry
Labs/Micro/Reports
Lab Data
06/11/25 04:45
Laboratory Results
06/10/25
12:56
pH 7.33 L
pCO2 36 H
pO2 69 L
HCO3 19.0 L
O2 Delivery Level
WBC 7.7
Hgb 8.3
Plt 62
Cr 2.2 (from 1.9 prior)
Microbiology
06/09/25 13:57 Blood/Venous Blood Culture - Preliminary
Staphylococcus aureus
06/09/25 13:57 Blood/Venous Gram Stain - Final
06/09/25 14:50 Blood/Venous Blood Culture - Preliminary
Staphylococcus aureus
06/09/25 14:50 Blood/Venous Gram Stain - Preliminary
Imaging
MRCP 06/10/2025:
IMPRESSION:
1. Status post cholecystectomy. Probable dilated cystic duct remnant measuring up to 1.8 cm with internal layering debris/stones, new from prior.
2. Otherwise stable intrahepatic and common bile duct dilatation.
3. Otherwise unremarkable appearance of the transplanted liver.
4. Small right and trace left pleural effusions.
Vascular Carotid US 06/10/2025
IMPRESSION:
Right carotid: Calcified plaque within the bulb and proximal ICA with elevated peak systolic velocities measuring 222 cm/s (previously 180 cm/s). ICA/CCA ratio is also elevated measuring 4.16. Findings consistent with at least a 50-69% stenosis
based on velocity criteria, likely worsened compared to the prior study.
Left carotid: Calcified plaque within the bulb and proximal ICA with elevated peak systolic velocities of 221 cm/s (previously 184 cm/s). ICA/CCA ratio of 3.45. Findings consistent with a 50-69% stenosis based on velocity criteria.
Antegrade flow within the vertebral arteries.
Abdominal US 06/10/2025
IMPRESSION:
1. No intra or extrahepatic biliary ductal dilation demonstrated.
2. Right pleural effusion, partially imaged.
--- NOTE | 2025-06-11 08:22 | W.PN.NEURO.1 ---
Today's Communication / Plan
-
start Thiamine
Follow ammonia level
Continue aspirin
Low yield to performance of lumbar puncture as the patient is already receiving antibiotics for treatment of bacteremia
Neuro Assessment/Plan
Assessment
Abrupt onset of change in mental status with aphasia and repetitive speech in a patient with prior stroke and numerous medical health issues
Most likely secondary to toxic metabolic encephalopathy. Differential diagnosis includes Warnicke's encephalopathy
Plan
start Thiamine
Follow ammonia level
Continue aspirin
Low yield to performance of lumbar puncture as the patient is already receiving antibiotics for treatment of bacteremia
Check MRI of brain when possible
Will follow
Subjective/Objective
Subjective Data
Date of Service: June 11, 2025
Patient unable to provide her own medical history
Objective Data
Vital Signs
Temp Pulse Resp BP Pulse Ox
36.4 C 83 14 99/44 99
06/11/25 08:14 06/11/25 08:00 06/11/25 08:00 06/11/25 08:00 06/11/25 08:00
Lab Results
06/11/25 04:45
PT 14.2 Sec (11.4-14.6) 06/08/25 07:21
INR 1.07 06/08/25 07:21
APTT 30.9 Sec (23.4-35.0) 06/09/25 23:15
Sodium 136 mmol/L (135-145) 06/11/25 04:45
Potassium 3.4 mmol/L (3.5-5.1) L 06/11/25 04:45
BUN 107 mg/dl (7-17) H* 06/11/25 04:45
Glucose 92 mg/dl (70-99) 06/11/25 04:45
Calcium 8.1 mg/dl (8.4-10.2) L 06/11/25 04:45
Phosphorus 3.5 mg/dl (2.5-4.5) 06/10/25 03:36
LDL Cholesterol, Calc 96 mg/dl 06/02/25 04:19
Vitamin B12 > 1000 pg/ml (239-931) H 06/07/25 04:16
Patient Allergies
No Known Allergies Allergy (Verified 04/21/25 09:25)
Review of Systems
-
Unable to obtain full review of systems at this time due to: Aphasia
History Source: Patient
All other systems: Reviewed and negative
Neuro: Headache
Physical Exam
-
General: No Apparent Distress and Appears Stated Age
Eyes: Round OU, [address] Conjunctivae and No Ptosis
HEENT: Anicteric and Moist Mucous Membranes
Neck: Full Range of Motion
Respiratory: No Dyspnea
Cardiac: No JVD
GI: Non-distended
Skin: Unremarkable
Extremities: No Clubbing, No Cyanosis and No Edema
Psych: Negative Intact Judgement/Insight
Extended Neurological Exam
Mood & Affect: Affect Unremarkable
Attention Span & Concentration: Awake, Interactive, Unable to Perform 2 Step Request and Other (Moderate difficulty with single step requests and perseverative); Negative Alert
Tremor: Head Tremor Absent; Negative Hand Tremor Absent
Speech: Quantity Unremarkable and Other (Perseverative); Negative Quality Unremarkable
Cranial Nerve II: Left Eye: Pupillary Size Unremarkable and Visual Soloroi Grossly Intact
Cranial Nerve II: Right Eye: Pupillary Size Unremarkable and Visual Solorio Grossly Intact
Cranial Nerves III, IV, : Extraocular Movement: Grossly Intact
Cranial Nerve VII: Facial Symmetry: Normal Facial Symmetry
Cranial Nerve VIII: Hearing: Unremarkable Hearing to Normal Conversational Volume
Cranial Nerve XI: Shoulder Shrug: Unremarkable
Cranial Nerve XII: Tongue Protusion: Midline
Muscle Strength, Overall: Spontaneously Moves (Bilateral upper extremities greater than bilateral lower extremities)
Muscle Bulk & Tone: Bulk Unremarkable and Tone Unremarkable
Pronator Drift: No Drift in Upper Extremities
Cold Sensation: Unable to Assess
Vibration Sensation: Unable to Assess
Touch Sensation: Unremarkable
Coordination: Negative Reaches for Objects without Difficulty
Gait & Station: Unable to Assess
Data Reviewed
-
CT Head: Report Reviewed
EEG: Report Reviewed
Labs: Report Reviewed
Reviewed with: Physician
Old Records: Summarized
Past History
Past History
ED Past Medical History: Arrthythmia (Atrial fibrillation), CHF, CVA, GERD, HTN, Hypercholesterolemia, IN and Other (Alcoholic cirrhosis, Kawasaki's, anemia, renal artery stenosis, thrombus in the distal aortic arch, sepsis, carotid artery stenosis)
ED Past Surgical History: Other (Liver transplant in 2007)
Social History
Tobacco: Former smoker
Alcohol: Former
Drug: None
Personal:
Living: with family
Medications
-
Medications:
Generic Name Dose Route Start Last Admin
Trade Name Freq PRN Reason Stop Dose Admin
Bisacodyl 10 mg 05/30/25 22:56
Bisacodyl 10 Mg Rectal Suppository RECTAL 06/27/25 22:55
[id number] PRN
constipation
Calcium Carbonate 500 mg 06/10/25 20:00 06/10/25 19:45
Calcium Carbonate Oral Suspension (500 Mg/5 Ml) Cup TUBE 07/08/25 19:59 500 mg
BID BRANDO Administration
Cyclosporine 25 mg 06/10/25 18:00 06/10/25 19:44
Cyclosporine Modified Neoral 100 Mg/Ml In Oral Syringe TUBE 07/08/25 17:59 25 mg
QPM BRANDO Administration
Cyclosporine 50 mg 06/11/25 08:00
Cyclosporine Modified Neoral 100 Mg/Ml In Oral Syringe TUBE 07/09/25 07:59
DAILY BRANDO
Furosemide 40 mg 05/31/25 08:00 06/03/25 10:43
Furosemide 40 Mg Tablet PO 06/28/25 07:59 Not Given
On Hold: 06/03/25 12:41 DAILY BRANDO
Hydromorphone HCl 0.5 mg 06/09/25 23:17 06/11/25 02:51
Hydromorphone 0.5 Mg/0.5 Ml Syringe IV 06/23/25 23:16 0.5 mg
Q4HPRN PRN Administration
severe pain
Vancomycin HCl 1 each/ Device 0 mls @ 0 mls/hr 06/10/25 01:05
IV
PER PROTOCOL BRANDO
Protocol
As Directed
Cefazolin Sodium 2 grams in 10 mls @ 120 mls/hr 06/10/25 18:00 06/11/25 06:24
Ancef IV 10 mls
Q12H BRANDO Administration
Potassium Chloride 40 meq/ 270 mls @ 67.5 mls/hr 06/11/25 05:48 06/11/25 06:24
Sodium Chloride IV 06/11/25 09:47 270 mls
NOW STA Administration
Metoprolol Tartrate 25 mg 06/10/25 20:00 06/10/25 19:46
Metoprolol 25 Mg Regular Release Tablet TUBE 07/08/25 19:59 Not Given
On Hold: 06/10/25 20:00 BID BRANDO
Mycophenolate Mofetil 1,000 mg 06/10/25 20:00 06/10/25 19:44
Mycophenolate Susp 200 Mg/Ml In Oral Syringe TUBE 07/08/25 19:59 1,000 mg
BID BRANDO Administration
Pantoprazole Sodium 40 mg 06/07/25 20:00 06/10/25 19:45
Pantoprazole Sodium 40 Mg/10 Ml Vial IV 07/05/25 19:59 40 mg
BID BRANDO Administration
Polyethylene Glycol 17 grams 06/11/25 08:00
Polyethylene Glycol Powder 17 Grams Packet TUBE 07/09/25 07:59
DAILY BRANDO
Prednisone 15 mg 06/11/25 08:00
Prednisone 10 Mg Tablet TUBE 07/09/25 07:59
DAILY BRANDO
Senna/Docusate Sodium 1 tablet 06/10/25 20:00 06/10/25 19:50
Docusate W/Senna (Marily-Colace) Tablet TUBE 07/08/25 19:59 1 tablet
BID BRANDO Administration
Sodium Chloride 0 flush 06/01/25 21:00
Sodium Chloride 0.9% (Flush) Syringe IV 06/29/25 20:59
PER PROTOCOL BRANDO
Sodium Chloride 10 ml 06/07/25 20:00 06/10/25 19:45
Sodium Chloride 0.9% (Preservative Free) 10 Ml Vial IV 07/05/25 19:59 10 ml
BID BRANDO Administration
Tramadol HCl 50 mg 06/10/25 17:46
Tramadol Hcl 50 Mg Tablet TUBE 07/08/25 17:45
Q6HPRN PRN
moderate pain
Valsartan 40 mg 05/31/25 08:00 05/31/25 07:48
Valsartan 40 Mg Tablet PO 06/28/25 07:59 Not Given
On Hold: 06/01/25 07:54 DAILY BRANDO
[2025-06-11] MEDS: NSS (PRESERVATIVE FREE) 10 ML IV ×2 (08:38→20:08)
[2025-06-11] MEDS: PROTONIX IV 40 MG IV ×2 (08:39→20:08)
--- NOTE | 2025-06-11 08:43 | W.PN.CD ---
Today's Communication / Plan
-
continue to hold DAPT. Resume ASA on Saturday if hgb stable
We are available for questions over the weekend. We will see her on Saturday.
Impression / Plan
-
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 She had nausea
and so an EKG was checked to determine safety of antiemetics, but EKG findings were concerning for inferior STEMI. She was hypotensive (more than her baseline) and tachycardiac at the time ECG showed anteroseptal and inferior ST elevations. In this
setting, the manager cath lab was activated for STEMI. Cath revealed coronary artery disease with new severe disease of the RCA from previous, which was likely chronic in nature.
S. aureus bacteremia
- 06/09 cultures positive
- On antibiotics. ID following
- If persistently positive cultures, may need ALICE
Abnormal trop peak up to 17, likely type II TX in setting of hypotension, tachycardia, anemia and underlying coronary artery disease.
- Cardiac catheterization 06/01/2025 results as noted below
- Was on DAPT but this is stopped for now in setting of bleeding
- Additional medical therapy limited by BP
Coronary artery disease:
-cath this admit: LAD: large vessel giving rise to a large septal branch and moderate caliber diagonal branch before being chronically occluded in the mid vessel with the distal vessel fed via L-L septal collaterals. There is otherwise diffuse mild
disease. The vessel is large unchanged in appearance from 2022 angiography. LCx: large vessel giving rise to a small OM1, moderate caliber OM2, and large LPL branch. There is diffuse mild disease largely unchanged from 2022 angiography. RCA: small
vessel giving rise to a small RPDA and small RPL branch. There is a subtotal ostial occlusion and diffuse moderate disease throughout the remainder of the vessel. The vessel is atretic in caliber compared to 2022 angiography and there is evidence of
competitive flow in the RPDA. This all suggests the RPDA to be chronically occluded and not an infarct related artery.
- DAPT held for bleeding
- Medical therapy has been limited by blood pressure.
- will plan for ASA 81mg monotherapy once Hgb stable
.
INDU on CKD:
-nephrology consulted: lasix and ARB held
AFIB, paroxysmal:
-stable in SR
-patient with hx PVI and watchman 02/02/25
-will plan for ASA 81mg monotherapy once Hgb stable
HFrEF: chronic (LVEF 40-45% on most recent ALICE, but was 30-35% on most recent transthoracic study 06/02/2025, with mild/moderate MR, mod/severe TR)
-does not appear volume overloaded to assessment
-GDMT limited by BPs and renal function
-ARB held appropriately for renal dysfunction and BP's, restart possible outpt vs inpt
-continue metoprolol succinate
Hx liver tx
Subjective: She is very confused. Keeps saying 'hurry'
Physical Exam
Vital Signs/Labs
Vital Signs
Temp Pulse Resp BP Pulse Ox
97.5 F 83 14 99/44 99
06/11/25 08:14 06/11/25 08:00 06/11/25 08:00 06/11/25 08:00 06/11/25 08:00
06/10/25 06/11/25 06/12/25
06:59 06:59 06:59
Actual Weight 116 lb 9.992 oz 123 lb 7.342 oz
06/11/25 04:45
PT 14.2 Sec (11.4-14.6) 06/08/25 07:21
INR 1.07 06/08/25 07:21
APTT 30.9 Sec (23.4-35.0) 06/09/25 23:15
Magnesium 2.3 mg/dl (1.6-2.3) 06/10/25 03:36
Triglycerides 129 mg/dl (10-149) 06/02/25 04:19
LDL Cholesterol, Calc 96 mg/dl 06/02/25 04:19
VLDL Cholesterol, Calc 25 mg/dl (0-30) 06/02/25 04:19
HDL Cholesterol 61 mg/dl 06/02/25 04:19
Physical Exam
Constitutional: Other (chronically ill, no extreme distress but mildly uncomfortable, nonsensical)
Cardiovascular: Rhythm & rate is regular, Pedal edema present (trace bilateral), S1S2 is normal and Murmur/rub/gallop absent
Respiratory: Respiratory effort normal
Data Reviewed
-
Date of Service: June 11, 2025
Medical Decision Making: Reviewed Test Results, Independent Historian Assessment, Test Interpretation and Review of Case with other Provider
EKG: Tracing Personally Visualized and interpreted
Echo: Report Reviewed by me
Labs: Labs Reviewed by me
--- NOTE | 2025-06-11 09:04 | PTCARENOTE ---
MRI of brain ordered for today. Patient without access for po medications. Discussed plan with Resident. 16 Fr salem sump placed in right nare for medications. ABD xray ordered for tube placement.
--- NOTE | 2025-06-11 09:22 | W.PN.ID1 ---
Date of Service
Date of Service: June 11, 2025
Today's Communication
DC Vanco.
Continue cefazolin.
Follow brain MRI.
Assessment / Plan
# MSSA bacteremia (onset 06/09 hospital day 11)
# Severe sepsis, hypotension, bandemia
# Acute mental status change
# INDU on CKD
# Acute thrombocytopenia
# CAD, ICM recent NSTEMI s/p cardiac cath (06/01) without intervention
# GIB with blood loss anemia
# Fall with left Knee hematoma, tibial plateau fracture, present on admission
# Immunocompromised host: Liver transplant on mycophenolate, cyclosporine, prednisone
# Afib with hx ACL thrombus s/p Watchman 01/2025
- 06/02 TTE no gross vege
- 06/10 Repeat blood cx x 1 positve
- Repeat blood cx today x 2 today
- If bacteremia sustained, recommend ALICE
- Brain MRI to assess for septic emboli, CVA, bleed, etc.
-Continue cefazolin 2g IV q12h
- DC Vancomycin
- Continue ICU support.
- Prognosis guarded.
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
Alcohol cirrhosis status post liver transplant 2007 on mycophenolate, cyclosporine, prednisone
Atrial fibrillation (hx left atrial appendage thrombus)status post Watchman procedure 01/2025
CAD
HFrEF
Mod-severe mitral and tricuspid valve regurgitation
Hypertension
Right pleural effusion
CVA
CKD 3
Renal artery stenosis status post bilateral renal stents
History of GI bleed
History of erythema nodosum
Cholecystectomy
Bilateral inguinal hernia repair
Chief Complaint
-: Bacteremia
Subjective / Review of Systems
Pt remains confused.
Vital Signs / Physical Exam
Vital Signs
Vital Signs
Temp Pulse Resp BP Pulse Ox
97.5 F 85 26 128/52 100
06/11/25 08:14 06/11/25 08:30 06/11/25 08:30 06/11/25 08:30 06/11/25 09:04
Physical Exam
Constitutional: Acutely Ill
Eyes: No Conjunctival Hemorrhage and Other (sclera mild icterus)
Cardiovascular: Regular Rate, S1/S2 and Murmur
Gastrointestinal: Soft, Non Tender and Non Distended
Extremities: Edema
Skin: Other (Multiple ecchymosis)
Neurological: Other (lethargic; incoherent)
Psychological: Confused
Objective Data
Lab Data
Lab Results
06/11/25 04:45
PT 14.2 Sec (11.4-14.6) 06/08/25 07:21
INR 1.07 06/08/25 07:21
APTT 30.9 Sec (23.4-35.0) 06/09/25 23:15
Estimated Creat Clear 16 ml/min 06/11/25 04:45
Total Bilirubin 1.8 mg/dl (0.2-1.3) H 06/10/25 11:43
AST 27 U/L (14-36) 06/10/25 11:43
ALT 20 U/L (0-35) 06/10/25 11:43
Alkaline Phosphatase 159 U/L (38-126) H 06/10/25 11:43
Most recent labs reviewed.
Micro Results:
06/09/25 14:50 Blood Culture - Preliminary
Blood/Venous S aureus-Methicillin Sensitive
Gram Stain - Final
06/09/25 13:57 Blood Culture - Preliminary
Blood/Venous S aureus-Methicillin Sensitive
Gram Stain - Final
06/10/25 11:43 Blood Culture - Preliminary
Blood/Venous Positive culture in progress
Gram Stain - Preliminary
06/10/25 11:43 Urine Culture - Pending
Urine
06/10/25 MRCP: Status post cholecystectomy. Probable dilated cystic duct remnant measuring up to 1.8 cm with internal layering debris/stones, new from prior.
06/10/25 Abd US: No intra or extrahepatic biliary ductal dilation demonstrated. Right pleural effusion, partially imaged.
06/08/25 CXR: Suspect mild central pulmonary vascular congestion.
06/02/25 Left Knee MRI: Nondisplaced fractures of the central and anterolateral aspects of the tibial plateau. No evidence for displacement or articular surface depression.
Large bone infarct of the distal femur. Oblique tear of the posterior horn of the medial meniscus. Large knee joint effusion. Osteoarthrosis of the right knee with tricompartmental chondromalacia, most severe in the lateral aspect of the
patellofemoral compartment with extensive full-thickness chondromalacia.
Care Review
Plan reviewed with: Nurse
--- NOTE | 2025-06-11 09:30 | PTCARENOTE ---
Rec'd care of patient at 0700. Patient alert. Oriented to self. Difficulty following commands and answering questions. Pupils equal and reactive, +2mm. MAEx4. NIH-11. Symptoms waxing and waning. Patient anxious. Emotional support provided. NSR with
pvcs on tele. +1 edema in b/l LE. Pulses palpable. Lung sounds shallow, diminished throughout. Pulse ox 99-100% on RA. Tachypneic. LEGER. Hypo BS. Huong sump placed for medications and initiation of TFs. Incontinent of urine. Purewick in place for
I/O. Scattered bruising throughout body. Stage 2 on sacrum; dressing changed. Repeat blood cultures. See worklist for full assessment and care.
[2025-06-11] MEDS: THIAMINE INJECTION 100 MG IV (09:45)
--- NOTE | 2025-06-11 10:13 | W.PN.NEPH.PH ---
Today's Communication / Plan
-
Renally dosed antibiotic
Continue supportive care
Assessment/Plan
-
Impression:
Mechanical fall (patient tripped over object) resulting in b/l knee contusions with hematoma and b/l knee effusions, left greater than right, Acute Anemia
STEMI (troponin peak ~17)
INDU with [id number] 1.6-1.9-Dr Erazo
Secondary hypertension undergoing bilateral renal artery stenting July 2022 (decrease in GFR following procedure?)
Hyperkalemia
Persistent atrial fibrillation. s/p watchman 01/2025
HFrEF. 30-35%
History of left atrial appendage thrombus.
Cardiomyopathy.
Mural Thrombus?
CAD- RETAIL REPRESENTATIVE of mid LAD by catheterization,2022, new RCA disease-seem chronic
Immunocompromised s/p liver transplant 2007
CVA 2015. Left hemispheric seen on MRI
History of gastritis, GERD.
Remote tobacco and alcohol abuse.
Childhood epilepsy.
Ambulatory dysfunction with fall risk.
Osteoarthritis.
Degenerative disc disease.
Osteopenia.
h/o Left portal vein thrombosis
Plan:
INDU
-due to contrast nephropathy
-Recent Black stools =endoscopy aborted due to fever and hypotension
MSSA from 06/09/2025 first blood culture (now on vancomycin)= source?
-Hemoglobin dropping again endoscopy aborted due to fever and hypotension this morning
-Diuretics remain held and weight stable, urine output not recorde
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
incidental finding of STEMI s/p LHC on 06/01 RCA disease seem chronic
no intervention needed per cards
MRI left knee noted with tibial plateau fx non displaced, large effusion, menisci tear, distal femur infarct-no intervention
echo noted EF 30-35%, DD stage II. WMA. mod to severe TR with pulm HTN
Continue supportive care as her prognosis guarded
No acute need for dialysis
Discussed with critical care team

33 minutes critical care time spent
-
-
Date of Service: June 11, 2025
CC / HPI / ROS
-
Chief Complaint:
INDU with CKD
History of Present Illness:
Creatinine stable at baseline at 1.9 with BUN up to 111
Hemodynamically labile (sbp drop to 70 ) with subsequent transfer to the intensive care unit on the evening of 06/09/2025
Anemia improved after 1 unit transfusion last evening on 06/09/2025
Review of Systems:
Confused stating she is in pain all over nonspecific
No recording of urine output
Labs
-
Labs:
WBC 7.7 10^3/uL (4.8-10.8) 06/11/25 04:45
RBC 2.70 10^6/uL (4.20-5.40) L 06/11/25 04:45
Plt Count 62 10^3/uL (130-400) L D 06/11/25 04:45
Sodium 136 mmol/L (135-145) 06/11/25 04:45
Potassium 3.4 mmol/L (3.5-5.1) L 06/11/25 04:45
Chloride 112 mmol/L (98-107) H 06/11/25 04:45
Carbon Dioxide 19 mmol/L (22-30) L 06/11/25 04:45
BUN 107 mg/dl (7-17) H* 06/11/25 04:45
Creatinine 2.2 mg/dL (0.6-1.0) H 06/11/25 04:45
eGFR 23.09 06/11/25 04:45
Glucose 92 mg/dl (70-99) 06/11/25 04:45
Calcium 8.1 mg/dl (8.4-10.2) L 06/11/25 04:45
Phosphorus 3.5 mg/dl (2.5-4.5) 06/10/25 03:36
Albumin 2.5 g/dl (3.5-5.0) L 06/10/25 11:43
Physical Exam
-
Vital Signs:
Vital Signs
Temp Pulse Resp BP Pulse Ox
97.5 F 84 21 102/47 97
06/11/25 08:14 06/11/25 09:30 06/11/25 09:30 06/11/25 09:30 06/11/25 09:30
[2025-06-11] MEDS: MIRALAX 17 GRAMS TUBE (10:35)
[2025-06-11] MEDS: SENOKOT-S 1 TABLET TUBE (10:36)
[2025-06-11] MEDS: CALCIUM CARBONATE ORAL SUSP 500 MG TUBE ×2 (10:36→20:07)
[2025-06-11] MEDS: DELTASONE 15 MG TUBE (10:36)
[2025-06-11] MEDS: CELLCEPT 1000 MG TUBE ×2 (10:37→20:09)
[2025-06-11] MEDS: NEORAL 50 MG TUBE (10:37)
[2025-06-11] MEDS: DULCOLAX 10 MG RECTAL (10:52)
[2025-06-11 11:48] LABS: Hematocrit 29.9 % (37.0-47.0); Hemoglobin 9.7 g/dL (12.0-16.0)
--- NOTE | 2025-06-11 11:49 | W.PN.UPDATE ---
Update Note
Progress Note Update
Pt's sister, Kristi, was at bedside. I discussed the patient's bacteremia and her lethargic mental status with her, as well as worsening sCr/INDU, and the fact that she is too confused/weak to swallow, now has an NGT for meds/nutrition. The patient
apparently has a living will, per the sister, and the sister says that she would not want Nu to have aggressive care (i.e. intubated or undergo CPR) if she were to worsen. We discussed in detail what this means, and that if her heart were to
stop, or if she stopped breathing, then we would focus on comfort - the sister agreed. Code status changed in [facility], and primary RN + hospitalist made aware of this change in code status.
[2025-06-11 11:57] LABS: INR 1.09; PT 14.4 Sec (11.4-14.6)
[2025-06-11 11:58] LABS: APTT 32.1 Sec (23.4-35.0); Fibrinogen 284 MG/DL (199-459)
--- NOTE | 2025-06-11 12:05 | PTCARENOTE ---
Systems reviewed. Patient resting more calmly s/p administration of PRN Dilaudid. No major changes in neuro assessment (see worklist). Abdominal xray showing constipation. Rectal suppository administered, in addition to ordered bowel regimen. No
other changes from prior assessment. Repeat H&H- Hgb 9.7, Hct 29.9.
--- NOTE | 2025-06-11 13:26 | PTCARENOTE ---
BP remains soft. 90/50's. Discussed with Resident and Emergency Room Nurse. Order for 500cc bolus of LR ordered.
[2025-06-11] MEDS: LR 500 IV (14:14)
--- NOTE | 2025-06-11 16:40 | CM ---
Worsening condition, now with NGT. Discharge POC: TBD.
--- NOTE | 2025-06-11 16:42 | W.PN.HOSP.TC ---
Today's Communication/Plan
-
continue IV Ancef
considering ALICE
Assessment / Plan
Assessment / Plan
Assessment/Plan
74-year-old female with PMH significant for persistent symptomatic atrial fibrillation, left atrial appendage clot identified in 2022 with clot reassessed July 2024 and found to be still present, maintained on
metoprolol and anticoagulated with Eliquis 2.5 mg b.i.d. dosing,HFrEF, cardiomyopathy, coronary artery disease with CATALOGUE CLERK of LAD, hypertension, CKD 3 with renal stents, remote tobacco and alcohol abuse, CVA, ambulatory dysfunction, as well as liver
transplant due to cirrhosis 2007, on immunosuppressants and modulators, Her [id number] is 6, Watchman Device placed on February 02, 2025 with postoperative complication of blood loss anemia due to GI bleeding, who presented to ED due to trip and fall
at grocery store, no LOC, denied hitting her head, and c/o b/l knee pain and left lateral rib pain, incident occurred directly prior to arrival.
CARLO wrap and knee immobilizer placed in ED. Large hematoma to left anterior knee, unable to ambulate safely after presentation due to pain. Could not tolerate knee immobilizer due to bulkiness.
#Likely a Type 2 MA in setting of nausea and relative hypotension, as well as underlying CKD, on 06/01/25 evening
Troponin peaked 17.3 on 06/02
-LVEDP was 16 during cardiac cath
-EKG had been checked on 06/01/25 to check QTc for Zofran administration for severe nausea, and it showed STEMI
-Cardiac Cath on 06/01/25 evening showed coronary artery disease with new severe disease of the RCA from previous (subtotal chronic occlusion of RCA new from 2022 but clearly not acute (and not amenable to revasc)) and stable CATALOGUE CLERK of mid LAD, which
was likely chronic in nature
-Per Dr. Bower, EKG changes were secondary to whatever was causing her to have nausea and hypotension and not the other way around; patient likely a type II NSTEMI. Her LAD has been chronically occluded for years and
the RCA does not look like it�s amenable to revascularization.
06/01 heart cath report: CORONARY ANGIOGRAPHY
Dominance: Right
LM: large with mild disease
LAD: large vessel giving rise to a large septal branch and moderate caliber diagonal branch before being chronically occluded in the mid vessel with the distal vessel fed via L-L septal collaterals. There is otherwise diffuse mild disease. The
vessel is large unchanged in appearance from 2022 angiography.
LCx: large vessel giving rise to a small OM1, moderate caliber OM2, and large LPL branch. There is diffuse mild disease largely unchanged from 2022 angiography.
RCA: small vessel giving rise to a small RPDA and small RPL branch. There is a subtotal ostial occlusion and diffuse moderate disease throughout the remainder of the vessel. The vessel is atretic in caliber compared to 2022 angiography and there is
evidence of competitive flow in the RPDA. This all suggests the RPDA to be chronically occluded and not an infarct related artery.
-Will need to stop DAPT -- patient was getting DAPT since hospital admission, due to declining Hgb, probably from GI bleeding. Call placed and discussed with Dr. Norris 06/09. She was made aware of current status, she will see patient
-Continue beta thu
-Patient is not on statin given history of liver transplant
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
06/08 EKG: NORMAL SINUS RHYTHM
NONSPECIFIC ST AND T WAVE ABNORMALITY
ABNORMAL ECG
WHEN COMPARED WITH ECG OF 06-JUN-2025 15:08,
NO SIGNIFICANT CHANGE WAS FOUND
#Mechanical fall (patient tripped over object) resulting in b/l knee contusions with hematoma and b/l knee effusions, left greater than right, and inability to ambulate safely
#Large Left Knee Joint Effusion
-Cont CARLO bandage/wound care
-PT/OT evaluation
-Ortho consulted given concern for worsened suspected hemarthrosis: MRI showed: nondisplaced fractures of the central and anterolateral aspects of the tibial plateau; large bone infarct of the distal femur; oblique tear
of the posterior horn of the medial meniscus; large knee joint effusion.
-Appreciate ortho: maintain strict non-weight bearing to left lower extremity; can stop knee immobilizer; may perform range of motion as tolerated.
-Pain control; Ice and elevation for pain and edema control.
-Follow-up with Dr. Stevens in the office in 2 weeks for repeat x-rays.
#Immunocompromised s/p liver transplant
Liver Transplant was 19 years ago
-continue home meds cyclosporine, prednisone, mycophenolate
#Worsened Anemia in the Setting of Likely Left Knee Bleeding and lower extremity ecchymosis from mechanical fall
-Patient provided blood consent and understood all risks and benefits
-Hgb dropped to 7.1, patient says baseline is 9 to 10
-Transfused 1 unit PRBC on 06/01/25 given the above; a lengthy curbside discussion with physician loc[facility] urgent care and it was decided that since patient had no issues with standard leukoreduced PRBC transfusion in 2022 (well after her liver transplant), it is
appropriate to provide patient with standard leukoreduced PRBCs this admission
-Transfused another 1 unit of PRBC on 06/05/25 to address possible cardiac ischemic issues as discussed with Dr. Jackson (see above)
-Cardiology recommended to keep Hgb at least 8 but perhaps higher
Ordered 3rd unit 06/09 given
Hgb 7.9-->10.5
#Hyperkalemia, now mild hypokalemia, K 3.4
resolved
GI bleed
GI consult. Plan was to do a EGD 06/09, pt status felt to be too tenuous and EGD was cancelled. Though pt had passed bloody stools as well as melanotic stools, it was felt that colo would not be tolerated
monitor Hgb
Hgb 10.1-->9.5-->10.1-->10.0-->9.5-->9.2-->8.1-->(Hgb repeated to confirm prior was not a false reading)7.9-1 unit transfused-->10.5-->8.3-->9.7
Protonix 40 mg IV q12h.
#Persistent atrial fibrillation -- no longer on anticoagulation since had Watchman Device months ago; currently on DAPT as would be expected
#HFrEF ---- GDMT limited by BPs and renal function; ARB held appropriately for renal dysfunction and BP's; continue metoprolol as able with regards to hypotension
06/02 Echo: LVEF 30-35%
#History of left atrial appendage thrombus.
Cardiomyopathy.
#Mural Thrombus?
#CAD- CATALOGUE CLERK of mid LAD by catheterization,2022
#CVA 2015. Left hemispheric seen on MRI, questionable
right peripheral visual and quadriceps weakness on exam.
Low grade fever of 100.1 on 06/09 @11:06 with WBC 12.3-->11.5-->10.2-->9.3-->7.7
etiology unclear. No obvious signs of infection. Ordered Blood Cx x 2 was pos for Staph aureus, now known to be MSSA
started on Vancomycin. ID consult placed, abx changed to Ancef 2 gms IV q8h
#INDU on CKD 3.
Renal stents.
BUN/Creat 104/1.8-->107/2.2
elevated BUN disproportionate to Creat felt to be related to UGI bleed
input of nephrology appreciated
-INDU is suspected to be due to contrast nephropathy
-Continue to hold Lasix and Valsartan
#Liver transplant with history of cirrhosis.
#History of gastritis, GERD.
#Remote tobacco and alcohol abuse.
#Childhood epilepsy.
#Ambulatory dysfunction with fall risk.
#Osteoarthritis.
#Degenerative disc disease.
#Osteopenia.
very complex situation
DVT proph-SCDs. No chemical prophylaxis given suspected bleeding situation above.
Code Status: DNR. Dr. Mc met with sister (POLeeroy) today and decision was made to change status to DNR
Will continue in ICU
Total Critical Care Time 50 minutes. I was immediately available to the patient and staff. I personally examined, reviewed labs, diagnostic images/reports, interpretations, treatment plans, discussed patient care with other providers and family
or caregivers (if patient is unable to make decisions), entered orders as appropriate and documented the medical record.
Disposition: SNF eventually
Anticipated Discharge: > 48 hours
Subjective/Interval History
-
Date of Service: June 11, 2025
Obviously weak.
Objective Data
-
Labs:
Laboratory Results
06/11/25 06/11/25 06/11/25
04:45 11:34 11:35
WBC 7.7
Hgb 8.3 L D 9.7 L
Hct 25.1 L 29.9 L
Plt Count 62 L D
PT 14.4
INR 1.09
APTT 32.1
Sodium 136
Potassium 3.4 L
Chloride 112 H
Carbon Dioxide 19 L
BUN 107 H*
Creatinine 2.2 H
Glucose 92
Calcium 8.1 L
Vital Signs:
Vital Signs
Temp Pulse Resp BP Pulse Ox
97.8 F 82 13 102/48 98
06/11/25 15:44 06/11/25 15:00 06/11/25 15:00 06/11/25 15:00 06/11/25 15:00
I&O
06/10/25 06/11/25 06/12/25
06:59 06:59 06:59
Intake Total 1235 / 1310 925 / 925 770 / 770
Output Total 90 / 90 165 / 165
Balance 1235 / 1310 835 / 835 605 / 605
Review of Systems
-
History Source: Physician and Coordinated Provider
Constitutional: Denies Fever
EENT: Reports No Symptoms Reported
Respiratory: Reports No Symptoms
Cardiac: Reports No Symptoms
Musculoskeletal: Reports Muscle Weakness
Neuro: Reports Other (lethargic)
Physical Exam
-
General: Well Developed, Well Nourished, No Apparent Distress and Appears Chronically Ill
HEENT: Normocephalic and Atraumatic
Respiratory: Clear to Auscultation; Negative Wheezes, Rales or Rhonchi
Cardiac: Regular Rhythm and S1/S2
GI: Soft, Nontender and Nondistended
Musculoskeletal: No Clubbing, No Cyanosis and No Edema
Neuro: Other (progressively less responsive); Negative Awake or Alert
[2025-06-11] MEDS: NEORAL 25 MG TUBE (17:41)
--- NOTE | 2025-06-11 17:59 | PTCARENOTE ---
Around 1600, patient transported to MRI for MRI of brain and cervical spine. Neuro assessment completed prior to scan. Patient more lethargic. Arousable to verbal stimuli. Pupils equal and reactive; +2mm. Oriented to self and place. MAEx4.
Incontinent of large void; estefany care performed prior to scan. During scan, HR 80's. NSR. BP 110-130's/50-70's. Patient transported back to ICU around 1720. Systems reviewed. No major changes from prior assessments. Patient extremely anxious. Yelling
'help me' and crying out with repositioning in bed. PRN Dilaudid administered and emotional support provided. Repositioned for comfort. +1 generalized anasarca. No BM. Awaiting TF recommendations from RD.
[2025-06-11] MEDS: SENNA SYRUP 8.8 MG TUBE (20:07)
[2025-06-11] MEDS: COLACE LIQUID 100 MG TUBE (20:07)
--- NOTE | 2025-06-11 22:48 | PTCARENOTE ---
Pt received start of shift, NIH completed with outgoing RN - scored 13. Oriented to name. Drowsy, but arousable. Aphasia and slurring still present. Weak extremities. SR on telemetry. Palpable pulses. Purewick in place, draining orange urine. R nare
NGT at 70cm.
[2025-06-12] VITALS (39 sets, daily range): BP systolic 98–151; BP diastolic 46–94; PULSE 105; O2SAT 97; BMI 24.8
[2025-06-12] MEDS: DILAUDID 0.5 MG IV ×3 (01:55→20:14)
--- NOTE | 2025-06-12 03:27 | PTCARENOTE ---
Pt crying out in pain yelling for help and to 'please just kill me'. PRN pain management - see MAR. Incontinent small amount liquid stool. No further changes in assessment.
[2025-06-12 03:39] LABS: Hematocrit 26.5 % (37.0-47.0); Hemoglobin 8.9 g/dL (12.0-16.0); Mean Corp Hgb Conc. 33.6 g/dL (33.0-37.0); Mean Corpuscular Volume 92.3 fL (81.0-99.0); Platelet Count 62 10^3/uL (130-400); Red Cell Dist. Width 17.2 % (11.5-14.5)
[2025-06-12 03:55] LABS: Blood Urea Nitrogen 109 mg/dl (7-17); Calcium 9.0 mg/dl (8.4-10.2); Carbon Dioxide 14 mmol/L (22-30); Chloride 116 mmol/L (98-107); Estimated Creatinine Clearance 17 ml/min; Glucose 112 mg/dl (70-99); Potassium 4.5 mmol/L (3.5-5.1); Sodium 138 mmol/L (135-145); eGFR 25.89
[2025-06-12] MEDS: LR 500 IV (04:29)
[2025-06-12] MEDS: ANCEF 10 IV ×2 (05:46→17:22)
--- NOTE | 2025-06-12 07:42 | W.PN.ID1 ---
Date of Service
Date of Service: June 12, 2025
Today's Communication
Continue antibiotics. Follow pending blood cultures.
Assessment / Plan
# MSSA bacteremia (onset 06/09 hospital day 11)
# Severe sepsis, hypotension, bandemia
# Acute mental status change
# INDU on CKD
# Acute thrombocytopenia
# CAD, ICM recent NSTEMI s/p cardiac cath (06/01) without intervention
# GIB with blood loss anemia
# Fall with left Knee hematoma, tibial plateau fracture, present on admission
# Immunocompromised host: Liver transplant on mycophenolate, cyclosporine, prednisone
# Afib with hx CAL thrombus s/p Watchman 01/2025
- 06/02 TTE no gross vege
- 06/10 Repeat blood cx x 1 positve
- Repeat blood cx today x 2 today
- If bacteremia sustained, recommend ALICE
- Brain MRI (pending) to assess for septic emboli, CVA, bleed, etc.
- Continue cefazolin 2g IV q12h (dosed for renal insufficiency)
- Continue ICU support.
- Monitor creatinine and CrCl
- Prognosis guarded.
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
Alcohol cirrhosis status post liver transplant 2007 on mycophenolate, cyclosporine, prednisone
Atrial fibrillation (hx left atrial appendage thrombus)status post Watchman procedure 01/2025
CAD
HFrEF
Mod-severe mitral and tricuspid valve regurgitation
Hypertension
Right pleural effusion
CVA
CKD 3
Renal artery stenosis status post bilateral renal stents
History of GI bleed
History of erythema nodosum
Cholecystectomy
Bilateral inguinal hernia repair
Chief Complaint
-: Bacteremia
Subjective / Review of Systems
Patient seen and examined. Offers no specific complaints this a.m. Afebrile overnight.
Review of Systems: No Fever and No Chills
Vital Signs / Physical Exam
Vital Signs
Vital Signs
Temp Pulse Resp BP Pulse Ox
98.1 F 85 12 144/63 97
06/12/25 03:45 06/12/25 06:30 06/12/25 06:30 06/12/25 06:30 06/12/25 06:30
Physical Exam
Constitutional: Comfortable, Acutely Ill and Non-toxic
Eyes: No Conjunctival Hemorrhage and Other (sclera with mild icterus)
Oropharyngeal: Negative Thrush
Cardiovascular: Regular Rate, S1/S2 and Murmur; Negative S3/S4
Pulmonary: Clear and Non Labored; Negative Wheezes
Gastrointestinal: Soft, Non Tender and Non Distended
Extremities: Edema
Skin: Other (Multiple ecchymosis areas over arms and legs.)
Neurological: Other (lethargic; incoherent)
Psychological: Confused
Objective Data
Lab Data
Lab Results
06/12/25 03:22
06/12/25 03:22
PT 14.4 Sec (11.4-14.6) 06/11/25 11:34
INR 1.09 06/11/25 11:34
APTT 32.1 Sec (23.4-35.0) 06/11/25 11:34
Estimated Creat Clear 17 ml/min 06/12/25 03:22
Total Bilirubin 1.8 mg/dl (0.2-1.3) H 06/10/25 11:43
AST 27 U/L (14-36) 06/10/25 11:43
ALT 20 U/L (0-35) 06/10/25 11:43
Alkaline Phosphatase 159 U/L (38-126) H 06/10/25 11:43
Most recent labs reviewed.
Micro Results:
06/11/25 11:34 Blood Culture - Pending
Blood/Venous
06/11/25 10:06 Blood Culture - Pending
Blood/Venous
06/10/25 11:43 Urine Culture - Final
Urine NO GROWTH
06/09/25 14:50 Blood Culture - Preliminary
Blood/Venous S aureus-Methicillin Sensitive
Gram Stain - Final
06/09/25 13:57 Blood Culture - Preliminary
Blood/Venous S aureus-Methicillin Sensitive
Gram Stain - Final
06/10/25 11:43 Blood Culture - Preliminary
Blood/Venous Positive culture in progress
Gram Stain - Preliminary
Imaging:
06/10/25 MRCP: Status post cholecystectomy. Probable dilated cystic duct remnant measuring up to 1.8 cm with internal layering debris/stones, new from prior.
06/10/25 Abd US: No intra or extrahepatic biliary ductal dilation demonstrated. Right pleural effusion, partially imaged.
06/08/25 CXR: Suspect mild central pulmonary vascular congestion.
06/02/25 Left Knee MRI: Nondisplaced fractures of the central and anterolateral aspects of the tibial plateau. No evidence for displacement or articular surface depression.
Large bone infarct of the distal femur. Oblique tear of the posterior horn of the medial meniscus. Large knee joint effusion. Osteoarthrosis of the right knee with tricompartmental chondromalacia, most severe in the lateral aspect of the
patellofemoral compartment with extensive full-thickness chondromalacia.
--- NOTE | 2025-06-12 08:15 | W.PN.INTV ---
Today's Communication / Plan
Recommendations
ASA + Plavix resumed
Continue trending Hb + BUN
Starting bicarb drip per nephrology given her acute metabolic acidosis
Check lactate level, VBG + beta-hydroxybutyrate and trend serum bicarbonate level
Antibiotics per ID
Awaiting MRI T and L spine to eval for discitis/OM
ALICE on Saturday
F/u serial blood cultures
Guarded prognosis - DNR/DNI
Continue ICU level of care for this critically ill patient
Assessment
-
Impression:
#Acute blood loss anemia with concern for UGIB
#Hypotension likely due to above in the setting of chronic HFrEF, significant valvular heart disease and reduced PO intake
#Thrombocytopenia likely due to sepsis/bacteremia
#Large acute transcortical ischemic CVA and posterolateral left parietal lobe with multiple small acute ischemic infarcts in the right parietal lobe + left caudate nucleus + subcortical white matter in the posterior left frontal lobe - suspected to
be septic emboli from MSSA bacteremia
#MSSA bacteremia - source is due to endcarditis vs discitis vs OM
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
#Chronic HFrEF with stage II diastolic dysfunction
#Valvular heart disease with mild as moderate MR, moderate�severe TR (per TTE from 06/02/2025)
#History of severe mesenteric stenosis involving SMA/GABY, and lesser extent celiac artery on MRA from 07/2022
#Chronic transaminitis with chronic hyperbilirubinemia
#Hx of liver transplant (OLT - 2007 at [facility]) due to Hx of EtOH-cirrhosis
#CKD (baseline creatinine 1.5�1.8)
#History of approximately A-fib with history of recurrent GI bleed, fall risk and liver transplant s/p Watchman procedure with PVI (procedure date: 02/02/2025)
#History of CAL clot (per cardiology, dissolved prior to watchman implantation in January 2025)
#History of COVID-19 (Jul 2022)
Plan:
- Concern for underlying UGIB given elevated BUN greater than baseline, although patient has not had a bowel movement in several days; she did have a smear earlier this morning of melena, per RN
- Large bore IV x2
- s/p LR at 75cc/hr
- Serial CBC and transfuse if needed to keep Hb>8g/dL mohsen given her CAD; keep plt>50k, INR<1.8
- She received 1 U PRBC on evening of 06/09 (3rd total unit PRBC this hospitalization)
- GI consulted - defer endoscopy to them (no plans as of now)
- Resumed ASA + plavix today (06/12) per discussion between Neurology and GI, mohsen as GI bleed appears to have resolved as pt not having a bowel movement; Cardiology following given her Hx of CAD
- Low threshold to stop ASA + plavix if Hb becomes unstable or if pt has a bloody BM/melena associated with tachycardia/hypotension
- Holding beta-thu; if Hb remains stable then will resume
- Continue PPI 40mg IV BID
- Maintain MAP>65
- Given her history of chronic HFrEF, stopped IVF for now given improved BP; CXR this morning (06/12) showed no evidence of pulmonary/interstitial edema bilaterally with patchy lower lobe atelectasis
- Can use midodrine + albumin if needed for hypotension
- Random cortisol checked on evening of 06/09, which was 32 --> this rules out CIRCI.
- Trend LFTs and T bili
- Trend WBC and monitor temperature curve
- Blood cultures drawn 06/09 has grown MSSA --> blood culture from 06/10 is also positive; follow up surveillance blood culture collected 06/11 (NGTD); follow-up urine culture from 06/10
- ID consulted; vancomycin changed to cefazolin given cultures are showing MSSA; pt is immunocompromised given history of OLT --> continue immunosuppression for now
- Recent TTE from 06/02/2025 did not show evidence of vegetation; Cardiology discussed case with Dr. Mc on 06/11 --> plan for ALICE on Saturday
-MRI C-spine performed on 06/11/2025 showed severe enhancing bilateral posterior paraspinal soft tissue edema suspicious for acute myositis versus severe acute muscle strain; no evidence for infectious discitis or OM
- Check MRI T/L spine to eval for source of MSSA bacteremia
- Pt has Hx of biliary duct focal narrowing - given her Hx of liver transplant, GI recommending MRCP to rule out infection, and to assess for gallbladder + biliary tract stricture, obstruction vs leak
- MRCP performed on 06/10/2025 shows a suspected dilated cystic duct remnant measuring up to 1.8 cm with internal layering debris/stones, with otherwise stable intrahepatic + CBD dilatation, and unremarkable appearance of the transplanted liver
- RUQ US on 06/06/2025 shows no focal hepatic mass
- Despite her having bacteremia, for now would continue immunosuppression with prednisone, cellcept and cyclosporine
- Pain control regarding her left-sided tibial plateau fracture + meniscus tear
- Orthopedic surgery had seen the patient on 06/02/2025, and recommend strict nonweightbearing to her left lower extremity, with no further use of a knee immobilizer. Continue range of motion as tolerated, and she would likely benefit from SNF
placement upon discharge
- Recommend PT/OT
- Ice + elevation for pain and edema control
- Outpatient orthopedic surgery follow-up for symptom management + repeat XR
- Maintain SpO2 >90-94%
- Currently on room air breathing comfortably, saturating 99%
- prn nebulized bronchodilators - not currently bronchospastic
- Replete electrolytes with K>4, Mg>2
- Trend sCr and monitor UOP
-Patient's serum bicarbonate level this morning is dropping; start bicarb drip
- Check lactate level, VBG + beta-hydroxybutyrate and trend serum bicarbonate level
- Given her acute stroke, continue neurochecks and NIHSS per protocol
- Neuro consulted already and recs appreciated
- PT/OT
- ANAESTHESIOLOGIST taylor (currently receiving TF via DHT)
- Now back on ASA and plavix per neuro - ok with GI; continue to monitor for GI bleed recurrence; trend Hb and BUN
- Maintain euglycemia with goal BG 140-180; HbA1c: 5.6 on 06/10/2025
- If pt becomes more awake/alert, would encourage incentive spirometer 10x per hour for at least 4 hrs a day
- Tube feeds via R-nare DHT
- DVT ppx: SCDs for now; if Hb remained stable by tomorrow while on ASA + Plavix then will start HSQ at that time
IV Access: Left upper extremity midline
I discussed this case with the primary hospitalist, neurology + bedside RN.
Guarded prognosis � on 06/11/2025, Dr. Mc discussed goals of care with the patient's sister, Kristi, and patient made DNR/DNI (see separate update note from 06/11/2025). Low threshold to transition to comfort care measures depending on her
clinical course. For now, sister would like to continue with full medical management.
Continue ICU level of care given acute stroke with frequent neurochecks.
Critical care statement: A total of 37 minutes of critical care time was provided for this patient today. This includes management of unstable vital signs, evaluation of the patient at bedside, reviewing the patient�s pertinent medical records
including radiographs, microbiology, laboratory evaluations, and��discussion with primary team, consultants, pharmacy, nutrition, physical therapy, case management, charge nurse, critical care nursing, and respiratory therapy.
Data:
MRI brain 06/11/2025:
1. LARGE ACUTE TRANSCORTICAL INFARCT in the posterolateral LEFT PARIETAL LOBE (containing severe cytotoxic edema and a small amount of intraparenchymal hemorrhage).
2. Small acute subcortical white matter infarcts in the posterior left frontal lobe.
3. Small acute ischemic infarct in the head of the left caudate nucleus.
4. Small acute ischemic infarcts in the right parietal lobe.
5. Mild to moderate white matter leukoaraiosis.
6. MODERATE to SEVERE BILATERAL TEMPORAL LOBE VOLUME loss suggesting a chronic neurodegenerative disease.
7. Small number of punctate intraparenchymal cerebral microhemorrhages.
MRI cervical spine with/without contrast 06/11/2025:
1. Severe enhancing bilateral posterior paraspinal soft tissue edema. Diagnostic possibilities are (1) ACUTE MYOSITIS or (2) severe acute muscle strain.
2. Mild edema throughout the prevertebral soft tissues.
3. No MRI evidence for acute infectious discitis or acute osteomyelitis.
4. 2.8 mm anterolisthesis of C3 on C4 secondary to severe left facet joint arthrosis. Mild spinal cord compression and moderate left neural foraminal narrowing at C3/C4.
5. Severe discogenic degenerative disease at C4/C5 with a large disc-osteophyte complex causing minimal spinal cord compression, minimal central canal stenosis, and moderate to severe bilateral neural foraminal narrowing.
6. Severe bilateral neural foraminal narrowing at C6/C7.
MRCP 06/10/2025:
1. Status post cholecystectomy. Probable dilated cystic duct remnant measuring up to 1.8 cm with internal layering debris/stones, new from prior.
2. Otherwise stable intrahepatic and common bile duct dilatation.
3. Otherwise unremarkable appearance of the transplanted liver.
4. Small right and trace left pleural effusions.
Subjective Dataa
Subjective Data
Date of Service:
Date of Service: June 12, 2025
Chief Complaint: Mission Coordinator Follow Up
Subjective:
Patient seen and evaluated this morning. Brain MRI yesterday showed a large left parietal lobe stroke. Patient is repeatedly saying 'okay,' and does respond yes or no to questions although sometimes inappropriately. Not consistently following
commands. Heart rate currently 95, BP 122/52 and saturating 99% on room air. Currently on tube feeds at 20 cc/hr through NGT. Afebrile overnight.
Review of Systems
General: Other (Unobtainable given patient's clinical status/AMS)
Objective Data
Data Reviewed
Vital Signs / I&O / Oxygen:
Vital Signs
Temp Pulse Resp BP Pulse Ox
98.1 F 87 14 135/64 97
06/12/25 03:45 06/12/25 08:00 06/12/25 08:00 06/12/25 08:00 06/12/25 08:00
Intake and Output
06/11/25 06/12/25 06/13/25
06:59 06:59 06:59
Intake Total 925 / 925 770 / 770
Output Total 90 / 90 665 / 665
Balance 835 / 835 105 / 105
SaO2 97
Nasal Cannula flow liters per 2
minute
Physical Exam
General: Respiratory Distress (negative), Comfortable, Chills (negative), Sweats (negative) and Other (Elderly female, lethargic, in NAD)
HEENT: Normocephalic and Anicteric
Cardiovascular: S1-S2, Peripheral Edema (+2 lower extremity pitting edema bilaterally) and Other (no murmurs)
Respiratory: Clear, Wheeze (negative), Crackles (negative), Rhonchi (negative), Non-Labored Respirations and Stridor (negative)
GI: Soft, Non Distended, Non Tender, Normal Bowel Sounds and NG Tube (Right nare)
Neurology: Lethargic (Easily arousable to voice and responds by answering yes/no) and Other (Pupils 2 mm bilaterally and sluggish; unable to assess sensation given patient's acute clinical status; plantar-flexion bilaterally is 3/5, area field worker strength
bilaterally 3/5; not able to assess cranial nerve function given patient's acute clinical status)
Skin: Warm, Dry, Cyanosis (negative), Jaundice (negative) and Bruising (Multiple bruises over chest, arms + legs)
Labs/Micro/Reports
Lab Data
06/12/25 03:22
06/12/25 03:22
Laboratory Results
06/11/25
11:34
PT 14.4
INR 1.09
APTT 32.1
Microbiology
06/10/25 11:43 Urine Urine Culture - Final
NO GROWTH
06/09/25 14:50 Blood/Venous Blood Culture - Preliminary
S aureus-Methicillin Sensitive
06/09/25 14:50 Blood/Venous Gram Stain - Final
06/09/25 13:57 Blood/Venous Blood Culture - Preliminary
S aureus-Methicillin Sensitive
06/09/25 13:57 Blood/Venous Gram Stain - Final
06/10/25 11:43 Blood/Venous Blood Culture - Preliminary
Positive culture in progress
06/10/25 11:43 Blood/Venous Gram Stain - Preliminary
[2025-06-12] MEDS: COLACE LIQUID 100 MG TUBE ×2 (08:25→19:40)
[2025-06-12] MEDS: NEORAL 50 MG TUBE (08:25)
[2025-06-12] MEDS: MIRALAX 17 GRAMS TUBE (08:25)
[2025-06-12] MEDS: PROTONIX IV 40 MG IV ×2 (08:25→19:40)
[2025-06-12] MEDS: CELLCEPT 1000 MG TUBE ×2 (08:25→19:40)
[2025-06-12] MEDS: SENNA SYRUP 8.8 MG TUBE ×2 (08:25→19:40)
[2025-06-12] MEDS: NSS (PRESERVATIVE FREE) 10 ML IV ×2 (08:25→19:40)
[2025-06-12] MEDS: CALCIUM CARBONATE ORAL SUSP 500 MG TUBE ×2 (08:25→19:40)
[2025-06-12] MEDS: THIAMINE INJECTION 100 MG IV (08:26)
[2025-06-12] MEDS: DELTASONE 15 MG TUBE (08:26)
--- NOTE | 2025-06-12 09:28 | PTCARENOTE ---
PT/OT at bedside to evaluate patient.
--- NOTE | 2025-06-12 09:49 | PTCARENOTE ---
Rec'd care of patient at 0700. NIH stroke scale completed with previous RN. No major changes at handoff. NIH-14. Difficulty assessing patient due to inconsistency in following commands. Patient more alert than previous assessment. AAOx2/3. Due to
aphasia, patient unable to answer questions appropriately. When asked where patient is, answer incomprehensible. When given options, patient aware she is in the hospital and that it is summer. Pupils equal and reactive; +2mm. MAEx4. Trace movement
in b/l LE. In b/l UE, RUE noted to be weaker than LUE. Patient able to raise both arms, however, right arm drifts down to hit bed. Weak hand grasps bilaterally. NSR on tele. +2 anasarca. Weeping observed from RUE. Palpable pulses. Lung sounds
shallow, diminished throughout. Slightly LEGER. Hypo BS. No BM. [place] sump clamped. Orders to initiate TFs placed. Incontinent of dark orange/rian urine. Extensive bruising scattered remains throughout body. Stage 2 on sacrum, dressing c/d/i. LR
infusing through left midline. RFA INT capped. Patient repositioned for comfort. PRN Dilaudid administered for pain throughout body. Patient anxious and tearful. Frustrated with aphasia and apologizing. Reassurance and emotional support provided.
See worklist for full NIH, assessment and care.
--- NOTE | 2025-06-12 11:02 | W.PN.NEURO.1 ---
Addendum entered and electronically signed by Evangelista Bae MD 06/12/25 13:05:
in correction from me note: h/o CAL thrombus in 01/2025, no h/o LV thrombus at that time.
Spoke with Cardiology, GI, ICU - I am restarting DAPT today
Original Note:
Today's Communication / Plan
-
spoke with family re stroke and outlook
restart DAPT when possible
Neuro Assessment/Plan
Assessment
Abrupt onset of change in mental status with aphasia and repetitive speech in a patient with prior stroke and numerous medical health issues including MSSA bacteremia, cirrhosis s/p liver transplant, Afib, watch,an, HFrEF with LV thrombus 01/2025.
now with aphasia, embolic stroke
brain MRI imgs rev'd with patient and sister Kristi, showing acute stroke, reasonably large territory, Left MCA territory mostly M4, with some scattered infarcts bilateral hemispheres consistent with (septic) emboli. Overall looks about as well as
could be expected with this scan; arm strenght is good, right leg very weak, mostly receptive aphasia with sometimes following 1 step command. Assuming no other insult, expecting prognosis after acute rehab to be ambulatory with device or
wheelchair.
was on DAPT instead of Eliquis given frequent GI bleeds,
agree holding DAPT for GI bleed, would restart when possible, if this were a brain bleed instead of a GI bleed, we would typically restart anticoagulants 48-96 hours after bleeding is stable. her embolic risk seems really high, I would feel this way
whether this present event were septic emboli or regular emboli.
Subjective/Objective
Subjective Data
Date of Service: June 12, 2025
patient reports speech somewhat improved.
nurse reporting patient aphasia about the same, right sided weakness perhaps a little better.
Objective Data
Vital Signs
Temp Pulse Resp BP Pulse Ox
36.6 C 92 18 112/48 97
06/12/25 08:19 06/12/25 10:00 06/12/25 10:00 06/12/25 10:00 06/12/25 10:00
Lab Results
06/12/25 03:22
06/12/25 03:22
PT 14.4 Sec (11.4-14.6) 06/11/25 11:34
INR 1.09 06/11/25 11:34
APTT 32.1 Sec (23.4-35.0) 06/11/25 11:34
Sodium 138 mmol/L (135-145) 06/12/25 03:22
Potassium 4.5 mmol/L (3.5-5.1) D 06/12/25 03:22
BUN 109 mg/dl (7-17) H* 06/12/25 03:22
Glucose 112 mg/dl (70-99) H 06/12/25 03:22
Calcium 9.0 mg/dl (8.4-10.2) 06/12/25 03:22
Phosphorus 3.5 mg/dl (2.5-4.5) 06/10/25 03:36
LDL Cholesterol, Calc 96 mg/dl 06/02/25 04:19
Vitamin B12 > 1000 pg/ml (239-931) H 06/07/25 04:16
Patient Allergies
No Known Allergies Allergy (Verified 04/21/25 09:25)
Physical Exam
-
Awake and alert, receptive > expressive aphasia, difficulty following simple commands, knows she's in hospital but aphasic with orientation ?s
RUE 4/5, LUE 5/5, b/l LE no antigravity, noted LLE tibial plateu fracture/NWB
--- NOTE | 2025-06-12 12:17 | W.PN.NEPH.PH ---
Today's Communication / Plan
-
Start bicarbonate drip
Assessment/Plan
-
Impression:
Mechanical fall (patient tripped over object) resulting in b/l knee contusions with hematoma and b/l knee effusions, left greater than right, Acute Anemia
STEMI (troponin peak ~17)
INDU with [id number] 1.6-1.9-Dr Erazo
Secondary hypertension undergoing bilateral renal artery stenting July 2022 (decrease in GFR following procedure?)
Hyperkalemia
Persistent atrial fibrillation. s/p watchman 01/2025
HFrEF. 30-35%
History of left atrial appendage thrombus.
Cardiomyopathy.
Mural Thrombus?
CAD- BINDERY MANAGER of mid LAD by catheterization,2022, new RCA disease-seem chronic
Immunocompromised s/p liver transplant 2007
CVA 2015. Left hemispheric seen on MRI
History of gastritis, GERD.
Remote tobacco and alcohol abuse.
Childhood epilepsy.
Ambulatory dysfunction with fall risk.
Osteoarthritis.
Degenerative disc disease.
Osteopenia.
h/o Left portal vein thrombosis
Plan:
INDU
-due to contrast nephropathy
-Recent Black stools =endoscopy aborted due to fever and hypotension
MSSA from 06/09/2025 first blood culture (now on vancomycin)= source?
-Hemoglobin dropped with endoscopy aborted due to fever and hypotension this week
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
incidental finding of STEMI s/p LHC on 06/01 RCA disease seem chronic
no intervention needed per cards
MRI left knee noted with tibial plateau fx non displaced, large effusion, menisci tear, distal femur infarct-no intervention
echo noted EF 30-35%, DD stage II. WMA. mod to severe TR with pulm HTN
Status post CVA
Continue supportive care as her prognosis guarded
No acute need for dialysis/patient is DNR per ICU team discussion with patient's sister and not a dialysis candidate
Developing acidosis bicarbonate drip+
Discussed with critical care team

33 minutes critical care time spent
-
-
Date of Service: June 12, 2025
CC / HPI / ROS
-
Chief Complaint:
INDU with CKD
History of Present Illness:
Creatinine stable at baseline at 1.9 with BUN up to 111
Hemodynamically labile (sbp drop to 70 ) with subsequent transfer to the intensive care unit on the evening of 06/09/2025
Anemia improved after 1 unit transfusion last evening on 06/09/2025
Review of Systems:
Patient somnolent. No chest pain or shortness of breath
Nonoliguric
Labs
-
Labs:
WBC 10.9 10^3/uL (4.8-10.8) H 06/12/25 03:22
RBC 2.87 10^6/uL (4.20-5.40) L 06/12/25 03:22
Hgb 8.9 g/dL (12.0-16.0) L 06/12/25 03:22
Hct 26.5 % (37.0-47.0) L 06/12/25 03:22
Plt Count 62 10^3/uL (130-400) L 06/12/25 03:22
Sodium 138 mmol/L (135-145) 06/12/25 03:22
Potassium 4.5 mmol/L (3.5-5.1) D 06/12/25 03:22
Chloride 116 mmol/L (98-107) H 06/12/25 03:22
Carbon Dioxide 14 mmol/L (22-30) L* 06/12/25 03:22
BUN 109 mg/dl (7-17) H* 06/12/25 03:22
Creatinine 2.0 mg/dL (0.6-1.0) H 06/12/25 03:22
eGFR 25.89 06/12/25 03:22
Glucose 112 mg/dl (70-99) H 06/12/25 03:22
Calcium 9.0 mg/dl (8.4-10.2) 06/12/25 03:22
Phosphorus 3.5 mg/dl (2.5-4.5) 06/10/25 03:36
Albumin 2.5 g/dl (3.5-5.0) L 06/10/25 11:43
Physical Exam
-
Vital Signs:
Vital Signs
Temp Pulse Resp BP Pulse Ox
97.8 F 90 15 128/54 98
06/12/25 08:19 06/12/25 11:30 06/12/25 11:30 06/12/25 11:30 06/12/25 11:30
--- NOTE | 2025-06-12 12:30 | PTCARENOTE ---
Systems reviewed. Patient resting comfortably; sleeping between care. Strength improved from prior assessment in all extremities. Bicarb gtt initiated. G bed bath performed and repositioned for comfort. No other changes.
[2025-06-12] MEDS: SODIUM BICARBONATE 1150 MEQ IV (13:00)
[2025-06-12] MEDS: LOW STRENGTH ASPIRIN 81 MG PO (14:14)
[2025-06-12] MEDS: PLAVIX 75 MG PO (14:15)
--- NOTE | 2025-06-12 14:59 | PTCARENOTE ---
CLIENT CARE COORDINATOR at bedside.
--- NOTE | 2025-06-12 15:42 | PTCARENOTE ---
Patient tearful. Repeatedly saying sorry. Claiming she feels like a burden to her sister. Emotional support given. Music on for comfort. Instrument Mechanic contacted for psych consult.
--- NOTE | 2025-06-12 15:54 | PTOTSP ---
ST Follow-Up
Pt continues to present with clinical signs of suspected pharyngeal dysphagia complicated by reduced neck strength to hold head up in a neutral position independently at this time.
Recommendations:
- Continue NPO with entec for all nutrition, hydration, and meds.
- No ARHP - not a candidate at this time.
- Aspiration precautions - HOB upright as often as possible; upright at least 30 degrees at night; turn off TFs when lying pt laterally for care; oral care QID with suctioning as needed.
- LOG BUYER to f/u again to re-assess pt's candidacy for PO diet initiation and to determine if/when pt would be appropriate for an instrumental swallow study.
- LOG BUYER to f/u to complete a comprehensive speech, language, and cognitive evaluation.
--- NOTE | 2025-06-12 16:29 | PTCARENOTE ---
No changes from prior assessment. VSS.
[2025-06-12] MEDS: NEORAL 25 MG TUBE (17:22)
--- NOTE | 2025-06-12 17:52 | PTCARENOTE ---
Repeat blood cx's, cbc, bmp, vbg, lactic, b-hydroxybutyrate sent.
[2025-06-12 17:54] LABS: Venous Blood Gas B.E. -6.4 mmol/L (-4 to +4); Venous Blood Gas O2 Sat % 90.7 %
[2025-06-12 17:59] LABS: Hematocrit 26.0 % (37.0-47.0); Hemoglobin 8.6 g/dL (12.0-16.0); Mean Corp Hgb Conc. 33.1 g/dL (33.0-37.0); Mean Corpuscular Volume 92.9 fL (81.0-99.0); Platelet Count 64 10^3/uL (130-400); Red Cell Dist. Width 17.5 % (11.5-14.5)
--- NOTE | 2025-06-12 18:12 | W.PN.HOSP.TC ---
Today's Communication/Plan
-
continue IV Ancef
Bicarb started
DAPT resumed
follow Hgb
ALICE planned for Saturday
Assessment / Plan
Assessment / Plan
Assessment/Plan
74-year-old female with PMH significant for persistent symptomatic atrial fibrillation, left atrial appendage clot identified in 2022 with clot reassessed July 2024 and found to be still present, maintained on
metoprolol and anticoagulated with Eliquis 2.5 mg b.i.d. dosing,HFrEF, cardiomyopathy, coronary artery disease with ASSET COORDINATOR of LAD, hypertension, CKD 3 with renal stents, remote tobacco and alcohol abuse, CVA, ambulatory dysfunction, as well as liver
transplant due to cirrhosis 2007, on immunosuppressants and modulators, Her [id number] is 6, Watchman Device placed on February 02, 2025 with postoperative complication of blood loss anemia due to GI bleeding, who presented to ED due to trip and fall
at grocery store, no LOC, denied hitting her head, and c/o b/l knee pain and left lateral rib pain, incident occurred directly prior to arrival.
CARLO wrap and knee immobilizer placed in ED. Large hematoma to left anterior knee, unable to ambulate safely after presentation due to pain. Could not tolerate knee immobilizer due to bulkiness.
#Likely a Type 2 HI in setting of nausea and relative hypotension, as well as underlying CKD, on 06/01/25 evening
Troponin peaked 17.3 on 06/02
-LVEDP was 16 during cardiac cath
-EKG had been checked on 06/01/25 to check QTc for Zofran administration for severe nausea, and it showed STEMI
-Cardiac Cath on 06/01/25 evening showed coronary artery disease with new severe disease of the RCA from previous (subtotal chronic occlusion of RCA new from 2022 but clearly not acute (and not amenable to revasc)) and stable ASSET COORDINATOR of mid LAD, which
was likely chronic in nature
-Per Dr. Bower, EKG changes were secondary to whatever was causing her to have nausea and hypotension and not the other way around; patient likely a type II NSTEMI. Her LAD has been chronically occluded for years and
the RCA does not look like it�s amenable to revascularization.
06/01 heart cath report: CORONARY ANGIOGRAPHY
Dominance: Right
LM: large with mild disease
LAD: large vessel giving rise to a large septal branch and moderate caliber diagonal branch before being chronically occluded in the mid vessel with the distal vessel fed via L-L septal collaterals. There is otherwise diffuse mild disease. The
vessel is large unchanged in appearance from 2022 angiography.
LCx: large vessel giving rise to a small OM1, moderate caliber OM2, and large LPL branch. There is diffuse mild disease largely unchanged from 2022 angiography.
RCA: small vessel giving rise to a small RPDA and small RPL branch. There is a subtotal ostial occlusion and diffuse moderate disease throughout the remainder of the vessel. The vessel is atretic in caliber compared to 2022 angiography and there is
evidence of competitive flow in the RPDA. This all suggests the RPDA to be chronically occluded and not an infarct related artery.
-Will need to stop DAPT -- patient was getting DAPT since hospital admission, due to declining Hgb, probably from GI bleeding. Call placed and discussed with Dr. Norris 06/09. She was made aware of current status, she will see patient
-Continue beta thu
-Patient is not on statin given history of liver transplant
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
06/08 EKG: NORMAL SINUS RHYTHM
NONSPECIFIC ST AND T WAVE ABNORMALITY
ABNORMAL ECG
WHEN COMPARED WITH ECG OF 06-JUN-2025 15:08,
NO SIGNIFICANT CHANGE WAS FOUND
#Mechanical fall (patient tripped over object) resulting in b/l knee contusions with hematoma and b/l knee effusions, left greater than right, and inability to ambulate safely
#Large Left Knee Joint Effusion
-Cont CARLO bandage/wound care
-PT/OT evaluation
-Ortho consulted given concern for worsened suspected hemarthrosis: MRI showed: nondisplaced fractures of the central and anterolateral aspects of the tibial plateau; large bone infarct of the distal femur; oblique tear
of the posterior horn of the medial meniscus; large knee joint effusion.
-Appreciate ortho: maintain strict non-weight bearing to left lower extremity; can stop knee immobilizer; may perform range of motion as tolerated.
-Pain control; Ice and elevation for pain and edema control.
-Follow-up with Dr. Stevens in the office in 2 weeks for repeat x-rays.
#Immunocompromised s/p liver transplant
Liver Transplant was 19 years ago
-continue home meds cyclosporine, prednisone, mycophenolate
#Worsened Anemia in the Setting of Likely Left Knee Bleeding and lower extremity ecchymosis from mechanical fall
-Patient provided blood consent and understood all risks and benefits
-Hgb dropped to 7.1, patient says baseline is 9 to 10
-Transfused 1 unit PRBC on 06/01/25
-Transfused another 1 unit of PRBC on 06/05/25 to address possible cardiac ischemic issues as discussed with Dr. Jackson (see above)
-Cardiology recommended to keep Hgb at least 8 but perhaps higher
Ordered 3rd unit 06/09 given
Hgb 7.9-->10.5-->8.6
Concern in this pt with active GI bleeding for resumption of DAPT, but based on neurologic input concern for CVA. Very difficult situation
#Hyperkalemia, was mild hypokalemia, K 3.4,-->4.5
resolved
CVA
seen by neuro 06/12. Based on MRI, plan is to resume DAPT
06/11 Brain MRI: 1. LARGE ACUTE TRANSCORTICAL INFARCT in the posterolateral LEFT PARIETAL LOBE (containing severe cytotoxic edema and a small amount of intraparenchymal hemorrhage).
2. Small acute subcortical white matter infarcts in the posterior left frontal lobe.
3. Small acute ischemic infarct in the head of the left caudate nucleus.
4. Small acute ischemic infarcts in the right parietal lobe.
5. Mild to moderate white matter leukoaraiosis.
6. MODERATE to SEVERE BILATERAL TEMPORAL LOBE VOLUME loss suggesting a chronic neurodegenerative disease.
7. Small number of punctate intraparenchymal cerebral microhemorrhages.
GI bleed
GI consult. Plan was to do a EGD 06/09, pt status felt to be too tenuous and EGD was cancelled. Though pt had passed bloody stools as well as melanotic stools, it was felt that colo would not be tolerated
monitor Hgb
Hgb 10.1-->9.5-->10.1-->10.0-->9.5-->9.2-->8.1-->(Hgb repeated to confirm prior was not a false reading)7.9-1 unit transfused-->10.5-->8.3-->9.7-->8.9-->8.6
Protonix 40 mg IV q12h.
#Persistent atrial fibrillation -- no longer on anticoagulation since had Watchman Device months ago; currently on DAPT as would be expected
#HFrEF ---- GDMT limited by BPs and renal function; ARB held appropriately for renal dysfunction and BP's; continue metoprolol as able with regards to hypotension
06/02 Echo: LVEF 30-35%
#History of left atrial appendage thrombus.
Cardiomyopathy.
#Mural Thrombus?
#CAD- ASSET COORDINATOR of mid LAD by catheterization,2022
#CVA 2016. Left hemispheric seen on MRI, questionable
right peripheral visual and quadriceps weakness on exam.
MSSA Bacteremia
Low grade fever of 100.1 on 06/09 @11:06 with WBC 12.3-->11.5-->10.2-->9.3-->7.7
etiology unclear. No obvious signs of infection. Ordered Blood Cx x 3 was pos for Staph aureus, now known to be MSSA
started on Vancomycin. ID consult placed, abx changed to Ancef 2 gms IV q8h
Unclear source. ALICE planned for Thursday 06/14
#INDU on CKD 3.
Acidosis
started on bicarb drip 06/12
Renal stents.
BUN/Creat 104/1.8-->107/2.2-->109/2.0
elevated BUN disproportionate to Creat felt to be related to UGI bleed
input of nephrology appreciated
-INDU is suspected to be due to contrast nephropathy
-Continue to hold Lasix and Valsartan
#Liver transplant with history of cirrhosis.
#History of gastritis, GERD.
#Remote tobacco and alcohol abuse.
#Childhood epilepsy.
#Ambulatory dysfunction with fall risk.
#Osteoarthritis.
#Degenerative disc disease.
#Osteopenia.
very complex situation
DVT proph-SCDs. No chemical prophylaxis given suspected bleeding situation above.
Code Status: DNR. Dr. Mc met with sister (NATANAEL) 06/11 and decision was made to change status to DNR
Will continue in ICU
Guarded Prognosis noted by CCM
Total Critical Care Time 55 minutes. I was immediately available to the patient and staff. I personally examined, reviewed labs, diagnostic images/reports, interpretations, treatment plans, discussed patient care with other providers and family
or caregivers (if patient is unable to make decisions), entered orders as appropriate and documented the medical record.
Disposition: SNF eventually
Anticipated Discharge: > 48 hours
Subjective/Interval History
-
Date of Service: June 12, 2025
Awake, obviously very weak
Objective Data
-
Labs:
Laboratory Results
06/12/25
17:48
WBC 10.9 H
Hgb 8.6 L
Hct 26.0 L
Plt Count 64 L
Sodium Pending
Potassium Pending
Chloride Pending
Carbon Dioxide Pending
BUN Pending
Creatinine Pending
Glucose Pending
Calcium Pending
Vital Signs:
Vital Signs
Temp Pulse Resp BP Pulse Ox
97.8 F 98 21 143/59 99
06/12/25 18:02 06/12/25 18:01 06/12/25 18:01 06/12/25 18:00 06/12/25 18:01
I&O
06/11/25 06/12/25 06/13/25
06:59 06:59 06:59
Intake Total 925 / 925 770 / 840 1300 / 1300
Output Total 90 / 90 665 / 665 325 / 325
Balance 835 / 835 105 / 175 975 / 975
Review of Systems
-
History Source: Physician (reviewed with Dr. Mc)
Constitutional: Denies Fever
EENT: Reports No Symptoms Reported
Respiratory: Reports No Symptoms
Cardiac: Reports No Symptoms
Musculoskeletal: Reports Muscle Weakness
Neuro: Reports Other (lethargic)
Physical Exam
-
General: Well Developed, Well Nourished, No Apparent Distress, Appears Chronically Ill and Other (NG tube in place)
HEENT: Normocephalic and Atraumatic
Respiratory: Clear to Auscultation; Negative Wheezes, Rales or Rhonchi
Cardiac: Regular Rhythm and S1/S2
GI: Soft, Nontender and Nondistended
Musculoskeletal: No Clubbing, No Cyanosis and No Edema
Neuro: Other (not as lethargic today); Negative Awake or Alert
[2025-06-12 18:49] LABS: Blood Urea Nitrogen 108 mg/dl (7-17); Calcium 8.9 mg/dl (8.4-10.2); Carbon Dioxide 19 mmol/L (22-30); Chloride 112 mmol/L (98-107); Estimated Creatinine Clearance 20 ml/min; Glucose 223 mg/dl (70-99); Potassium 4.5 mmol/L (3.5-5.1); Sodium 139 mmol/L (135-145); eGFR 31.47
--- NOTE | 2025-06-12 21:48 | PTCARENOTE ---
Pt received start of shift, HR SR on telemetry. NIH completed at bedside with outgoing RN - score 11. Pt continues to be aphasic. Pt experiences difficulty finding the right words but answers yes or no questions appropriately. R eye visual cut
noted. Tube feed infusing and advanced as ordered. Bicarb gtt infusing as ordered.
[2025-06-12] MEDS: NOVOLOG FLEXPEN-MODERATE RESISTANCE 7 UNITS SC (23:19)
[2025-06-12 23:30] LABS: Glucose - Point of Care 327 mg/dl (70-99)
[2025-06-13] VITALS (28 sets, daily range): BP systolic 111–182; BP diastolic 49–76; BMI 25.8
[2025-06-13] MEDS: SODIUM BICARBONATE 1150 MEQ IV (01:01)
[2025-06-13] MEDS: DILAUDID 0.5 MG IV ×3 (01:06→12:51)
--- NOTE | 2025-06-13 02:44 | PTCARENOTE ---
PRN pain medication administered- see MAR. No change in neuro status. Continuing to tolerate tube feed.
[2025-06-13 03:54] LABS: Hematocrit 23.7 % (37.0-47.0); Hemoglobin 7.8 g/dL (12.0-16.0); Mean Corp Hgb Conc. 32.9 g/dL (33.0-37.0); Mean Corpuscular Volume 91.9 fL (81.0-99.0); Nucleated Red Blood Cells % 0 %; Platelet Count 53 10^3/uL (130-400); Red Cell Dist. Width 17.1 % (11.5-14.5)
[2025-06-13 04:16] LABS: ALT (SGPT) < 10 U/L (0-35); AST (SGOT) 21 U/L (14-36); Albumin 1.9 g/dl (3.5-5.0); Alkaline Phosphatase 194 U/L (38-126); Blood Urea Nitrogen 104 mg/dl (7-17); Calcium 8.4 mg/dl (8.4-10.2); Carbon Dioxide 26 mmol/L (22-30); Chloride 110 mmol/L (98-107); Estimated Creatinine Clearance 19 ml/min; Glucose 270 mg/dl (70-99); Magnesium 2.4 mg/dl (1.6-2.3); Potassium 3.8 mmol/L (3.5-5.1); Sodium 139 mmol/L (135-145); Total Protein 3.7 g/dl (6.3-8.2); eGFR 29.38
[2025-06-13 05:23] LABS: Glucose - Point of Care 341 mg/dl (70-99)
[2025-06-13] MEDS: NOVOLOG FLEXPEN-MODERATE RESISTANCE 7 UNITS SC (05:30)
[2025-06-13] MEDS: 0.45%NACL 1000 IV ×2 (05:52→21:50)
[2025-06-13] MEDS: ANCEF 10 IV ×2 (05:52→17:41)
--- NOTE | 2025-06-13 06:30 | PTCARENOTE ---
AM labs back. TT [employer] Natty Aviles - 1unit PRBC ordered. Bicarb gtt d/c, switch to 1/2NS per order. Pt tolerating tube feed - advanced to goal 40mL/hr. Aphasia improving, but still present. Pt now able to occasionally speak in longer sentences
appropriate to question.
--- NOTE | 2025-06-13 07:38 | W.PN.ID1 ---
Date of Service
Date of Service: June 13, 2025
Today's Communication
Continue antibiotics.
Assessment / Plan
# MSSA bacteremia (onset 06/09 hospital day 11)
# Severe sepsis, hypotension, bandemia
# Acute mental status change
# INDU on CKD
# Acute thrombocytopenia
# CAD, ICM recent NSTEMI s/p cardiac cath (06/01) without intervention
# GIB with blood loss anemia
# Fall with left Knee hematoma, tibial plateau fracture, present on admission
# Immunocompromised host: Liver transplant on mycophenolate, cyclosporine, prednisone
# Afib with hx CAL thrombus s/p Watchman 01/2025
- 06/02 TTE no gross vege
- 06/10 Repeat blood cx x 1 positve
- 06/11 blood cx NGx24h
- 06/12 blood cx pending
- If bacteremia sustained, recommend ALICE
- Continue cefazolin 2g IV q12h (dosed for renal insufficiency)
- Continue ICU support.
- Monitor creatinine and CrCl
- Prognosis guarded.
# Conditions SURG PHYSICIAN ASST
Alcohol cirrhosis status post liver transplant 2007 on mycophenolate, cyclosporine, prednisone
Atrial fibrillation (hx left atrial appendage thrombus)status post Watchman procedure 01/2025
CAD
HFrEF
Mod-severe mitral and tricuspid valve regurgitation
Hypertension
Right pleural effusion
CVA
CKD 3
Renal artery stenosis status post bilateral renal stents
History of GI bleed
History of erythema nodosum
Cholecystectomy
Bilateral inguinal hernia repair
Chief Complaint
-: Bacteremia
Subjective / Review of Systems
Patient seen and examined.
Review of Systems: No Fever
Vital Signs / Physical Exam
Vital Signs
Vital Signs
Temp Pulse Resp BP Pulse Ox
97 F 99 24 136/62 97
06/13/25 06:55 07/27/25 06:55 06/13/25 06:55 06/13/25 06:55 06/13/25 06:00
Physical Exam
Constitutional: Comfortable, Acutely Ill and Non-toxic
Head: Other (NG tube in place.)
Eyes: No Conjunctival Hemorrhage and Other (sclera with mild icterus)
Cardiovascular: Regular Rate, S1/S2 and Murmur; Negative S3/S4
Pulmonary: Clear and Non Labored; Negative Wheezes
Gastrointestinal: Soft, Non Tender and Non Distended
Extremities: Edema
Skin: Other (Multiple ecchymosis areas over arms and legs.)
Psychological: Confused
Objective Data
Lab Data
Lab Results
06/13/25 03:31
06/13/25 03:31
PT 14.4 Sec (11.4-14.6) 06/11/25 11:34
INR 1.09 06/11/25 11:34
APTT 32.1 Sec (23.4-35.0) 06/11/25 11:34
Estimated Creat Clear 19 ml/min 06/13/25 03:31
Lactic Acid 1.3 mmol/L (0.7-2.0) 06/12/25 17:48
Total Bilirubin 1.1 mg/dl (0.2-1.3) 06/13/25 03:31
AST 21 U/L (14-36) 06/13/25 03:31
ALT < 10 U/L (0-35) 06/13/25 03:31
Alkaline Phosphatase 194 U/L (38-126) H 06/13/25 03:31
Most recent labs reviewed.
Micro Results:
06/13/25 03:31 Blood Culture - Pending
Blood/Venous
06/10/25 11:43 Blood Culture - Preliminary
Blood/Venous Positive culture in progress
S aureus-Methicillin Sensitive
Gram Stain - Preliminary
06/12/25 17:48 Blood Culture - Pending
Blood/Venous
06/11/25 11:34 Blood Culture - Preliminary
Blood/Venous No Growth in 24 hours- Final report to follow
06/11/25 10:06 Blood Culture - Preliminary
Blood/Venous No Growth in 24 hours- Final report to follow
06/09/25 14:50 Blood Culture - Final
Blood/Venous S aureus-Methicillin Sensitive
Gram Stain - Final
06/09/25 13:57 Blood Culture - Final
Blood/Venous S aureus-Methicillin Sensitive
Gram Stain - Final
06/10/25 11:43 Urine Culture - Final
Urine NO GROWTH
Imaging:
06/10/25 MRCP: Status post cholecystectomy. Probable dilated cystic duct remnant measuring up to 1.8 cm with internal layering debris/stones, new from prior.
06/10/25 Abd US: No intra or extrahepatic biliary ductal dilation demonstrated. Right pleural effusion, partially imaged.
06/08/25 CXR: Suspect mild central pulmonary vascular congestion.
06/02/25 Left Knee MRI: Nondisplaced fractures of the central and anterolateral aspects of the tibial plateau. No evidence for displacement or articular surface depression.
Large bone infarct of the distal femur. Oblique tear of the posterior horn of the medial meniscus. Large knee joint effusion. Osteoarthrosis of the right knee with tricompartmental chondromalacia, most severe in the lateral aspect of the
patellofemoral compartment with extensive full-thickness chondromalacia.
--- NOTE | 2025-06-13 08:17 | W.PN.INTV ---
Today's Communication / Plan
Recommendations
Patient is clinically declining and is likely heading towards hospice, however family (brother, Crow, Crow' daughter, Claudia, and sister, Kristi) still needs another day to make final decision
Today pt says that she 'wants to ,' and appears to be having occasional panic attacks and endorses generalized pain. I will add on low-dose oxycodone in addition to prn Dilaudid + Ativan to help make her more comfortable while awaiting final
decision about hospice tomorrow.
Psych consulted - recs appreciated
Given patient's acute stroke and confusion, she lacks capacity to make her own decisions
Continue with full medical management for now
ASA + Plavix resumed on 06/12
Check MJ panel, and continue trending Hb + platelet count
Continue trending Hb + BUN
pt is s/p bicarb drip per nephrology for metabolic acidosis, which is now resolved
Antibiotics per ID
Awaiting MRI T and L spine to eval for discitis/OM
ALICE tomorrow unless pt is transitioned to hospice
F/u serial blood cultures
Guarded prognosis - DNR/DNI
Patient is stable for downgrade out of ICU to IMU from Day Porter standpoint. Defer disposition decision to hospitalist. Day Porter/pulmonary service will continue to briefly follow along. Once patient is transition to hospice, we will sign off
at that time.
Assessment
-
Impression:
#Acute blood loss anemia with concern for UGIB
#Hypotension likely due to above in the setting of chronic HFrEF, significant valvular heart disease and reduced PO intake
#Thrombocytopenia likely due to sepsis/bacteremia
#Large acute transcortical ischemic CVA and posterolateral left parietal lobe with multiple small acute ischemic infarcts in the right parietal lobe + left caudate nucleus + subcortical white matter in the posterior left frontal lobe - suspected to
be septic emboli from MSSA bacteremia
#MSSA bacteremia - source is due to endcarditis vs discitis vs OM
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
#Chronic HFrEF with stage II diastolic dysfunction
#Valvular heart disease with mild as moderate MR, moderate�severe TR (per TTE from 06/02/2025)
#History of severe mesenteric stenosis involving SMA/GABY, and lesser extent celiac artery on MRA from 07/2022
#Chronic transaminitis with chronic hyperbilirubinemia
#Hx of liver transplant (OLT - 2007 at [facility]) due to Hx of EtOH-cirrhosis
#CKD (baseline creatinine 1.5�1.8)
#History of approximately A-fib with history of recurrent GI bleed, fall risk and liver transplant s/p Watchman procedure with PVI (procedure date: 02/02/2025)
#History of CAL clot (per cardiology, dissolved prior to watchman implantation in January 2025)
#History of COVID-19 (Jul 2022)
Plan:
- Concern for underlying UGIB given elevated BUN greater than baseline, although patient has not had a bowel movement in several days; she did have a smear earlier this morning of melena, per RN
- Large bore IV x2
- s/p LR at 75cc/hr
- Serial CBC and transfuse if needed to keep Hb>8g/dL mohsen given Hx of CAD with severe disease at RCA per recent C; keep plt>50k, INR<1.8
- She received 1 U PRBC on evening of 06/09 and was ordered another 1 unit PRBC this AM given Hb <8(4th total unit PRBC this hospitalization)
- GI consulted - defer endoscopy to them (no plans as of now)
- Resumed ASA + plavix on 06/12 per discussion between Neurology and GI, mohsen as GI bleed appears to have resolved as pt not having a bowel movement; Cardiology following given her Hx of CAD
- Low threshold to stop DAPT if Hb becomes unstable or if pt has a bloody BM/melena associated with tachycardia/hypotension
- Holding beta-thu; if Hb remains stable then will resume
- Continue PPI 40mg IV BID
- 4T score is intermediate (4 points) � check MJ panel
- Maintain MAP>65
- Given her history of chronic HFrEF, stopped IVF for now given improved BP; CXR this morning (06/12) showed no evidence of pulmonary/interstitial edema bilaterally with patchy lower lobe atelectasis
- Patient now on 1/2NS and is s/p bicarb gtt as she developed a metabolic acidosis with elevated BOHB, likely due to starvation ketoacidosis. HCO3 level now normal, bicarb gtt DC'd, cautiously continue 1/2NS (stop date placed - lasix currently
being held as well)
- Can use midodrine + albumin if needed for hypotension
- Random cortisol checked on evening of 06/09, which was 32 --> this rules out CIRCI
- Trend LFTs and T bili (both normal as of today - 06/13)
- Trend WBC and monitor temperature curve
- Blood cultures drawn 06/09 has grown MSSA --> blood culture from 06/10 is also positive; follow up surveillance blood culture collected 06/11 through (06/13) (NGTD); no growth on urine culture from 06/10
- ID consulted; vancomycin changed to cefazolin given cultures are showing MSSA; pt is immunocompromised given history of OLT --> continue immunosuppression for now
- Recent TTE from 06/02/2025 did not show evidence of vegetation; Cardiology discussed case with Dr. Mc on 06/11 --> plan for ALICE tomorrow (06/14) unless pt transitions to hospice
- MRI C-spine performed on 06/11/2025 showed severe enhancing bilateral posterior paraspinal soft tissue edema suspicious for acute myositis versus severe acute muscle strain; no evidence for infectious discitis or OM
- Check MRI T/L spine to eval for source of MSSA bacteremia
- Pt has Hx of biliary duct focal narrowing - given her Hx of liver transplant, GI recommending MRCP to rule out infection, and to assess for gallbladder + biliary tract stricture, obstruction vs leak
- MRCP performed on 06/10/2025 shows a suspected dilated cystic duct remnant measuring up to 1.8 cm with internal layering debris/stones, with otherwise stable intrahepatic + CBD dilatation, and unremarkable appearance of the transplanted liver
- RUQ US on 06/06/2025 shows no focal hepatic mass
- Despite her having bacteremia, for now would continue immunosuppression with prednisone, cellcept and cyclosporine
- Pain control regarding her left-sided tibial plateau fracture + meniscus tear
- Orthopedic surgery had seen the patient on 06/02/2025, and recommend strict nonweightbearing to her left lower extremity, with no further use of a knee immobilizer. Continue range of motion as tolerated, and she would likely benefit from SNF
placement upon discharge
- Recommend PT/OT (although patient is currently too weak to significantly engage in exercise at this juncture)
- Ice + elevation for pain and edema control
- Outpatient orthopedic surgery follow-up for symptom management + repeat XR
- Maintain SpO2 >90-94%
- Currently on room air breathing comfortably, saturating 99%
- prn nebulized bronchodilators - not currently bronchospastic
- Replete electrolytes with K>4, Mg>2
- Trend sCr and monitor UOP
- Trend bicarb level
- Given her acute stroke, continue neurochecks and NIHSS per protocol
- Neuro consulted already and recs appreciated
- PT/OT
- STAFF ELECTRONIC WARFARE OFFICER eval (currently receiving TF via DHT)
- Now back on ASA and plavix per neuro - ok with GI; continue to monitor for GI bleed recurrence; trend Hb and BUN
- Maintain euglycemia with goal BG 140-180; start scheduled aspart and give dose of NPH now; continue ISS; pt may need basal insulin if BG remains >180; HbA1c: 5.6 on 06/10/2025
- If pt becomes more awake/alert, would encourage incentive spirometer 10x per hour for at least 4 hrs a day
- Tube feeds via R-nare DHT
- DVT ppx: SCDs for now; hold off on adding chemical DVT ppx given downtrending plt count
IV Access: Left upper extremity midline
I discussed this case with the primary hospitalist, neurology + bedside RN.
Guarded prognosis � on 06/11/2025, Dr. Mc discussed goals of care with the patient's sister, Kristi, and patient made DNR/DNI (see separate update note from 06/11/2025). Low threshold to transition to comfort care measures depending on her
clinical course. For now, sister would like to continue with full medical management.
[facility] discussion 06/13: Dr. Mc discussed case with sister, and we discussed the poor clinical status of Nu, and the fact that the patient says that she wants to and that she is in pain. Sister and brother will be coming in tomorrow
(06/14) with brother's daughter, Claudia, and they likely will withdraw care at that time. I will consult hospice so that they can discuss options with the family/patient.
I will start her on a low-dose scheduled oxycodone with prn dilaudid for breakthrough symptoms, but pt appears to be heading towards comfort care/hospice.
For now, patient will continue with full medical management. Patient is stable for downgrade out of ICU to IMU from Day Porter standpoint. Defer disposition decision to hospitalist. Day Porter/pulmonary service will continue to briefly follow
along. Once patient is transferred to hospice service, we will sign off at that time.
Data:
MRI brain 06/11/2025:
1. LARGE ACUTE TRANSCORTICAL INFARCT in the posterolateral LEFT PARIETAL LOBE (containing severe cytotoxic edema and a small amount of intraparenchymal hemorrhage).
2. Small acute subcortical white matter infarcts in the posterior left frontal lobe.
3. Small acute ischemic infarct in the head of the left caudate nucleus.
4. Small acute ischemic infarcts in the right parietal lobe.
5. Mild to moderate white matter leukoaraiosis.
6. MODERATE to SEVERE BILATERAL TEMPORAL LOBE VOLUME loss suggesting a chronic neurodegenerative disease.
7. Small number of punctate intraparenchymal cerebral microhemorrhages.
MRI cervical spine with/without contrast 06/11/2025:
1. Severe enhancing bilateral posterior paraspinal soft tissue edema. Diagnostic possibilities are (1) ACUTE MYOSITIS or (2) severe acute muscle strain.
2. Mild edema throughout the prevertebral soft tissues.
3. No MRI evidence for acute infectious discitis or acute osteomyelitis.
4. 2.8 mm anterolisthesis of C3 on C4 secondary to severe left facet joint arthrosis. Mild spinal cord compression and moderate left neural foraminal narrowing at C3/C4.
5. Severe discogenic degenerative disease at C4/C5 with a large disc-osteophyte complex causing minimal spinal cord compression, minimal central canal stenosis, and moderate to severe bilateral neural foraminal narrowing.
6. Severe bilateral neural foraminal narrowing at C6/C7.
MRCP 06/10/2025:
1. Status post cholecystectomy. Probable dilated cystic duct remnant measuring up to 1.8 cm with internal layering debris/stones, new from prior.
2. Otherwise stable intrahepatic and common bile duct dilatation.
3. Otherwise unremarkable appearance of the transplanted liver.
4. Small right and trace left pleural effusions.
Total time spent today was 81 minutes for this encounter. Time includes reviewing laboratory test/imaging results, reviewing pertinent medical records, obtaining and reviewing medical history, performing an appropriate exam, ordering medications,
tests and procedures. Time also includes documentation of this encounter, coordinating patient care and communicating with other healthcare professionals. Total time does not include separately billed tests performed on this date of service.
Subjective Dataa
Subjective Data
Date of Service:
Date of Service: June 13, 2025
Chief Complaint: Day Porter Follow Up
Objective Data
Data Reviewed
Vital Signs / I&O / Oxygen:
Vital Signs
Temp Pulse Resp BP Pulse Ox
97.7 F 100 13 153/59 97
06/13/25 09:43 06/13/25 11:00 06/13/25 11:00 06/13/25 11:00 06/13/25 11:00
Intake and Output
06/12/25 06/13/25 06/14/25
06:59 06:59 06:59
Intake Total 770 / 840 2885 / 2950 725 / 725
Output Total 665 / 665 775 / 775
Balance 105 / 175 2110 / 2175 725 / 725
SaO2 97
Nasal Cannula flow liters per 2
minute
Physical Exam
General: Respiratory Distress (negative), Comfortable, Chills (negative), Sweats (negative) and Other (Elderly female, lethargic, in NAD)
HEENT: Normocephalic and Anicteric
Cardiovascular: S1-S2, Peripheral Edema (+2 lower extremity pitting edema bilaterally) and Other (no murmurs)
Respiratory: Clear, Wheeze (negative), Crackles (negative), Rhonchi (negative), Non-Labored Respirations and Stridor (negative)
GI: Soft, Non Distended, Non Tender, Normal Bowel Sounds and NG Tube (Right nare)
Neurology: Lethargic (Easily arousable to voice and responds by answering yes/no) and Other (Pupils 2 mm bilaterally and sluggish; unable to assess sensation given patient's acute clinical status; plantar-flexion bilaterally is 3/5, informatica architect strength
bilaterally 3/5; not able to assess cranial nerve function given patient's acute clinical status)
Skin: Warm, Dry, Cyanosis (negative), Jaundice (negative) and Bruising (Multiple bruises over chest, arms + legs)
Labs/Micro/Reports
Lab Data
06/13/25 03:31
06/13/25 03:31
Microbiology
06/11/25 10:06 Blood/Venous Blood Culture - Preliminary
No Growth in 48 hours- Final report to follow
06/10/25 11:43 Blood/Venous Blood Culture - Preliminary
Positive culture in progress
S aureus-Methicillin Sensitive
06/10/25 11:43 Blood/Venous Gram Stain - Final
06/11/25 11:34 Blood/Venous Blood Culture - Preliminary
No Growth in 24 hours- Final report to follow
06/09/25 14:50 Blood/Venous Blood Culture - Final
S aureus-Methicillin Sensitive
06/09/25 14:50 Blood/Venous Gram Stain - Final
06/09/25 13:57 Blood/Venous Blood Culture - Final
S aureus-Methicillin Sensitive
06/09/25 13:57 Blood/Venous Gram Stain - Final
06/10/25 11:43 Urine Urine Culture - Final
NO GROWTH
[2025-06-13] MEDS: NEORAL 50 MG TUBE (08:32)
[2025-06-13] MEDS: CELLCEPT 1000 MG TUBE ×2 (08:32→20:12)
[2025-06-13] MEDS: MIRALAX 17 GRAMS TUBE (08:32)
[2025-06-13] MEDS: COLACE LIQUID 100 MG TUBE ×2 (08:33→20:12)
[2025-06-13] MEDS: CALCIUM CARBONATE ORAL SUSP 500 MG TUBE ×2 (08:33→20:12)
[2025-06-13] MEDS: PROTONIX IV 40 MG IV ×2 (08:33→20:12)
[2025-06-13] MEDS: NSS (PRESERVATIVE FREE) 10 ML IV ×2 (08:33→20:12)
[2025-06-13] MEDS: PLAVIX 75 MG PO (08:34)
[2025-06-13] MEDS: DELTASONE 15 MG TUBE (08:34)
[2025-06-13] MEDS: LOW STRENGTH ASPIRIN 81 MG PO (08:34)
[2025-06-13] MEDS: SENNA SYRUP 8.8 MG TUBE ×2 (08:34→20:12)
[2025-06-13] MEDS: THIAMINE INJECTION 100 MG IV (08:35)
--- NOTE | 2025-06-13 10:43 | PTCARENOTE ---
Rec'd care of patient at 0700. NIH stroke scale completed with previous RN. NIH-15. Previous score- 11. Neurologist notified. No major changes noted; drowsy with increased generalized weakness. Patient arousable to verbal stimuli. Oriented to self
and place. Pupils equal and reactive; +2mm. MAEx4. Anxious and tearful. Crying out 'I hate myself' and 'kill me'. Emotional support provided. Once patient calmer, patient able to tell RN that she 'hurts everywhere' with a rating of '150 out of 10'.
PRN Dilaudid administered. Patient resting comfortably s/p administration. NSR/ST with pvcs on tele. HR ranging from 90-110's. +2 generalized anasarca. +3 edema in b/l UE; weeping. Pulses palpable. Lung sounds shallow, diminished throughout. Pulse
ox 98-99% on RA. +BS. TFs infusing through NGT at goal rate. No BM; bowel regimen administered as ordered. Incontinent of urine; purewick in place. CHG bath provided. Stage 2 on sacrum; dressing changed. 1 unit PRBCs transfused through left midline.
IVFs restarted s/p transfusion. VSS. Afebrile. See worklist for full NIH, assessment and care.
[2025-06-13] MEDS: NOVOLOG FLEXPEN-MODERATE RESISTANCE 5 UNITS SC (12:04)
[2025-06-13] MEDS: NOVOLOG FLEXPEN 4 UNITS SC ×3 (12:05→23:24)
[2025-06-13 12:07] LABS: Glucose - Point of Care 254 mg/dl (70-99)
--- NOTE | 2025-06-13 12:08 | PTCARENOTE ---
Patient tearful. Stating 'cannot live like this', 'I hate myself' and 'just kill me'. Flat and withdrawn. Emotional support and reassurance provided. Case Technician notified. 1x dose of Ativan ordered. Awaiting psych consult. No other changes.
[2025-06-13] MEDS: ATIVAN 0.5 MG PO (12:14)
--- NOTE | 2025-06-13 14:35 | CON.MD ---
Consultation - Medical
-
patient seen chart reviewed. spoke with nursing and with dr rogers by text. this consult was done today june 13 2027. patient is a 74 year old woman who has had extreme medical issues since her admission to two weeks ago after a fall in which
she sustained tibial fx. i spoke to her sister who feels this caused a precipitous decline in ms johnson's health. i could get very little information from the patient herself who kept repeating over and over again' let me ...let me ...i want
to .' i explained to her that she had recently been changed from full code to do not resuscitate and what that meant. i then asked her if she was thinking about hospice and explained what that meant and she said 'i want to ' repeatedly. i
asked her to tell me if she understood her medical condition and she said again that she wanted to . a good friend was in the room with her and told me that she and 'mick' had worked some years ago fund raising for [facility] hospice and friend
(madan) assured me that ms johnson definitely would be aware of what hospice means and what it entails. i called ms johnson's sister who has been the hospital personnel director for ms johnson and apprised her of my conversation with the patient. she said
'yesterday' the patient did not indicate anything of the sort and she was hopeful that her sister would rally. she wanted to await the arrival of her brother tomorrow whereupon they will visit and talk about this issue. i did point out to her sister
that the patient was in considerable pain and was very ill and that her condition was considered very serious and the prognosis was poor so it was not beyond reason that the family and patient might consider hospice as the patient seemed to be
requesting in not so many words.
past psych hx according to sister the patient has no hx of psychiatric illness. she has never been rx for depression anxiety or other psych illness
past medical hx patient has numerous serious medical issues including but not limited to the following. the patient is a liver transplant recipient due to cirrhosis. she has a hx in the past of etoh abuse. she is immunosuppressed. she suffered a
recent stroke and there is evidence of septic emboli. recent staph aureus isolate in blood. hx a fib cad HFrEF chronic anticoag, pulmonary hypertension, ischemic cardiomyopathy NSTEMI during this hosp stay GI bleed (egd canceled due to med
complications) electrolyte imbalance hematological disorders including anemia and low platelet ckd which is worsening cardiac valvular dysfunction disc disease ? mesenteric stenosis bilateral pleural effusions chronic pain htn hld
edematous painful upper extremities as per nsg
substance abuse alcoholism in distant past
fh non contributory
social hx retired sister supportive was living w sister locally was fairly independent before fall and tibial fx
mse unable to converse with patient who repeated over and over again that she wanted to . she would not or could not answer simple questions including re orientation
dx unspecified depression
recommendations see above re my conversation with sister. while i could not really ascertain whether patient has capacity for make medical decisions i do feel hospice would not be an unreasonable discussion to have with patient 's brother and
sister who will come in tomorrow as it has been noted in the chart that there is a poor prognosis. would recommend aggressive pain control as pain did not seem to be relieved sufficiently by current dose of dilaudid. i do not see how antidepressants
could help in the short term at this point and all of the antidep can inhibit platelets which seem to be in short supply. would not object to liberal use of ativan if it helps w pain.
[2025-06-13 14:41] LABS: Hematocrit 29.5 % (37.0-47.0); Hemoglobin 10.2 g/dL (12.0-16.0); Mean Corp Hgb Conc. 34.6 g/dL (33.0-37.0); Mean Corpuscular Volume 87.8 fL (81.0-99.0); Platelet Count 48 10^3/uL (130-400); Red Cell Dist. Width 17.4 % (11.5-14.5)
[2025-06-13] MEDS: NOVOLIN N vial 0.08 UNITS SC (15:09)
[2025-06-13 15:22] LABS: Glucose - Point of Care 238 mg/dl (70-99)
--- NOTE | 2025-06-13 15:31 | W.PN.NEPH.PH ---
Today's Communication / Plan
-
Continue supportive care
Assessment/Plan
-
Impression:
Mechanical fall (patient tripped over object) resulting in b/l knee contusions with hematoma and b/l knee effusions, left greater than right, Acute Anemia
STEMI (troponin peak ~17)
INDU with [id number] 1.6-1.9-Dr Erazo
Secondary hypertension undergoing bilateral renal artery stenting July 2022 (decrease in GFR following procedure?)
Hyperkalemia
Persistent atrial fibrillation. s/p watchman 01/2025
HFrEF. 30-35%
History of left atrial appendage thrombus.
Cardiomyopathy.
Mural Thrombus?
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
Immunocompromised s/p liver transplant 2007
CVA 2015. Left hemispheric seen on MRI
History of gastritis, GERD.
Remote tobacco and alcohol abuse.
Childhood epilepsy.
Ambulatory dysfunction with fall risk.
Osteoarthritis.
Degenerative disc disease.
Osteopenia.
h/o Left portal vein thrombosis
Plan:
INDU
-due to contrast nephropathy
-Recent Black stools =endoscopy aborted due to fever and hypotension
MSSA from 06/09/2025 first blood culture (now on vancomycin)= source?
-Hemoglobin dropped with endoscopy aborted due to fever and hypotension this week
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
incidental finding of STEMI s/p LHC on 06/01 RCA disease seem chronic
no intervention needed per cards
echo noted EF 30-35%, DD stage II. WMA. mod to severe TR with pulm HTN
Status post CVA
Continue supportive care as her prognosis guarded
No acute need for dialysis/patient is DNR per ICU team discussion with patient's sister and not a dialysis candidate
Bicarbonate improved with alkaline therapy discontinued
Patient was examined by psychiatry for capacity though not clear per his exam/patient wishes to stop care. To meet with family this week

33 minutes critical care time spent
-
-
Date of Service: June 13, 2025
CC / HPI / ROS
-
Chief Complaint:
INDU with CKD
History of Present Illness:
Creatinine stable at baseline at 1.9 with BUN up to 111
Hemodynamically labile (sbp drop to 70 ) with subsequent transfer to the intensive care unit on the evening of 06/09/2025
Anemia improved after 1 unit transfusion last evening on 06/09/2025
Review of Systems:
Patient somnolent. No chest pain or shortness of breath
Nonoliguric
Labs
-
Labs:
WBC 7.8 10^3/uL (4.8-10.8) 06/13/25 14:18
RBC 3.36 10^6/uL (4.20-5.40) L 06/13/25 14:18
Hgb 10.2 g/dL (12.0-16.0) L D 06/13/25 14:18
Hct 29.5 % (37.0-47.0) L 06/13/25 14:18
Plt Count 48 10^3/uL (130-400) L 06/13/25 14:18
Sodium 139 mmol/L (135-145) 06/13/25 03:31
Potassium 3.8 mmol/L (3.5-5.1) 06/13/25 03:31
Chloride 110 mmol/L (98-107) H 06/13/25 03:31
Carbon Dioxide 26 mmol/L (22-30) 06/13/25 03:31
BUN 104 mg/dl (7-17) H* 06/13/25 03:31
Creatinine 1.8 mg/dL (0.6-1.0) H 06/13/25 03:31
eGFR 29.38 06/13/25 03:31
Glucose 270 mg/dl (70-99) H 06/13/25 03:31
Calcium 8.4 mg/dl (8.4-10.2) 06/13/25 03:31
Phosphorus 2.2 mg/dl (2.5-4.5) L 06/13/25 03:31
Albumin 1.9 g/dl (3.5-5.0) L 06/13/25 03:31
Physical Exam
-
Vital Signs:
Vital Signs
Temp Pulse Resp BP Pulse Ox
98.1 F 108 14 158/65 98
06/13/25 11:52 06/13/25 15:00 06/13/25 15:00 06/13/25 15:00 06/13/25 15:00
[2025-06-13] MEDS: ROXICODONE ORAL SOLUTION 5 MG TUBE (15:44)
--- NOTE | 2025-06-13 16:53 | PTCARENOTE ---
Patient more flat/withdrawn from prior assessments. Minimally interacting with visitors. Moaning out in pain. Order for scheduled Ruthie placed and administered. Patient resting comfortably after receiving dose.
--- NOTE | 2025-06-13 17:10 | W.PN.HOSP.TC ---
Today's Communication/Plan
-
continue IV Ancef
Potential ALICE unless plan to transition to Hospice
Assessment / Plan
Assessment / Plan
Assessment/Plan
74-year-old female with PMH significant for persistent symptomatic atrial fibrillation, left atrial appendage clot identified in 2022 with clot reassessed July 2024 and found to be still present, maintained on
metoprolol and anticoagulated with Eliquis 2.5 mg b.i.d. 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
transplant due to cirrhosis 2007, on immunosuppressants and modulators, Her [id number] is 6, Watchman Device placed on February 02, 2025 with postoperative complication of blood loss anemia due to GI bleeding, who presented to ED due to trip and fall
at grocery store, no LOC, denied hitting her head, and c/o b/l knee pain and left lateral rib pain, incident occurred directly prior to arrival.
CARLO wrap and knee immobilizer placed in ED. Large hematoma to left anterior knee, unable to ambulate safely after presentation due to pain. Could not tolerate knee immobilizer due to bulkiness.
#Likely a Type 2 HI in setting of nausea and relative hypotension, as well as underlying CKD, on 06/01/25 evening
Troponin peaked 17.3 on 06/02
-LVEDP was 16 during cardiac cath
-EKG had been checked on 06/01/25 to check QTc for Zofran administration for severe nausea, and it showed STEMI
-Cardiac Cath on 06/01/25 evening showed coronary artery disease with new severe disease of the RCA from previous (subtotal chronic occlusion of RCA new from 2022 but clearly not acute (and not amenable to revasc)) and stable SCRAPER OPERATOR of mid LAD, which
was likely chronic in nature
-Per Dr. Bower, EKG changes were secondary to whatever was causing her to have nausea and hypotension and not the other way around; patient likely a type II NSTEMI. Her LAD has been chronically occluded for years and
the RCA does not look like it�s amenable to revascularization.
06/01 heart cath report: CORONARY ANGIOGRAPHY
Dominance: Right
LM: large with mild disease
LAD: large vessel giving rise to a large septal branch and moderate caliber diagonal branch before being chronically occluded in the mid vessel with the distal vessel fed via L-L septal collaterals. There is otherwise diffuse mild disease. The
vessel is large unchanged in appearance from 2022 angiography.
LCx: large vessel giving rise to a small OM1, moderate caliber OM2, and large LPL branch. There is diffuse mild disease largely unchanged from 2022 angiography.
RCA: small vessel giving rise to a small RPDA and small RPL branch. There is a subtotal ostial occlusion and diffuse moderate disease throughout the remainder of the vessel. The vessel is atretic in caliber compared to 2022 angiography and there is
evidence of competitive flow in the RPDA. This all suggests the RPDA to be chronically occluded and not an infarct related artery.
-Will need to stop DAPT -- patient was getting DAPT since hospital admission, due to declining Hgb, probably from GI bleeding. Call placed and discussed with Dr. Norris 06/09. She was made aware of current status, she will see patient
-Continue beta thu
-Patient is not on statin given history of liver transplant
-Patient had chest pain again on 06/06/25 -- likely chest wall pain (reproducible, worse with breathing) -- related to recent fall [employer] HEL[employer]?
06/08 EKG: NORMAL SINUS RHYTHM
NONSPECIFIC ST AND T WAVE ABNORMALITY
ABNORMAL ECG
WHEN COMPARED WITH ECG OF 06-JUN-2025 15:08,
NO SIGNIFICANT CHANGE WAS FOUND
#Mechanical fall (patient tripped over object) resulting in b/l knee contusions with hematoma and b/l knee effusions, left greater than right, and inability to ambulate safely
#Large Left Knee Joint Effusion
-Cont CARLO bandage/wound care
-PT/OT evaluation
-Ortho consulted given concern for worsened suspected hemarthrosis: MRI showed: nondisplaced fractures of the central and anterolateral aspects of the tibial plateau; large bone infarct of the distal femur; oblique tear
of the posterior horn of the medial meniscus; large knee joint effusion.
-Appreciate ortho: maintain strict non-weight bearing to left lower extremity; can stop knee immobilizer; may perform range of motion as tolerated.
-Pain control; Ice and elevation for pain and edema control.
-Follow-up with Dr. Stevens in the office in 2 weeks for repeat x-rays.
#Immunocompromised s/p liver transplant
Liver Transplant was 19 years ago
-continue home meds cyclosporine, prednisone, mycophenolate
#Worsened Anemia in the Setting of Likely Left Knee Bleeding and lower extremity ecchymosis from mechanical fall
-Patient provided blood consent and understood all risks and benefits
-Hgb dropped to 7.1, patient says baseline is 9 to 10
-Transfused 1 unit PRBC on 06/01/25
-Transfused another 1 unit of PRBC on 06/05/25 to address possible cardiac ischemic issues as discussed with Dr. Jackson (see above)
-Cardiology recommended to keep Hgb at least 8 but perhaps higher
Ordered 3rd unit 06/09 given
4th unit given 06/13
Hgb 7.9-->10.5-->8.6-->7.8-unit given->10.2
Concern in this pt with active GI bleeding for resumption of DAPT, but based on neurologic input concern for CVA. Very difficult situation
#Hyperkalemia, was mild hypokalemia, K 3.4,-->4.5
resolved
CVA
seen by neuro 06/12. Based on MRI, plan is to resume DAPT
06/11 Brain MRI: 1. LARGE ACUTE TRANSCORTICAL INFARCT in the posterolateral LEFT PARIETAL LOBE (containing severe cytotoxic edema and a small amount of intraparenchymal hemorrhage).
2. Small acute subcortical white matter infarcts in the posterior left frontal lobe.
3. Small acute ischemic infarct in the head of the left caudate nucleus.
4. Small acute ischemic infarcts in the right parietal lobe.
5. Mild to moderate white matter leukoaraiosis.
6. MODERATE to SEVERE BILATERAL TEMPORAL LOBE VOLUME loss suggesting a chronic neurodegenerative disease.
7. Small number of punctate intraparenchymal cerebral microhemorrhages.
GI bleed
GI consult. Plan was to do a EGD 06/09, pt status felt to be too tenuous and EGD was cancelled. Though pt had passed bloody stools as well as melanotic stools, it was felt that colo would not be tolerated
monitor Hgb
Hgb 10.1-->9.5-->10.1-->10.0-->9.5-->9.2-->8.1-->(Hgb repeated to confirm prior was not a false reading)7.9-1 unit transfused-->10.5-->8.3-->9.7-->8.9-->8.6
Protonix 40 mg IV q12h.
#Persistent atrial fibrillation -- no longer on anticoagulation since had Watchman Device months ago; currently on DAPT as would be expected
#HFrEF ---- GDMT limited by BPs and renal function; ARB held appropriately for renal dysfunction and BP's; continue metoprolol as able with regards to hypotension
06/02 Echo: LVEF 30-35%
#History of left atrial appendage thrombus.
Cardiomyopathy.
#Mural Thrombus?
#CAD- SCRAPER OPERATOR of mid LAD by catheterization,2022
#CVA 2016. Left hemispheric seen on MRI, questionable
right peripheral visual and quadriceps weakness on exam.
MSSA Bacteremia
Low grade fever of 100.1 on 06/09 @11:06 with WBC 12.3-->11.5-->10.2-->9.3-->7.7-->10.9-->6.6-->7.8
etiology unclear. No obvious signs of infection. Ordered Blood Cx x 3 was pos for Staph aureus, now known to be MSSA
started on Vancomycin. ID consult placed, abx changed to Ancef 2 gms IV q12h (renal dosing)
Unclear source. ALICE planned for Thursday 06/14
Thrombocytopenia
#INDU on CKD 3.
Acidosis
started on bicarb drip 06/12
Renal stents.
BUN/Creat 104/1.8-->107/2.2-->109/2.0-->104/1.8
elevated BUN disproportionate to Creat felt to be related to UGI bleed
input of nephrology appreciated
-INDU is suspected to be due to contrast nephropathy
-Continue to hold Lasix and Valsartan
#Liver transplant with history of cirrhosis.
#History of gastritis, GERD.
#Remote tobacco and alcohol abuse.
#Childhood epilepsy.
#Ambulatory dysfunction with fall risk.
#Osteoarthritis.
#Degenerative disc disease.
#Osteopenia.
very complex situation
DVT proph-SCDs. No chemical prophylaxis given suspected bleeding situation above.
Code Status: DNR. Dr. Mc met with sister (POA) 06/11 and decision was made to change status to DNR
Will continue in ICU
Guarded Prognosis noted by CCM
Dr. Mc met with sister 06/13 and as per his call to me, sister is now planning/considering to have patient transitioned to Hospice 06/14. Await definite decision
Total Critical Care Time 55 minutes. I was immediately available to the patient and staff. I personally examined, reviewed labs, diagnostic images/reports, interpretations, treatment plans, discussed patient care with other providers and family
or caregivers (if patient is unable to make decisions), entered orders as appropriate and documented the medical record.
Disposition: SNF eventually
Anticipated Discharge: > 48 hours
Subjective/Interval History
-
Date of Service: June 13, 2025
Remains very weak
Objective Data
-
Labs:
Laboratory Results
06/13/25
14:18
WBC 7.8
Hgb 10.2 L D
Hct 29.5 L
Plt Count 48 L
Vital Signs:
Vital Signs
Temp Pulse Resp BP Pulse Ox
97.7 F 105 16 160/64 97
06/13/25 16:37 06/13/25 16:00 06/13/25 16:00 06/13/25 16:00 06/13/25 16:00
I&O
06/12/25 06/13/25 06/14/25
06:59 06:59 06:59
Intake Total 770 / 840 2885 / 2950 1425 / 1425
Output Total 665 / 665 775 / 775 225 / 225
Balance 105 / 175 2110 / 2175 1200 / 1200
Review of Systems
-
History Source: Physician (reviewed with Dr. Mc)
Constitutional: Denies Fever
EENT: Reports No Symptoms Reported
Respiratory: Reports No Symptoms
Cardiac: Reports No Symptoms
Musculoskeletal: Reports Muscle Weakness
Neuro: Reports Other (lethargic)
Physical Exam
-
General: Well Developed, Well Nourished, No Apparent Distress, Appears Chronically Ill and Other (NG tube in place)
HEENT: Normocephalic and Atraumatic
Respiratory: Clear to Auscultation; Negative Wheezes, Rales or Rhonchi
Cardiac: Regular Rhythm and S1/S2
GI: Soft, Nontender and Nondistended
Musculoskeletal: No Clubbing, No Cyanosis and No Edema
Neuro: Other (not as lethargic today); Negative Awake or Alert
[2025-06-13] MEDS: NEORAL 25 MG TUBE (17:41)
[2025-06-13] MEDS: NOVOLOG FLEXPEN-MODERATE RESISTANCE 3 UNITS SC (17:54)
[2025-06-13 18:05] LABS: Glucose - Point of Care 222 mg/dl (70-99)
[2025-06-13] MEDS: DILAUDID 1 MG IV (20:19)
--- NOTE | 2025-06-13 20:30 | PTCARENOTE ---
Pt received start of shift, HR ST on telemetry. NIH 15 at change of shift. Pt c/o diffuse whole body pain - PRN pain medication (see MAR). Pt frequently asking for help. When asked help with what, pt states 'with help dying, please!'. Emotional
support provided. TF infusing at 40ml/hr into R nare NGT @ 70cm.
[2025-06-13] MEDS: NOVOLOG FLEXPEN-MODERATE RESISTANCE 1 UNITS SC (23:24)
[2025-06-13 23:26] LABS: Glucose - Point of Care 194 mg/dl (70-99)
[2025-06-14] VITALS (12 sets, daily range): BP systolic 88–163; BP diastolic 37–79; BMI 26.4
[2025-06-14] MEDS: ROXICODONE ORAL SOLUTION 5 MG TUBE (00:20)
--- NOTE | 2025-06-14 02:16 | PTCARENOTE ---
TF off @ 0000 for potential ALICE in AM. Pt becoming more withdrawn. Therapeutic speech utilized. No further change in assessment.
[2025-06-14 03:59] LABS: Hematocrit 28.8 % (37.0-47.0); Hemoglobin 9.7 g/dL (12.0-16.0); Mean Corp Hgb Conc. 33.7 g/dL (33.0-37.0); Mean Corpuscular Volume 87.8 fL (81.0-99.0); Nucleated Red Blood Cells % 0 %; Platelet Count 56 10^3/uL (130-400); Red Cell Dist. Width 17.8 % (11.5-14.5)
[2025-06-14 04:16] LABS: Blood Urea Nitrogen 99 mg/dl (7-17); Calcium 8.8 mg/dl (8.4-10.2); Carbon Dioxide 26 mmol/L (22-30); Chloride 111 mmol/L (98-107); Estimated Creatinine Clearance 30 ml/min; Glucose 118 mg/dl (70-99); Potassium 4.2 mmol/L (3.5-5.1); Sodium 138 mmol/L (135-145); eGFR 43.42
[2025-06-14] MEDS: DILAUDID 1 MG IV ×2 (05:10→08:53)
[2025-06-14] MEDS: ANCEF 10 IV (05:26)
[2025-06-14] MEDS: ZOFRAN 4 MG IV (05:26)
[2025-06-14 05:38] LABS: Glucose - Point of Care 129 mg/dl (70-99)
[2025-06-14] MEDS: NOVOLOG FLEXPEN-MODERATE RESISTANCE SC ×2 (05:39→11:39)
[2025-06-14] MEDS: NOVOLOG FLEXPEN SC ×2 (05:39→11:38)
--- NOTE | 2025-06-14 05:41 | PTCARENOTE ---
On waking pt, pt became nauseous and vomited small amount red/bloody liquid. Suctioned with yankaur and NGT connected to LIS. 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 Pt also moaning out in pain through this event- PRN dilaudid administered
(see MAR).
[2025-06-14] MEDS: ROXICODONE ORAL SOLUTION TUBE ×2 (07:02→11:40)
--- NOTE | 2025-06-14 07:08 | W.PN.INTV ---
Today's Communication / Plan
Recommendations
Plan is likely to transition to comfort, she is on IV dilaudid and SL ativan
Not on pressors, stable otherwise
She is currently DNR
Awaiting family arrival for formal decision on comfort measures
Otherwise, can transfer to floors--d/w care team
We will sign off upon transfer
Assessment
-
74-year-old F with PMHx of CKD, A-fib s/p Watchman (02/02/2025) now on aspirin + Plavix, Hx of apical mural thrombus, left knee OA, hypertension, history of TIA, immunocompromise state, history of liver transplant (2007) in the setting of alcoholic
cirrhosis, GERD, GAVE, history of grade 1�2 esophageal varices, and history of diverticulosis who presented after a trip and fall at store. Patient injured her left side of her leg/knee and had difficulty standing on this, hence these were brought
her to the hospital. Initial knee XR showed no acute fracture or dislocation, and a small�moderate left knee joint effusion. Ribs/chest XR showed no rib fractures. Orthopedic surgery consulted. On 06/01, she developed severe nausea, and EKG was
concerning for inferior wall STEMI. LHC on 06/01/2025 showed severe disease in RCA, thought to be chronic. Pt has been on ASA and plavix chronically. Of note, left knee MRI obtained on 06/02 that showed tibial plateau fractures with a large bone
infarct of the distal femur, and oblique tear of the posterior horn of the medial meniscus. Also a large knee joint effusion. She developed an INDU with hyponatremia and nephrology was consulted. She had been anemic since admission and required 1
unit PRBC on 06/01, and another 1 unit PRBC on 06/05. She developed rectal bleeding on evening of 06/06 and GI consulted. PPI changed from 80mg PO daily to 40mg IV BID on 06/07. Pt brought to EGD today, however pt was hypotensive hence EGD was
canceled. Due to her hypotension with low-grade fevers, and concern for continued GI bleed, she is now being transferred to the ICU for further care. Paper Cutter Operator service is consulted for additional management/recommendations.
Impression:
#Acute blood loss anemia with concern for UGIB
#Hypotension likely due to above in the setting of chronic HFrEF, significant valvular heart disease and reduced PO intake
#Thrombocytopenia likely due to sepsis/bacteremia
#Large acute transcortical ischemic CVA and posterolateral left parietal lobe with multiple small acute ischemic infarcts in the right parietal lobe + left caudate nucleus + subcortical white matter in the posterior left frontal lobe - suspected to
be septic emboli from MSSA bacteremia
#MSSA bacteremia - source is due to endocarditis vs discitis vs OM
Conditions present CONTENT ARCHITECT
#History of falls with recent mechanical fall CONTENT ARCHITECT complicated by nondisplaced tibial plateau fracture, knee joint effusion and left sided medial meniscus oblique tear of the posterior horn (per knee MRI � 06/02/2025)
#Chronic HFrEF with stage II diastolic dysfunction
#Valvular heart disease with mild as moderate MR, moderate�severe TR (per TTE from 06/02/2025)
#History of severe mesenteric stenosis involving SMA/GABY, and lesser extent celiac artery on MRA from 07/2022
#Chronic transaminitis with chronic hyperbilirubinemia
#Hx of liver transplant (OLT - 2007 at [facility]) due to Hx of EtOH-cirrhosis
#CKD (baseline creatinine 1.5�1.8)
#History of approximately A-fib with history of recurrent GI bleed, fall risk and liver transplant s/p Watchman procedure with PVI (procedure date: 02/02/2025)
#History of CAL clot (per cardiology, dissolved prior to watchman implantation in January 2025)
#History of COVID-19 (Jul 2022)
Plan:
Acute stroke, continue neurochecks and NIHSS per protocol
Neuroimaging reviewed--multiple areas/bilateral
Neuro consulted already and recs appreciated
PT/OT
LINEN CONTROLLER eval (currently receiving TF via DHT)
Now back on ASA and plavix per neuro - ok with GI; continue to monitor for GI bleed recurrence; trend Hb and BUN
History of chronic HFrEF, stopped IVF for now given improved BP; off pressors
CXR this morning (06/12) showed no evidence of pulmonary/interstitial edema bilaterally with patchy lower lobe atelectasis
Patient now on 1/2NS and is s/p bicarb gtt as she developed a metabolic acidosis with elevated BOHB, likely due to starvation ketoacidosis.
HCO3 level now normal, bicarb gtt DC'd, cautiously continue 1/2NS (stop date placed - lasix currently being held as well)
Can use midodrine + albumin if needed for hypotension
- Maintain MAP>65
- Random cortisol checked on evening of 06/09, which was 32 --> this rules out CIRCI
- Trend LFTs and T bili (both normal as of today - 06/13)
Melena, in setting of DAPT--concern for underlying UGIB (BUN greater than baseline)
Endoscopy deferred per GI
Observation yielded no further bleeding, GI has signed off 06/11
Serial CBC and transfuse if needed to keep Hb>8g/dL mohsen given Hx of CAD with severe disease at RCA per recent LHC; keep plt>50k, INR<1.8
She received 1 U PRBC on evening of 06/09 and was ordered another 1 unit PRBC this AM given Hb <8(4th total unit PRBC this hospitalization)
Hb stable 9-10 range
Resumed ASA + plavix on 06/12 per discussion between Neurology and GI, mohsen as GI bleed appears to have resolved as pt not having a bowel movement; Cardiology following given her Hx of CAD
Low threshold to stop DAPT if Hb becomes unstable or if pt has a bloody BM/melena associated with tachycardia/hypotension
Holding beta-thu; if Hb remains stable then will resume
Continue PPI 40mg IV BID
4T score is intermediate (4 points) � check MJ panel pending 06/14
- Trend WBC and monitor temperature curve
- Blood cultures drawn 06/09 has grown MSSA --> blood culture from 06/10 is also positive; follow up surveillance blood culture collected 06/11 through tpday (06/13) (NGTD); no growth on urine culture from 06/10
- ID consulted; vancomycin changed to cefazolin given cultures are showing MSSA; pt is immunocompromised given history of OLT --> continue immunosuppression for now
- Recent TTE from 06/02/2025 did not show evidence of vegetation; Cardiology discussed case with Dr. Mc on 06/11 --> plan for ALICE tomorrow (06/14) on hold due to potential transition to hospice
- MRI C-spine performed on 06/11/2025 showed severe enhancing bilateral posterior paraspinal soft tissue edema suspicious for acute myositis versus severe acute muscle strain; no evidence for infectious discitis or OM
- Pt has Hx of biliary duct focal narrowing - given her Hx of liver transplant, GI recommending MRCP to rule out infection, and to assess for gallbladder + biliary tract stricture, obstruction vs leak
- MRCP performed on 06/10/2025 shows a suspected dilated cystic duct remnant measuring up to 1.8 cm with internal layering debris/stones, with otherwise stable intrahepatic + CBD dilatation, and unremarkable appearance of the transplanted liver
- RUQ US on 06/06/2025 shows no focal hepatic mass
- Despite her having bacteremia, for now would continue immunosuppression with prednisone, cellcept and cyclosporine
- Pain control regarding her left-sided tibial plateau fracture + meniscus tear
- Orthopedic surgery had seen the patient on 06/02/2025, and recommend strict nonweightbearing to her left lower extremity, with no further use of a knee immobilizer. Continue range of motion as tolerated, and she would likely benefit from SNF
placement upon discharge
- Recommend PT/OT (although patient is currently too weak to significantly engage in exercise at this juncture)
- Ice + elevation for pain and edema control
- Outpatient orthopedic surgery follow-up for symptom management + repeat XR
- Maintain SpO2 >90-94%
- Currently on room air breathing comfortably, saturating 99%
- prn nebulized bronchodilators - not currently bronchospastic
- Replete electrolytes with K>4, Mg>2
- Trend sCr and monitor UOP
- Trend bicarb level
- Maintain euglycemia with goal BG 140-180; start scheduled aspart and give dose of NPH now; continue ISS; pt may need basal insulin if BG remains >180; HbA1c: 5.6 on 06/10/2025
- If pt becomes more awake/alert, would encourage incentive spirometer 10x per hour for at least 4 hrs a day
- Tube feeds via R-nare DHT
- DVT ppx: SCDs for now; hold off on adding chemical DVT ppx given downtrending plt count
IV Access: Left upper extremity midline
Family Discussions
I discussed this case with the primary hospitalist, neurology + bedside RN.
Guarded prognosis � on 06/11/2025, Dr. Mc discussed goals of care with the patient's sister, Kristi, and patient made DNR/DNI (see separate update note from 06/11/2025). Low threshold to transition to comfort care measures depending on her
clinical course. For now, sister would like to continue with full medical management.
[facility] discussion 06/13: Dr. Mc discussed case with sister, and we discussed the poor clinical status of Nu, and the fact that the patient says that she wants to and that she is in pain. Sister and brother will be coming in tomorrow
(06/14) with brother's daughter, Claudia, and they likely will withdraw care at that time. I will consult hospice so that they can discuss options with the family/patient.
I will start her on a low-dose scheduled oxycodone with prn dilaudid for breakthrough symptoms, but pt appears to be heading towards comfort care/hospice.
Data:
CXR 06/12/25- Patchy atelectasis both lower lungs. Cardiac silhouette size within normal limits with no evidence for pulmonary edema pattern or pleural effusion.
ECHO 06/02/25- Small LV with moderately reduced systolic function. LVEF is 30-35% by visual estimation. Dyskinesis of the mid to apical inferoseptal and anteroseptal blackmon. Stage II diastolic dysfunction suggestive of abnormal relaxation and
increased filling pressures. Normal right ventricular size and function. Mild to moderate mitral regurgitation. Moderate to severe tricuspid regurgitation. Estimated pulmonary artery pressure of at least 30 mmHg. Assuming a right atrial pressure of
3 mmHg. Compared to prior echo report from May 15, 2025, LVEF is now moderately reduced estimated at 30-35% with dyskinesis involving the septum as above.
MRI brain 06/11/2025:
1. LARGE ACUTE TRANSCORTICAL INFARCT in the posterolateral LEFT PARIETAL LOBE (containing severe cytotoxic edema and a small amount of intraparenchymal hemorrhage).
2. Small acute subcortical white matter infarcts in the posterior left frontal lobe.
3. Small acute ischemic infarct in the head of the left caudate nucleus.
4. Small acute ischemic infarcts in the right parietal lobe.
5. Mild to moderate white matter leukoaraiosis.
6. MODERATE to SEVERE BILATERAL TEMPORAL LOBE VOLUME loss suggesting a chronic neurodegenerative disease.
7. Small number of punctate intraparenchymal cerebral microhemorrhages.
MRI cervical spine with/without contrast 06/11/2025:
1. Severe enhancing bilateral posterior paraspinal soft tissue edema. Diagnostic possibilities are (1) ACUTE MYOSITIS or (2) severe acute muscle strain.
2. Mild edema throughout the prevertebral soft tissues.
3. No MRI evidence for acute infectious discitis or acute osteomyelitis.
4. 2.8 mm anterolisthesis of C3 on C4 secondary to severe left facet joint arthrosis. Mild spinal cord compression and moderate left neural foraminal narrowing at C3/C4.
5. Severe discogenic degenerative disease at C4/C5 with a large disc-osteophyte complex causing minimal spinal cord compression, minimal central canal stenosis, and moderate to severe bilateral neural foraminal narrowing.
6. Severe bilateral neural foraminal narrowing at C6/C7.
MRCP 06/10/2025: 1. Status post cholecystectomy. Probable dilated cystic duct remnant measuring up to 1.8 cm with internal layering debris/stones, new from prior.
2. Otherwise stable intrahepatic and common bile duct dilatation. 3. Otherwise unremarkable appearance of the transplanted liver. 4. Small right and trace left pleural effusions.
-----
Total time spent today was 41 minutes for this encounter. Time includes reviewing laboratory test/imaging results, reviewing pertinent medical records, obtaining and reviewing medical history, performing an appropriate exam, ordering medications,
tests and procedures. Time also includes documentation of this encounter, coordinating patient care and communicating with other healthcare professionals. Total time does not include separately billed tests performed on this date of service.
Subjective Dataa
Subjective Data
Date of Service:
Date of Service: June 14, 2025
Chief Complaint: Paper Cutter Operator Follow Up
Subjective:
No new events, off pressors
Only on IVFs, can verbalize she is in pain
Objective Data
Data Reviewed
Vital Signs / I&O / Oxygen:
Vital Signs
Temp Pulse Resp BP Pulse Ox
98.9 F 108 18 163/79 93
06/14/25 03:17 06/14/25 05:30 06/14/25 05:30 06/14/25 05:28 06/14/25 05:30
Intake and Output
06/13/25 06/14/25 06/15/25
06:59 06:59 06:59
Intake Total 2885 / 2950 2930 / 2930
Output Total 775 / 775 1020 / 1020
Balance 2110 / 2175 1910 / 1910
SaO2 93
Nasal Cannula flow liters per 2
minute
Physical Exam
General: Respiratory Distress (negative), Comfortable, Chills (negative), Sweats (negative) and Other (Elderly female, lethargic, in NAD)
HEENT: Normocephalic, Anicteric and Moist Mucous Membranes
Cardiovascular: S1-S2, Regular Rhythm, Peripheral Edema (+2 lower extremity pitting edema bilaterally) and Other (no murmurs)
Respiratory: Clear, Wheeze (negative), Crackles (negative), Rhonchi (negative), Non-Labored Respirations and Stridor (negative)
GI: Soft, Non Distended, Non Tender, Normal Bowel Sounds and NG Tube (Right nare)
Neurology: Lethargic (Easily arousable to voice and responds by answering yes/no) and Other (Pupils 2 mm bilaterally and sluggish; unable to assess sensation given patient's acute clinical status; plantar-flexion bilaterally is 3/5, dry wall installer strength
bilaterally 3/5; not able to assess cranial nerve function given patient's acute clinical status)
Skin: Warm, Dry, Cyanosis (negative), Jaundice (negative) and Bruising (Multiple bruises over chest, arms + legs)
Labs/Micro/Reports
Lab Data
06/14/25 03:40
06/14/25 03:40
Microbiology
06/13/25 03:31 Blood/Venous Blood Culture - Preliminary
No Growth in 24 hours- Final report to follow
06/11/25 10:06 Blood/Venous Blood Culture - Preliminary
Positive culture in progress
06/12/25 17:48 Blood/Venous Blood Culture - Preliminary
No Growth in 24 hours- Final report to follow
06/10/25 11:43 Blood/Venous Blood Culture - Preliminary
S aureus-Methicillin Sensitive
06/10/25 11:43 Blood/Venous Gram Stain - Final
06/11/25 11:34 Blood/Venous Blood Culture - Preliminary
No Growth in 48 hours- Final report to follow
06/09/25 14:50 Blood/Venous Blood Culture - Final
S aureus-Methicillin Sensitive
06/09/25 14:50 Blood/Venous Gram Stain - Final
06/09/25 13:57 Blood/Venous Blood Culture - Final
S aureus-Methicillin Sensitive
06/09/25 13:57 Blood/Venous Gram Stain - Final
06/10/25 11:43 Urine Urine Culture - Final
NO GROWTH
[2025-06-14] MEDS: ATIVAN 0.5 MG SL ×2 (07:38→10:32)
[2025-06-14] MEDS: MIRALAX TUBE ×2 (07:46→08:03)
[2025-06-14] MEDS: CALCIUM CARBONATE ORAL SUSP TUBE ×2 (07:46→08:02)
[2025-06-14] MEDS: NSS (PRESERVATIVE FREE) 10 ML IV (07:46)
[2025-06-14] MEDS: PROTONIX IV 40 MG IV (07:46)
[2025-06-14] MEDS: SENNA SYRUP TUBE ×2 (07:47→08:03)
[2025-06-14] MEDS: PLAVIX PO ×2 (07:47→08:03)
[2025-06-14] MEDS: COLACE LIQUID TUBE ×2 (07:47→08:02)
[2025-06-14] MEDS: NEORAL TUBE ×2 (07:47→08:03)
[2025-06-14] MEDS: CELLCEPT TUBE ×2 (07:47→08:02)
[2025-06-14] MEDS: DELTASONE TUBE ×2 (07:47→08:02)
[2025-06-14] MEDS: THIAMINE INJECTION 100 MG IV (07:48)
[2025-06-14] MEDS: DILAUDID 0.5 MG IV ×4 (07:50→20:19)
--- NOTE | 2025-06-14 07:53 | W.PN.HOSP.TC ---
Today's Communication/Plan
-
Comfort Care
Assessment / Plan
Assessment / Plan
Physical Exam
General: Well Developed, Well Nourished, No Apparent Distress, Appears Chronically Ill and Other (NG tube in place)
HEENT: Normocephalic and Atraumatic
Respiratory: Clear to Auscultation Anteriorly
Cardiac: Regular Rhythm and S1/S2
GI: Soft, Nontender and Nondistended
Musculoskeletal: No Cyanosis and No Edema
Neuro: Lethargic
Assessment/Plan
74-year-old female with PMH significant for persistent symptomatic atrial fibrillation, left atrial appendage clot identified in 2022 with clot reassessed July 2024 and found to be still present, maintained on
metoprolol and anticoagulated with Eliquis 2.5 mg b.i.d. dosing,HFrEF, cardiomyopathy, coronary artery disease with WOOD CHOPPER of LAD, hypertension, CKD 3 with renal stents, remote tobacco and alcohol abuse, CVA, ambulatory dysfunction, as well as liver
transplant due to cirrhosis 2007, on immunosuppressants and modulators, Her [id number] is 6, Watchman Device placed on February 02, 2025 with postoperative complication of blood loss anemia due to GI bleeding, who presented to ED due to trip and fall
at grocery store, no LOC, denied hitting her head, and c/o b/l knee pain and left lateral rib pain, incident occurred directly prior to arrival.
CARLO wrap and knee immobilizer placed in ED. Large hematoma to left anterior knee, unable to ambulate safely after presentation due to pain. Could not tolerate knee immobilizer due to bulkiness.
#Likely a Type 2 [place] in setting of nausea and relative hypotension, as well as underlying CKD, on 06/01/25 evening
#Mechanical fall (patient tripped over object) resulting in b/l knee contusions with hematoma and b/l knee effusions, left greater than right, and inability to ambulate safely
#Large Left Knee Joint Effusion
#Immunocompromised s/p liver transplant
Liver Transplant was 19 years ago
#Worsened Anemia in the Setting of GI Bleed, Likely Left Knee Bleeding and lower extremity ecchymosis from mechanical fall
#Hyperkalemia
#CVA
#Gastrointestinal bleeding
#Persistent atrial fibrillation -- no longer on anticoagulation since had Watchman Device months ago; has been on DAPT
#HFrEF
#History of left atrial appendage thrombus.
Cardiomyopathy.
#Mural Thrombus?
#CAD - WOOD CHOPPER of mid LAD by catheterization, 2022
#CVA 2016
#MSSA Bacteremia
#Thrombocytopenia
#INDU on CKD 3.
#Acidosis
#Liver transplant with history of cirrhosis.
#History of gastritis, GERD.
#Remote tobacco and alcohol abuse.
#Childhood epilepsy.
#Ambulatory dysfunction with fall risk.
#Osteoarthritis.
#Degenerative disc disease.
#Osteopenia.
-I spoke with patient's family today, and they have decided that it is best for patient to go on hospice
-Comfort care orders placed
Anticipated Discharge: > 48 hours
Subjective/Interval History
-
Date of Service: June 14, 2025
Patient was seen and examined. She remained confused and lethargic.
Objective Data
-
Labs:
Laboratory Results
06/14/25
03:40
WBC 6.7
Hgb 9.7 L
Hct 28.8 L
Plt Count 56 L
Sodium 138
Potassium 4.2
Chloride 111 H
Carbon Dioxide 26
BUN 99 H
Creatinine 1.3 H
Glucose 118 H
Calcium 8.8
Vital Signs:
Vital Signs
Temp Pulse Resp BP Pulse Ox
97.8 F 108 18 163/79 93
06/14/25 07:46 06/14/25 05:30 06/14/25 05:30 06/14/25 05:28 06/14/25 05:30
I&O
06/13/25 06/14/25 06/15/25
06:59 06:59 06:59
Intake Total 2885 / 2950 2930 / 2930
Output Total 775 / 775 1020 / 1020
Balance 2109 / 2174
[2025-06-14] MEDS: LOW STRENGTH ASPIRIN PO (07:59)
--- NOTE | 2025-06-14 08:04 | PTCARENOTE ---
Addendum entered by Josie Wisdom RN 06/14/25 08:55:
patient continues to cry out in pain in spite of earlier dilaudid and ativan dosing. crying out 'help me'. increased nonverbal pain cues. repositioned. see MAR
Original Note:
report received, assessments per work list. patient anxious, confused, crying out in pain. medicated with prn dose ativan and dilaudid with minimal relief. patient vomited up small amount coffee ground emesis, no drainage from NGT. patient mouth
bloody, lips cracked. am meds held due to nausea and vomiting. lungs diminished. sinus tachycardia with afib. left midline patent with good blood return. arms and legs ecchymotic. generalized weeping anasarca. purewick in place. repositioned for
comfort. safe environment maintained
--- NOTE | 2025-06-14 08:23 | W.PN.CD ---
Today's Communication / Plan
-
Holding off on ALICE for now given clinical course and likely for now limited utility
Impression / Plan
-
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 She had nausea
and so an EKG was checked to determine safety of antiemetics, but EKG findings were concerning for inferior STEMI. She was hypotensive (more than her baseline) and tachycardiac at the time ECG showed anteroseptal and inferior ST elevations. In this
setting, the laborer pie bakery was activated for STEMI. Cath revealed coronary artery disease with new severe disease of the RCA from previous, which was likely chronic in nature.
Additionally, she is now bacteremia, presumed septic emboli and appears confused/delirius.
S. aureus bacteremia
- 06/09 cultures positive
- On antibiotics. ID following --> last positive culture was June 11
- Potential need for ALICE, however, recommend continuing abx until clinical course improves, she remains confused/delirious, and ongoing conversations of goals of care became more clear
- if necessary could consider limited TTE to assess for endocarditis as last TTE was prior to diagnosis of bacteremia, although less sensitive/specific
Abnormal trop peak up to 17, likely type II [place] in setting of hypotension, tachycardia, anemia and underlying coronary artery disease.
- Cardiac catheterization 06/01/2025 results as noted below
- Was on DAPT but this is stopped for now in setting of bleeding
- Additional medical therapy limited by BP
Coronary artery disease:
-cath this admit: LAD: large vessel giving rise to a large septal branch and moderate caliber diagonal branch before being chronically occluded in the mid vessel with the distal vessel fed via L-L septal collaterals. There is otherwise diffuse mild
disease. The vessel is large unchanged in appearance from 2022 angiography. LCx: large vessel giving rise to a small OM1, moderate caliber OM2, and large LPL branch. There is diffuse mild disease largely unchanged from 2023 angiography. RCA: small
vessel giving rise to a small RPDA and small RPL branch. There is a subtotal ostial occlusion and diffuse moderate disease throughout the remainder of the vessel. The vessel is atretic in caliber compared to 2023 angiography and there is evidence of
competitive flow in the RPDA. This all suggests the RPDA to be chronically occluded and not an infarct related artery.
- DAPT held for bleeding
- Medical therapy has been limited by blood pressure.
- will plan for ASA 81mg monotherapy once Hgb stable
.
INDU on CKD:
-nephrology consulted: lasix and ARB held
AFIB, paroxysmal:
-stable in SR
-patient with hx PVI and watchman 02/02/25
-Hgb stable back on asa and plavix
HFrEF: chronic (LVEF 40-45% on most recent ALICE, but was 30-35% on most recent transthoracic study 06/02/2025, with mild/moderate MR, mod/severe TR)
-does not appear volume overloaded to assessment
-GDMT limited by BPs and renal function
-ARB held appropriately for renal dysfunction and BP's, restart possible outpt vs inpt
-continue metoprolol succinate
Hx liver tx
Subjective: Remains confused
Physical Exam
Vital Signs/Labs
Vital Signs
Temp Pulse Resp BP Pulse Ox
97.8 F 108 18 163/79 93
06/14/25 07:46 06/14/25 05:30 06/14/25 05:30 06/14/25 05:28 06/14/25 05:30
06/13/25 06/14/25 06/15/25
06:59 06:59 06:59
Actual Weight 127 lb 6.835 oz 130 lb 8.218 oz
06/14/25 03:40
06/14/25 03:40
PT 14.4 Sec (11.4-14.6) 06/11/25 11:34
INR 1.09 06/11/25 11:34
APTT 32.1 Sec (23.4-35.0) 06/11/25 11:34
Magnesium 2.4 mg/dl (1.6-2.3) H 06/13/25 03:31
Triglycerides 129 mg/dl (10-149) 06/02/25 04:19
LDL Cholesterol, Calc 96 mg/dl 06/02/25 04:19
VLDL Cholesterol, Calc 25 mg/dl (0-30) 06/02/25 04:19
HDL Cholesterol 61 mg/dl 06/02/25 04:19
Physical Exam
Constitutional: No acute distress and Confusion
EENT: Anicteric
Cardiovascular: Other (tachycardic )
Respiratory: Respiratory effort normal
GI: Soft
Neuro/Psych: Other (confused)
Data Reviewed
-
Date of Service: June 14, 2025
EKG: Tracing Personally Visualized and interpreted (sinus tach )
Echo: Report Reviewed by me
Labs: Labs Reviewed by me
--- NOTE | 2025-06-14 09:40 | PTCARENOTE ---
hospitalist in, spoke with patient sister. patient level of care changed to med surg
--- NOTE | 2025-06-14 09:52 | W.PN.NEPH.PH ---
Today's Communication / Plan
-
comfort
Assessment/Plan
-
Impression:
Mechanical fall (patient tripped over object) resulting in b/l knee contusions with hematoma and b/l knee effusions, left greater than right, Acute Anemia
STEMI (troponin peak ~17)
INDU with [id number] 1.6-1.9-Dr Erazo
Secondary hypertension undergoing bilateral renal artery stenting July 2022 (decrease in GFR following procedure?)
Hyperkalemia
Persistent atrial fibrillation. s/p watchman 01/2025
HFrEF. 30-35%
History of left atrial appendage thrombus.
Cardiomyopathy.
Mural Thrombus?
CAD- DIRECTOR OF VOLUNTEER SERVICES of mid LAD by catheterization,2022, new RCA disease-seem chronic
Immunocompromised s/p liver transplant 2007
CVA 2016. Left hemispheric seen on MRI
History of gastritis, GERD.
Remote tobacco and alcohol abuse.
Childhood epilepsy.
Ambulatory dysfunction with fall risk.
Osteoarthritis.
Degenerative disc disease.
Osteopenia.
h/o Left portal vein thrombosis
Plan:
for comfort care
-
-
Date of Service: June 14, 2025
CC / HPI / ROS
-
Chief Complaint:
INDU with CKD
History of Present Illness:
INDU/Cr down to 1.3
Hemodynamically labile
Hgb stable 9.7
Review of Systems:
unresponsive
Labs
-
Labs:
WBC 6.7 10^3/uL (4.8-10.8) 06/14/25 03:40
RBC 3.28 10^6/uL (4.20-5.40) L 06/14/25 03:40
Hgb 9.7 g/dL (12.0-16.0) L 06/14/25 03:40
Hct 28.8 % (37.0-47.0) L 06/14/25 03:40
Plt Count 56 10^3/uL (130-400) L 06/14/25 03:40
Sodium 138 mmol/L (135-145) 06/14/25 03:40
Potassium 4.2 mmol/L (3.5-5.1) 06/14/25 03:40
Chloride 111 mmol/L (98-107) H 06/14/25 03:40
Carbon Dioxide 26 mmol/L (22-30) 06/14/25 03:40
BUN 99 mg/dl (7-17) H 06/14/25 03:40
Creatinine 1.3 mg/dL (0.6-1.0) H 06/14/25 03:40
eGFR 43.42 06/14/25 03:40
Glucose 118 mg/dl (70-99) H 06/14/25 03:40
Calcium 8.8 mg/dl (8.4-10.2) 06/14/25 03:40
Phosphorus 2.2 mg/dl (2.5-4.5) L 06/13/25 03:31
Albumin 1.9 g/dl (3.5-5.0) L 06/13/25 03:31
Physical Exam
-
Vital Signs:
Vital Signs
Temp Pulse Resp BP Pulse Ox
97.8 F 110 10 117/49 93
06/14/25 07:46 06/14/25 09:00 06/14/25 09:00 06/14/25 08:00 06/14/25 09:41
Cardiovascular:: Regular rate and rhythm
Respiratory:: Bilateral: Coarse
Lung Excursion:: Normal
Abdomen:: Nontender and Soft
Bowel Sounds:: Normal
Extremity Edema:: +1: Bilateral:
[2025-06-14] MEDS: DECADRON 2 MG IV (10:10)
--- NOTE | 2025-06-14 10:38 | PTCARENOTE ---
patient continues to exhibit increased pain cues and anxiety. patient sister Kristi at bedside,updated. she agrees to hospice. awaiting patient brother. hospitalist TT to adjust pain medication regime
--- NOTE | 2025-06-14 11:02 | W.PN.ID1 ---
Date of Service
Date of Service: June 14, 2025
Today's Communication
Poor prognosis
Assessment / Plan
# Complicated MSSA bacteremia (onset 06/09 hospital day 11)
# Severe sepsis, hypotension, bandemia
# Acute mental status change: MRI large acute infarct left parietal, several other smaller infarcts
# INDU on CKD
# Acute thrombocytopenia
# CAD, ICM recent NSTEMI s/p cardiac cath (06/01) without intervention
# GIB with blood loss anemia
# Fall with left Knee hematoma, tibial plateau fracture, present on admission
# Immunocompromised host: Liver transplant on mycophenolate, cyclosporine, prednisone
# Afib with hx ACL thrombus s/p Watchman 01/2025
- 06/02 TTE no gross vege
- 06/10 Repeat blood cx x 1 positive
- 06/11 blood cx x1 of 2: positive
- 06/12 blood cx neg to date
- Overall prognosis is grim. Hospice appropriate.
Hold off on ALICE/further work-up of bacteremia
- Continue cefazolin 2g IV q12h pending goals of care decision.
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
Alcohol cirrhosis status post liver transplant 2007 on mycophenolate, cyclosporine, prednisone
Atrial fibrillation (hx left atrial appendage thrombus)status post Watchman procedure 01/2025
CAD
HFrEF
Mod-severe mitral and tricuspid valve regurgitation
Hypertension
Right pleural effusion
CVA
CKD 3
Renal artery stenosis status post bilateral renal stents
History of GI bleed
History of erythema nodosum
Cholecystectomy
Bilateral inguinal hernia repair
Chief Complaint
-: Bacteremia
Subjective / Review of Systems
unresponsive
Vital Signs / Physical Exam
Vital Signs
Vital Signs
Temp Pulse Resp BP Pulse Ox
97.8 F 112 9 117/49 93
06/14/25 07:46 06/14/25 09:30 06/14/25 09:30 06/14/25 08:00 06/14/25 09:41
Physical Exam
Constitutional: Acutely Ill
Cardiovascular: Other (tachycardic)
Pulmonary: Clear (anteriorly)
Gastrointestinal: Soft and Non Tender
Extremities: Edema
Musculoskeletal: Joint Effusion (Left > R knee)
Neurological: Other (unresponsive)
Objective Data
Lab Data
Lab Results
06/14/25 03:40
06/14/25 03:40
PT 14.4 Sec (11.4-14.6) 06/11/25 11:34
INR 1.09 06/11/25 11:34
APTT 32.1 Sec (23.4-35.0) 06/11/25 11:34
Estimated Creat Clear 30 ml/min 06/14/25 03:40
Lactic Acid 1.3 mmol/L (0.7-2.0) 06/12/25 17:48
Total Bilirubin 1.1 mg/dl (0.2-1.3) 06/13/25 03:31
AST 21 U/L (14-36) 06/13/25 03:31
ALT < 10 U/L (0-35) 06/13/25 03:31
Alkaline Phosphatase 194 U/L (38-126) H 06/13/25 03:31
Most recent labs reviewed.
Micro Results:
06/11/25 10:06 Blood Culture - Preliminary
Blood/Venous Positive culture in progress
Gram Stain - Preliminary
06/13/25 03:31 Blood Culture - Preliminary
Blood/Venous No Growth in 24 hours- Final report to follow
06/12/25 17:48 Blood Culture - Preliminary
Blood/Venous No Growth in 24 hours- Final report to follow
06/10/25 11:43 Blood Culture - Preliminary
Blood/Venous S aureus-Methicillin Sensitive
Gram Stain - Final
06/11/25 11:34 Blood Culture - Preliminary
Blood/Venous No Growth in 48 hours- Final report to follow
06/09/25 14:50 Blood Culture - Final
Blood/Venous S aureus-Methicillin Sensitive
Gram Stain - Final
06/09/25 13:57 Blood Culture - Final
Blood/Venous S aureus-Methicillin Sensitive
Gram Stain - Final
06/10/25 11:43 Urine Culture - Final
Urine NO GROWTH
Imaging:
06/11/25 Brain MRI: LARGE ACUTE TRANSCORTICAL INFARCT in the posterolateral LEFT PARIETAL LOBE (containing severe cytotoxic edema and a small amount of intraparenchymal hemorrhage). Small acute subcortical white matter infarcts in the posterior left
frontal lobe. Small acute ischemic infarct in the head of the left caudate nucleus. Small acute ischemic infarcts in the right parietal lobe.
06/10/25 MRCP: Status post cholecystectomy. Probable dilated cystic duct remnant measuring up to 1.8 cm with internal layering debris/stones, new from prior.
06/10/25 Abd US: No intra or extrahepatic biliary ductal dilation demonstrated. Right pleural effusion, partially imaged.
06/08/25 CXR: Suspect mild central pulmonary vascular congestion.
06/02/25 Left Knee MRI: Nondisplaced fractures of the central and anterolateral aspects of the tibial plateau. No evidence for displacement or articular surface depression.
Large bone infarct of the distal femur. Oblique tear of the posterior horn of the medial meniscus. Large knee joint effusion. Osteoarthrosis of the right knee with tricompartmental chondromalacia, most severe in the lateral aspect of the
patellofemoral compartment with extensive full-thickness chondromalacia.
--- NOTE | 2025-06-14 12:27 | HOSPNOTE ---
Spoke with family and they are in agreement with comfort care. The patient will most likely be started on a drip for pain management. We will continue to follow and support family.
[2025-06-14] MEDS: DILAUDID 0.25 MG IV ×3 (12:54→15:25)
--- NOTE | 2025-06-14 13:16 | PTCARENOTE ---
patient continues to have unrelieved pain and anxiety. see MAR, to begin gtt per orders
[2025-06-14] MEDS: DILAUDID 50 IV (13:34)
--- NOTE | 2025-06-14 14:15 | PTOTSP ---
Reviewed chart and noted pt now on comfort measures and transitioning to hospice. PT will sign off.
[2025-06-14] MEDS: VALIUM INJECTION 5 MG IV (15:16)
--- NOTE | 2025-06-14 15:49 | CM ---
Hospice consult ordered and completed. Currently on Comfort measures.
--- NOTE | 2025-06-14 16:03 | W.PN.UPDATE ---
Update Note
Progress Note Update
Chart reviewed, discussed with nursing staff. Pt has been placed on Comfort Care. Psychiatry will sign off.
--- NOTE | 2025-06-14 20:00 | PTCARENOTE ---
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 L midline WNL- dilaudid infusing as documented. mouth care done. care ongoing.
[2025-06-15] MEDS: DILAUDID 0.5 MG IV ×2 (00:14→03:33)
[2025-06-15] MEDS: VALIUM INJECTION 5 MG IV (05:38)
--- NOTE | 2025-06-15 07:25 | PN.CDI ---
CDI
- -
CDI:
Physician Documentation Request
Admit Date: 05/31/25 18:32
Dear Doctor Cristian,
Patient admitted with Type 2 [place].
06/13 Nursing skin assessment, 'Stage 2 sacral pressure injury.'
Physician documentation of the type and location of wounds is required for compliant documentation. Based on the above clinical findings and your assessment, please provide the following in your progress note:
Type (etiology) of ulcer/wound:
- Pressure (decubitus) ulcer
- Other
- Unable to determine
For a pressure ulcer, please also include the stage* of the ulcer:
- Stage 1 - Skin intact, non-blanchable redness
- Stage 2 - Partial thickness loss of dermis, includes intact or open blister
- Stage 3 - Full thickness tissue not including bone, tendon or muscle
- Stage 4 - Full thickness tissue loss, including exposed bone, tendon or muscle
- Unstageable - Full thickness loss in which the base of the ulcer is covered by slough (yellow, cohen, aden, green or brown) and/or eschar (cohen, brown or black) in the wound bed.
- Unable to determine
Use of terms such as suspected, likely, concern for, or probable (associated with a specific diagnosis that is being evaluated, monitored, or treated as if it exists) are acceptable and can be coded in the inpatient setting, when documented at the
time of discharge.
Thank you,
Cyndi FISHER,RN,CCDS
CDI Specialist
Available via [facility] text
Please use your independent medical judgment in providing your response.
*Source: National Pressure Ulcer Advisory Panel (NPUAP)
[2025-06-15 09:25] VITALS: BP 84/41
--- NOTE | 2025-06-15 09:35 | PTCARENOTE ---
Continue end of life cares. End of life pain and respiratory assessments, evaluations ongoing and as documented. Update with patient family via phone, will update and follow when arrived at bedside. Continue emotional support, supportive cares and
comfort measures. Repositioning, turns, back rubs and skin cares as needed and for comfort.
--- NOTE | 2025-06-15 09:49 | PTCARENOTE ---
Update with family at bedside. Continue supportive cares and emotional support. Await arrival of rest of family.
[2025-06-15 10:53] VITALS: BP 90/44
[2025-06-15 10:55] VITALS: BP 90/44
--- NOTE | 2025-06-15 11:48 | PTCARENOTE ---
Update with family at bedside. patient await hospitalist team to pronounce. Cares provided. Emotional support ongoing. 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
--- NOTE | 2025-06-15 12:03 | W.PN.DEATH ---
Pronouncement of
-
Called to see patient to pronounce.
No spontaneous heart tones or respirations noted.
Patient not responsive to verbal stimuli.
Patient is pronounced .
Time of : 12:00
Date of : 06/15/25
Cause of : Bacteremia
Family Notified: Yes
--- NOTE | 2025-06-15 12:06 | W.PN.HOSP.TC ---
Addendum entered and electronically signed by Desean Foster MD 06/15/25 12:09:
Stage 2 sacral pressure injury
Original Note:
Today's Communication/Plan
-
Patient today
Assessment / Plan
Assessment / Plan
Physical Exam
General: Well Developed, Well Nourished, No Apparent Distress, Appears Chronically Ill and Other (NG tube in place)
HEENT: Normocephalic and Atraumatic
Respiratory: Clear to Auscultation Anteriorly
Cardiac: Regular Rhythm and S1/S2
GI: Soft, Nontender and Nondistended
Musculoskeletal: No Cyanosis and No Edema
Neuro: Lethargic
Assessment/Plan
74-year-old female with PMH significant for persistent symptomatic atrial fibrillation, left atrial appendage clot identified in 2022 with clot reassessed July 2024 and found to be still present, maintained on
metoprolol and anticoagulated with Eliquis 2.5 mg b.i.d. dosing,HFrEF, cardiomyopathy, coronary artery disease with STROKE COORDINATOR of LAD, hypertension, CKD 3 with renal stents, remote tobacco and alcohol abuse, CVA, ambulatory dysfunction, as well as liver
transplant due to cirrhosis 2007, on immunosuppressants and modulators, Her [id number] is 6, Watchman Device placed on February 02, 2025 with postoperative complication of blood loss anemia due to GI bleeding, who presented to ED due to trip and fall
at grocery store, no LOC, denied hitting her head, and c/o b/l knee pain and left lateral rib pain, incident occurred directly prior to arrival.
CARLO wrap and knee immobilizer placed in ED. Large hematoma to left anterior knee, unable to ambulate safely after presentation due to pain. Could not tolerate knee immobilizer due to bulkiness.
#Likely a Type 2 NE in setting of nausea and relative hypotension, as well as underlying CKD, on 06/01/25 evening
#Mechanical fall (patient tripped over object) resulting in b/l knee contusions with hematoma and b/l knee effusions, left greater than right, and inability to ambulate safely
#Large Left Knee Joint Effusion
#Immunocompromised s/p liver transplant
Liver Transplant was 19 years ago
#Worsened Anemia in the Setting of GI Bleed, Likely Left Knee Bleeding and lower extremity ecchymosis from mechanical fall
#Hyperkalemia
#CVA
#Gastrointestinal bleeding
#Persistent atrial fibrillation -- no longer on anticoagulation since had Watchman Device months ago; has been on DAPT
#HFrEF
#History of left atrial appendage thrombus.
Cardiomyopathy.
#Mural Thrombus?
#CAD - STROKE COORDINATOR of mid LAD by catheterization, 2022
#CVA 2015
#MSSA Bacteremia
#Thrombocytopenia
#INDU on CKD 3.
#Acidosis
#Liver transplant with history of cirrhosis.
#History of gastritis, GERD.
#Remote tobacco and alcohol abuse.
#Childhood epilepsy.
#Ambulatory dysfunction with fall risk.
#Osteoarthritis.
#Degenerative disc disease.
#Osteopenia.
-Comfort care orders were placed and patient received comfort medications
-Patient on 06/15/25
Anticipated Discharge: Today
Subjective/Interval History
-
Date of Service: June 15, 2025
Patient was seen and examined. She was comfortable earlier this morning.
Objective Data
-
Vital Signs:
Vital Signs
Temp Pulse Resp BP Pulse Ox
97 F 64 18 90/44 81
06/15/25 09:25 06/15/25 10:55 06/15/25 10:55 06/15/25 10:55 06/14/25 23:06
I&O
06/14/25 06/15/25 06/16/25
06:59 06:59 06:59
Intake Total 2930 / 3005 394.5 / 394.5 0.5 / 0.5
Output Total 1020 / 1020
Balance 1909 / 1985 394.5 / 394.5 0.5 / 0.5
--- NOTE | 2025-06-15 12:26 | PTCARENOTE ---
Patient . Hospitalist team at bedside. Pronounced at 1200. Will follow post mortem cares, follow up with family at bedside. Supportive cares ongoing.
--- NOTE | 2025-06-15 13:51 | CM ---
Patient on this date, 06/15/25 @ 12:00.
--- NOTE | 2025-06-17 19:46 | W.DCSUMMARY ---
Discharge Summary
Discharge Data
Date of Admission: 05/31/25
Date of Discharge: 06/17/25
Total time spent discharging patient (in min): 43
-
Pending Results: No
Hospital Course
74-year-old female with PMH significant for persistent symptomatic atrial fibrillation, left atrial appendage clot identified in 2022 with clot reassessed July 2024 and found to be still present, maintained on AC with Eliquis, rate control with
BB, Watchman February 02, 2025 with postoperative complication of blood loss anemia due to GI bleeding, HFrEF 35% on lasix, cardiomyopathy, coronary artery disease, hypertension on Losartan, CKD 3 baseline cr 1.6-1.9 with bilat renal stents on Plavix,
remote tobacco and alcohol abuse, CVA, ambulatory dysfunction, as well as liver transplant due to ETOH cirrhosis 2007, on immunosuppressants on MMF, cyclosporine, prednisone presents to ED due to trip and fall at grocery store on 05/30, no LOC, or
head injury. Orthopedics was consulted, MRI of the left knee was done and showed a tibial plateau fracture, and no surgery or procedures were needed for this. Patient was continued on her dual antiplatelet therapy given her renal stents and her
coronary artery disease, as well as recent Watchman Device placement. Overnight one night, patient was found to have nausea, EKG was performed and showed STEMI, cardiology was called and emergent cardiac cath was done showing chronic changes but no
acute myocardial infarction as per cardiology. Patient developed significant acute kidney injury and nephrology was consulted. Her Lasix and angiotensin receptor thu medications were held. Patient received red blood cells transfusion due to
worsening anemia. Patient later developed bloody bowel movements. Gastroenterology was consulted and recommended holding Plavix, and starting PPI IV BID. Patient was planned for upper endoscopy but the EGD was cancelled due to clinical status -
fever the night before as well as low blood pressure in the gastroenterology suite. Given patient's hypotension and fevers, she was transferred to the intensive care unit. Patient's antiplatelet regimen was stopped but later resumed as bleeding
appeared to have stopped.
Patient was started on antibiotics and later found to have Staph bacteremia. Infectious Diseases was consulted. TTE showed no vegetations. Neurology was later consulted given abrupt onset of change in mental status with aphasia and repetitive speech
in a patient with prior stroke.
Goals of care discussion took place with patient's family and patient's code status was changed to DNR. Eventually, per the wishes of the patient and the patient's family, patient was transitioned to hospice. Patient on 06/15/25.
Discharge Plan
-
Patient Disposition:
Date/Time
Date/Time: 06/15/25 12:00
Discharge Date and Time
Discharge Date/Time: 06/15/25 12:00
Print Language: MALAYSIAN
== END 2025-06-15 12:00 | disposition expired | DRG 562 ==
LOC: ICU 18:32
PROVIDERS: Internal Medicine; Internal Medicine Cardiovascular Disease; Nurse Practitioner; Nurse Practitioner Adult Health; Nurse Practitioner Family; Nurse Practitioner Primary Care; Physician Assistant Medical; Registered Nurse; Specialist; ADMITTING PHYSICIAN Internal Medicine; ATTENDING PHYSICIAN Hospitalist; CONSULT PHYSICIAN Internal Medicine; CONSULT PHYSICIAN Internal Medicine Critical Care Medicine; CONSULT PHYSICIAN Internal Medicine Gastroenterology; EMERGENCY PHYSICIAN Emergency Medicine; FAMILY PHYSICIAN Family Medicine; OTHER PHYSICIAN Internal Medicine Infectious Disease; OTHER PHYSICIAN Orthopaedic Surgery; OTHER PHYSICIAN Psychiatry & Neurology Neurology; OTHER PHYSICIAN Psychiatry & Neurology Psychiatry; OTHER PHYSICIAN Student in an Organized Health Care Education/Training Program
PROC: 30233N1 Transfusion of Nonautologous Red Blood Cells into Peripheral Vein, Percutaneous Approach (ICD-10-PCS; 2025-06-01)
PROC: B2111ZZ Fluoroscopy of Multiple Coronary Arteries using Low Osmolar Contrast (ICD-10-PCS; 2025-06-01)
PROC: 4A023N7 Measurement of Cardiac Sampling and Pressure, Left Heart, Percutaneous Approach (ICD-10-PCS; 2025-06-01)
DX: S82.145A Nondisplaced bicondylar fracture of left tibia, initial encounter for closed fracture (principal); A41.01 Sepsis due to Methicillin susceptible Staphylococcus aureus; I21.A1 Myocardial infarction type 2; I63.89 Other cerebral infarction; R65.20 Severe sepsis without septic shock; Z94.4 Liver transplant status; D84.821 Immunodeficiency due to drugs; I48.19 Other persistent atrial fibrillation; I50.22 Chronic systolic (congestive) heart failure; I42.9 Cardiomyopathy, unspecified; K92.1 Melena; D62 Acute posthemorrhagic anemia; N17.9 Acute kidney failure, unspecified; E87.1 Hypo-osmolality and hyponatremia; R47.01 Aphasia; S80.01XA Contusion of right knee, initial encounter; W01.0XXA Fall on same level from slipping, tripping and stumbling without subsequent striking against object, initial encounter; I25.10 Atherosclerotic heart disease of native coronary artery without angina pectoris; I95.9 Hypotension, unspecified; R00.0 Tachycardia, unspecified; E87.5 Hyperkalemia; Z66 Do not resuscitate; Z51.5 Encounter for palliative care; N18.32 Chronic kidney disease, stage 3b; D69.6 Thrombocytopenia, unspecified; Z53.8 Procedure and treatment not carried out for other reasons; F10.10 Alcohol abuse, uncomplicated; G40.909 Epilepsy, unspecified, not intractable, without status epilepticus; K29.70 Gastritis, unspecified, without bleeding; M19.90 Unspecified osteoarthritis, unspecified site; M81.0 Age-related osteoporosis without current pathological fracture; K70.30 Alcoholic cirrhosis of liver without ascites; K21.9 Gastro-esophageal reflux disease without esophagitis; I25.82 Chronic total occlusion of coronary artery; I08.1 Rheumatic disorders of both mitral and tricuspid valves; I27.20 Pulmonary hypertension, unspecified; I70.1 Atherosclerosis of renal artery; E78.00 Pure hypercholesterolemia, unspecified; M25.462 Effusion, left knee; K59.00 Constipation, unspecified; I15.9 Secondary hypertension, unspecified; Z91.81 History of falling; Z79.01 Long term (current) use of anticoagulants; Z79.02 Long term (current) use of antithrombotics/antiplatelets; Z79.52 Long term (current) use of systemic steroids; Z95.818 Presence of other cardiac implants and grafts; Z87.891 Personal history of nicotine dependence; Z86.73 Personal history of transient ischemic attack (TIA), and cerebral infarction without residual deficits; R29.711 NIHSS score 11; F32.A Depression, unspecified; L89.152 Pressure ulcer of sacral region, stage 2; E87.6 Hypokalemia
CPT/HCPCS: 36600; 70450; 70553; 71045; 71046; 71101; 72156; 73564; 73721; 74018; 74019; 74181; 76705; 80048; 80053; 80061; 80076; 80202; 81003; 81015; 82010; 82024; 82140; 82248; 82533; 82607; 82728; 82746; 82805; 82962; 83036; 83540; 83550; 83605; 83690; 83735; 84100; 84484; 85014; 85018; 85025; 85027; 85384; 85610; 85730; 86022; 86850; 86900; 86901; 86920; 87040; 87086; 87147; 87154; 87186; 87205; 92526; 92610; 93005; 93306; 93458; 93880; 95816; 97163; 97164; 97167; 97168; 97530; 97535; 99285; A9575; C1760; C1894; P9016; Q9967